=== PATIENT | female | born 1960 | race Caucasian/White ===

== ENCOUNTER → 2019-03-30 12:56 | Outpatient (CLI) | payer OTHER, SELFPAY ==
[2016-03-18 14:30] VITALS: BMI 39.3
[2019-03-28 14:33] VITALS: BMI 43.5
--- NOTE | 2019-03-30 12:58 | ECHOCS_ITS ---
Reason For Study: CHEST PAIN Procedure This was a 2D Doppler, Color Flow transthoracic echocardiogram. Contrast injection was performed. Exam performed in department. Left Ventricle Moderately dilated left ventricle. Apical false tendon noted. The estimated ejection fraction is 35 %. Stage 1 diastolic dysfunction. There are regional wall motion abnormalities as specified. Right Ventricle Normal size and thickness. Normal systolic function. Atria The left atrium is mildly enlarged. Normal right atrium. Normal atrial septum. Mitral Valve The mitral valve is structurally normal. No prolapse or stenosis seen. Tricuspid Valve Normal tricuspid valve. Unable to estimate RV systolic pressure due to insufficient tricuspid regurgitant envelope. Aortic Valve Normal aortic valve. Trisinus/trileaflet aortic valve. Pulmonic Valve Normal pulmonic valve. Great Vessels Normal aortic root. Normal arch. Normal inferior vena cava. Inferior vena cava collapse with sniff. Pericardium/Pleural No pericardial effusion. Medication 22 gauge I.V. with prn adaptor inserted into right arm. Diluted definity 3.5ml given slow IV push to enhance endocardial definition. MMode/2D Measurements & Calculations LVIDd: 5.1 cm IVSd: 0.94 cm Ao root diam: 2.9 cm LVIDs: 3.5 cm LVPWd: 1.1 cm RVDd: 2.9 cm FS: 31.5 % LAV(MOD-bp): 72.3 ml LA A4 area: 21.0 cm2 LA dimension(2D): 4.2 cm LAV(MOD-bp) Indexed: 35.6 ml/m2 LAV(MOD-sp2): 67.5 ml LAV(MOD-sp4): 72.4 ml RA A4 area: 11.3 cm2 Time Measurements MV dec time: 0.22 sec Doppler Measurements & Calculations MV E max shaan: 97.5 cm/sec Lat Peak E' Shaan: 4.0 cm/sec Med Peak E' Shaan: 4.8 cm/sec MV A max shaan: 129.3 cm/sec E/E' lat: 24.4 E/E' med: 20.1 MV E/A: 0.75 Ao V2 max: 165.9 cm/sec LV V1 max: 93.7 cm/sec PA V2 max: 91.0 cm/sec Ao max P.0 mmHg LV V1 max P.5 mmHg Ao V2 mean: 122.5 cm/sec LV V1 mean P.8 mmHg Ao mean P.5 mmHg LV V1 mean: 64.6 cm/sec Ao V2 VTI: 37.7 cm LV V1 VTI: 19.7 cm Interpretation Summary Moderately dilated left ventricle. The estimated ejection fraction is 35 %. Stage 1 diastolic dysfunction. There are regional wall motion abnormalities as specified. The left atrium is mildly enlarged. Apical false tendon noted. Unable to estimate RV systolic pressure due to insufficient tricuspid regurgitant envelope. Compared to echo report dated 10/22/2016, LV function has remained the same as have regional wall motion normalities. The study was technically difficult. Contrast injection was performed. Ordering Physician: Star Song Referring Physician: Star Song Performed By: Ayehsa Chowdhury RDCS, RVT
[2019-03-30 15:56] LABS: AST(SGOT) 17 U/L (15-37); Alanine Aminotransfer ALT/SGPT 27 U/L (13-56); Albumin, Serum 3.6 g/dL (3.2-5.0); Alkaline Phosphatase 92 U/L (45-117); Bilirubin, Direct 0.12 mg/dL (0.00-0.30); Cholesterol 167 mg/dL (200); Globulin 3.6 g/dL (2.2-4.2); High Density Lipoprotein 67 mg/dL; Protein, Total 7.2 g/dL (6.4-8.2); Triglycerides 96 mg/dL; Very Low Density Lipoprotein 19 mg/dL (5-40)
== END ==
PROVIDERS: Family Provider Nurse Practitioner; PCP Nurse Practitioner; Referring Provider Internal Medicine Cardiovascular Disease; Visit Provider Internal Medicine Cardiovascular Disease
DX: R07.9 Chest pain, unspecified (principal); E78.00 Pure hypercholesterolemia, unspecified; I25.10 Atherosclerotic heart disease of native coronary artery without angina pectoris; I25.2 Old myocardial infarction; Z95.810 Presence of automatic (implantable) cardiac defibrillator; Z95.5 Presence of coronary angioplasty implant and graft
CPT/HCPCS: 36415; 80061; 80076; 93306; Q9957; A4216; C8929

== ENCOUNTER → 2019-04-01 11:53 | Outpatient (CLI) | payer OTHER, SELFPAY ==
[2016-03-18 14:30] VITALS: BMI 39.3
[2019-03-28 14:33] VITALS: BMI 43.5
--- NOTE | 2019-04-01 11:54 | STEWCON_ITS ---
Reason For Study: Chest Pain Stress Results Protocol: Abram Protocol WITH DEFINITY Maximum Predicted HR: 163 bpm Target HR: 139 bpm % Maximum Predicted HR: 85 % DurationHeart Rate Stage (mm:ss) (bpm) BP Comment Baseline 66 100/62No Chest Pain; 8 ML Diluted Definity Given Abram Protocol Stage I 3:00 104 110/60No Chest Pain; Mild Dyspnea Abram Protocol Stage II 2:37 139 124/72No Chest Pain; Moderate Dyspnea Recovery 94 130/60No Chest Pain; No Dyspnea Stress Duration: 5:37 mm:ss Maximum Stress HR: 139 bpm METS: 7 Baseline Echocardiogram Findings The estimated ejection fraction is 25 %. Stress Echo Wall motion Data Resting WM Intermediate WM Stress WM Resting Wall Motion Wall Motion Stress Mid-Anterior : Akinetic. No regional wall motion Mid-Lateral : Akinetic. abnormalities noted. Anterior [place] : Dyskinetic. Inferior [place] : Hypokinetic. EKG Data The baseline ECG displays normal sinus rhythm. The patient exercised according to the regular Abram protocol for a total duration of 5:37. The maximum heart rate attained was 139 beats per minute. This was 85% of maximum predicted heart rate. The patient exercised into stage 2 of the Abram protocol. During stress, there were no ST or T wave changes noted to suggest ischemia. No clinical angina was noted. Interpretation Summary The estimated ejection fraction is 25 %. Normal, adequate, treadmill echocardiogram. Negative for ischemia by EKG and echocardiographic criteria. Patient at baseline severe anterior apical akinesis, with overall EF around 25%. All castañeda appear to contract normally at peak exercise. Below average exercise capacity for age. Decreased sensitivity due to poor baseline LV function and need for Definity agent. Final LVEF about 30%. Test terminated due to dyspnea. Patient tolerated procedure well. No complications. Recommend clinical correlation or alternative mode testing of coronary occlusive disease is strongly suspected. The study was technically difficult. Contrast injection was performed. Ordering Physician: Song, Star Referring Physician: Tejal Maciel N.P. Performed By: Emerson Sanchez RCS
== END ==
PROVIDERS: Family Provider Nurse Practitioner; PCP Nurse Practitioner; Referring Provider Internal Medicine Cardiovascular Disease; Visit Provider Internal Medicine Cardiovascular Disease
DX: I25.10 Atherosclerotic heart disease of native coronary artery without angina pectoris (principal); I25.5 Ischemic cardiomyopathy; R07.9 Chest pain, unspecified; Z95.5 Presence of coronary angioplasty implant and graft
CPT/HCPCS: 93017; 93350; Q9957; A4216; C8928

== ENCOUNTER → 2019-04-05 09:53 | Outpatient (CLI) | payer OTHER, SELFPAY ==
[2019-04-05 09:48] VITALS: BMI 39.3
[2019-04-05 09:51] VITALS: BMI 43.5
--- NOTE | 2019-04-05 10:11 | RAD_ITS ---
STUDY: X-RAY CHEST REASON FOR EXAM: Female, 58 years old. Hypertension. GETTING HEART CATH ON THURSDAY. TECHNIQUE: Frontal and lateral views of the chest. COMPARISON: 03/17/2016. FINDINGS: The lungs are clear and expanded. There is no demonstrated pleural abnormality. Normal size heart. Defibrillator lead is seen in the chest wall over the left heart. Normal mediastinum and jessica. Normal visualized pulmonary arteries. Normal visualized aortic arch and descending thoracic aorta. Normal visualized thoracic spine. Normal visualized ribs, clavicles, and shoulders. There is no demonstrated abnormality of the visualized soft tissue structures of the upper abdomen. RAD/Chest PA and Lateral IMPRESSION: No acute chest disease. Electronically Signed: Florentino Malagon MD at 22:00 EST , Service support ,
[2019-04-05 10:51] LABS: Hematocrit 39.5 % (37-47); Hemoglobin 12.7 g/dL (12.0-15.0); Mean Corp Hgb Conc 32.2 g/dL (32-36); Mean Corpuscular Hgb 28.8 pg (27.0-32.0); Mean Corpuscular Volume 89.6 fL (81-99); Mean Platelet Vol. 10.4 fl (6.2-12.0); Platelet Count 245 K/mm3 (150-450); RBC Distribution Width CV 14.3 % (11.6-14.6); RBC Distribution Width SD 46.9 fl (35.1-43.9); Red Blood Count 4.41 M/mm3 (4.2-5.4); White Blood Count 9.6 K/mm3 (4.4-11.0)
[2019-04-05 10:52] LABS: International Normalized Ratio 1.2; Partial Thromboplast Time 25.5 Seconds (24.1-36.2); Prothrombin Time (Protime)PT. 14.5 SECONDS (11.7-14.9)
[2019-04-05 11:05] LABS: Anion Gap 4 (5-15); BUN 12 mg/dL (7-18); BUN/Creat Ratio 14.7 RATIO (10-20); Chloride 109 mmol/L (98-107); Creatinine, Serum 0.82 mg/dL (0.55-1.02); EST Glomerular Filtration Rate 76 mL/min (>60); Est Glom Filt Rate - Afr Amer 92 mL/min (>60); Glucose 101 mg/dL (74-106); Potassium 4.6 mmol/L (3.5-5.1); Sodium Level 139 mmol/L (136-145)
== END ==
PROVIDERS: Family Provider Nurse Practitioner; PCP Nurse Practitioner; Referring Provider Internal Medicine Cardiovascular Disease; Visit Provider Internal Medicine Cardiovascular Disease
DX: R07.9 Chest pain, unspecified (principal); I25.10 Atherosclerotic heart disease of native coronary artery without angina pectoris; Z95.810 Presence of automatic (implantable) cardiac defibrillator
CPT/HCPCS: 36415; 71046; 80048; 85027; 85610; 85730

== ENCOUNTER 2019-04-08 07:04 | Day surgery (SDC) | payer OTHER, SELFPAY ==
[2016-03-18 14:30] VITALS: BMI 39.3
[2019-03-28 14:33] VITALS: BMI 43.5
[2019-04-05 09:51] VITALS: BMI 43.5
[2019-04-07 07:40] VITALS: BMI 43.5
[2019-04-08 06:56] VITALS: BMI 43.5
--- NOTE | 2019-04-08 08:49 | PCM.HP.BLA ---
Problem List (1) Chest pain Status: Acute (2) Old myocardial infarction Status: Acute (3) Atherosclerotic heart disease of [place] coronary artery without angina pectoris Status: Chronic Qualifiers: Comment: PCI-DAYTON-LAD 2.5 mm x 38 mm 03/18/16 (4) HTN (hypertension), benign Status: Chronic (5) Hyperlipidemia Status: Chronic Qualifiers: (6) Implantable cardioverter-defibrillator (ICD) in situ Status: Chronic (7) Ischemic cardiomyopathy Status: Chronic History and Physical Date of Admission: 04/08/19 [facility] [address] [place] [address] OFFICE VISIT Date of Service: 03/28/19 MR#: [id number] Acct: [id number] Name: GONZÁLEZ RAGSDALE Rep #: [id number] : 1960 Provider: Star Song MD Age/Sex: 58/F Location: [facility] Status: Signed HPI HPI History of Present Illness Details: Details: Ms. Ragsdale is a very pleasant 58-year-old female, morbidly obese, nondiabetic, who presented to [facility] on 03/18[facility]16 with more than 48 hour history of substernal chest pain and left arm pain. An EKG at that time demonstrated normal sinus rhythm with extensive Q waves with intraventricular conduction delay across the anterior wall concomitant with ST elevation indicating a delayed presentation of anterior wall myocardial infarction. [facility] was [facility] to [facility] by Dr. Veliz on 03/18/16 which demonstrated an occluded LAD. Patient underwent emergent angioplasty and stenting receiving a 2.5X 38 Promus Synergy stent, postdilated in the middle part with a 2.75 mm balloon, and in the proximal part with a 3.0 noncompliant balloon. She was also found to have nonobstructive disease of her RCA in the range of 30-40% proximally and 40-50% in the midportion. Her EF at that time was 35%. Patient was medically managed and placed on a LifeVest which had no discharges. A nuclear stress test dated 05/02/2016 showed extensive anterior wall infarction with an overall EF around 50%. Her repeat echocardiogram dated 10/22/16 showed an EF of 35% with no improvement since February 2016. The patient was referred to [facility] with Dr. Sanchez where she underwent a subcutaneous AICD for primary prophylaxis of sudden cardiac . Patient now returns for routine follow-up. She states that she has had occasional sharp atypical midsternal chest pain, over the last 2 weeks or so dissimilar from her previous angina which was in her left shoulder. Of more importance, the patient complains of progressively worsening fatigue, shortness of breath and is unable to go as far she did 6 months ago. She is compliant with her medications. She has had no AICD discharges. In our office today her blood pressure is 109/72, pulse is 70 and regular. Her physical exam shows well-healed scars over her left chest area over the subcutaneous device, no infection, tenderness, redness or hematoma. Her lipids as of 05/02/16 show an HDL of 60 and an LDL of 63. Her lipids had been managed by Yasmin Cordoba. EKG dated 03/28/2019 shows normal sinus rhythm/sinus bradycardia, first-degree AV block, old patricio-lateral wall myocardial infarction, no acute changes. 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 [Ecotrin] 81 mg PO DAILY@0800 #30 tab 03/20/16 [Rx Confirmed 03/21/19] atorvastatin 40 mg tablet 40 mg PO QHS #90 tab 02/09/18 [Rx Confirmed 03/21/19] carvedilol 3.125 mg tablet 3.125 mg PO BID #180 tab 02/09/18 [Rx Confirmed 03/21/19] furosemide 20 mg tablet 20 mg PO QDAY PRN tab 02/09/18 [History Confirmed 03/21/19] potassium chloride 10 mEq tablet,extended release 10 meq PO QDAY PRN tab 02/09/18 [History Confirmed 03/21/19] lisinopril 5 mg tablet 5 mg PO QDAY #90 tab 05/06/18 [Rx Confirmed 03/21/19] clopidogrel 75 mg tablet 75 mg PO .COMPLEX #90 tab 09/27/18 [Rx Confirmed 03/21/19] PFSH Medical History Hyperlipidemia (Chronic) Old myocardial infarction (Acute) Atherosclerotic heart disease of [place] coronary artery without angina pectoris (Chronic) Ischemic cardiomyopathy (Chronic) HTN (hypertension), benign (Chronic) NSTEMI (non-ST elevated myocardial infarction) (Chronic) Depression (Chronic) Nicotine dependence (Resolved) Surgical History Stented coronary artery (Chronic) Implantable cardioverter-defibrillator (ICD) in situ (Chronic 04/30/17) S/P coronary artery stent placement (Chronic ~03/18/16) History of section (Resolved) Hx of appendectomy (Resolved) Family History Mother CAD (coronary artery disease) Hx of CABG, Onset Age: 50 Diabetes Father Cancer lung Social History (Updated 03/28/19 @ 14:53 by Star Song MD) Smoking Status: Former smoker quit date: 02/21/16 alcohol intake: current details: occasional glass of wine substance use type: does not use caffeine: Yes Type: coffee Number of servings: 2 ROS Const Const: Negative for fatigue, weakness, headache(s), frequent falls, night sweats, daytime sleepiness or excessive sweating Eyes Eyes: Negative for blind spots, loss of peripheral vision, transient loss of vision, blurry vision or double vision ENT ENT: Negative for headache(s), dizziness, Nosebleed/epistaxis, balance problems, lip swelling or tongue swelling Cardio Chest Pain: No Palpitations: No Edema: None Muscle aches with walking: None Resp Respiratory: Negative for SOB with activity, SOB at rest, SOB orthopnea\SOB lying down, Cough or paroxysmal nocturnal dyspnea GI GI: Negative nausea, vomiting, heartburn, bright, red blood in stools or black,tarry stools : Negative for hematuria Musc Musc: Negative for muscle aches/ myalgia, muscle weakness, joint pain or balance problems Skin Skin: Negative non-healing lesions, rash or unusual bruising Neuro Neuro: Negative for dizziness, lightheadedness, orthostatic symptoms, frequent falls, headache(s), weakness, blurry vision, double vision or lack of coordination Alhaji Hematologic/Lymphatic: Negative for easy bleeding or easy bruising Endo Endo: Negative for fatigue, cold intolerance, heat intolerance, excessive sweating, increased thirst/drinking or hair loss Psych Psych: Negative for anxiety or depression Allergy Allergy/Immunology: Negative for throat swelling, Negative for tongue swelling, Negative for hives, Negative for rash, Negative for lip swelling Cardiology Exam Const Appearance: cooperative, healthy appearing and no acute distress Nutritional Appearance: well nourished Orientation: alert, oriented x3 and oriented to person Head Head: normal to inspection, normocephalic and atraumatic Nose: external nose normal Face and Sinus: face symmetric Mouth: oral mucosae normal Eyes General: appearance normal, both eyes and all related structures Eyelids: eyelids normal Conjunctivae: conjunctivae normal Pupils: PERRL and normal by confrontation EOM: EOM intact bilaterally Neck Neck: normal visual inspection and full ROM Carotids: normal carotid upstroke Chest Chest inspection: normal inspection of the chest Auscultation: Bilateral: Clear to Auscultation Cardio Palpation: normal PMI Rate: regular rate Rhythm: regular rhythm Heart sounds: S1 normal and S2 normal GI GI: normal to inspection, no hepatosplenomegaly and bowel sounds present Neuro General: alert, awake, oriented x3, CN's II-XI intact bilaterally and moves all extremities Skin Skin: no rashes or lesions noted Extremities Pulses: Normal: Right Femoral Pulse, Left Femoral Pulse, Right Dorsalis Pedis Pulse, Left Dorsalis Pedis Pulse, Right Posterior Tibial Pulse, Left Posterior Tibial Pulse, Right Radial Pulse, Left Radial Pulse Lower Extremity Edema: None: Bilateral Psych Psychological: normal affect Assessment & Plan 1. Atherosclerosis of [place] coronary artery of [place] heart without angina pectoris I25.10 PCI-DAYTON-LAD 2.5 mm x 38 mm 03/18/16 Plan 1. Coronary artery disease: The patient now complains of nonexertional midsternal chest pain which is described as sharp, but more importantly complains of dyspnea on exertion, decreased exercise capacity, increasing fatigue with less and less exertion. This may be an anginal equivalent given the patient's history of other nonobstructive coronary disease in her RCA. I recommended the patient undergo a repeat 2D echo with Doppler to document whether her LV function has in any way improved and more importantly a treadmill echocardiogram to determine if she has any evidence of inferior lateral ischemia. If this is grossly abnormal, I would recommend a repeat catheterization to assess progression of disease in her right coronary artery as well as the patency of her LAD stents. In the meantime she will continue baby aspirin, Plavix, Coreg, Lasix and lisinopril and potassium supplementation. Orders Orders: Echo Complete Today Stress Test Echo w/o Contrast Today 2. Pure hypercholesterolemia E78.00 Plan 2. Hyperlipidemia: The patient is agreed to transfer her lipid care to our office, and recommend repeating lipid profile. Continue Lipitor. 3. Return office in 6 months. This note was generated using a voice recognition system and there may be incorrect words, spelling or punctuation that were not noted when reviewing the office note prior to saving. Orders Orders: Lipid Profile 1 Week Liver Profile 1 Week Plan Detail Other Orders Orders: 12 Lead EKG performed by [facility] Today R07.9 Echo Complete Today I25.2, R07.9, Z95.5, Z95.810 Stress Test Echo w/o Contrast Today I25.5, R07.9, Z95.5 Follow Up +6M (Song) Coding Level of Care Code Off vis,est,level 3 Diagnoses Atherosclerosis of [place] coronary artery of [place] heart without angina pectoris I25.10 ??[place] vs. transplanted heart: [place] heart Pure hypercholesterolemia E78.00 ??Hyperlipidemia type: pure hypercholesterolemia Coding Level of Care Code Off vis,est,level 3 Diagnoses Atherosclerosis of [place] coronary artery of [place] heart without angina pectoris I25.10 ??[place] vs. transplanted heart: [place] heart Pure hypercholesterolemia E78.00 ??Hyperlipidemia type: pure hypercholesterolemia Supplemental Info Supplemental Information Labs LDL Cholesterol 63 mg/dL (0-130) 05/02/16 HDL Cholesterol 60 mg/dL (40-) 05/02/16 Triglycerides 137 mg/dL (-199) 05/02/16 VLDL Cholesterol 27 mg/dL (5-40) 05/02/16 Diagnostics Electrocardiogram 03/20/16 Stress Test Nuclear Medicine 05/02/16 Pacemaker Check 12/23/18 Chest X-Ray 03/17/16 03/28/19 1453 <Electronically signed by Star Song MD> Date Star Song MD Cosigner Signature: Date (if applicable) CC: ROBERT Maciel ~ Interventional cardiology addendum: The patient seen and examined on the day of her procedure, and the risk/benefits of the procedure were thoroughly explained the patient including specific attention to lack of onsite surgical backup, and the patient is agreed to proceed. Left heart catheterization results to follow.
--- NOTE | 2019-04-08 09:14 | CL.D_ITS ---
Patient Name: GONZÁLEZ RAGSDALE Study Date: 04/08/2019 Performing: Star Song MD Ht: 61.81 inches 157 cm : 1960 Wt: 238.1 lbs 108 kg Age: 58 Gender: female BSA: 2.05 PROCEDURE(S) PERFORMED [id number]-BZC/COR/LV CLINICAL PROFILE AND INDICATIONS Indications: New Onset Angina <= 2 months, Stable Known CAD, LV Dysfunction Heart Failure: NYHA Class: 1, Newly Diagnosed: No, Heart Failure Type: Systolic Stress/Imaging Date: 04/01/2019 Angina Classification Anginal Classification w/in 2 Weeks: CCS IV Comorbidities/Risk Factors: Hypertension Dyslipidemia Prior LA Prior PCI CONCLUSIONS Segmented LV systolic dysfunction- Severe LVEF: by LV gram 35-40 % Non obstructive coronary arteries RECOMMENDATIONS Management as per referring Reed Cleaner Increase lisinopril to 10mg po bid. Reduce plavix to QOD. Manual sheath removal. DESCRIPTION OF PROCEDURE The patient arrived to the procedure lab. The risks and benefits of the procedure as well as a full d escription of our services here and current unavailability of surgical backup were fully explained to the patient and/or their significant other prior to the catheterization. The Timeout was completed, verifying the correct patient and procedure. The patient's procedural site was prepped and draped in the usual fashion. Local anesthetic was given subcutaneously to right groin region with Lidocaine 2%. Using a modified Seldinger technique, arterial access was obtained via the right femoral artery, a 4 Fr sheath was inserted Left Coronary Artery selective angiography was performed in multiple views us ing a 4 Fr. JL5 catheter. Right Coronary Artery selective angiography was then performed in multiple views using a 4 Fr. 3DRC catheter. Left Ventriculography was performed in SERVIN projection using a 4 Fr . Pigtail catheter. LV to AO pullback pressures were then recorded.The arterial sheath was pulled and manual compression applied until hemostasis is achieved. CORONARY ANGIOGRAPHY DOMINANCE: Right Dominant LEFT HEART ASSESSMENT Left Ventricular Ejection Fraction: by LV Gram 35-40 % Anterior Akinesis. Apical Akinesis. Inferior Apical Akinesis LVEDP: 20 mmHg Elevated Left Ventricular End Diastolic Pressure Depressed Left Ventricular systolic function LEFT MAIN: Angiographically normal LEFT ANTERIOR DESCENDING ARTERY: PROX LAD: Previously placed stent has an instent 10 % restenosis CIRCUMFLEX ARTERY: Angiographically normal RIGHT CORONARY ARTERY: MID RCA: Mild luminal irregularities less than 30% RT PDA: Proximal - Angiographically normal COMPLICATIONS No Complications PROCEDURE MEDICATIONS Oxygen: 2 L/min via nasal cannula SUMMARY OF HEMODYNAMIC DATA Time AIR REST ECG 07:49:21 AO 127/68 (93) SA 08:56:11 LV 129/-2, 26 09:01:32 LV 138/-5, 24 09:01:38 LVp 133/-11, 20 09:01:42 AOp 124/57 (85) 09:01:47 Signed By Star Song MD On 04/08/2019 9:13:47 AM Star Song MD
== END 2019-04-08 13:45 | disposition home or self-care (01) ==
PROVIDERS: PCP Nurse Practitioner; Referring Provider Internal Medicine Cardiovascular Disease; Visit Provider Internal Medicine Cardiovascular Disease
DX: I25.10 Atherosclerotic heart disease of native coronary artery without angina pectoris (principal); E78.00 Pure hypercholesterolemia, unspecified; E78.5 Hyperlipidemia, unspecified; Z87.891 Personal history of nicotine dependence; Z95.5 Presence of coronary angioplasty implant and graft; I25.2 Old myocardial infarction; F32.9 Major depressive disorder, single episode, unspecified; I25.5 Ischemic cardiomyopathy; Z95.810 Presence of automatic (implantable) cardiac defibrillator; E66.01 Morbid (severe) obesity due to excess calories; Z68.41 Body mass index [BMI] 40.0-44.9, adult; Z79.02 Long term (current) use of antithrombotics/antiplatelets; Z79.82 Long term (current) use of aspirin; I10 Essential (primary) hypertension
CPT/HCPCS: 93458; J7040; Q9967; C1769; C1894

== ENCOUNTER 2020-05-25 18:47 | Emergency (ER) | payer OTHER, SELFPAY ==
[2019-04-05 09:48] VITALS: BMI 39.3
[2020-05-25 18:47] VITALS: BP 153/81; PULSE 98; RESP 17; TEMP 36.3; O2SAT 97; BMI 45.8
--- NOTE | 2020-05-25 19:07 | ED.DCSUM_ITS ---
- ER Visit Summary Date of Service: 05/25/20 Chief Complaint: Left shoulder pain History of Present Illness: The patient is a 60 F presenting after fall. Patient states she was carrying a basket of clothes in her basement and slipped and fell. She landed on her left shoulder. She did not hit her head or lose consciousness. She complains of left shoulder pain. Denies other injuries. She was able to ambulate after the fall. Physical Examination: Vitals are stable. Patient is afebrile. Alert no acute distress. HEENT exam is unremarkable. Neck is nontender Lungs are clear and equal bilaterally. Heart is regular rate and rhythm. Abdomen is soft nontender nondistended. Extremities diffuse left shoulder tenderness with painful range of motion, mild left elbow tenderness. Left wrist is nontender. Normal pulses. Skin is warm and dry. No focal neurologic deficit. Remainder of exam is unremarkable. Emergency Department Course and Treatment: Patient was given OxyIR. Left shoulder x-ray read by myself and radiology shows comminuted nondisplaced proximal humeral fractures. Left elbow xray is extremely limited by positioning. On reexamination, she is able to range her left elbow without difficulty. She will follow-up with orthopedics. She is given prescription for Percocet. She was given a sling. Advised to return to the ED for worsening complaints. Disposition: Discharge home Impression: Left proximal humerus fracture This note was generated with Omegawave dictation software. It may contain incorrect words, spelling, and punctuation that were not noted in review of the chart prior to signing ED Disposition - Plan for ED Patient: Instructions: ED Fracture, Shoulder Prescriptions: Oxycodone HCl/Acetaminophen [Percocet 5/325] 1 tab PO Q6H PRN PRN 3 Days #12 tab PRN Reason: Pain Prescription Printed Referrals: Amilcar Munoz MD [STAFF PHYSICIAN] - Tejal Maciel NP, AIR POLLUTION ANALYST-C [Primary Care Provider] -
[2020-05-25] MEDS: oxyCODONE 5 MG Tablet PO (19:09)
--- NOTE | 2020-05-25 19:20 | RAD_ITS ---
STUDY: X-RAY - LEFT SHOULDER REASON FOR EXAM: Female, 60 years old. injury TECHNIQUE: 3 view(s) of the shoulder. COMPARISON: None. FINDINGS: Comminuted fractures are seen of the humeral head and through the anatomic neck of the humerus. No gross displacement of fragments. No dislocation. Normal glenohumeral articulation. There is degenerative arthrosis of the acromioclavicular joint without inferior osseous spur formation. Normal acromion. The soft tissue structures are unremarkable. Normal visualized pulmonary apex. RAD/Shoulder min 2 Views IMPRESSION: Comminuted nondisplaced proximal humeral fractures. Electronically Signed: Florentino Malagon MD at 19:30 EST , Service support ,
--- NOTE | 2020-05-25 19:39 | RAD_ITS ---
STUDY: X-RAY - LEFT ELBOW REASON FOR EXAM: Female, 60 years old. injury TECHNIQUE: 4 view(s) of the elbow. COMPARISON: None. FINDINGS: Extremely limited exam because of positioning and exposure. Fracture cannot be excluded. Dislocations cannot be excluded. RAD/Elbow min 3 Views IMPRESSION: Extremely limited by positioning. Cannot exclude fractures or dislocation. Electronically Signed: Florentino Malagon MD at 20:16 EST , Service support ,
--- NOTE | 2020-05-25 19:43 | DCINST.ED_ITS ---
ED Disposition - Plan for ED Patient: Instructions: ED Fracture, Shoulder Prescriptions: Oxycodone HCl/Acetaminophen [Percocet 5/325] 1 tab PO Q6H PRN PRN 3 Days #12 tab PRN Reason: Pain Prescription Printed Referrals: Tejal Maciel ENVIRONMENTAL EDUCATOR, ENVIRONMENTAL EDUCATOR-C [Primary Care Provider] - Amilcar Munoz MD [STAFF PHYSICIAN] -
[2020-05-25 20:54] VITALS: BP 114/77; PULSE 94; RESP 15; O2SAT 95
== END 2020-05-25 21:14 | disposition home or self-care (01) ==
LOC: ED 19:46
PROVIDERS: Emergency Provider Emergency Medicine; PCP Nurse Practitioner
DX: S42.202A Unspecified fracture of upper end of left humerus, initial encounter for closed fracture (principal); W01.0XXA Fall on same level from slipping, tripping and stumbling without subsequent striking against object, initial encounter
CPT/HCPCS: 73030; 73080; 99283

== ENCOUNTER → 2024-09-01 | Outpatient (CLI) | payer OTHER, SELFPAY ==
[2019-04-05 09:48] VITALS: BMI 39.3
--- OUTSIDE RECORDS SUMMARY | 2024-09-01 06:48 | XMS RPT_ITS | CCD ---
Author Organization [facility] Care Team Providers Care Pipe Turner Name Role Phone Adam Barreto Unavailable Unavailable SHELDON Velasco, Rachel Whaley Unavailable Unavailable SCHWEIKERT, JOSEPH A Unavailable Unavailable STAR NG Unavailable Unavailable SCHWEIKERT, JOSEPH A Unavailable Unavailable SCHWEIKERT, JOSEPH A Unavailable Unavailable IMCA Unavailable Unavailable SCHWEIKERT, JOSEPH A Unavailable Unavailable IMCA Unavailable Unavailable IMCA Unavailable Unavailable IMCA Unavailable Unavailable SCHWEIKERT, JOSEPH A Unavailable Unavailable SCHWEIKERT, JOSEPH A Unavailable Unavailable SCHWEIKERT, JOSEPH A Unavailable Unavailable STAR NG Unavailable Unavailable Tejal Maciel Unavailable Linus Hummel Unavailable Giuseppe Martinez Unavailable Swapna Don Unavailable Lacey Covarrubias Unavailable Unavailable Iris Garcia Unavailable Unavailable Slarb, Shweta Unavailable Unavailable Unavailable Unavailable Tejal Maciel Unavailable Linus Hummel Unavailable Giuseppe Martinez Unavailable Swapna Don Unavailable Lacey Covarrubias Unavailable Unavailable Slarb, Shweta Unavailable Unavailable Unavailable Unavailable Giuseppe Mendosa Unavailable Marielel Shook Unavailable Unavailable Tony Aguilar Unavailable Unavailable Tony Ron Unavailable Unavailable CiesTejal sunshine CNP Unavailable Dr. Giuseppe Mendosa MD Unavailable Linus Hummel Unavailable Dr. Giuseppe Martinez Unavailable Swapna Don Unavailable Asaf AUTO BODY REPAIRER FIBERGLASS, Tony Unavailable Unavailable Caren AUTO BODY REPAIRER FIBERGLASS, Shweta Unavailable Unavailable Boone AUTO BODY REPAIRER FIBERGLASS, Marielle Unavailable Unavailable Lacey Covarrubias Unavailable Unavailable Unavailable Unavailable Tejal Maciel Unavailable Tejal Maciel Unavailable Osmany VP MARKETING, Nedra Unavailable Osmany VP MARKETING, Nedra Unavailable Tejal Maciel Unavailable Osmany VP MARKETING, Nedra Attending Unavailable Osmany VP MARKETING, Nedra Consulting Unavailable Nedra Ceron CNP Referring Unavailable Jose Alfredo ARREDONDO, Dr. Parra Attending Provider Care Physician, No Primary Primary Care Provider Unavailable Care Physician, No Primary Referring Provider Un available Care Physician, No Primary Primary Care Unava ilable Care Physician, No Primary Referring Unava ilable Fidel Veliz Attending Unavailable Fidel Veliz Referring Unavailable Nedra Ceron Primary Care Unavailable Fidel Veliz Attending Unavailable Allergies Allergy Classification Reported Allergen(s) Allergy Type Date of Onset Reaction(s) Facility diphtheria toxoid vaccine, inactivated / tetanus toxoid vaccine, inactivated (1 source) diphtheria toxoid vaccine, inactivated / tetanus toxoid vaccine, inactivated; Translations: [Tetanus-Diphth eria Toxoids Td *TOXOIDS*] Drug Allergy [facility]; [facility] Work Phone: Comment on above: TDAP (2 sources) tetanus toxoid vaccine, inactivated Drug Allergy 7 nausea/ [facility] Work Phone: (2 sources) Tetanus vaccine; Translations: [TETANUS TOXOID] Propensity to adverse reactions (disorder) 7 [facility] Repository (20 sources) diphtheria toxoid vaccine, inactivated / tetanus toxoid vaccine, inactivated; Translations: [Tetanus-Diphth eria Toxoids Td *TOXOIDS*] Drug Allergy [facility] Work Phone: Comment on above: TDAP (1 source) allergy to substance [facility] Work Phone: (1 source) allergy to substance [facility] Work Phone: (20 sources) ?tetanus allergy to substance [facility] Work Phone: (1 source) tetanus and diphtheria toxoids Drug allergy (disorder) 5 [facility] Repository NEGATED: Highlighted row has been ruled out! (1 source) drug allergy 8 [facility] Work Phone: Medications Current Medications Medication Drug Class(es) Dates Sig (Normalized) Sig (Original) carvedilol 3.125 mg oral tablet (20 sources) alpha-Adrenergic Roel, beta-Adrenergic Roel Start: 05-08-2017 End: 01-11-2024 take 1 tablet by mouth twice daily Carvedilol 3.125 mg tablet Active 3.125 mg PO TWICE A DAY 180 January 11, 2024 10:14am Start: 04-15-2016 take 1 tablet by dread th twice daily CARVEDILOL 3.125 MG TABS One tablet by mouth twice daily CARVEDILOL [id number] Lilli Funez PA-C Start: 04-15-2016 take 1 tablet by dread th twice daily CARVEDILOL 6.25 MG TABS One tablet by mouth twice daily CARVEDILOL [id number] Mackenzie Nicholas RN Start: 03-20-2016 End: 05-08-2017 Carvedilol 3.125 MG tablet Discontinued 3.125 mg PO TWICE A DAY 60 March 20, 2016 1:00am May 08, 2017 5:43pm Hold if systolic blood pressure is less than 90 or heart rate less than 60 clopidogrel 75 mg oral tablet (20 sources) [id number] Platelet Inhibitor Start: 04-08-2019 End: 07-18-2024 take 1 tablet by mouth every other day Clopidogrel 75 mg tablet Active 75 mg PO .COMPLEX July 18, 2024 8:20am 75 mg orally every other day due to bruising; Start: 04-04-2019 End: 04-08-2019 take 1 tablet by mouth once daily Clopidogrel 75 mg tablet Discontinued 75 mg PO DAILY April 05, 2019 10:44am April 08, 2019 10:24am Start: 07-23-2017 End: 04-04-2019 take 1 tablet by mouth every other day Clopidogrel 75 mg tablet Discontinued 75 mg PO .COMPLEX 90 September 27, 2018 4:35pm April 04, 2019 4:06pm 75 mg PO every other day; Start: 03-20-2016 End: 07-23-2017 take 1 tablet by mouth once daily Clopidogrel 75 MG tablet Discontinued 75 mg PO DAILY May 08, 2017 5:42pm July 23, 2017 4:41pm Comment on above: Duncan furosemide 20 mg oral tablet (20 sources) Loop Diuretic Start: 8 End: 8 Furosemide 20 mg tablet Active 20 mg PO NEEDED as needed for Swelling February 09, 2018 4:33pm lisinopril 5 mg oral tablet (20 sources) Angiotensin Converting Enzyme Inhibitor Start: 0 End: 0 take 2 tablets by mouth twice daily Lisinopril 5 MG tablet Discontinued 10 mg PO TWICE A DAY April 08, 2019 2:30pm April 08, 2019 2:39pm Start: 05-06-2018 End: 12-30-2022 take 1 tablet by mouth once daily Lisinopril 5 mg tablet Active 5 mg PO DAILY December 30, 2022 10:23am Start: 02-09-2018 End: 02-09-2018 take 2.5 mg by mouth once daily Lisinopril 5 mg tablet Discontinued 2.5 mg PO daily February 09, 2018 4:34pm February 09, 2018 4:53pm Start: 01-27-2018 End: 05-06-2018 take 1 tablet by mouth once daily Lisinopril 2.5 mg tablet Discontinued 2.5 mg PO daily February 09, 2018 4:52pm May 06, 2018 4:04pm Start: 07-21-2017 End: 02-09-2018 take 1 tablet by mouth once daily Lisinopril 5 mg tablet Discontinued 5 mg PO daily September 17, 2017 1:14pm February 09, 2018 4:35pm Start: 04-15-2016 take 1 tablet by dread th once daily LISINOPRIL 5 MG TABS One tablet by mouth daily LISINOPRIL [id number] Star Ng MD Start: 03-20-2016 End: 07-21-2017 take 1 tablet by mouth once daily LISINOPRIL 2.5 MG TABS One tablet by mouth daily LISINOPRIL [id number] Star Ng MD potassium chloride 10 meq extended release oral tablet (3 sources) Start: 07-23-2017 End: 02-09-2018 Potassium Chloride 10 mEq tablet extended release Active 10 meq PO NEEDED as needed for Swelling February 09, 2018 4:34pm sertraline 100 mg oral tablet (20 sources) Serotonin Reuptake Inhibitor Start: 09-26-2022 take 2 tablets by mouth once daily Zoloft 100 mg oral tablet 2 Tablet qd for 0 days Quantity: 180 {Tablet} Refills: 3 Ordered: 26-Sep-2022 Nedra Ceron CNP Start : 26-Sep-2022 Active Start: 09-24-2022 take 2 tablets by mo uth once daily Zoloft 100 mg oral tablet 2 Tablet qd for 0 days Quantity: 30 {Tablet} Refills: 3 Ordered: 24-Sep-2022 Nedra Ceron CNP Start : 24-Sep-2022 Active Start: 09-08-2022 take 2 tablets by mo uth once daily Zoloft 100 mg oral tablet 2 Tablet qd for 0 days Quantity: 30 {Tablet} Refills: 3 Ordered: 08-Sep-2022 Nedra Ceron CNP Start : 08-Sep-2022 Active Start: 07-14-2022 take 2 tablets by mo uth once daily Zoloft 100 mg oral tablet 2 Tablet qd for 0 days Quantity: 30 {Tablet} Refills: 3 Ordered: 14-Jul-2022 Nedra Ceron CNP Start : 14-Jul-2022 Active Start: 05-22-2022 take 2 tablets by mo uth once daily Zoloft 100 mg oral tablet 2 Tablet qd for 0 days Quantity: 30 {Tablet} Refills: 3 Ordered: 22-May-2022 Nedra Ceron CNP Start : 22-May-2022 Active Start: 05-07-2022 take 2 tablets by mo uth once daily Zoloft 100 mg oral tablet 2 Tablet qd for 0 days Quantity: 30 {Tablet} Refills: 3 Ordered: 07-May-2022 Nedra Ceron CNP Start : 07-May-2022 Active Start: 04-21-2022 take 2 tablets by mo uth once daily Zoloft 100 mg oral tablet 2 Tablet qd for 0 days Quantity: 30 {Tablet} Refills: 3 Ordered: 21-Apr-2022 Nedra Ceron CNP Start : 21-Apr-2022 Active Start: 04-07-2022 take 2 tablets by mo uth once daily Zoloft 100 mg oral tablet 2 Tablet qd for 0 days Quantity: 30 {Tablet} Refills: 3 Ordered: 07-Apr-2022 Nedra Ceron CNP Start : 07-Apr-2022 Active Start: 03-10-2022 take 2 tablets by mo uth once daily Zoloft 100 mg oral tablet 2 Tablet qd for 0 days Quantity: 30 {Tablet} Refills: 3 Ordered: 10-Mar-2022 Nedra Ceron CNP Start : 10-Mar-2022 Active Start: 02-26-2022 take 2 tablets by mo uth once daily Zoloft 100 mg oral tablet 2 Tablet qd for 0 days Quantity: 30 {Tablet} Refills: 3 Ordered: 26-Feb-2022 eNdra Ceron CNP Start : 26-Feb-2022 Active Start: 02-10-2022 take 2 tablets by mo uth once daily Zoloft 100 MG Oral Tablet 2 Tablet qd for 0 days Quantity: 30 {Tablet} Refills: 3 Ordered: 10-Feb-2022 Nedra Ceron CNP Start : 10-Feb-2022 Active Start: 01-23-2022 take 2 tablets by mo uth once daily Zoloft 100 MG Oral Tablet 2 Tablet qd for 0 days Quantity: 30 {Tablet} Refills: 3 Ordered: 23-Jan-2022 Nedra Ceron CNP Start : 23-Jan-2022 Active Start: 12-18-2021 take 2 tablets by mo uth once daily Zoloft 100 MG Oral Tablet 2 Tablet qd for 0 days Quantity: 30 {Tablet} Refills: 3 Ordered: 01-Jan-2022 Shweta Fabian LPN Start : 01-Jan-2022 Active Start: 07-18-2021 take 2 tablets by mo uth once daily Zoloft 100 MG Oral Tablet 2 Tablet qd for 0 days Quantity: 90 {Tablet} Refills: 0 Ordered: 18-Jul-2021 Noemi Diaz DO Start : 18-Jul-2021 Active Comments: pt needs appointment before more refills Start: 01-15-2021 take 2 tablets by mo uth once daily Zoloft 100 MG Oral Tablet 2 Tablet qd for 0 days Quantity: 90 {Tablet} Refills: 3 Ordered: 15-Jan-2021 Tejal Maciel CNP E Raheem ULRICH, Tejal Jack Start : 15-Jan-2021 Active Start: 09-22-2020 take 2 tablets by mo uth once daily Zoloft 100 MG Oral Tablet 2 Tablet qd for 0 days Quantity: 90 {Tablet} Refills: 3 Ordered: 22-Sep-2020 Raheem ULRICH, Ning Raheem ULRICH, Tejal Jack Start : 22-Sep-2020 Active Start: 04-01-2020 take 2 tablets by mo uth once daily Zoloft 100 MG Oral Tablet 2 Tablet qd for 0 days Quantity: 90 {Tablet} Refills: 3 Ordered: 01-Apr-2020 Raheem ULRICH, Ning Raheem ULRICH, Tejal Jack Start : 01-Apr-2020 Active Start: 03-09-2019 take 2 tablets by mo uth once daily Zoloft 100 MG Oral Tablet 2 Tablet qd for 0 days Quantity: 90 {Tablet} Refills: 3 Ordered: 09-Mar-2019 Raheem ULRICH, Ning Raheem ULRICH, Tejal Jack Start : 09-Mar-2019 Active Start: 09-19-2018 take 2 tablets by mo uth once daily Zoloft 100 MG Oral Tablet 2 Tablet qd for 0 days Quantity: 90 {Tablet} Refills: 3 Ordered: 19-Sep-2018 Tejal Maciel CNP E Raheem ULRICH, Tejal Jack Start : 19-Sep-2018 Active Comments: Needs to make apt with primary care for additional renewals Start: 03-21-2018 take 2 tablets by mo uth once daily Zoloft 100 MG Oral Tablet 2 Tablet qd for 0 days Quantity: 90 {Tablet} Refills: 3 Ordered: 21-Mar-2018 Raheem ULRICH, Ning Tejal Maciel CNP Start : 21-Mar-2018 Active Comments: Needs to make apt with primary care for additional renewals Start: 09-09-2017 take 2 tablets by mo uth once daily Zoloft 100 MG Oral Tablet 2 Tablet qd for 0 days Quantity: 90 {Tablet} Refills: 3 Ordered: 09-Sep-2017 Raheem ULRICH, Ning Raheem ULRICH, Tejal Jack Start : 09-Sep-2017 Active Comments: Needs to make apt with primary care for additional renewals Start: 03-17-2016 take 2 tablets by mo uth once daily SERTRALINE HCL 100 MG TABS Two tablet by mouth daily SERTRALINE HCL [id number] Lilli Ramirez RN Comment on above: Needs to make apt [facility] primary care for additional renewals pt needs appointment before more refills Completed/Discontinued Medications Medication Drug Class(es) Dates Sig (Normalized) Sig (Original) acetaminophen 325 mg / oxyCODONE hydrochloride 5 mg oral tablet (1 source) Opioid Agonist Start: 05-25-2020 End: 05-28-2020 Oxycodone-Acetamin ophen 1 TABLET tablet Discontinued 1 {tbl} PO EVERY 6 HOURS NEEDED as needed for Pain 02 22May 25, 2020 May 27, 2020 1:00am May 28, 2020 1:03am amoxicillin 500 mg oral tablet (3 sources) Penicillin-class Antibacterial Start: 10-30-2016 End: 01-30-2017 take 1 tablet by mouth twice daily AMOXICILLIN 500 MG TABS One tablet by mouth twice daily AMOXICILLIN [id number] Star Ng MD amoxicillin 500 mg / clavulanate 125 mg oral tablet (20 sources) Penicillin-class Antibacterial Start: 03-06-2020 End: 03-20-2020 take 1 tablet by mouth twice daily Augmentin 500-125 MG Oral Tablet 1 (one) Tablet bid for 14 days Quantity: 28 {Tablet} Refills: 0 Ordered: 06-Mar-2020 Tejal Maciel Start : 06-Mar-2020 End : 20-Mar-2020 Inactive Start: 07-04-2019 End: 07-18-2019 take 1 tablet by mouth twice daily Augmentin 500-125 MG Oral Tablet 1 (one) Tablet bid for 14 days Quantity: 28 {Tablet} Refills: 0 Ordered: 04-Jul-2019 Tejal Maciel CNP, CNP, Mary E Start : 04-Jul-2019 End : 18-Jul-2019 Inactive aspirin 81 mg chewable tablet (20 sources) Nonsteroidal Anti-inflammatory Drug Start: 01-27-2018 End: 02-26-2018 take 1 tablet by mouth once daily Aspirin 81 81 MG Oral Tablet Chewable 1 (one) Tablet daily for 30 days Quantity: 30 {Tablet} Refills: 0 Ordered: 21-Mar-2018 Tejal Maciel Start : 27-Jan-2018 End : 26-Feb-2018 Inactive Start: 03-20-2016 take 1 tablet by dread once daily ASPIRIN EC 81 MG TBEC One tablet by mouth daily ASPIRIN [id number] Lilli Ramirez RN End: 05-05-2016 take 1 mg by mouth once daily Aspirin 325 MG Oral Tabl et qd (325 MG) End : 05-May-2016 Inactive take 1 mg by mouth once daily As pirin 81 MG Oral Capsule daily (81 MG) Active atorvastatin 40 mg oral tablet (20 sources) HMG-CoA Reductase Inhibitor Start: 03-20-2016 End: 08-17-2024 take 1 tablet by mouth at bedtime Atorvastatin 40 mg tablet Discontinued 40 mg PO AT BEDTIME 90 April 28, 2019 9:13am August 17, 2024 11:54am azithromycin 250 mg oral tablet (20 sources) Macrolide Antimicrobial Start: 02-28-2020 End: 12-31-2021 Zithromax Z-Robert 250 MG Oral Tablet 1 (one) Tablet TAD for 0 days Quantity: 1 {Package} Refills: 0 Ordered: 31-Dec-2021 Shweta Fabian LPN Start : 28-Feb-2020 End : 31-Dec-2021 Inactive Comments: or generic Comment on above: or generic cholecalciferol 1.25 mg oral capsule (20 sources) Vitamin D Start: 02-28-2020 End: 01-01-2022 take 1 capsule by mouth once daily Vitamin D3 1.25 MG (66213 UT) Oral Capsule 1 (one) Capsule daily for 0 days Quantity: 30 {Capsule} Refills: 0 Ordered: 01-Jan-2022 Shweta Fabian LPN Start : 28-Feb-2020 End : 01-Jan-2022 Inactive clindamycin 300 mg oral capsule (20 sources) Lincosamide Antibacterial Start: 07-22-2019 End: 07-27-2019 take 1 capsule by mouth four times daily Clindamycin HCl 300 MG Oral Capsule 1 (one) Capsule qid for 10 days Quantity: 40 {Capsule} Refills: 0 Ordered: 27-Jul-2019 Tony Ron LPN Start : 22-Jul-2019 End : 27-Jul-2019 Inactive desoximetasone 2.5 mg/ml topical cream (20 sources) Corticosteroid Start: 01-11-2015 End: 05-05-2016 Topicort 0.25 % External Cream apply sparingly Cream bid to affected area(s) prn for 0 days Quantity: 1 {Tube} Refills: 1 Ordered: 05-May-2016 Christianne Feldman CMA Start : 11-Jan-2015 End : 05-May-2016 Inactive Comments: dispense large tube if possible Comment on above: dispense large tube if possible docosahexaenoic acid 120 mg / eicosapentaenoic acid 180 mg oral capsule (20 sources) Start: 06-08-2009 End: 01-11-2015 take 1 capsule by mouth once daily FISH OIL, 1000MG (Oral Capsule) 1 (one) Capsule daily for 0 days Quantity: 30 {Capsule} Refills: 0 Ordered: 11-Jan-2015 OBDULIA Norton LPN Start : 08-Jun-2009 End : 11-Jan-2015 Inactive doxycycline hyclate 100 mg oral capsule (20 sources) Tetracycline-class Drug Start: 03-18-2011 End: 03-28-2011 take 1 capsule by mouth twice daily DOXYCYCLINE HYCLATE, 100MG (Oral Capsule) 1 Capsule bid for 10 days Quantity: 20 {Capsule} Refills: 0 Ordered: 18-Mar-2011 Benita Galaviz MD Start : 18-Mar-2011 End : 28-Mar-2011 Inactive ergocalciferol 1.25 mg oral capsule (20 sources) Provitamin D2 Compound Start: 01-18-2015 End: 01-01-2022 take 1 capsule by mouth two times weekly Ergocalciferol 1.25 MG (26714 UT) Oral Capsule 1 (one) Capsule Capsule twice weekly for 0 days Quantity: 8 {Capsule} Refills: 1 Ordered: 01-Jan-2022 Shweta Fabian LPN Start : 18-Jan-2015 End : 01-Jan-2022 Inactive FISH OIL, 1000MG (Oral Capsule) (10 sources) Start: 06-08-2009 End: 01-11-2015 take 1 capsule by mouth once daily FISH OIL, 1000MG (Oral Capsule) 1 (one) Capsule daily for 0 days Quantity: 30 {Capsule} Refills: 0 Ordered: 11-Jan-2015 OBDULIA Norton LPN Start : 08-Jun-2009 End : 11-Jan-2015 Inactive fluticasone propionate 0.05 mg/actuat metered dose nasal spray (20 sources) Corticosteroid Start: 03-19-2012 End: 08-03-2012 FLONASE, 50MCG/ACT (Nasal Suspension) 2 (two) Puff(s) daily for 0 days Quantity: 1 {Suspension} Refills: 0 Ordered: 03-Aug-2012 OBDULIA Norton LPN Start : 19-Mar-2012 End : 03-Aug-2012 Inactive hydrocortisone 10 mg/ml / neomycin 3.5 mg/ml / polymyxin b 51917 unt/ml otic solution (20 sources) Aminoglycoside Antibacterial, Polymyxin-class Antibacterial, Corticosteroid Start: 03-19-2012 End: 08-03-2012 CORTISPORIN, 3.5-32306-2 (Otic Solution) 2 (two) Drop(s) tid for 0 days Quantity: 1 {Solution} Refills: 0 Ordered: 03-Aug-2012 OBDULIA Norton LPN Start : 19-Mar-2012 End : 03-Aug-2012 Inactive ketorolac tromethamine 10 mg oral tablet (20 sources) Nonsteroidal Anti-inflammatory Drug, Cyclooxygenase Inhibitor Start: 07-22-2019 End: 07-29-2019 take 1 tablet by mouth every six hours as needed for pain Ketorolac Tromethamine 10 MG Oral Tablet 1 (one) Tablet q6hrs prn pain for 7 days Quantity: 30 {Tablet} Refills: 0 Ordered: 22-Jul-2019 Tony Ron LPN Start : 22-Jul-2019 End : 29-Jul-2019 Inactive Comments: dental pain dental abcess Comment on above: dental pain dental a bcess levoFLOXacin 500 mg oral tablet (20 sources) Quinolone Antimicrobial Start: 07-20-2019 End: 07-27-2019 take 1 tablet by mouth once daily Levaquin 500 MG Oral Tablet 1 (one) Tablet daily for 7 days Quantity: 7 {Tablet} Refills: 0 Ordered: 20-Jul-2019 Shweta Fabian LPN Start : 20-Jul-2019 End : 27-Jul-2019 Inactive meloxicam 15 mg oral tablet (20 sources) Nonsteroidal Anti-inflammatory Drug Start: 11-14-2011 End: 08-03-2012 take 1 tablet by mouth once daily at mealtime MELOXICAM, 15MG (Oral Tablet) 1 Tablet daily for 0 days Quantity: 30 {Tablet} Refills: 0 Ordered: 03-Aug-2012 OBDULIA Norton LPN Start : 14-Nov-2011 End : 03-Aug-2012 Inactive Comments: with food Comment on above: with food naproxen 500 mg oral tablet (20 sources) Nonsteroidal Anti-inflammatory Drug Start: 12-13-2012 End: 06-13-2013 take 1 tablet by mouth twice daily at mealtime NAPROSYN, 500MG (Oral Tablet) 1 Tablet bid for 0 days Quantity: 30 {Tablet} Refills: 1 Ordered: 13-Jun-2013 OBDULIA Norton LPN Start : 13-Dec-2012 End : 13-Jun-2013 Inactive Comments: with food Start: 06-08-2009 End: 07-08-2009 take 1 tablet by mouth once daily ALEVE, 220MG (Oral Tablet) 1 (one) Tablet daily for 30 days Refills: 0 Ordered: 21-Aug-2009 QingTejal stokes Start : 08-Jun-2009 End : 08-Jul-2009 Inactive Comment on above: with food nitroglycerin 0.4 mg sublingual tablet (3 sources) Nitrate Vasodilator Start: 04-15-2016 NITROGLYCERIN 0.4 MG SUBL 1 tablet under the tongue every 5 minutes times 3 as needed for chest pain. NITROGLYCERIN [id number] Lilli Ramirez RN Start: 03-20-2016 End: 02-09-2018 Nitroglycerin 0.4 MG tablet Discontinued 0.4 mg SL Q5M as needed for Cardiac/Chest Pain March 20, 2016 1:00am February 09, 2018 4:34pm omega-3 acid ethyl esters (nursing home) 1000 mg oral capsule (5 sources) Start: 06-08-2009 End: 01-11-2015 take 1 capsule by mouth once daily FISH OIL, 1000MG (Oral Capsule) 1 (one) Capsule daily for 0 days Quantity: 30 {Capsule} Refills: 0 Ordered: 11-Jan-2015 OBDULIA Norton LPN Start : 08-Jun-2009 End : 11-Jan-2015 Inactive simvastatin 80 mg oral tablet (20 sources) HMG-CoA Reductase Inhibitor Start: 06-12-2009 End: 09-12-2010 take 1 tablet by mouth once daily SIMVASTATIN, 80MG (Oral Tablet) 1 (one) Tablet QD for 0 days Quantity: 30 {Tablet} Refills: 6 Ordered: 12-Sep-2010 OBDULIA Norton LPN Start : 12-Jun-2009 End : 12-Sep-2010 Inactive Zinc (20 sources) Start: 02-28-2020 End: 01-01-2022 take 1 tablet by mouth twice daily Zinc 25 MG Oral Tablet 1 (one) Tablet bid for 0 days Quantity: 60 {Tablet} Refills: 0 Ordered: 01-Jan-2022 Shweta Fabian LPN Start : 28-Feb-2020 End : 01-Jan-2022 Discontinued Comments: This order discontinued per -[facility]. Start: 02-28-2020 take 1 tablet by dread th twice daily Zinc 25 MG Oral Tablet 1 (one) Tablet bid for 0 days Quantity: 60 {Tablet} Refills: 0 Ordered: 06-Mar-2020 Asaf GOSSTony Start : 28-Feb-2020 Active Start: 02-28-2020 take 1 tablet by dread th twice daily Zinc 25 MG Oral Tablet 1 (one) Tablet bid for 0 days Quantity: 60 {Tablet} Refills: 0 Ordered: 28-Feb-2020 Qingkike ULRICH, Tejal Jack Cikike ULRICH, Tejal Jack Start : 28-Feb-2020 Active Comment on above: This order discontin ued per -. Problems Active Problems Problem Classification Problem Date Documented Date Episodic/Chronic Acute myocardial infarction (20 sources) Non-ST elevation (NSTEMI) myocardial infarction; Translations: [Acute non-ST segment elevation myocardial infarction] Onset: 7 04-24-2016 Chronic Comment on above: Mar 17 2016 Mar 17 2016, elliot Ng Administrative/social admission (20 sources) Medical examinations/reports status; Translations: [Patient encounter status] Resolved: 5 01-11-2015 Episodic Comment on above: did physical today. pt mother osteoporosis and she with early menapause in late s will check BD. needs colonscopy Allergic reactions (20 sources) Eczema; Translations: [Eczema] 01-27-2018 Episodic Anxiety disorders (20 sources) Panic disorder without agoraphobia; Translations: [Mixed anxiety and depressive disorder] Onset: 8 01-27-2018 Chronic Comment on above: good tried off canno nt Conduction disorders (20 sources) Presence of automatic (implantable) cardiac defibrillator; Translations: [Automatic implantable cardiac defibrillator in situ] Onset: 8 01-27-2018 Chronic Comment on above: put in Apr 2017 by Micaela Parekh put in Apr 2017 by Micaela Parekh, last checked that I can see 07/13/2019 Congestive heart failure; nonhypertensive (20 sources) Chronic systolic (congestive) heart failure; Translations: [Chronic systolic heart failure] Onset: 8 01-27-2018 Chronic Comment on above: advised patient to r lisa with [facility]. She is not having any concerning symptoms so not urgent, can wait until after of year since she does not have any insurance until then.last stress test/echo and heart cath March 2019, has not seen cardiology since. Says when Dr. [facility] left [facility], they did not call her so she just let it go. Coronary atherosclerosis and other heart disease (20 sources) Generalized ischemic myocardial dysfunction; Translations: [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] Onset: 7 04-24-2016 Chronic Comment on above: PCI-DAYTON-LAD 2.5 mm x 38 mm 03/18/16 Diabetes mellitus without complication (1 source) Hyperglycemia; Translations: [Hyperglycemia, unspecified] 08-08-2024 Episodic Diabetes mellitus without complication (20 sources) Diabetes mellitus without complication Disorders of lipid metabolism (20 sources) Hyperlipidemia; Translations: [Hyperlipidemia] Onset: 7 04-24-2016 Chronic Comment on above: eat fatty foods. nto eat well. eat peanut butter. Disorders of teeth and jaw (20 sources) Dental abscess; Translations: [Dental abscess] 02-28-2020 Episodic Comment on above: improved on clindamy afshan, got rocephin Im and torodol. Will see Dr Alexis in 6 days, will hold plavix 5 days before to assure no bleed if need tooth pulled E Codes: Fall (20 sources) Fall in home; Translations: [Fall at home] Resolved: 4 06-13-2013 Episodic Comment on above: fell off porch, thou ght on last step hit under left breast Essential hypertension (3 sources) Hypertensive disorder; Translations: [Benign hypertension] Onset: 7 04-24-2016 Chronic Hemorrhoids (20 sources) Hemorrhoids; Translations: [Hemorrhoids] Resolved: 9 01-02-2015 Episodic Immunizations and screening for infectious disease (20 sources) Patient encounter status; Translations: [Screening for HPV (human papillomavirus)] Resolved: 5 02-06-2015 Episodic Influenza (11 sources) Influenza Mood disorders (20 sources) Mood disorders Nonmalignant breast conditions (20 sources) Galactorrhea not associated with childbirth; Translations: [Galactorrhea not associated with childbirth] Resolved: 9 08-03-2012 Episodic Comment on above: 1 year , recent mamm o negativereveiwed with patient recent tests negative recheck in 6 months PTHlooked up meds--and none cause Nonspecific chest pain (1 source) Chest pain; Translations: [Chest pain, unspecified] 04-08-2019 Episodic Nutritional deficiencies (20 sources) Vitamin D deficiency; Translations: [Vitamin D deficiency] 01-27-2018 Chronic Other connective tissue disease (20 sources) Enthesopathy of hip region; Translations: [Bursitis of hip, unspecified laterality] Resolved: 4 02-09-2015 Episodic Comment on above: bad now. follow up f or injection. insurance not cover pt Other ear and sense organ disorders (20 sources) Infective otitis externa; Translations: [Infective otitis externa, unspecified laterality] Resolved: 3 02-14-2015 Chronic Other lower respiratory disease (20 sources) Rib pain; Translations: [Rib pain on left side] Resolved: 4 06-13-2013 Episodic Other non-traumatic joint disorders (2 sources) Arthritis of acromioclavicular joint; Translations: [Unspecified osteoarthritis, unspecified site] Onset: 7 05-09-2016 Chronic Other non-traumatic joint disorders (20 sources) Pain in left shoulder; Translations: [Shoulder pain] Onset: 7 Resolved: 2 05-09-2016 Episodic Other non-traumatic joint disorders (20 sources) Knee pain; Translations: [Pain in unspecified knee] Resolved: 4 06-13-2013 Episodic Comment on above: left knee has arthro sis, has metal object in kneegoing down steps gave out Other non-traumatic joint disorders (20 sources) Arthralgia of the ankle and/or foot; Translations: [Pain in joint involving ankle and foot, unspecified laterality] Resolved: 3 02-06-2015 Episodic Other non-traumatic joint disorders (20 sources) Joint pain; Translations: [Pain in unspecified joint] Resolved: 5 02-05-2015 Episodic Comment on above: sister with rheumati od. gonzalez Other nutritional; endocrine; and metabolic disorders (20 sources) Body mass index 40+ - severely obese; Translations: [BMI 40.0-44.9, adult] Onset: 8 Resolved: 2 01-27-2018 Chronic Comment on above: Based on weight at l ast OV Other nutritional; endocrine; and metabolic disorders (20 sources) Obesity; Translations: [Obesity] 01-27-2018 Chronic Comment on above: 21 day purifcation. talk about weight watcher. can do onlie.talkabout motivation. talk about med Other nutritional; endocrine; and metabolic disorders (15 sources) Morbid obesity; Translations: [Obesity, Class III, BMI >= 40 (morbid obesity) E66.01] Onset: 8 01-27-2018 Chronic Other skin disorders (20 sources) Folliculitis; Translations: [Folliculitis] Resolved: 3 02-09-2015 Episodic Comment on above: resolved. had tooth removed and not have trouble since Other skin disorders (20 sources) Subcutaneous nodule; Translations: [Subcutaneous nodule of chest wall] Resolved: 4 06-13-2013 Episodic Comment on above: thin raffi. cyst not f eel concern not fele lke inbreast will cut down on caffiene. nsaid recheck if stiol tender aor grow will take out Other upper respiratory infections (20 sources) Sinusitis; Translations: [Sinusitis] Resolved: 2 03-06-2020 Chronic Other upper respiratory infections (20 sources) Sinusitis; Translations: [Acute sinusitis, unspecified] 02-28-2020 Episodic Otitis media and related conditions (20 sources) Dysfunction of eustachian tube; Translations: [Eustachian tube dysfunction] Resolved: 3 12-26-2014 Episodic Residual codes; unclassified (12 sources) Tobacco user; Translations: [Tobacco use disorder] 01-22-2016 Chronic Comment on above: know need to quit. k nows chantix. cut back still smoking Residual codes; unclassified (20 sources) Postmenopausal state; Translations: [Postmenopausal (Renamed from Post-menopausal)] 01-27-2018 Episodic Residual codes; unclassified (20 sources) Influenza vaccination declined; Translations: [Influenza vaccination declined (Renamed from Refused influenza vaccine)] Resolved: 2 03-06-2020 Episodic Residual codes; unclassified (20 sources) Non-smoker; Translations: [Nonsmoker] Resolved: 2 03-06-2020 Episodic Retinal detachments; defects; vascular occlusion; and retinopathy (20 sources) Degenerative disorder of macula ; Translations: [Age related macular degeneration] 01-27-2018 Chronic Screening and history of mental health and substance abuse codes (20 sources) Ex-smoker; Translations: [Former smoker] 01-01-2022 Episodic Comment on above: 13-pk-yr history, qu it when had IA Skin and subcutaneous tissue infections (20 sources) Cellulitis of face; Translations: [Cellulitis of face] Resolved: 2 02-28-2020 Episodic Comment on above: improved on clindamy afshan Spondylosis; intervertebral disc disorders; other back problems (20 sources) Degeneration of lumbosacral intervertebral disc; Translations: [Other intervertebral disc degeneration of lumbosacral region] 01-27-2018 Chronic Spondylosis; intervertebral disc disorders; other back problems (20 sources) Sciatica; Translations: [Low back pain] Resolved: 9 08-03-2012 Episodic Comment on above: left urine dip neg Substance-related disorders (20 sources) Nicotine dependence; Translations: [Tobacco use disorder] Onset: 7 Resolved: 2 04-24-2016 Chronic Comment on above: know need to quit. k nows chantix. cut back still smoking Unclassified (5 sources) Body mass index (BMI) 40.0-44.9, adult; Translations: [Body mass index (BMI) 39.0-39.9, adult] Onset: 7 04-28-2016 Chronic Comment on above: know need to quit. k nows chantix. 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] Onset: 7 04-24-2016 Unclassified (1 source) Unknown / UNK(Unknown) Onset: 8 Unclassified (20 sources) Degenerative Disc Disease - Lumbar (722.52) Unclassified (20 sources) Unclassified (20 sources) Well Woman Exam (V72.31) (Pap,Mammo,Routine Female) (Renamed from Well Woman V72.31 (p,m)) Unclassified (20 sources) Encounter for screening mammogram for breast cancer (Renamed from Encounter for screening mammogram for malignant neoplasm of breast) Unclassified (17 sources) SCREENING FOR HUMAN PAPILLOMAVIRUS (HPV) (V73.81) Unclassified (6 sources) Other intervertebral disc degeneration of lumbosacral region Unclassified (20 sources) Hip bursitis 726.5 Unclassified (20 sources) Encounter for screening for lipid disorder; Translations: [Patient encounter status] 01-27-2018 Unclassified (20 sources) Foliculitis (704.8) Unclassified (20 sources) Postmenopausal (Renamed from Post-menopausal) Unclassified (20 sources) Nonsmoker; Translations: [Non-smoker] 01-27-2018 Unclassified (17 sources) Cardiac defibrillator in place Unclassified (18 sources) Influenza vaccination declined (Renamed from Refused influenza vaccine); Translations: [Influenza vaccination declined] 01-27-2018 Unclassified (18 sources) Encounter for well adult exam with abnormal findings (Renamed from Encounter for general adult medical examination with abnormal findings); Translations: [Patient encounter status] 01-27-2018 Unclassified (20 sources) BMI 45.0-49.9, adult Unclassified (20 sources) COVID-19 Unclassified (20 sources) Depression/Anxiety (300.4) Viral infection (20 sources) Other specified viral infection; Translations: [Disease caused by 2019-nCoV] Resolved: 2 02-28-2020 Episodic Comment on above: tested positive Nov 30 at work Today is day #9 tested positive Nov 30 at work Today is day #16 Past or Other Problems Problem Classification Problem Date Documented Date Episodic/Chronic Congestive heart failure; nonhypertensive (13 sources) Congestive heart failure; nonhypertensive Resolved: 09-07-2008 08-03-2012 Comment on above: tell use vit b12 fol ate and tell risk watch for Coronary atherosclerosis and other heart disease (1 source) Stented coronary artery; Translations: [Presence of coronary angioplasty implant and graft] Onset: 02-21-2016 07-26-2019 Episodic Comment on above: PCI-[place]-LAD 2.5 mm x 38 mm 03/18/[address] Veliz @ [facility] External Injury - Fall (13 sources) Fall in home; Translations: [Fall at home] Resolved: 06-13-2013 06-13-2013 Comment on above: fell off porch, thou ght on last step hit under left breast Headache; including migraine (20 sources) Headache; including migraine Other connective tissue disease (8 sources) Bicipital tendinitis, left shoulder; Translations: [Disorder of rotator cuff] Onset: 05-09-2016 05-27-2016 Episodic Other ear and sense organ disorders (13 sources) Infective otitis externa; Translations: [Infective otitis externa, unspecified laterality] Resolved: 08-03-2012 02-14-2015 Episodic Other non-traumatic joint disorders (20 sources) Pain in unspecified knee; Translations: [Knee pain] Resolved: 06-13-2013 06-13-2013 Episodic Comment on above: left knee has arthro sis, has metal object in kneegoing down steps gave out Residual codes; unclassified (1 source) History of cardiac catheterization; Translations: [Other specified postprocedural states] Onset: 04-08-2019 04-08-2019 Episodic Comment on above: Segmented LV systoli c dysfunction- Severe; LVEF: by LV gram 35-40 %;Non obstructive coronary arteries per EMILY @ [facility] 04/08/2019 Unclassified (17 sources) Fall at home (E888.9) Unclassified (17 sources) Rib pain on left side (786.50) Unclassified (17 sources) SCREENING FOR BREAST CANCER (V76.10) Unclassified (17 sources) Subcutaneous nodule of chest wall (782.2) Unclassified (20 sources) Unspecified Diagnosis Resolved: 08-03-2012 08-03-2012 Unclassified (17 sources) OTITIS EXTERNA, INFECTIVE NOS (380.10) Unclassified (17 sources) Eustachian Tube Dysfunction (381.81) Unclassified (18 sources) Encounter for general adult medical examination w/o abnormal findings (Renamed from Encounter for general adult medical examination without abnormal findings); Translations: [Patient encounter status] 01-27-2018 Unclassified (17 sources) ARTHRALGIAS 719.40 Unclassified (20 sources) Encounter for screening for malignant neoplasm of colon (Renamed from Special screening for malignant neoplasms, colon); Translations: [Screening status] 01-27-2018 Unclassified (17 sources) Shoulder pain, left Unclassified (17 sources) BMI 40.0-44.9, adult Unclassified (17 sources) Ankle/Foot Pain (719.47) Unclassified (20 sources) WWV Resolved: 09-07-2008 08-03-2012 Unclassified (20 sources) Patient encounter status; Translations: [Screening for HPV (human papillomavirus)] Resolved: 01-11-2015 02-06-2015 Unclassified (20 sources) Screening status; Translations: [Screening for diabetes mellitus] 01-27-2018 Unclassified (20 sources) family MTHFR Resolved: 09-07-2008 08-03-2012 Comment on above: tell use vit b12 fol ate and tell risk watch for Unclassified (13 sources) Pregnancies (); Translations: [Pregnancies ()] 01-27-2018 Comment on above: 3 Unclassified (13 sources) Deliveries (Parity); Translations: [Deliveries (Parity)] 01-27-2018 Comment on above: 1 Unclassified (13 sources) Abortions/Miscarriage s; Translations: [Abortions/Miscarriag es] 01-27-2018 Comment on above: 2 abortions Unclassified (12 sources) Influenza vaccination declined; Translations: [Influenza vaccination declined (Renamed from Refused influenza vaccine)] 01-27-2018 Unclassified (12 sources) Non-smoker; Translations: [Nonsmoker] 01-27-2018 Unclassified (14 sources) Physical exam for work or camp (Renamed from Encounter for school health examination) Unclassified (20 sources) Abortions/Miscarriage s; Translations: [Abortions/Miscarriag es] 03-06-2020 Comment on above: 2 abortions Unclassified (20 sources) Deliveries (Parity); Translations: [Deliveries (Parity)] 03-06-2020 Comment on above: 1 Unclassified (20 sources) Pregnancies (); Translations: [Pregnancies ()] 03-06-2020 Comment on above: 3 Results Test Name Value Interpretation Reference Range Facility Cardiology Visit Reporton Cardiology Visit Report [facility] [address] [place] [address] OFFICE VISIT Date of Service: 08/17/24 MR#: [id number] Acct: [id number] Name: GONZÁLEZ RAGSDALE Rep #: [id number] : 1960 Provider: Dr. Fidel Veliz MD Age/Sex: 64/F Location: [facility] Status: Signed HPI HPI History of Present Illness Details: This lady has a history of anterior wall IA in 2016 with delayed presentation, status post percutaneous intervention to totally occluded proximal LAD and PTCA to a totally occluded first septal stem crusher. Repeat coronary angiography in 2019 showed patent stent to the proximal LAD. She has history of LV systolic dysfunction secondary to her anterior IA. Status post ICD placement. Patient was last seen in the office in 2019. She is presenting today to reestablish care. Denies any chest pains or shortness of breath either at rest or with exertion. Denies orthopnea. Denies PND. No ankle edema. No lightheadedness or dizziness. No palpitations. Denies any shocks from her ICD. 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 by: Self Is patient in pain?: No Allergies tetanus and diphtheria toxoids Adverse Reaction (Verified 08/17/24 11:52) Nausea/Vom/Diarrhea Medications ???Medication ???Instructions ???Recorded ???Confirmed ???Type sertraline 100 mg tablet 200 mg PO DAILY 03/17/16 08/17/24 History aspirin 81 mg tablet,delayed 81 mg PO DAILY@0800 #30 tabs 03/2008/17/24 Rx release furosemide 20 mg tablet 20 mg PO PRN PRN Swelling 02/09/18 08/17/24 History potassium chloride 10 mEq 10 meq PO PRN PRN Swelling 8 08/17/24 History tablet,extended release lisinopril 5 mg tablet 5 mg PO DAILY #90 tabs 12/30/22 Rx carvedilol 3.125 mg tablet 3.125 mg PO BID #180 tabs 01/11/24 08/17/24 Rx clopidogrel 75 mg tablet 75 mg PO .COMPLEX every other day 07/18/24 08/17/24 Rx due to bruising #45 TABLETS Ejection fraction %: 35 Have you fallen in the past year?: Yes (fractured shoulder) [facility] Medical History Adhesive capsulitis of left shoulder At risk for sudden cardiac 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 Chest pain CHF (congestive heart failure) Chronic ischemic heart disease Depression HTN (hypertension), benign Hyperglycemia Hyperlipidemia Ischemic cardiomyopathy Nicotine abuse Nicotine dependence NSTEMI (non-ST elevated myocardial infarction) Obesity Old myocardial infarction Surgical History History of section History of left heart catheterization (04/08/19) History of nasal septoplasty Hx of appendectomy Implantable cardioverter-defibrillator (ICD) in situ (04/30/17) S/P coronary artery stent placement ( 03/18/16) Stented coronary artery ( 03/18/16) Family History Mother CAD (coronary artery disease) Hx of CABG, Onset Age: 50 Diabetes Father Cancer lung Social History Smoking Status: Former smoker quit date: 02/21/16 alcohol intake: current details: occasional glass of wine substance use type: does not use caffeine: Yes Type: coffee Number of servings: 2 ROS Const Const: Negative for fatigue, weakness, headache(s) or weight gain Eyes Eyes: Positive for other (macular degeneration) ENT ENT: Negative for headache(s), dizziness, Nosebleed/epistaxis or balance problems Cardio Chest Pain: No Palpitations: No Edema: Bilateral (ankles) Muscle aches with walking: None Resp Respiratory: Negative for SOB with activity, SOB at rest or SOB orthopnea SOB lying down GI GI: Negative nausea, vomiting or heartburn Musc Musc: Negative for muscle aches/ myalgia, muscle weakness, joint pain or balance problems Neuro Neuro: Negative for dizziness, lightheadedness, near syncope, syncope, headache(s) or weakness Endo Endo: Negative for fatigue Cardiology Exam Const Appearance: comfortable and no acute distress Nutritional Appearance: obese Neck Neck: no JVD Carotids: Negative bruit Chest Auscultation: Bilateral: Clear to Auscultation Cardio Rate: regular rate Rhythm: regular rhythm Heart sounds: S1 normal and S2 normal 2/6 systolic murmur at base. GI GI: obese Neuro General: patient alert, patient awake and patient oriented x3 Extremities Lower Extremity Edema: None: Bilateral Supplemental Info Supp (more content not included)... [facility] Letter Text Ppg Card iolanika [address] [facility] [address]Gwhm: [phone] MxkzreJoseph Jay MDSwain Community Hospitalmarcie [address] [address] [id number] 1960ear ,Our office has tried to contact you but have been unsuccessful. Pleasecontact our office regarding a device check.Please notify us of any change of your phone number or address.Sincerely,Joseph Jay M.D.(Signed electronically to expedite mailing) [facility] Braydon 09-04-2017 MOJGANN Telephone (AGCARDPOB) CAMRON RAGSDALE ([id number]) 1960 FDate Time Provider Department09/04/17 JOSEPH JAY AGCARDPOParvin During your visit today, we recorded the following information about you:Lady Gennaro 09/04/2017 3:37 PM [facility] has attempted to reach patient twice to schedule device check.They have been unsuccesful in their attempts. I have sent out a reminder letterfor patient to schedule.Lady GennaroAllergies As of Date: 09/04/2017 Noted Allergy ReactionTETANUS TOXOID 03/06/2017 16 - UnknownDate Reviewed: 04/30/2017Reviewed by: Ирина (Rn) SHELDON Blandon - Fully AssessedReason for Visit: Future Appointment [[id number]]Prescriptions as of 09/04/2017 Sig: ACETAMINOPHEN 500 MG TABLET Take 500 mg by mouth every 6 * ATORVASTATIN 40 MG TABLET Take 40 mg by mouth once reynaldo* CARVEDILOL 3.125 MG TABLET Take 6.25 mg by mouth twice d* CLOPIDOGREL 75 MG TABLET Take 75 mg by mouth once reynaldo* LISINOPRIL 5 MG TABLET Take 5 mg by mouth once daily* SERTRALINE 100 MG TABLET Take 200 mg by mouth once rhys* ASPIRIN 81 MG TABLET,DELAYED * Take 81 mg by mouth once reynaldo* NITROGLYCERIN 0.4 MG SUBLINGU* Dissolve 0.4 mg under the ton*Problem List As Of Date 09/04/2017 Noted Resolved NSTEMI (non-ST elevated myocardial infarction) * Ischemic cardiomyopathy [I25.5] Chronic ischemic heart disease [I25.9] More... Atherosclerotic heart disease of nulato coronar* Old myocardial infarction [I25.2] Chronic systolic heart failure (HCC) [I50.22] More... At risk for sudden cardiac [Z91.89] Atherosclerosis of nulato coronary artery of na*INVALID FOR* More... Obesity, Class III, BMI >= 40 (morbid obesity) *INVALID FOR* Presence of implantable cardioverter-defibrilla*IN VALID FOR* More... Status:Closed by LADY BRYAN on 09/04/17 [facility] CNOVon 08-26-2017 CNOV Office Visit (AGCARDPOB) CAMRON RAGSDALE ([id number]) 1960 FDate Time Provider Department08/26/17 10:00 AM NURSE CARD AMOS AKABEBA POB AGCARDPOB During your visit today, we recorded the following information about you: Temperature 98.2 degreesSara SHELDON Sanchez 08/26/2017 11:08 AM SignedPt called in to report tiara 3 weeks ago she noted her ICD began popping outwhen she moved. She denies activity that initiated onset of symptoms. Deniesmuscle strain or injury to the area. Denies redness or warmth. Reports she sawher general cardio MD who recommended call to [facility].Patient's subcutaneous ICD site well healed. No redness, edema or drainagenoted at the site. No signs of infection noted. Patient feels that ICD ismoving and causes pain at the end of the day. I discussed this with Jimbo. She will continue to monitor and limit activities/movements thatwill press on the device as body continues to heal. Patient will call officewith continued or worsened pain.Jamilah Garcia, MSN, CARDIAC CATH LAB MANAGER.VP MARKETING 09/01/2017 9:22 AM SignedAssessment noted, agree with the plan.Jenna Chou, MSN, CARDIAC CATH LAB MANAGER.CNPReferring Provider: SELF [[id number]]Allergies As of Date: 08/26/2017 Noted Allergy ReactionTETANUS TOXOID 03/06/2017 16 - UnknownDate Reviewed: 04/30/2017Reviewed by: Ирина YoussefRn) SHELDON Blandon - Fully AssessedReason for Visit: Wound Check [133]Primary Visit Diagnosis:Cardiac defibrillator in situ [Z95.810]Prescriptions as of 08/26/2017 Sig: ACETAMINOPHEN 500 MG TABLET Take 500 mg by mouth every 6 * ATORVASTATIN 40 MG TABLET Take 40 mg by mouth once reynaldo* CARVEDILOL 3.125 MG TABLET Take 6.25 mg by mouth twice d* CLOPIDOGREL 75 MG TABLET Take 75 mg by mouth once reynaldo* LISINOPRIL 5 MG TABLET Take 5 mg by mouth once daily* SERTRALINE 100 MG TABLET Take 200 mg by mouth once rhys* ASPIRIN 81 MG TABLET,DELAYED * Take 81 mg by mouth once reynaldo* NITROGLYCERIN 0.4 MG SUBLINGU* Dissolve 0.4 mg under the ton*Problem List As Of Date 08/26/2017 Noted Resolved NSTEMI (non-ST elevated myocardial infarction) * Ischemic cardiomyopathy [I25.5] Chronic ischemic heart disease [I25.9] More... Atherosclerotic heart disease of nulato coronar* Old myocardial infarction [I25.2] Chronic systolic heart failure (HCC) [I50.22] More... At risk for sudden cardiac [Z91.89] Atherosclerosis of nulato coronary artery of na*INVALID FOR* More... Obesity, Class III, BMI >= 40 (morbid obesity) *INVALID FOR* Presence of implantable cardioverter-defibrilla*IN VALID FOR* More...Visit Notes:>> Arie Sanchez ThuAug 26, 2017 10:37 AM Status: SignedPt called in to report tiara 3 weeks ago she noted her ICD began poppingout when she moved. She denies activity that initiated onset of symptoms.Denies muscle strain or injury to the area. Denies redness or warmth.Reports she saw her general cardio MD who recommended call to [facility].Patient's subcutaneous ICD site well healed. No redness, edema ordrainage noted at the site. No signs of infection noted. Patient feelsthat ICD is moving and causes pain at the end of the day. I discussedthis with Dr Jay. She will continue to monitor and limitactivities/movements that will press on the device as body continues toheal. Patient will call office with continued or worsened pain.Arie Sanchez RN>> Sterling Dominguez Sep 01, 2017 9:22 AM Status: SignedAssessment noted, agree with the plan.Jenna Chou, MSN, CARDIAC CATH LAB MANAGER.CNPFollow-up and Disposition History RecordedEncounter Number: [id number] Status:Closed by COLTON CHOU, VP MARKETINGJENNA on 09/01/17 [facility] CNPN Telephone (AGCARDPOB) CAMRON RAGSDALE ([id number]) 1960 FDate Time Provider Department05/13/17 STERLING CHOU ([facility]) AGCARDPOB During your visit today, we recorded the following information about you:Arie Sanchez RN 05/13/2017 3:36 PM SignedPatient called in asking for a return to work letter. She would like to goback on May 18. Letter needs faxed to Bryan Crouch at [phone]: Magen Varghese.Jamilah Garcia, COLTON, [facility] 05/13/2017 3:56 PM SignedI composed the letter and gave it to Kimberly to fax.Jenna Chou, [place], [facility] CENTERArie Sanchez RN 05/13/2017 4:09 PM SignedPatient notified thanks.Ovsaldo Garcia 05/15/2017 1:53 PM SignedFaxed letter to Isra Varghese 05/15/[phone] ea [id number]/15/2017 13:52:51Allergies As of Date: 05/13/2017 Noted Allergy ReactionTETANUS TOXOID 03/06/2017 16 - UnknownDate Reviewed: 04/30/2017Reviewed by: Ирина YoussefRn) SHELDON Blandon - Fully AssessedReason for Visit: Return To Work Letter [[id number]]Prescriptions as of 05/13/2017 Sig: ACETAMINOPHEN 500 MG TABLET Take 500 mg by mouth every 6 * ATORVASTATIN 40 MG TABLET Take 40 mg by mouth once reynaldo* CARVEDILOL 3.125 MG TABLET Take 6.25 mg by mouth twice d* CLOPIDOGREL 75 MG TABLET Take 75 mg by mouth once reynaldo* LISINOPRIL 5 MG TABLET Take 5 mg by mouth once daily* SERTRALINE 100 MG TABLET Take 200 mg by mouth once rhys* ASPIRIN 81 MG TABLET,DELAYED * Take 81 mg by mouth once reynaldo* NITROGLYCERIN 0.4 MG SUBLINGU* Dissolve 0.4 mg under the ton*Problem List As Of Date 05/13/2017 Noted Resolved NSTEMI (non-ST elevated myocardial infarction) * Ischemic cardiomyopathy [I25.5] Chronic ischemic heart disease [I25.9] More... Atherosclerotic heart disease of nulato coronar* Old myocardial infarction [I25.2] Chronic systolic heart failure (HCC) [I50.22] More... At risk for sudden cardiac [Z91.89] Atherosclerosis of nul[place] coronary artery of na*INVALID FOR* More... Obesity, Class III, BMI >= 40 (morbid obesity) *INVALID FOR* Presence of implantable cardioverter-defibrilla*IN VALID FOR* More...Letter TextRE: González RagsdaleMRN: [id number] OF SERVICE: 05/13/2017Page: 2 Jenna Chou [id number] [place] [address] [phone] 2017To Bryan Crouch: Attention Magen Ragsdale was hospitalized from April 30, 2017 to May 01, 2017.She may return to work on May 18, 2017 without restrictions. If you needadditional information please call the office.Sincerely,Jenna Chou, MSN, VP MARKETING CABLE INSTALLATION TECHNICIAN to Dr. Hernandez called in asking for a return to work letter. She would like to goback on May 18. Letter needs faxed to Bryan Crouch at [phone]: Magen Sanchez RNEncounter Number: [id number] Status:Closed by ARIE SANCHEZ RN on 05/13/17 Normal [facility] Basic Panelon 05-01-2017 Creatinine 0.93 mg/dL Normal 0.51-0.95 [facility] Comment on above: Performed By: #### P 8 ####[address] [address] Anion gap 9 mmol/L Normal 8-16 [facility] Comment on above: Performed By: #### P 8 ####[address] [address] CO2 26 mmol/L Normal 21-32 [facility] Comment on above: Performed By: #### P 8 ####[facility] [place], [place] [address] Glucose mass conc 99 mg/dL Normal 70-99 [facility] Comment on above: Performed By: #### P 8 ####[facility] [place], [place] [address] Urea nitrogen 12 mg/dL Normal 7-18 [facility] Comment on above: Performed By: #### P 8 ####[facility] [place], [place] [address] Calcium 7.7 mg/dL Low 8.5-10.1 [facility] Comment on above: Performed By: #### P 8 ####[facility] [place] [address] Chloride 108 mmol/L High 98-107 [facility] Comment on above: Performed By: #### P 8 ####[place] [address] Potassium molar conc 4.2 mmol/L Normal 3.5-5.1 [facility] Comment on above: Performed By: #### P 8 ####[place] [address] Sodium 139 mmol/L Normal 136-145 [facility] Comment on above: Performed By: #### P 8 ####[address] [address] CNDSon 05-01-2017 CNDS HNO ID: [id number] thor: Sterling ([facility]) CroomService: ElectrophysiologyAuthor Type: Nurse PractitionerType: Discharge SummariesFiled: 05/01/2017 10:43 AMNote Text:DISCHARGE SUMMARYPATIENT NAME: González RagsdaleMRN: [id number] Information Admission Information ADMIT DATE: 04/30/2017DISCHARGE DATE: 10:30 JC DOCTORS AND MEDICAL TEAM:[facility] Doctor: Joseph Paige Care Provider: Laura Juarez Medical Team Members: Treatment Team:Attending Provider: Joseph Rivas CONDITION AT DISCHARGE: StableREASON I WAS IN THE HOSPITAL: ischemic cardiomyopathySUMMARY OF WHAT HAPPENED WHILE I WAS IN THE HOSPITAL: I underwent asubcutaneous defibrillator implantation. I was instructed to keep the sitedry until 05/08/17. I will have a wound check in Dr. Ng's office nextweek. 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 *OPERATIONS PERFORMED WHILE IN THE HOSPITAL: as aboveIMPORTANT TEST/PROCEDURES:No procedures performedTEST RESULTS NOT AVAILABLE AT THIS TIME:No pending results Discharge Disposition Discharge Disposition: Home With Self CareActivity When You Leave the Hospital No baths or showers for one week May shower on 05/08/17 No driving for: one week May drive on 05/08/17 No lifting restrictions No strenuous activity, exercise, or sports for 5-7 days, casual walkingis fineDiet Instructions Resume your pre-hospital dietFor Pain When You Leave the Hospital Apply a covered cold pack to the area every two hours for two days Use acetaminophen (Tylenol) as recommended on the bottleWound/Surgical Site Care Any bruising and bumps should disappear within 3-4 days Avoid lotions or powders Check your wound every day If the bruising expands or the bump enlarges please call your doctor Some bruising, soreness or a small bump under the skin at the inserparkview whitley hospitalite is normalCall Your Doctor If There is an unusual odor from the wound area There is severe pain at the operative site You have lightheadedness, fainting, or confusion You have persistent or heavy bleeding You have redness, swelling, pus or drainage from the wound You have swollen glands or cold and clammy skin Your temperature is greater than 101FFollow Up Appointments Follow-Up Appointment The office will call to schedule wound check in one weekWhen: In: Comment - three monthsPatient/Parents to call for appointment?: Dao [phone] [id number] Requested ReferralFOLLOW-UP APPOINTMENTS ALREADY SCHEDULED WITH A [facility] PROVIDER:Future AppointmentsDate Time Provider Department Center06/10/2017 8:00 AM DEVICE [facility] 1 ALBINO TORRESRROD MEDICATION: Current Discharge Medication ListCONTINUE these medications which have NOT CHANGEDacetaminophen (TYLENOL) 500 mgTake 500 mg by mouth every 6 hours as needed for Pain (2 tablets).atorvastatin (LIPITOR) 40 mgTake 40 mg by mouth once daily.carvedilol (COREG) 6.25 mgTake 6.25 mg by mouth twice daily with meals.clopidogrel (PLAVIX) 75 mgTake 75 mg by mouth once daily.lisinopril (ZESTRIL, PRINIVIL) 5 mgTake 5 mg by mouth once daily.sertraline (ZOLOFT) 200 mgTake 200 mg by mouth once daily.aspirin, enteric coated (ASPIRIN, ENTERIC COATED) 81 mgTake 81 mg by mouth once daily.nitroglycerin sublingual (NITROQUICK) 0.4 mgDissolve 0.4 mg under the tongue every 5 minutes as needed for Chest Pain.Subjective: González Ragsdale is laying in bed c/o left sided tenderness. Shedenies SOB,dizziness, palpitations, syncope, ICD shocks. The HF meds wereheld this AM due to hypotension. She is not symptomatic and will resume HFmeds tomorrow.Discharge Physical Exam:VITAL SIGNS: BP 98/55 Pulse 86 Temp 36.9 ?C (98.4 ?F) Resp 18 Ht160 cm (5' 3) Wt 104.6 kg (230 lb 9.6 oz) SpO2 93% BMI 40.85 kg/v4JOTYVRK: Alert, no distress, cooperativeNECK: No jugulovenous distentionLUNGS: Lungs clear to auscultation, Good diaphragmatic excursionCARDIAC: Normal S1 and S2; no rubs, murmurs, or gallopsABDOMEN: Abdomen soft, non-tender, BS normal, No masses or organomegalyEXTREMITIES: Extremities normal, no deformities, edema, clubbing or skindiscoloration. Good capillary refill., No ulcersWOUND: Clean, dry and intact, MS superior and inferior and left sidewounds have well approximated edges, no erythema or hematoma. DSD wasremovedTelemetry SR 84 bpm.TIME OF CARE: Discharge Management: I personally spent less than 30minutes involved in the discharge management of this patient.SIGNATURE: Jenna Chou, MSN, VP MARKETING PAGER/CONTACT #: [phone]: May 01, 2017TIME: 10:38 AM Normal [facility] Hemogramon 05-01-2017 Erythrocyte distribution width Auto Ratio (RBC) 13.8 % Normal 11.7-14.4 [facility] Comment on above: Performed By: #### C BC1 ####[place] [address] Erythrocytes (RBC) 3.39 mil/cmm Low 3.93-5.22 [facility] Comment on above: Performed By: #### C BC1 ####[place] [address] Hematocrit (HCT) 32.4 % Low 34.1-44.9 [facility] Comment on above: Performed By: #### C BC1 ####[place] [address] Hemoglobin mass conc (Bld) 10.3 g/dL Low 11.2-15.7 [facility] Comment on above: Performed By: #### C BC1 ####[place] [address] MCH 30.4 pg Normal 25.6-32.2 [facility] Comment on above: Performed By: #### C BC1 ####[place] [address] MCHC mass conc (RBC) 31.8 % Normal 31.6-34.8 [facility] Comment on above: Performed By: #### C BC1 ####[place] [address] MCV 95.6 fL High 79.4-94.8 [facility] Comment on above: Performed By: #### C BC1 ####[place] [address] Platelet mean volume (PMV) 10.0 fL Normal 9.4-12.3 [facility] Comment on above: Performed By: #### C BC1 ####[facility] [place], [place] [address] Platelets 199 thou/cmm Normal 182-369 [facility] Comment on above: Performed By: #### C BC1 ####[facility] [place], [place] [address] RDW SD 48.3 fl High 36.4-46.3 [facility] Comment on above: Performed By: #### C BC1 ####[facility] [place], [place] [address] WBC (Leukocytes) 9.48 thou/cmm Normal 3.98-10.04 [facility] Comment on above: Performed By: #### C BC1 ####[address] [address] MDRD GFRon 05-01-2017 eGFR (non-black) mL/min/{1.73_m2} Normal >60mL/m in/1 .73m2 [facility] Comment on above: Result Comment: If t he patient is , multiply the result by 1.210. Performed By: #### G FR ####[address] [address] NURSING PROGon 05-01-2017 NURSING PROG HNO ID: [id number] thor: Teena (Rn) GEOVANNY Ringervice: NursingAuthor Type: Registered NurseType: Nursing Progress NoteFiled: 05/01/2017 10:22 AMNote Text: Nursing Progress NotePatient Name: González RagsdaleMRN: [id number] Location: /*_ AM assessment complete. Pt is AANDOX4 with an apical of 78, regular. Pt NSRon tele. LS clear to auscultation in all lobes with no cough noted on RA.Abdomen is soft and non-distended with BS active X4, LBM 2/8 per ptreport. Pt SONI with hand grasps equal bilaterally, no edema noted. Pulsespresent in all extremities. Pt denies numbness/tingling. Pt reports 7/10sore incisional chest pain, ice pack applied. All 3 chest incision sitesDRSG are C/D/I, with no SANDSx of bleeding or infection. PIV in the L ACpatent with no SANDSx of infection noted. Pt BP 98/55 with HR 80, reportedfindings to Sterling Chou CABLE INSTALLATION TECHNICIAN, she stated to hold pt's coreg and lisinoprilthis morning and the patient can probable take them tonight at home. Ptis sitting on the edge of bed with call light and belongings within reach.Will continue to monitor. Pacer educator at side.This note was completed by: Teena Ring RN [facility] PT EDon 05-01-2017 PT ED HNO ID: [id number] thor: Orlando Calderon (Pharmacist)Service: PharmacyAuthor Type: PharmacistType: Patient EducationFiled: 05/01/2017 11:31 AMNote Text:DISCHARGE MEDICATION REVIEW AND COUNSELING BY PHARMACYPatient Name: González Ragsdale Account #: Data UnavailableMRN: [id number] Admission Date: 04/30/2017Date of Contact: May 01, 2017 Time of Contact: 11:30 AMLEARNERSPersons Present: PatientPrimary Learner: PatientMedication list was reviewed by a Pharmacist for drug interactions or drugrelated problems:YesThe patient was counseled on the medication(s) listed below and was giventhe opportunity to ask questions regarding indication, dosage, sideeffects and drug interactionsREADINESS TO LEARNCOGNITIVE ABILITY:Alert and orientedMOTIVATION TO LEARN:InterestedFAMILY SUPPORT:Unable to assess - Family not presentINSTRUCTION PROVIDED TO:PatientPATIENT LEARNS BEST BY:Multiple MethodsFACTORS AFFECTING LEARNING:NonePHYSICAL LIMITATIONS AFFECTING LEARNING:NoneLEARNING RESPONSEPATIENT / FAMILY RESPONSE:Verbalizes understanding of: Accurate knowledgeof prescribed medication prior to discharge.The correct action to take if medication dose is missed.The side effects associated with the medication that warrant a call to thephysician.ORLANDO CALDERON, PHARMACISTFebruary 2017 11:30 AMMedication ListCONTINUE taking these medications aspirin, enteric coated 81 mg EC tabletCommonly known as: ASPIRIN, ENTERIC COATED atorvastatin 40 mg tabletCommonly known as: LIPITOR carvedilol 3.125 mg tabletCommonly known as: COREG clopidogrel 75 mg tabletCommonly known as: PLAVIX lisinopril 5 mg tabletCommonly known as: ZESTRIL, PRINIVIL NITROSTAT 0.4 mg SL tabletGeneric drug: nitroglycerin sublingual sertraline 100 mg tabletCommonly known as: ZOLOFT TYLENOL EXTRA STRENGTH 500 mg tabletGeneric drug: acetaminophen Normal [facility] ANES Wallace 04-30-2017 ANES POST HNO ID: [id number] thor: Humberto Calhounervice: AnesthesiologyAuthor Type: PhysicianType: Anesthesia PostOpFiled: 04/30/2017 2:51 PMNote Text:POST ANESTHESIA EVALUATION NOTESERVICE DATE: 04/30/2017SERVICE TIME: 2:50 PMDOB: 1960Vitals: 04/30/1812Temp: (!) 35.8 ?C (96.4 ?F) 36.7 ?C (98.1 ?F) 04/30/1812BP: 107/50 106/69 103/56 87/53 04/30/1812Pulse: 74 82 88 77 04/30/1812Resp: 16 16 22 16 04/30/1812SpO2: 98% 95% 97% 93%Validated Vital Signs: YesPOST ANES STATUS: No apparent anesthetic complications. The patient isappropriately hydrated with stable respiratory and cardiovascular status.Patient has safe and adequate airway control. The patient has appropriatepain relief and no significant post operative nausea or vomiting. Thepatient has achieved baseline mental status.Further assessment by Anesthesia Service: NoneOther Remarks:SIGNATURE: Humberto Ponce MD PATIENT NAME: González RagsdaleDATE: April 30, 2017 : 2:50 PM PAGER/CONTACT #: Toby [facility] DOMINGO PREOPon 04-30-2017 ANES PREOP HNO ID: [id number] thor: Humberto Calhounervice: AnesthesiologyAuthor Type: PhysicianType: Anesthesia PreOpFiled: 04/30/2017 9:20 AMNote Text: ANESTHESIOLOGY DAY OF SURGERY NOTESERVICE DATE: 04/30/2017SERVICE TIME: 8:27 AMDOB: 2Procedure(s) (LRB):INSERTION OR REPLACE PERM SUBQ IMPLANTABLE DEFIB SYSTEM W/SUBQ ELECTRODE,INCLUDING EVAL AND PROGRAMMING OR REPROGRAMMING, WHEN PERFORMED (Left)Surgeon(s):Joseph Miguelimaandrew body mass index is 40.85 kg/(m2) as calculated from thefollowing: Height as of this encounter: 160 cm (5' 3). Weight as of this encounter: 104.6 kg (230 lb 9.6 oz).Most recent hematocrit and potassium results:Hematocrit 38.1 04/30/2017ANES DOS/PREOP NOTE:Vitals: 816BP: 107/50Pulse: 74Resp: 16Temp: (!) 35.8 ?C (96.4 ?F)TempSrc: Temporal ArterySpO2: 98%Weight: 104.6 kg (230 lb 9.6 oz)Height: 160 cm (5' 3)ACTIVE PROBLEM LISTNstemi (Non-St Elevated Myocardial Infarction) (Hcc)Ischemic CardiomyopathyChronic Ischemic Heart DiseaseAtherosclerotic Heart Disease of [place] Coronary Artery Without AnginaPectorisOld Myocardial InfarctionChronic Systolic Heart Failure (Hcc)At Risk for Sudden Cardiac DeathAtherosclerosis of [place] Coronary Artery of [place] Heart Without AnginaPectorisPAST MEDICAL HISTORYDiagnosis Date- Adhesive capsulitis of left shoulder- Arthritis acromioclavicular- At risk for sudden cardiac - Atherosclerotic heart disease of [place] coronary artery without anginapectoris- Biceps tendinitis, left- CHF (congestive heart failure) (HCC)- Chronic ischemic heart disease LVEF 35% on guideline directed medical therapy- Chronic systolic heart failure (HCC) NYHA FC II heart failure symptoms on GDMT- Depression- Hyperglycemia- Hyperlipidemia- Hypertension- Ischemic cardiomyopathy- Nicotine abuse- NSTEMI (non-ST elevated myocardial infarction) (HCC)- Obesity- Old myocardial infarction 02/2016 delayed presentation IA- Rotator cuff tear, left- Shoulder impingement syndrome, left- Shoulder pain, leftPAST SURGICAL HISTORYProcedure Laterality Date- APPENDECTOMY 1973- SECTION HX 1985- ECHOCARDIOGRAM 01/28/2017 moderate LV systolic dysfxn; LVEF 35-40% with regional wall motionabnormalities; no significant change from previous echocardiogram- ECHOCARDIOGRAM 03/18/2016 LVEF 35%- ECHOCARDIOGRAM 10/22/2016 LVEF 35%- INSERT INTRACORONARY STENT 03/18/2016 PCI/stent (Mobule) drug-eluting stent to LAD- LEFT HEART CATH 03/18/2016 left heart cath w/[id number]- LEXISCAN STRESS TEST 05/02/2016 no ischemia; +scar- SEPTOPLASTY 1988FAMILY HISTORYProblem Relation Age of Onset- Heart disease Mother had heart disease in early 60s; had CABG- Coronary Artery Disease Mother- Diabetes Mother diet controlled- COPD Mother- tobacco use [OTHER] Mother- Cancer Father lung cancer- tobacco use [OTHER] Father- Rheumatologic disease Sister- Arthritis Sister- sjogren's [OTHER] Sister- lupus [OTHER] Sister- Thyroid SisterSocial History:Social HistorySubstance Use Topics- Smoking status: Former Smoker Packs/day: 0.50 Years: 32.00 Start date: 1983 Quit date: 02/21/2016- Smokeless tobacco: Never Used- Alcohol use Yes Comment: occasional glass of wineNo current facility-administered medications on file prior to encounter.Current Outpatient Prescriptions on File Prior to Encounter:atorvastatin (LIPITOR) 40 mg tablet 40 mg once daily.carvedilol (COREG) 3.125 mg tablet 6.25 mg twice daily with meals.clopidogrel (PLAVIX) 75 mg tablet 75 mg once daily.lisinopril (ZESTRIL, PRINIVIL) 5 mg tablet 5 mg once daily.sertraline (ZOLOFT) 100 mg tablet 100 mg. Two tablets by mouth dailyaspirin, enteric coated (ASPIRIN, ENTERIC COATED) 81 mg EC tablet Take 81mg by mouth once daily.nitroglycerin sublingual (NITROSTAT) 0.4 mg SL tablet Dissolve 0.4 mgunder the tongue every 5 minutes as needed.Current Facility-Administered Medications:0.9% NaCl 2-10 mL 2-10 mL INTRAVENOUS q 12 H Joseph Realcarringtonvancomycin 1.5 g in D5W 250 mL (VANCOCIN) 0.015 g/kg/dose (Order-Specific)INTRAVENOU S Pre-Op Once Joseph Bradshawjanettbacitracin 50,000 Units in sodium chloride 0.9 % 250 mL 50,000 UnitsIRRIGATION ONCE Joseph Sunshine FarhantAllergies:ALLERG IESAllergen Reactions- Tetanus Toxoid UnknownDOS EXAM: Adequate NPO status: YesAnesthetic risks, benefits, alternatives, personnel and consent discussed:YesPatient agrees to proceed: YesPrevious Anesthesia: No history of adverse event.Airway Assessment: MP 2; Neck ROM: Full ROM without neurologic symptoms;Airway Evaluation: No significant abnormalitiesSymptoms of Sleep Apnea: Hypertension, BMI > 35 and Age over 50 (56 yearold)Dentition: Dentures: upperAdditional Physical Exam:Lungs: Patient health status unchanged since recent history and physical.See history and physical for exam findings.Cardiac: Patient health status unchanged since recent history andphysical. See history and physical for exam findings.Additional Pertinent Findings: N/ABlood Products: Not anticipated for this procedure.Anesthetic Plan: GA with routine monitoringPain Management Plan: Parenteral or OralASA Class: 4Other Medical Problems: NoneChronic Beta Roel medication administered within 24 hours: Roni have interviewed and examined the patient. I have reviewed the medicalrecord and/or the pre-anesthesia evaluation, pertinent labs, and testresults.Significant changes in the patient's condition since the History andPhysical, not otherwise documented in primary service progress notes: NoThis contains updated information obtained within 48 hours ofSurgery/Procedure.SIGNAT URE: Humberto Ponce MD PATIENT NAME: González RagsdaleDATE: April 30, 2017 : 8:27 AM CSN: [id number] [facility] BRIEF OP NOTon 04-30-2017 BRIEF OP NOT HNO ID: [id number] thor: Joseph RealtService: ElectrophysiologyAuthor Type: PhysicianType: Brief Op NoteFiled: 04/30/2017 1:52 PMNote Text:BRIEF OPERATIVE / PROCEDURE NOTELOG ID: [id number]/Procedure Date: 04/30/2017Surgeon(s)/Procedu ralist(s) and Chief Investigator(s):Surgeon(s) and Role: * Joseph Bell Additional StaffProcedure(s): subcutaneous ICD (S-ICD) system implantAnesthesia: GeneralFindings: successful implant of subcutaneous ICD via the left axillaryregionEstimated Blood Loss: 100 mlsSpecimens: NoneComplications: NonePre-Op/Pre-Procedure Diagnosis: 1) chronic ischemic heart disease; 2)chronic systolic heart failure; 3) CADPost-Op/Post-Procedure Diagnosis: 1) chronic ischemic heart disease; 2)chronic systolic heart failure; 3) CAD; 4) presence of ICDSIGNATURE: Joseph Jay MD PATIENT NAME: González RagsdaleDATE: April 30, 2017 : 1:48 PM PAGER/CONTACT #: [phone] Normal [facility] Basic Panelon 04-30-2017 Creatinine 0.81 mg/dL Normal 0.51-0.95 [facility] Comment on above: Performed By: #### P 8 ####[place] [address] Anion gap 9 mmol/L Normal 8-16 [facility] Comment on above: Performed By: #### P 8 ####[place] [address] CO2 27 mmol/L Normal 21-32 [facility] Comment on above: Performed By: #### P 8 ####[facility] [place], [place] [address] Glucose mass conc 97 mg/dL Normal 70-99 [facility] Comment on above: Performed By: #### P 8 ####[facility] [place] [address] Urea nitrogen 17 mg/dL Normal 7-18 [facility] Comment on above: Performed By: #### P 8 ####[place] [address] Calcium 8.7 mg/dL Normal 8.5-10.1 [facility] Comment on above: Performed By: #### P 8 ####[facility] [place], [place] [address] Chloride 106 mmol/L Normal 98-107 [facility] Comment on above: Performed By: #### P 8 ####[facility] [place], [place] [address] Potassium molar conc 4.1 mmol/L Normal 3.5-5.1 [facility] Comment on above: Performed By: #### P 8 ####[facility] [place], [place] [address] Sodium 138 mmol/L Normal 136-145 [facility] Comment on above: Performed By: #### P 8 ####[facility] [place], [place] [address] CNPNon 04-30-2017 CNPN Telephone (AKPRAD) GONZÁLEZ RAGSDALE ([id number]) 1960 [facility] Department04/30/17 JOSEPH JAY During your visit today, we recorded the following information about you:Joseph Jay MD 04/30/2017 1:47 PM SignedMs. Ragsdale needs an appointment with a nurse in 7 - 10 days for wound checkafter device surgical procedure today.Joseph Jay MDDignity Health St. Joseph'S Hospital And Medical Centeruary 2017 1:47 PMAvinita Bullard 05/01/2017 1:02 PM SignedLeft voicemail for patient to call back and schedule wound check appointmentAmy Santo As of Date: 04/30/2017 Noted Allergy ReactionTETANUS TOXOID 03/06/2017 16 - UnknownDate Reviewed: 04/30/2017Reviewed by: Ирина Hall) SHELDON Blandon - Fully AssessedReason for Visit: Wound Check [133]Prescriptions as of 04/30/2017 Sig: ACETAMINOPHEN 500 MG TABLET Take 500 mg by mouth every 6 * ATORVASTATIN 40 MG TABLET Take 40 mg by mouth once reynaldo* CARVEDILOL 3.125 MG TABLET Take 6.25 mg by mouth twice d* CLOPIDOGREL 75 MG TABLET Take 75 mg by mouth once reynaldo* LISINOPRIL 5 MG TABLET Take 5 mg by mouth once daily* SERTRALINE 100 MG TABLET Take 200 mg by mouth once rhys* ASPIRIN 81 MG TABLET,DELAYED * Take 81 mg by mouth once reynaldo* NITROGLYCERIN 0.4 MG SUBLINGU* Dissolve 0.4 mg under the ton*Problem List As Of Date 04/30/2017 Noted Resolved NSTEMI (non-ST elevated myocardial infarction) * Ischemic cardiomyopathy [I25.5] Chronic ischemic heart disease [I25.9] More... Atherosclerotic heart disease of nulato coronar* Old myocardial infarction [I25.2] Chronic systolic heart failure (HCC) [I50.22] More... At risk for sudden cardiac [Z91.89] Atherosclerosis of nulato coronary artery of na*INVALID FOR* More... Obesity, Class III, BMI >= 40 (morbid obesity) *INVALID FOR* Presence of implantable cardioverter-defibrilla*IN VALID FOR* More... Status:Closed by JOSEPH JAY MD on 04/30/17 Normal [facility] HCG,Totalon 04-30-2017 HCG Qn 3.0 m[IU]/mL Normal [facility] Comment on above: Result Comment: Male < or = 1Non- female 1- 3Gestational Age:0.2-1 Week 5 - 501-2 Weeks 50 - 5002-3 Weeks 100 - 65945-8 Weeks 500 - 580670-2 weeks 1000 - 627634-9 weeks 23912 - 100,0006-8 weeks 03288 - 200,0002-3 months 08548 - 100,000 Performed By: #### H CG ####[facility] [place] [address] HISTORY PHYSICALon 8 HISTORY PHYSICAL HNO ID: [id number] thor: Joseph Garcíaervice: ElectrophysiologyAuthor Type: PhysicianType: HANDPFiled: 04/30/2017 9:03 AMNote Text:HRA: ELECTROPHYSIOLOGY CARDIOLOGY SERVICESERVICE DATE: 04/30/2017SERVICE TIME: 8:31 [facility] CARE PHYSICIAN:Tejal Maciel, [id number] [address] [address]Kxbcp: [phone]: [phone]?REFERRING PHYSICIAN:Star Ng MD ([facility])[address] [facility] [address]?Patient Care Team:Tejal Maciel as PCP - General (Internal Medicine)Star Ng as Specialty Duty Officer (Cardiology)Joseph Jay as Specialty Duty Officer (Cardiology)?CHIEF COMPLAINT:Evaluation for risk of sudden cardiac and ICD candidacy?HISTORY OF PRESENT ILLNESS:Ms. Ragsdale is a 56 year old female who presents today for evaluation.She has a history of coronary artery disease with myocardial infarction inDecember 2015. This was delayed presentation and although she underwentpercutaneous coronary intervention to the LAD with a stent, she alreadyhad moderate left ventricular systolic dysfunction. The current myopathyhas not improved substantially with optimal and guideline directed medicaltherapy. She states compliance with prescribed medication regimen. Shedenies chest pain, shortness of breath, orthopnea, cough, edema,palpitations, PND, lightheadedness or syncope. She presents now to beevaluated for possible candidacy for ICD implantation for primaryprevention purposes.González Ragsdale was last seen by Dr. Jay on March 09, 2017 todiscuss ICD implantation. She presents today for the procedure. She deniesrecent fever, chills, infections. She has upper dentures. She deniesdifficulty with anesthesia. She hasn't experienced CP, palpitations,dizziness, syncope, SOB, edema, orthopnea or PND.PAST MEDICAL HISTORYDiagnosis Date- Adhesive capsulitis of left shoulder- Arthritis acromioclavicular- At risk for sudden cardiac - Atherosclerotic heart disease of nulato coronary artery without anginapectoris- Biceps tendinitis, left- CHF (congestive heart failure) (HCC)- Chronic ischemic heart disease LVEF 35% on guideline directed medical therapy- Chronic systolic heart failure (HCC) NYHA FC II heart failure symptoms on GDMT- Depression- Hyperglycemia- Hyperlipidemia- Hypertension- Ischemic cardiomyopathy- Nicotine abuse- NSTEMI (non-ST elevated myocardial infarction) ([facility])- Obesity- Old myocardial infarction 02/2016 delayed presentation IA- Rotator cuff tear, left- Shoulder impingement syndrome, left- Shoulder pain, leftPAST SURGICAL HISTORYProcedure Laterality Date- APPENDECTOMY 1973- SECTION HX 1985- ECHOCARDIOGRAM 01/28/2017 moderate LV systolic dysfxn; LVEF 35-40% with regional wall motionabnormalities; no significant change from previous echocardiogram- ECHOCARDIOGRAM 03/18/2016 LVEF 35%- ECHOCARDIOGRAM 10/22/2016 LVEF 35%- INSERT INTRACORONARY STENT 03/18/2016 PCI/stent (Mobule) drug-eluting stent to LAD- LEFT HEART CATH 03/18/2016 left heart cath w/[id number]- LEXISCAN STRESS TEST 05/02/2016 no ischemia; +scar- SEPTOPLASTY 1988FAMILY HISTORYProblem Relation Age of Onset- Heart disease Mother had heart disease in early 60s; had CABG- Coronary Artery Disease Mother- Diabetes Mother diet controlled- COPD Mother- tobacco use [OTHER] Mother- Cancer Father lung cancer- tobacco use [OTHER] Father- Rheumatologic disease Sister- Arthritis Sister- sjogren's [OTHER] Sister- lupus [OTHER] Sister- Thyroid SisterSocial HistorySubstance Use Topics- Smoking status: Former Smoker Packs/day: 0.50 Years: 32.00 Start date: 1983 Quit date: 02/21/2016- Smokeless tobacco: Never Used- Alcohol use Yes Comment: occasional glass of winePrior to Admission MedicationsPrescriptions Last Dose Informant Patient Reported? Taking?acetaminophen (TYLENOL EXTRA STRENGTH) 500 mg tablet Unknown at Unknowntime Yes YesSig: Take 500 mg by mouth every 6 hours as needed (2 tablets).aspirin, enteric coated (ASPIRIN, ENTERIC COATED) 81 mg EC tablet 04/29/2017at 0730 Yes YesSig: Take 81 mg by mouth once daily.atorvastatin (LIPITOR) 40 mg tablet 04/29/2017 at 2200 Yes YesSi mg once daily.carvedilol (COREG) 3.125 mg tablet 04/29/2017 at 2200 Yes YesSi.25 mg twice daily with meals.clopidogrel (PLAVIX) 75 mg tablet 04/29/2017 at 0730 Yes YesSi mg once daily.lisinopril (ZESTRIL, PRINIVIL) 5 mg tablet 04/29/2017 at 0730 Yes YesSi mg once daily.nitroglycerin sublingual (NITROSTAT) 0.4 mg SL tablet Unknown at Unknowntime Yes NoSig: Dissolve 0.4 mg under the tongue every 5 minutes as needed.sertraline (ZOLOFT) 100 mg tablet 04/29/2017 at 0730 Yes YesSi mg. Two tablets by mouth dailyFacility-Administered Medications: NoneCurrent hospital medications:0.9% NaCl 2-10 mL 2-10 mL INTRAVENOUS q 12 Hvancomycin 1.5 g in D5W 250 mL (VANCOCIN) 0.015 g/kg/dose (Order-Specific)INTRAVENOU S Pre-Op Oncebacitracin 50,000 Units in sodium chloride 0.9 % 250 mL 50,000 UnitsIRRIGATION ONCEALLERGIESAllergen Reactions- Tetanus Toxoid UnknownREVIEW OF SYSTEMS:The following systems were reviewed with the patient, and are unremarkableother than as described below.SYSTEMIC: No fever, chills, or change in weight or appetiteHEENT: No recent change in vision or hearing.CARDIOVASCULAR: No murmur, gallop. Denies chest pain or palpitations.GI: No recent nausea, vomiting or diarrhea.: No recent hematuria or dysuria.SKIN: No recent itching or eruption.PSYCH: No recent active anxiety or depression.HEMATOLOGY/ONCO LOGY: No recent diagnosis of bleeding or cancer.ENDOCRINE: No recent polyuria or heat intolerance.NEURO: No recent TIA, stroke or seizures.RHEUMATOLOGY: No recent active connective tissue disease.ObjectivePHYSICAL EXAM:Pleasant, comfortable, not in acute distress.Awake, alert, oriented times 3.Moves all extremities.SKIN: No rash or lumps.HEENT: Normocephalic, face symmetrical. Upper denturesNECK: Supple, no JVD, no carotid bruit, no thyromegaly.LUNGS: Clear to auscultation bilaterally.CARDIAC: PMI present, RRR, S1 and S2, no S3 or S4, no additional heartsounds or murmurs.ABDOMEN: Soft, nontender, bowel sounds present.EXTREMITIES: No edema.PULSES: Peripheral pulses present.Body mass index is 40.85 kg/(m2).O2 Therapy: Room AirNo Data RecordedPatient Vitals for the past 48 hrs: BP Temp Temp src Pulse Resp SpO2 Height Jacjxl83/08/18 0816 107/50 (!) 35.8 ?C (96.4 ?F) Temporal Art 74 16 98 % 160 cm(5' 3) 104.6 kg (230 lb 9.6 oz)DATA:Diagnostic tests reviewed for today's visit:Most recent labsPast 72 Hour Labs:Recent Labs [id number] 9.40RBC 4.13HB 12.7HCT 38.1MCV 92.3MCH 30.8MCHC 33.3PLT 266MPV 9.6Last Lab Drawn:No results found for this basename: TSH,PROBNP,TG,HDL,LDL,CHOL Prior Cardiac Workup Echocardiogram EF 35%Impression/Recommendati onsActive Problems: Atherosclerosis of nulato coronary artery of nulato heart without anginapectoris Assessment AND Plan: h/o CAD, NSTEMI s/p PCI and stent to LAD. Stable.She is on appropriate medicationsICM with moderate LV systolic dysfunction, EF 35%. She is euvolemic, NYHAclass II HF. She is on appropriate HF medications. She is having asubcutaneous defibrillator implantation.SIGNATURE: Jenna Chou, MSN, [employer] MARKETING PATIENT NAME: González RagsdaleDATE: April 30, 2017 : 8:30 AM PAGER/CONTACT #: [phone] Attending:Ms. Ragsdale is here for ICD implantation. See update note.Joseph Jay MD/10/20179:03 AM Normal [facility] Hemogramon 04-30-2017 Erythrocyte distribution width Auto Ratio (RBC) 13.4 % Normal 11.7-14.4 [facility] Comment on above: Performed By: #### C BC1 ####[facility] [place], [place] [address] Erythrocytes (RBC) 4.13 mil/cmm Normal 3.93-5.22 [facility] Comment on above: Performed By: #### C BC1 ####[facility] [place], [place] [address] Hematocrit (HCT) 38.1 % Normal 34.1-44.9 [facility] Comment on above: Performed By: #### C BC1 ####[facility] [place], [place] [address] Hemoglobin mass conc (Bld) 12.7 g/dL Normal 11.2-15.7 [facility] Comment on above: Performed By: #### C BC1 ####[facility] [place], [place] [address] MCH 30.8 pg Normal 25.6-32.2 [facility] Comment on above: Performed By: #### C BC1 ####[address] [address] MCHC mass conc (RBC) 33.3 % Normal 31.6-34.8 [facility] Comment on above: Performed By: #### C BC1 ####[address] [address] MCV 92.3 fL Normal 79.4-94.8 [facility] Comment on above: Performed By: #### C BC1 ####[place] [address] Platelet mean volume (PMV) 9.6 fL Normal 9.4-12.3 [facility] Comment on above: Performed By: #### C BC1 ####[address] [address] Platelets 266 thou/cmm Normal 182-369 [facility] Comment on above: Performed By: #### C BC1 ####[address] [address] RDW SD 45.5 fl Normal 36.4-46.3 [facility] Comment on above: Performed By: #### C BC1 ####[address] [address] WBC (Leukocytes) 9.40 thou/cmm Normal 3.98-10.04 [facility] Comment on above: Performed By: #### C BC1 ####[address] [address] MDRD GFRon 04-30-2017 eGFR (non-black) mL/min/{1.73_m2} Normal >60mL/m in/1 .73m2 [facility] Comment on above: Result Comment: If t he patient is , multiply the result by 1.210. Performed By: #### G FR ####[place] [id number] NURSING PROGon 04-30-2017 NURSING PROG HNO ID: [id number] Author: Ирина (Rn) Barber, RN Service: (none) Author Type: Registered Nurse Type: Nursing Progress Note Filed: 04/30/2017 3:25 PM Note Text: Dr. Jay texted Jenna CHUNG and told her he is comfortable with pts bp. Last bp 102/57 [facility] NURSING PROG HNO ID: [id number] Author: Ирина (Rn) Barber, SHELDON Service: (none) Author Type: Registered Nurse Type: Nursing Progress Note Filed: 04/30/2017 3:17 PM Note Text: Arti RN and Claribel RN from EP lab at pt bedside. Pt denies dizziness, sob or cp [facility] NURSING PROG HNO ID: [id number] Author: Ирина (Rn) Barber, SHELDON Service: (none) Author Type: Registered Nurse Type: Nursing Progress Note Filed: 04/30/2017 3:10 PM Note Text: Dr. Elias aware of pts bp. Pt unknown and will call Dr. Jay [facility] OPERATIVE NOon 04-30-2017 OPERATIVE NO HNO ID: [id number] Author: Joseph Jay Service: Electrophysiology Author Type: Physician Type: Operative Report Filed: 04/30/2017 1:56 PM Note Text: See paper report, filled in paper chart today. Joseph Jay MD April 30, 2017 1:56 PM [facility] CNPNon 04-06-2017 CNPN Telephone (AGCARDPOB) CAMRON RAGSDALE ([id number]) 1960 FDate Time Provider Department04/06/17 JOSEPH JAY AGCARDPOB During your visit today, we recorded the following information about you:Eileen Heredia 04/06/2017 11:33 AM SignedProcedure: INSERTION OR REPLACE PERM SUBQ IMPLANTABLE DEFIB SYSTEM W/SUBQELECTRODE, INCLUDING EVAL AND PROGRAMMING OR REPROGRAMMING, WHEN PERFORMEDPROCEDURE SCHEDULED WITH DR. JAY ON 04/30/17mayo Sanchez RN 04/06/2017 11:49 AM SignedAdded to procedure board.Concepción Garcia As of Date: 04/06/2017 Noted Allergy ReactionTETANUS TOXOID 03/06/2017 16 - UnknownDate Reviewed: 03/09/2017Reviewed by: Joseph Jay - Fully AssessedReason for Visit: Procedure [88]Prescriptions as of 04/06/2017 Sig: ATORVASTATIN 40 MG TABLET 40 mg once daily. CARVEDILOL 3.125 MG TABLET 6.25 mg twice daily with meal* CLOPIDOGREL 75 MG TABLET 75 mg once daily. LISINOPRIL 5 MG TABLET 5 mg once daily. SERTRALINE 100 MG TABLET 100 mg. Two tablets by mouth * ASPIRIN 81 MG TABLET,DELAYED * Take 81 mg by mouth once reynaldo* NITROGLYCERIN 0.4 MG SUBLINGU* Dissolve 0.4 mg under the ton*Problem List As Of Date 04/06/2017 Noted Resolved NSTEMI (non-ST elevated myocardial infarction) * Ischemic cardiomyopathy [I25.5] Chronic ischemic heart disease [I25.9] More... Atherosclerotic heart disease of nulato coronar* Old myocardial infarction [I25.2] Chronic systolic heart failure (HCC) [I50.22] More... At risk for sudden cardiac [Z91.89] Atherosclerosis of nulato coronary artery of na*INVALID FOR* More... Status:Closed by ARIE SANCHEZ RN on 04/06/17 [facility] HOSPon 03-21-2017 HOSP Patient:Casa RagsdaleN: Height:5' 3(1.6 m)Weight:No patient weight recorded within the last 30 days.Outpatient Medications as of 04/30/17:acetaminophen (TYLENOL EXTRA STRENGTH) 500 mg tabletatorvastatin (LIPITOR) 40 mg tabletcarvedilol (COREG) 3.125 mg tabletclopidogrel (PLAVIX) 75 mg tabletlisinopril (ZESTRIL, PRINIVIL) 5 mg tabletsertraline (ZOLOFT) 100 mg tabletaspirin, enteric coated (ASPIRIN, ENTERIC COATED) 81 mg EC tabletnitroglycerin sublingual (NITROSTAT) 0.4 mg SL tabletAdmission/Clinic Administered Medications as of 04/30/17:0.9% NaCl 2-10 mLvancomycin 1.5 g in D5W 250 mL (VANCOCIN)bacitracin 50,000 Units in sodium chloride 0.9 % 250 mLProblem List:NSTEMI (non-ST elevated myocardial infarction) ([facility]) [I21.4]Ischemic cardiomyopathy [I25.5]Chronic ischemic heart disease [I25.9]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[I25.10]Old myocardial infarction [I25.2]Chronic systolic heart failure ([facility]) [I50.22]At risk for sudden cardiac [Z91.89]Atherosclerosis of nulato coronary artery of nulato heart without anginapectoris [I25.10]Allergies:Tetanus ToxoidDate Verified: 04/30/17Lab ValuesLab Value Units Date High LowPOTA* 4.1 mEq/L 04/30/2017 5.1 3.5HEMA* 38.1 % 04/30/2017 44.9 34.1Progress Notes ([facility]):Eileen Heredia 04/06/2017 11:33 AM SignedProcedure: INSERTION OR REPLACE PERM SUBQ IMPLANTABLE DEFIB SYSTEM W/SUBQELECTRODE, INCLUDING EVAL AND PROGRAMMING OR REPROGRAMMING, WHEN PERFORMEDPROCEDURE SCHEDULED WITH DR. JAY ON 04/30/17mayo Sanchez RN 04/06/2017 11:49 AM SignedAdded to procedure board.Arie Sanchez RN [facility] 03-09-2017 [facility] Office Visit (AGCARDPHRA) CASA RAGSDALE ([id number]) 1960 FDate Time Provider Ghuskelhhp28/18/17 2:00 PM JOSEPH JAY During your visit today, we recorded the following information about you: Pulse Respiration Blood pressure Weight 85/minute 16/minute 128/80 102.1 kg Height 1.6 Ebony Carvajal CMA 03/09/2017 2:13 PM SignedPatient denies any cardiac complaints today.Cindy Camejo MD 03/09/2017 4:58 PM SignedHeart FailureWhat is heart failure?Heart failure (HF) means the heart is not pumping blood as well as it should.It may pump at a different speed, pump blood with less force, or pump lessblood with each heartbeat. When less blood is flowing out of the heart to thebody, muscles and other tissues may not get enough oxygen. The kidneys may notwork as well to remove excess fluid in the form of urine. As a result, bloodbacks up into the blood vessels. The extra fluid seeps into the lungs or otherparts of the body. Fluid in the lungs makes it hard to breathe. Fluid seepinginto other parts of the body causes swelling. When there is too much fluid inthe body, it puts more strain on the heart.Heart failure is one of the most common causes of heart-related illness anddeath in the .What is the cause?A number of things can cause heart failure, such as:-Narrowing or blockage in the arteries that bring blood to the heart muscle-Infection of the heart-Heart attack-High blood pressure-Heart valve problems-Genetic problems with the heart qldwem-Jhgsmshcyi-Bznhlssw -Lung diseaseProblems that may worsen or trigger heart failure, especially if your heartmuscle is weak, include:-Severe anemia (a low level of red blood cells)-An overactive or underactive thyroid oizzd-Gibbqcznv-M heartbeat that is too fast or too slow-Too much salt or fluid in the diet-Working your body too hard with exercise or daily activities-Emotional stressWhat are the symptoms?The symptoms of heart failure may include:-Shortness of breath or trouble breathing, at first just during exercise, thenwith any activity, and finally even when you are resting-Waking up at night with trouble breathing or being unable to lie flat in bedbecause of shortness of omlqjz-Lufutgjm-Fjhlekd ankles, feet, and legs-Weight gain caused by extra fluid in the body-Feeling tired most of the time and not able to do your usual activities-Lack of appetite and feeling sick to your stomach-Feeling like your heart is racing or fluttering-Lightheadedness or faintingHow is it diagnosed?Your healthcare provider will ask about your symptoms and examine you. Testsmay include:-Chest X-ray-An ECG (also called an EKG), which measures and records your heartbeat-Blood or urine tests-Echocardiogram, which uses sound waves (ultrasound) to see how well your heartmuscle is pumpingHow is it treated?Heart failure can be treated and managed. The goals of treatment are:-Help your heart so it doesn?t have to work as hard-Help your heart pump blood better-Get rid of extra water in your bodyYour healthcare provider may prescribe medicine to relax the blood vessels andlower blood pressure. Then the heart doesn?t have to work as hard. You may needto take 2 or more medicines to treat your heart failure. It may take severalweeks or months to find the best treatment for you.In some cases, heart failure can get better and even be cured. For example, ifit is caused by an infection, it may be cured with treatment of the infection.Heart failure due to coronary artery disease is generally not cured and mostoften gets worse over time. However, carefully following your treatment plancan:-Slow down the worsening of heart failure and help you live longer-Help prevent trips to the hospital-Help you feel better and do moreHow can I take care of myself?If you have heart failure, there are things you can do to take care of yourselfnow and prevent problems in the future.Follow your treatment plan and know how to take your medicines.-Work as a partner with your provider. This means having regular providervisits and following your treatment plan.-Follow the directions that come with your medicine, including informationabout food or alcohol. Make sure you know how and when to take your medicine.Do not take more or less than you are supposed to take.-Many medicines have side effects. A side effect is a symptom or problem thatis caused by the medicine. Ask your healthcare provider or pharmacist what sideeffects your medicine may cause and what you should do if you have sideeffects. Ask if you should avoid some nonprescription medicines.Don?t smoke, eat a healthy diet, and watch your weight and blood pressure.-Quit smoking if you are a smoker.-Lose weight if you are overweight and eat a healthy diet.?Follow a low-salt (low-sodium) diet if it is recommended by your provider. Toomuch salt makes your body keep too much water and makes your heart have to workharder.?Follow your healthcare provider's advice about how much liquid you shoulddrink.?Ask your provider if you should avoid drinking alcohol. Alcohol can weakenyour heart or may worsen heart failure. Also, some of your medicines may notwork well if you drink alcohol.-Weigh yourself every morning after you use the bathroom but before you eat ordrink anything. Weighing yourself every day helps you know if extra fluid isbuilding up in your body. A buildup of fluid is a sign that your heart failuremay be getting worse. Weight gain can let you know about fluid buildup beforeyou start having swelling.Keep track of your weight in a diary or on the calendar. Ask your healthcareprovider when you should report weight gain. Letting your provider know aboutweight gain when it first happens can save you a trip to the emergency room ora stay in the hospital.-Also check your pulse and blood pressure every day. Learn how to take your ownblood pressure or have a family member learn how to take it.Be as physically active as you can.-How active you can be depends on how bad the heart failure is. A program ofgentle exercise helps most people. Your provider can tell you what level ofexercise is right for you. Exercise helps your heart and body get stronger. Italso improves your blood flow and energy level. Don?t exercise outdoors if itis very hot, cold, humid, or smoggy. Balance exercise with rest. Make sure thatyour activities don?t make you too tired or short of breath. Take rest breaksduring the day.-Avoid getting very hot or cold because it may make your heart work harder.Try to lessen the stress in your life.-Anxiety and anger can cause a fast heart rate and high blood pressure. If youneed help with this, ask your healthcare provider.Protect yourself against infections.-Get a flu shot every year. When you have heart failure, you should not get thenasal spray vaccine (FluMist).-Get the pneumococcal shot.Ask your healthcare provider:-How and when you will hear your test results-How long it will take to recover-What activities you should avoid and when you can return to your normalactivities-How to take care of yourself at home-What symptoms or problems you should watch for and what to do if you have themMake sure you know when you should come back for a checkup.How can I help prevent heart failure?You can prevent this disease with a heart-healthy lifestyle:-Eat a healthy diet and keep a healthy weight.-Stay fit with the right kind of exercise for you.-Decrease stress.-Don?t smoke.-Limit your use of alcohol.Talk to your healthcare provider about your personal and family medical historyand your lifestyle habits. This will help you know what you can do to loweryour risk for heart failure.Developed by [employer].Published by [employer].Copyright ?2014 [employer] and/or one of its subsidiaries. All rightsreserved.Joseph Jay MD 03/09/2017 6:15 PM SignedPRIMARY CARE PHYSICIAN:Tejal Maciel, [id number] [address]Prhpl: [phone]: [phone] PHYSICIAN:Star Ng MD ([facility])[address] [place] [phone] Care Team:Tejal Maciel as PCP - General (Internal Medicine)Star Ng as Specialty Duty Officer (Cardiology)Joseph Jay as Specialty Duty Officer (Cardiology)CHIEF COMPLAINT:Evaluation for risk of sudden cardiac and ICD candidacyHISTORY OF PRESENT ILLNESS:Ms. Ragsdale is a 56 year old female who presents today for evaluation. Shehas a history of coronary artery disease with myocardial infarction in February2016. This was delayed presentation and although she underwent percutaneouscoronary intervention to the LAD with a stent, she already had moderate leftventricular systolic dysfunction. The current myopathy has not improvedsubstantially with optimal and guideline directed medical therapy. She statescompliance with prescribed medication regimen. She denies chest pain,shortness of breath, orthopnea, cough, edema, palpitations, PND,lightheadedness or syncope. She presents now to be evaluated for possiblecandidacy for ICD implantation for primary prevention purposes.PAST MEDICAL HISTORYDiagnosis Date- Adhesive capsulitis of left shoulder- Arthritis acromioclavicular- At risk for sudden cardiac - Atherosclerotic heart disease of nulato coronary artery without anginapectoris- Biceps tendinitis, left- CHF (congestive heart failure) ([facility])- Chronic ischemic heart disease LVEF 35% on guideline directed medical therapy- Chronic systolic heart failure ([facility]) NYHA FC II heart failure symptoms on GDMT- Depression- Hyperglycemia- Hyperlipidemia- Hypertension- Ischemic cardiomyopathy- Nicotine abuse- NSTEMI (non-ST elevated myocardial infarction) ([facility])- Obesity- Old myocardial infarction 02/2016 delayed presentation IA- Rotator cuff tear, left- Shoulder impingement syndrome, left- Shoulder pain, leftPAST SURGICAL HISTORYProcedure Laterality Date- APPENDECTOMY 1973- SECTION HX 1985- ECHOCARDIOGRAM 01/28/2017 moderate LV systolic dysfxn; LVEF 35-40% with regional wall motionabnormalities; no significant change from previous echocardiogram- ECHOCARDIOGRAM 03/18/2016 LVEF 35%- ECHOCARDIOGRAM 10/22/2016 LVEF 35%- INSERT INTRACORONARY STENT 03/18/2016 PCI/stent ([facility]) drug-eluting stent to LAD- LEFT HEART CATH 03/18/2016 left heart cath w/[id number]- LEXISCAN STRESS TEST 05/02/2016 no ischemia; +scar- SEPTOPLASTY 1988SOCIAL HISTORYSocial HistorySubstance Use Topics- Smoking status: Former Smoker Packs/day: 0.50 Years: 32.00 Start date: 1983 Quit date: 02/21/2016- Smokeless tobacco: Never Used- Alcohol use Yes Comment: occasional glass of wineFAMILY HISTORYProblem Relation Age of Onset- Heart disease Mother had heart disease in early 60s; had CABG- Coronary Artery Disease Mother- Diabetes Mother diet controlled- COPD Mother- tobacco use [OTHER] Mother- Cancer Father lung cancer- tobacco use [OTHER] Father- Rheumatologic disease Sister- Arthritis Sister- sjogren's [OTHER] Sister- lupus [OTHER] Sister- Thyroid SisterALLERGIES:ALLERGIESA llergen Reactions- Tetanus Toxoid UnknownMEDICATIONS:atorvas tatin (LIPITOR) 40 mg tablet 40 mg once daily.carvedilol (COREG) 3.125 mg tablet 6.25 mg twice daily with meals.clopidogrel (PLAVIX) 75 mg tablet 75 mg once daily.lisinopril (ZESTRIL, PRINIVIL) 5 mg tablet 5 mg once daily.sertraline (ZOLOFT) 100 mg tablet 100 mg. Two tablets by mouth dailyaspirin, enteric coated (ASPIRIN, ENTERIC COATED) 81 mg EC tablet Take 81 mg bymouth once daily.nitroglycerin sublingual (NITROSTAT) 0.4 mg SL tablet Dissolve 0.4 mg under thetongue every 5 minutes as needed.REVIEW OF SYSTEMS:PAIN ASSESSMENT: Negative for pain, history of chronic pain, or currenttreatment for a chronic pain condition.GENERAL: Negative for: Weight loss or gain, Fever or Chills, Weakness and Sleepdifficulties.HEENT: Positive for:Impaired Vision, Glasses and contact lenses , dentures(upper); Negative for:Headache, Hearing Impairment, Ringing in Ears, Nosebleedsand Bleeding GumsNECK: Negative for: Swelling, Pain, StiffnessRESPIRATORY: Negative for: Cough, Blood in Sputum, Shortness of breath,Wheezing, ApneaGASTROINTESTINAL: Negative for: Trouble swallowing, Heartburn, Change in bowelhabits, Blood in stool, Dark black stoolsMUSCULOSKELETAL: Negative for: Muscle or joint pain, stiffness, Joint swellingNEUROLOGIC/PSYCHIA TRIC: Negative for: Weakness, Paralysis, Numbness, Tingling,Tremor, Nervousness or anxiety, Depressed mood, Memory lossSKIN: Negative for: Rash, ItchingHEMATOLOGICAL/LYMPH ATIC: Negative for: Easy bruising, Easy bleedingENDOCRINE: Negative for: Heat or Cold Intolerance, Excessive Sweating,Frequent Urination, Frequent ThirstPHYSICAL EXAMINATION:BP 128/80 Pulse 85 Resp 16 Ht 5' 3ANDquot; (1.60m) Wt 225 lb (102.1kg) SpO2 98% BMI 39.87 kg/(m2).General: Well appearing, in no acute distress, speaking in complete sentences.Skin: No clubbing, no cyanosis.Eyes: Extra ocular movements intact, Non-icteric scleraeOropharynx: Teeth in good repair.Neck: no jugular venous distention,, no carotid bruits, , carotids have anormal upstrokeLungs: Clear to auscultation bilaterally, no wheezing or rhonchi.Heart: Regular rhythm, PMI not displaced, S1, S2 normal, no S3, no S4, noheaves, no rub and no murmur.Abdomen: Soft, nontender, bowel sounds normal, no palpable organomegaly, nobruits.Extremities: No peripheral edema . Grade 2/4 distal pulses bilaterally.Neuro: Oriented to person, place and time, alert, cooperative, gait coordinated.CARDIOVASCULAR MEDICINE TESTING:Electrocardiogram: Sinus rhythm 83 bpm; low voltage QRS complexes; incompleteright bundle branch block (QRS duration 92 ms); anterolateral infarct pattern(not new); corrected QT interval appropriateI have personally reviewed the Electrocardiogram.ASSESSME NT/PLAN:1. Chronic ischemic heart disease - ICD9: 414.9, ICD10: I25.9 (primarydiagnosis)2. Atherosclerosis of [place] coronary artery of [place] heart without anginapectoris - ICD9: 414.01, ICD10: I25.103. Old myocardial infarction - ICD9: 412, ICD10: I25.24. Chronic systolic heart failure (HCC) - ICD9: 428.22, ICD10: I50.225. At risk for sudden cardiac - ICD9: V49.89, ICD10: Z91.89IMPRESSION:Ms. Ragsdale has chronic ischemic heart disease with LVEF of 35% that has notimproved since the time of myocardial infarction in February 2016 despiteoptimal and guidelines directed medical therapy. She is at risk for suddencardiac , and an ICD is indicated for primary prevention purposes. I hada detailed discussion with Ms. Ragsdale in this regard. She does not requirecardiac pacing for bradycardia support or for cardiac resynchronizationtherapy, and she has not known to have ventricular tachycardia to indicate apressing need for antitachycardia pacing. Therefore, a single-chamber ICDsystem would be appropriate. Given her relatively young age, a considerationshould be given to the potential adverse long-term effects of a transvenous ICDsystem. With that in mind, it is not unreasonable to consider a subcutaneousICD system instead of a transvenous one. I told her that I somewhat favored asubcutaneous ICD system in her particular circumstances, although a transvenousICD system would be also acceptable. I discussed my evaluation andrecommendations with Ms. Ragsdale in detail. I discussed the risks benefitsand alternatives of ICD implantation including the transvenous and subcutaneoustypes. After our discussion, Ms. Ragsdale expressed her understanding and Ianswered all of her questions to her apparent satisfaction. She would like togive the options further consideration. I provided her with educationalliterature. She was appreciative and stated she would contact me with a finaldecision in the near future.PLAN AND RECOMMENDATIONS:See outline of recommendations above.Return if symptoms worsen or fail to improve, for patient will call if shewishes to proceed with ICD implantation.Joseph Jay MD03/09/2017Joseph Jay MD 03/09/2017 6:15 PM SignedPRIMARY CARE PHYSICIAN:Tejal Maciel, [id number] [address] [address]Mtutc: [phone]: [phone] PHYSICIAN:Star Ng MD ([facility])[address] [place] [id number] Care Team:Tejal Maciel as PCP - General (Internal Medicine)Star Ng as Specialty Duty Officer (Cardiology)Joseph Jay as Specialty Duty Officer (Cardiology)CHIEF COMPLAINT:Evaluation for risk of sudden cardiac and ICD candidacyHISTORY OF PRESENT ILLNESS:Ms. Ragsdale is a 56 year old female who presents today for evaluation. Shehas a history of coronary artery disease with myocardial infarction in February2016. This was delayed presentation and although she underwent percutaneouscoronary intervention to the LAD with a stent, she already had moderate leftventricular systolic dysfunction. The current myopathy has not improvedsubstantially with optimal and guideline directed medical therapy. She statescompliance with prescribed medication regimen. She denies chest pain,shortness of breath, orthopnea, cough, edema, palpitations, PND,lightheadedness or syncope. She presents now to be evaluated for possiblecandidacy for ICD implantation for primary prevention purposes.PAST MEDICAL HISTORYDiagnosis Date- Adhesive capsulitis of left shoulder- Arthritis acromioclavicular- At risk for sudden cardiac - Atherosclerotic heart disease of [place] coronary artery without anginapectoris- Biceps tendinitis, left- CHF (congestive heart failure) ([facility])- Chronic ischemic heart disease LVEF 35% on guideline directed medical therapy- Chronic systolic heart failure ([facility]) NYHA FC II heart failure symptoms on GDMT- Depression- Hyperglycemia- Hyperlipidemia- Hypertension- Ischemic cardiomyopathy- Nicotine abuse- NSTEMI (non-ST elevated myocardial infarction) ([facility])- Obesity- Old myocardial infarction 02/2016 delayed presentation IA- Rotator cuff tear, left- Shoulder impingement syndrome, left- Shoulder pain, leftPAST SURGICAL HISTORYProcedure Laterality Date- APPENDECTOMY 1973- SECTION HX 1985- ECHOCARDIOGRAM 01/28/2017 moderate LV systolic dysfxn; LVEF 35-40% with regional wall motionabnormalities; no significant change from previous echocardiogram- ECHOCARDIOGRAM 03/18/2016 LVEF 35%- ECHOCARDIOGRAM 10/22/2016 LVEF 35%- INSERT INTRACORONARY STENT 03/18/2016 PCI/stent ([employer]) drug-eluting stent to LAD- LEFT HEART CATH 03/18/2016 left heart cath w/[id number]- LEXISCAN STRESS TEST 05/02/2016 no ischemia; +scar- SEPTOPLASTY 1988SOCIAL HISTORYSocial HistorySubstance Use Topics- Smoking status: Former Smoker Packs/day: 0.50 Years: 32.00 Start date: 1983 Quit date: 02/21/2016- Smokeless tobacco: Never Used- Alcohol use Yes Comment: occasional glass of wineFAMILY HISTORYProblem Relation Age of Onset- Heart disease Mother had heart disease in early 60s; had CABG- Coronary Artery Disease Mother- Diabetes Mother diet controlled- COPD Mother- tobacco use [OTHER] Mother- Cancer Father lung cancer- tobacco use [OTHER] Father- Rheumatologic disease Sister- Arthritis Sister- sjogren's [OTHER] Sister- lupus [OTHER] Sister- Thyroid SisterALLERGIES:ALLERGIESA llergen Reactions- Tetanus Toxoid UnknownMEDICATIONS:atorvas tatin (LIPITOR) 40 mg tablet 40 mg once daily.carvedilol (COREG) 3.125 mg tablet 6.25 mg twice daily with meals.clopidogrel (PLAVIX) 75 mg tablet 75 mg once daily.lisinopril (ZESTRIL, PRINIVIL) 5 mg tablet 5 mg once daily.sertraline (ZOLOFT) 100 mg tablet 100 mg. Two tablets by mouth dailyaspirin, enteric coated (ASPIRIN, ENTERIC COATED) 81 mg EC tablet Take 81 mg bymouth once daily.nitroglycerin sublingual (NITROSTAT) 0.4 mg SL tablet Dissolve 0.4 mg under thetongue every 5 minutes as needed.REVIEW OF SYSTEMS:PAIN ASSESSMENT: Negative for pain, history of chronic pain, or currenttreatment for a chronic pain condition.GENERAL: Negative for: Weight loss or gain, Fever or Chills, Weakness and Sleepdifficulties.HEENT: Positive for:Impaired Vision, Glasses and contact lenses , dentures(upper); Negative for:Headache, Hearing Impairment, Ringing in Ears, Nosebleedsand Bleeding GumsNECK: Negative for: Swelling, Pain, StiffnessRESPIRATORY: Negative for: Cough, Blood in Sputum, Shortness of breath,Wheezing, ApneaGASTROINTESTINAL: Negative for: Trouble swallowing, Heartburn, Change in bowelhabits, Blood in stool, Dark black stoolsMUSCULOSKELETAL: Negative for: Muscle or joint pain, stiffness, Joint swellingNEUROLOGIC/PSYCHIA TRIC: Negative for: Weakness, Paralysis, Numbness, Tingling,Tremor, Nervousness or anxiety, Depressed mood, Memory lossSKIN: Negative for: Rash, ItchingHEMATOLOGICAL/LYMPH ATIC: Negative for: Easy bruising, Easy bleedingENDOCRINE: Negative for: Heat or Cold Intolerance, Excessive Sweating,Frequent Urination, Frequent ThirstPHYSICAL EXAMINATION:BP 128/80 Pulse 85 Resp 16 Ht 5' 3ANDquot; (1.60m) Wt 225 lb (102.1kg) SpO2 98% BMI 39.87 kg/(m2).General: Well appearing, in no acute distress, speaking in complete sentences.Skin: No clubbing, no cyanosis.Eyes: Extra ocular movements intact, Non-icteric scleraeOropharynx: Teeth in good repair.Neck: no jugular venous distention,, no carotid bruits, , carotids have anormal upstrokeLungs: Clear to auscultation bilaterally, no wheezing or rhonchi.Heart: Regular rhythm, PMI not displaced, S1, S2 normal, no S3, no S4, noheaves, no rub and no murmur.Abdomen: Soft, nontender, bowel sounds normal, no palpable organomegaly, nobruits.Extremities: No peripheral edema . Grade 2/4 distal pulses bilaterally.Neuro: Oriented to person, place and time, alert, cooperative, gait coordinated.CARDIOVASCULAR MEDICINE TESTING:Electrocardiogram: Sinus rhythm 83 bpm; low voltage QRS complexes; incompleteright bundle branch block (QRS duration 92 ms); anterolateral infarct pattern(not new); corrected QT interval appropriateI have personally reviewed the Electrocardiogram.ASSESSME NT/PLAN:1. Chronic ischemic heart disease - ICD9: 414.9, ICD10: I25.9 (primarydiagnosis)2. Atherosclerosis of [place] coronary artery of [place] heart without anginapectoris - ICD9: 414.01, ICD10: I25.103. Old myocardial infarction - ICD9: 412, ICD10: I25.24. Chronic systolic heart failure (HCC) - ICD9: 428.22, ICD10: I50.225. At risk for sudden cardiac - ICD9: V49.89, ICD10: Z91.89IMPRESSION:Ms. Ragsdale has chronic ischemic heart disease with LVEF of 35% that has notimproved since the time of myocardial infarction in February 2016 despiteoptimal and guidelines directed medical therapy. She is at risk for suddencardiac , and an ICD is indicated for primary prevention purposes. I hada detailed discussion with Ms. Ragsdale in this regard. She does not requirecardiac pacing for bradycardia support or for cardiac resynchronizationtherapy, and she has not known to have ventricular tachycardia to indicate apressing need for antitachycardia pacing. Therefore, a single-chamber ICDsystem would be appropriate. Given her relatively young age, a considerationshould be given to the potential adverse long-term effects of a transvenous ICDsystem. With that in mind, it is not unreasonable to consider a subcutaneousICD system instead of a transvenous one. I told her that I somewhat favored asubcutaneous ICD system in her particular circumstances, although a transvenousICD system would be also acceptable. I discussed my evaluation andrecommendations with Ms. Ragsdale in detail. I discussed the risks benefitsand alternatives of ICD implantation including the transvenous and subcutaneoustypes. After our discussion, Ms. Ragsdale expressed her understanding and Ianswered all of her questions to her apparent satisfaction. She would like togive the options further consideration. I provided her with educationalliterature. She was appreciative and stated she would contact me with a finaldecision in the near future.PLAN AND RECOMMENDATIONS:See outline of recommendations above.Return if symptoms worsen or fail to improve, for patient will call if shewishes to proceed with ICD implantation.Joseph Jay MD03/09/2017Referring Provider: STAR NG [[id number]]Allergies As of Date: 03/09/2017 Noted Allergy ReactionTETANUS TOXOID 03/06/2017 16 - UnknownDate Reviewed: 03/09/2017Reviewed by: Joseph Jay - Fully AssessedReason for Visit: New Patient [172] Cmt: Referred by Dr. Star Ng for cardiomyopathyPrimary Visit Diagnosis:Chronic ischemic heart disease [I25.9] Other Visit Diagnoses:Atherosclerosis of [place] coronary artery of [place] heart without angina pectoris [I25.10] Old myocardial infarction [I25.2] Chronic systolic heart failure (HCC) [I50.22] At risk for sudden cardiac [Z91.89]Order(s):EKG WITH INTERPRETATION [20349OSV] Order #: [id number]: 1Prescriptions as of 03/09/2017 Sig: ATORVASTATIN 40 MG TABLET 40 mg once daily. CARVEDILOL 3.125 MG TABLET 6.25 mg twice daily with meal* CLOPIDOGREL 75 MG TABLET 75 mg once daily. LISINOPRIL 5 MG TABLET 5 mg once daily. SERTRALINE 100 MG TABLET 100 mg. Two tablets by mouth * ASPIRIN 81 MG TABLET,DELAYED * Take 81 mg by mouth once reynaldo* NITROGLYCERIN 0.4 MG SUBLINGU* Dissolve 0.4 mg under the ton*Medication notes this encounter AMOXICILLIN 500 MG CAPSULE >> Corina Carvajal CMA 03/09/2017 2:08 PM >> CORINA CARVAJAL CMA Mar 09, 2017 2:08 PM completed IBUPROFEN 600 MG TABLET >> Corina Carvajal CMA 03/09/2017 2:08 PM >> CORINA CARVAJAL CMA Mar 09, 2017 2:08 PM Not takingProblem List As Of Date 03/09/2017 Noted Resolved NSTEMI (non-ST elevated myocardial infarction) * Ischemic cardiomyopathy [I25.5] Chronic ischemic heart disease [I25.9] More... Atherosclerotic heart disease of [place] coronar* Old myocardial infarction [I25.2] Chronic systolic heart failure (HCC) [I50.22] More... At risk for sudden cardiac [Z91.89] Other instructions from your clinician: Heart Failure What is heart failure? Heart failure (HF) means the heart is not pumping blood as well as it should. It may pump at a different speed, pump blood with less force, or pump less blood with each heartbeat. When less blood is flowing out of the heart to the body, muscles and other tissues may not get enough oxygen. The kidneys may not work as well to remove excess fluid in the form of urine. As a result, blood backs up into the blood vessels. The extra fluid seeps into the lungs or other parts of the body. Fluid in the lungs makes it hard to breathe. Fluid seeping into other parts of the body causes swelling. When there is too much fluid in the body, it puts more strain on the heart. Heart failure is one of the most common causes of heart-related illness and in the [place]. What is the cause? A number of things can cause heart failure, such as: -Narrowing or blockage in the arteries that bring blood to the heart muscle -Infection of the heart -Heart attack -High blood pressure -Heart valve problems -Genetic problems with the heart muscle -Alcoholism -Diabetes -Lung disease Problems that may worsen or trigger heart failure, especially if your heart muscle is weak, include: -Severe anemia (a low level of red blood cells) -An overactive or underactive thyroid gland -Infection -A heartbeat that is too fast or too slow -Too much salt or fluid in the diet -Working your body too hard with exercise or daily activities -Emotional stress What are the symptoms? The symptoms of heart failure may include: -Shortness of breath or trouble breathing, at first just during exercise, then with any activity, and finally even when you are resting -Waking up at night with trouble breathing or being unable to lie flat in bed because of shortness of breath -Coughing -Swollen ankles, feet, and legs -Weight gain caused by extra fluid in the body -Feeling tired most of the time and not able to do your usual activities -Lack of appetite and feeling sick to your stomach -Feeling like your heart is racing or fluttering -Lightheadedness or fainting How is it diagnosed? Your healthcare provider will ask about your symptoms and examine you. Tests may include: -Chest X-ray -An ECG (also called an EKG), which measures and records your heartbeat -Blood or urine tests -Echocardiogram, which uses sound waves (ultrasound) to see how well your heart muscle is pumping How is it treated? Heart failure can be treated and managed. The goals of treatment are: -Help your heart so it doesn?t have to work as hard -Help your heart pump blood better -Get rid of extra water in your body Your healthcare provider may prescribe medicine to relax the blood vessels and lower blood pressure. Then the heart doesn?t have to work as hard. You may need to take 2 or more medicines to treat your heart failure. It may take several weeks or months to find the best treatment for you. In some cases, heart failure can get better and even be cured. For example, if it is caused by an infection, it may be cured with treatment of the infection. Heart failure due to coronary artery disease is generally not cured and most often gets worse over time. However, carefully following your treatment plan can: -Slow down the worsening of heart failure and help you live longer -Help prevent trips to the hospital -Help you feel better and do more How can I take care of myself? If you have heart failure, there are things you can do to take care of yourself now and prevent problems in the future. Follow your treatment plan and know how to take your medicines. -Work as a partner with your provider. This means having regular provider visits and following your treatment plan. -Follow the directions that come with your medicine, including information about food or alcohol. Make sure you know how and when to take your medicine. Do not take more or less than you are supposed to take. -Many medicines have side effects. A side effect is a symptom or problem that is caused by the medicine. Ask your healthcare provider or pharmacist what side effects your medicine may cause and what you should do if you have side effects. Ask if you should avoid some nonprescription medicines. Don?t smoke, eat a healthy diet, and watch your weight and blood pressure. -Quit smoking if you are a smoker. -Lose weight if you are overweight and eat a healthy diet. ?Follow a low-salt (low-sodium) diet if it is recommended by your provider. Too much salt makes your body keep too much water and makes your heart have to work harder. ?Follow your healthcare provider's advice about how much liquid you should drink. ?Ask your provider if you should avoid drinking alcohol. Alcohol can weaken your heart or may worsen heart failure. Also, some of your medicines may not work well if you drink alcohol. -Weigh yourself every morning after you use the bathroom but before you eat or drink anything. Weighing yourself every day helps you know if extra fluid is building up in your body. A buildup of fluid is a sign that your heart failure may be getting worse. Weight gain can let you know about fluid buildup before you start having swelling. Keep track of your weight in a diary or on the calendar. Ask your healthcare provider when you should report weight gain. Letting your provider know about weight gain when it first happens can save you a trip to the emergency room or a stay in the hospital. -Also check your pulse and blood pressure every day. Learn how to take your own blood pressure or have a family member learn how to take it. Be as physically active as you can. -How active you can be depends on how bad the heart failure is. A program of gentle exercise helps most people. Your provider can tell you what level of exercise is right for you. Exercise helps your heart and body get stronger. It also improves your blood flow and energy level. Don?t exercise outdoors if it is very hot, cold, humid, or smoggy. Balance exercise with rest. Make sure that your activities don?t make you too tired or short of breath. Take rest breaks during the day. -Avoid getting very hot or cold because it may make your heart work harder. Try to lessen the stress in your life. -Anxiety and anger can cause a fast heart rate and high blood pressure. If you need help with this, ask your healthcare provider. Protect yourself against infections. -Get a flu shot every year. When you have heart failure, you should not get the nasal spray vaccine (FluMist). -Get the pneumococcal shot. Ask your healthcare provider: -How and when you will hear your test results -How long it will take to recover -What activities you should avoid and when you can return to your normal activities -How to take care of yourself at home -What symptoms or problems you should watch for and what to do if you have them Make sure you know when you should come back for a checkup. How can I help prevent heart failure? You can prevent this disease with a heart-healthy lifestyle: -Eat a healthy diet and keep a healthy weight. -Stay fit with the right kind of exercise for you. -Decrease stress. -Don?t smoke. -Limit your use of alcohol. Talk to your healthcare provider about your personal and family medical history and your lifestyle habits. This will help you know what you can do to lower your risk for heart failure. Developed by [employer]. Published by [employer]. Copyright ?2013 [employer] and/or one of its subsidiaries. All rights reserved.Visit Notes:>> Corina Wei Mon Mar 09, 2017 2:07 PM Status: SignedPatient denies any cardiac complaints today.Corina Carvajal, CMAMedications Discontinued During This Encounter amoxicillin (POLYMOX, AMOXIL) 500 mg* 02/25/2017 03/09/2017 Class: Historical Med Sig: Disc: Erroneous entry ibuprofen (MOTRIN) 600 mg tablet 02/17/2017 03/09/2017 Class: Historical Med Sig: Disc: Erroneous entryDisposition: Return if symptoms worsen or fail to improve, for patient will call if she wishes to proceed with ICD implantation.Follow-up and Disposition History RecordedLetter TextEncounter Number: [id number] Status:Closed by JOSEPH JAY MD on 03/09/17 [facility] HISTORY PHYSICALon HISTORY PHYSICAL HNO ID: [id number] thor: Joseph Garcíaervice: (none)Author Type: PhysicianType: HANDPFiled: 03/09/2017 6:15 PMNote Text:PRIMARY CARE PHYSICIAN:Tejal Maciel, [id number] [address]Ypemt: [phone]: [phone] PHYSICIAN:Star Ng MD ([facility])[address] [facility] [id number] Care Team:Tejal Maciel as PCP - General (Internal Medicine)Star Ng as Specialty Duty Officer (Cardiology)Joseph Jay as Specialty Duty Officer (Cardiology)CHIEF COMPLAINT:Evaluation for risk of sudden cardiac and ICD candidacyHISTORY OF PRESENT ILLNESS:Ms. Ragsdale is a 56 year old female who presents today for evaluation.She has a history of coronary artery disease with myocardial infarction in[place] 2015. This was delayed presentation and although she underwentpercutaneous coronary intervention to the LAD with a stent, she alreadyhad moderate left ventricular systolic dysfunction. The current myopathyhas not improved substantially with optimal and guideline directed medicaltherapy. She states compliance with prescribed medication regimen. Shedenies chest pain, shortness of breath, orthopnea, cough, edema,palpitations, PND, lightheadedness or syncope. She presents now to beevaluated for possible candidacy for ICD implantation for primaryprevention purposes.PAST MEDICAL HISTORYDiagnosis Date- Adhesive capsulitis of left shoulder- Arthritis acromioclavicular- At risk for sudden cardiac - Atherosclerotic heart disease of [place] coronary artery without anginapectoris- Biceps tendinitis, left- CHF (congestive heart failure) ([facility])- Chronic ischemic heart disease LVEF 35% on guideline directed medical therapy- Chronic systolic heart failure ([facility]) NYHA FC II heart failure symptoms on GDMT- Depression- Hyperglycemia- Hyperlipidemia- Hypertension- Ischemic cardiomyopathy- Nicotine abuse- NSTEMI (non-ST elevated myocardial infarction) ([facility])- Obesity- Old myocardial infarction 02/2016 delayed presentation IA- Rotator cuff tear, left- Shoulder impingement syndrome, left- Shoulder pain, leftPAST SURGICAL HISTORYProcedure Laterality Date- APPENDECTOMY 1973- SECTION HX 1985- ECHOCARDIOGRAM 01/28/2017 moderate LV systolic dysfxn; LVEF 35-40% with regional wall motionabnormalities; no significant change from previous echocardiogram- ECHOCARDIOGRAM 03/18/2016 LVEF 35%- ECHOCARDIOGRAM 10/22/2016 LVEF 35%- INSERT INTRACORONARY STENT 03/18/2016 PCI/stent ([employer]) drug-eluting stent to LAD- LEFT HEART CATH 03/18/2016 left heart cath w/[id number]- LEXISCAN STRESS TEST 05/02/2016 no ischemia; +scar- SEPTOPLASTY 1988SOCIAL HISTORYSocial HistorySubstance Use Topics- Smoking status: Former Smoker Packs/day: 0.50 Years: 32.00 Start date: 1983 Quit date: 02/21/2016- Smokeless tobacco: Never Used- Alcohol use Yes Comment: occasional glass of wineFAMILY HISTORYProblem Relation Age of Onset- Heart disease Mother had heart disease in early 60s; had CABG- Coronary Artery Disease Mother- Diabetes Mother diet controlled- COPD Mother- tobacco use [OTHER] Mother- Cancer Father lung cancer- tobacco use [OTHER] Father- Rheumatologic disease Sister- Arthritis Sister- sjogren's [OTHER] Sister- lupus [OTHER] Sister- Thyroid SisterALLERGIES:ALLERGIESA llergen Reactions- Tetanus Toxoid UnknownMEDICATIONS:atorvas tatin (LIPITOR) 40 mg tablet 40 mg once daily.carvedilol (COREG) 3.125 mg tablet 6.25 mg twice daily with meals.clopidogrel (PLAVIX) 75 mg tablet 75 mg once daily.lisinopril (ZESTRIL, PRINIVIL) 5 mg tablet 5 mg once daily.sertraline (ZOLOFT) 100 mg tablet 100 mg. Two tablets by mouth dailyaspirin, enteric coated (ASPIRIN, ENTERIC COATED) 81 mg EC tablet Take 81mg by mouth once daily.nitroglycerin sublingual (NITROSTAT) 0.4 mg SL tablet Dissolve 0.4 mgunder the tongue every 5 minutes as needed.REVIEW OF SYSTEMS:PAIN ASSESSMENT: Negative for pain, history of chronic pain, or currenttreatment for a chronic pain condition.GENERAL: Negative for: Weight loss or gain, Fever or Chills, Weakness andSleep difficulties.HEENT: Positive for:Impaired Vision, Glasses and contact lenses ,dentures (upper); Negative for:Headache, Hearing Impairment, Ringing inEars, Nosebleeds and Bleeding GumsNECK: Negative for: Swelling, Pain, StiffnessRESPIRATORY: Negative for: Cough, Blood in Sputum, Shortness of breath,Wheezing, ApneaGASTROINTESTINAL: Negative for: Trouble swallowing, Heartburn, Change inbowel habits, Blood in stool, Dark black stoolsMUSCULOSKELETAL: Negative for: Muscle or joint pain, stiffness, JointswellingNEUROLOGIC/PS YCHIATRIC: Negative for: Weakness, Paralysis, Numbness,Tingling, Tremor, Nervousness or anxiety, Depressed mood, Memory lossSKIN: Negative for: Rash, ItchingHEMATOLOGICAL/LYMPH ATIC: Negative for: Easy bruising, Easy bleedingENDOCRINE: Negative for: Heat or Cold Intolerance, Excessive Sweating,Frequent Urination, Frequent ThirstPHYSICAL EXAMINATION:BP 128/80 Pulse 85 Resp 16 Ht 5' 3 (1.60m) Wt 225 lb (102.1kg) SpO2 98% BMI 39.87 kg/(m2).General: Well appearing, in no acute distress, speaking in completesentences.Skin: No clubbing, no cyanosis.Eyes: Extra ocular movements intact, Non-icteric scleraeOropharynx: Teeth in good repair.Neck: no jugular venous distention,, no carotid bruits, , carotids have anormal upstrokeLungs: Clear to auscultation bilaterally, no wheezing or rhonchi.Heart: Regular rhythm, PMI not displaced, S1, S2 normal, no S3, no S4, noheaves, no rub and no murmur.Abdomen: Soft, nontender, bowel sounds normal, no palpable organomegaly,no bruits.Extremities: No peripheral edema . Grade 2/4 distal pulses bilaterally.Neuro: Oriented to person, place and time, alert, cooperative, gaitcoordinated.CARDIOVASC [facility] TESTING:Electrocardiogram: Sinus rhythm 83 bpm; low voltage QRS complexes;incomplete right bundle branch block (QRS duration 92 ms); anterolateralinfarct pattern (not new); corrected QT interval appropriateI have personally reviewed the Electrocardiogram.ASSESSME NT/PLAN:1. Chronic ischemic heart disease - ICD9: 414.9, ICD10: I25.9 (primarydiagnosis)2. Atherosclerosis of [place] coronary artery of [place] heart withoutangina pectoris - ICD9: 414.01, ICD10: I25.103. Old myocardial infarction - ICD9: 412, ICD10: I25.24. Chronic systolic heart failure (HCC) - ICD9: 428.22, ICD10: I50.225. At risk for sudden cardiac - ICD9: V49.89, ICD10: Z91.89IMPRESSION:Ms. Ragsdale has chronic ischemic heart disease with LVEF of 35% that hasnot improved since the time of myocardial infarction in February 2016despite optimal and guidelines directed medical therapy. She is at riskfor sudden cardiac , and an ICD is indicated for primary preventionpurposes. I had a detailed discussion with Ms. Ragsdale in this regard.She does not require cardiac pacing for bradycardia support or for cardiacresynchronization therapy, and she has not known to have ventriculartachycardia to indicate a pressing need for antitachycardia pacing.Therefore, a single-chamber ICD system would be appropriate. Given herrelatively young age, a consideration should be given to the potentialadverse long-term effects of a transvenous ICD system. With that in mind,it is not unreasonable to consider a subcutaneous ICD system instead of atransvenous one. I told her that I somewhat favored a subcutaneous ICDsystem in her particular circumstances, although a transvenous ICD systemwould be also acceptable. I discussed my evaluation and recommendationswith Ms. Ragsdale in detail. I discussed the risks benefits andalternatives of ICD implantation including the transvenous andsubcutaneous types. After our discussion, Ms. Ragsdale expressed herunderstanding and I answered all of her questions to her apparentsatisfaction. She would like to give the options further consideration.I provided her with educational literature. She was appreciative andstated she would contact me with a final decision in the near future.PLAN AND RECOMMENDATIONS:See outline of recommendations above.Return if symptoms worsen or fail to improve, for patient will call if shewishes to proceed with ICD implantation.Joseph Jay MD03/09/2017 [facility] PROGRESSon 03-09-2017 Protein HNO ID: [id number] thor: Joseph Garcíaervice: (none)Author Type: PhysicianType: Progress NotesFiled: 03/09/2017 6:15 PMNote Text:PRIMARY CARE PHYSICIAN:Tejal Maciel, [id number] [address]Wjnjr: [phone]: [phone] PHYSICIAN:Star Ng MD ([facility])[address] [facility] [id number] Care Team:Tejal Maciel as PCP - General (Internal Medicine)Star Ng as Specialty Duty Officer (Cardiology)Joseph Jay as Specialty Duty Officer (Cardiology)CHIEF COMPLAINT:Evaluation for risk of sudden cardiac and ICD candidacyHISTORY OF PRESENT ILLNESS:Ms. Ragsdale is a 56 year old female who presents today for evaluation.She has a history of coronary artery disease with myocardial infarction in[place] 2015. This was delayed presentation and although she underwentpercutaneous coronary intervention to the LAD with a stent, she alreadyhad moderate left ventricular systolic dysfunction. The current myopathyhas not improved substantially with optimal and guideline directed medicaltherapy. She states compliance with prescribed medication regimen. Shedenies chest pain, shortness of breath, orthopnea, cough, edema,palpitations, PND, lightheadedness or syncope. She presents now to beevaluated for possible candidacy for ICD implantation for primaryprevention purposes.PAST MEDICAL HISTORYDiagnosis Date- Adhesive capsulitis of left shoulder- Arthritis acromioclavicular- At risk for sudden cardiac - Atherosclerotic heart disease of [place] coronary artery without anginapectoris- Biceps tendinitis, left- CHF (congestive heart failure) ([facility])- Chronic ischemic heart disease LVEF 35% on guideline directed medical therapy- Chronic systolic heart failure ([facility]) NYHA FC II heart failure symptoms on GDMT- Depression- Hyperglycemia- Hyperlipidemia- Hypertension- Ischemic cardiomyopathy- Nicotine abuse- NSTEMI (non-ST elevated myocardial infarction) ([facility])- Obesity- Old myocardial infarction 02/2016 delayed presentation IA- Rotator cuff tear, left- Shoulder impingement syndrome, left- Shoulder pain, leftPAST SURGICAL HISTORYProcedure Laterality Date- APPENDECTOMY 1973- SECTION HX 1985- ECHOCARDIOGRAM 01/28/2017 moderate LV systolic dysfxn; LVEF 35-40% with regional wall motionabnormalities; no significant change from previous echocardiogram- ECHOCARDIOGRAM 03/18/2016 LVEF 35%- ECHOCARDIOGRAM 10/22/2016 LVEF 35%- INSERT INTRACORONARY STENT 03/18/2016 PCI/stent ([employer]) drug-eluting stent to LAD- LEFT HEART CATH 03/18/2016 left heart cath w/[id number]- LEXISCAN STRESS TEST 05/02/2016 no ischemia; +scar- SEPTOPLASTY 1988SOCIAL HISTORYSocial HistorySubstance Use Topics- Smoking status: Former Smoker Packs/day: 0.50 Years: 32.00 Start date: 1983 Quit date: 02/21/2016- Smokeless tobacco: Never Used- Alcohol use Yes Comment: occasional glass of wineFAMILY HISTORYProblem Relation Age of Onset- Heart disease Mother had heart disease in early 60s; had CABG- Coronary Artery Disease Mother- Diabetes Mother diet controlled- COPD Mother- tobacco use [OTHER] Mother- Cancer Father lung cancer- tobacco use [OTHER] Father- Rheumatologic disease Sister- Arthritis Sister- sjogren's [OTHER] Sister- lupus [OTHER] Sister- Thyroid SisterALLERGIES:ALLERGIESA llergen Reactions- Tetanus Toxoid UnknownMEDICATIONS:atorvas tatin (LIPITOR) 40 mg tablet 40 mg once daily.carvedilol (COREG) 3.125 mg tablet 6.25 mg twice daily with meals.clopidogrel (PLAVIX) 75 mg tablet 75 mg once daily.lisinopril (ZESTRIL, PRINIVIL) 5 mg tablet 5 mg once daily.sertraline (ZOLOFT) 100 mg tablet 100 mg. Two tablets by mouth dailyaspirin, enteric coated (ASPIRIN, ENTERIC COATED) 81 mg EC tablet Take 81mg by mouth once daily.nitroglycerin sublingual (NITROSTAT) 0.4 mg SL tablet Dissolve 0.4 mgunder the tongue every 5 minutes as needed.REVIEW OF SYSTEMS:PAIN ASSESSMENT: Negative for pain, history of chronic pain, or currenttreatment for a chronic pain condition.GENERAL: Negative for: Weight loss or gain, Fever or Chills, Weakness andSleep difficulties.HEENT: Positive for:Impaired Vision, Glasses and contact lenses ,dentures (upper); Negative for:Headache, Hearing Impairment, Ringing inEars, Nosebleeds and Bleeding GumsNECK: Negative for: Swelling, Pain, StiffnessRESPIRATORY: Negative for: Cough, Blood in Sputum, Shortness of breath,Wheezing, ApneaGASTROINTESTINAL: Negative for: Trouble swallowing, Heartburn, Change inbowel habits, Blood in stool, Dark black stoolsMUSCULOSKELETAL: Negative for: Muscle or joint pain, stiffness, JointswellingNEUROLOGIC/PS YCHIATRIC: Negative for: Weakness, Paralysis, Numbness,Tingling, Tremor, Nervousness or anxiety, Depressed mood, Memory lossSKIN: Negative for: Rash, ItchingHEMATOLOGICAL/LYMPH ATIC: Negative for: Easy bruising, Easy bleedingENDOCRINE: Negative for: Heat or Cold Intolerance, Excessive Sweating,Frequent Urination, Frequent ThirstPHYSICAL EXAMINATION:BP 128/80 Pulse 85 Resp 16 Ht 5' 3 (1.60m) Wt 225 lb (102.1kg) SpO2 98% BMI 39.87 kg/(m2).General: Well appearing, in no acute distress, speaking in completesentences.Skin: No clubbing, no cyanosis.Eyes: Extra ocular movements intact, Non-icteric scleraeOropharynx: Teeth in good repair.Neck: no jugular venous distention,, no carotid bruits, , carotids have anormal upstrokeLungs: Clear to auscultation bilaterally, no wheezing or rhonchi.Heart: Regular rhythm, PMI not displaced, S1, S2 normal, no S3, no S4, noheaves, no rub and no murmur.Abdomen: Soft, nontender, bowel sounds normal, no palpable organomegaly,no bruits.Extremities: No peripheral edema . Grade 2/4 distal pulses bilaterally.Neuro: Oriented to person, place and time, alert, cooperative, gaitcoordinated.[facility] TESTING:Electrocardiogram: Sinus rhythm 83 bpm; low voltage QRS complexes;incomplete right bundle branch block (QRS duration 92 ms); anterolateralinfarct pattern (not new); corrected QT interval appropriateI have personally reviewed the Electrocardiogram.ASSESSME NT/PLAN:1. Chronic ischemic heart disease - ICD9: 414.9, ICD10: I25.9 (primarydiagnosis)2. Atherosclerosis of [place] coronary artery of [place] heart withoutangina pectoris - ICD9: 414.01, ICD10: I25.103. Old myocardial infarction - ICD9: 412, ICD10: I25.24. Chronic systolic heart failure (HCC) - ICD9: 428.22, ICD10: I50.225. At risk for sudden cardiac - ICD9: V49.89, ICD10: Z91.89IMPRESSION:Ms. Ragsdale has chronic ischemic heart disease with LVEF of 35% that hasnot improved since the time of myocardial infarction in February 2016despite optimal and guidelines directed medical therapy. She is at riskfor sudden cardiac , and an ICD is indicated for primary preventionpurposes. I had a detailed discussion with Ms. Ragsdale in this regard.She does not require cardiac pacing for bradycardia support or for cardiacresynchronization therapy, and she has not known to have ventriculartachycardia to indicate a pressing need for antitachycardia pacing.Therefore, a single-chamber ICD system would be appropriate. Given herrelatively young age, a consideration should be given to the potentialadverse long-term effects of a transvenous ICD system. With that in mind,it is not unreasonable to consider a subcutaneous ICD system instead of atransvenous one. I told her that I somewhat favored a subcutaneous ICDsystem in her particular circumstances, although a transvenous ICD systemwould be also acceptable. I discussed my evaluation and recommendationswith Ms. Ragsdale in detail. I discussed the risks benefits andalternatives of ICD implantation including the transvenous andsubcutaneous types. After our discussion, Ms. Ragsdale expressed herunderstanding and I answered all of her questions to her apparentsatisfaction. She would like to give the options further consideration.I provided her with educational literature. She was appreciative andstated she would contact me with a final decision in the near future.PLAN AND RECOMMENDATIONS:See outline of recommendations above.Return if symptoms worsen or fail to improve, for patient will call if shewishes to proceed with ICD implantation.Joseph Jay MD03/09/2017 [facility] Office Visiton 01-30-2017 Dietary management education, guidance, and counseling (procedure) yes Invalid Interpretation Code [employer] [facility] [employer] Work Phone: Documentation of current medications (procedure) Done Invalid Interpretation Code [employer] [facility] [employer] Work Phone: Fall risk assessment No Invalid Interpretation Code [employer] [facility] [employer] Work Phone: Office Visiton 10-30-2016 Dietary management education, guidance, and counseling (procedure) yes Invalid Interpretation Code [employer] [facility] [employer] Work Phone: Documentation of current medications (procedure) Done Invalid Interpretation Code [employer] [facility] [employer] Work Phone: Office Visiton 05-27-2016 Tobacco use [facility] Former smoker Invalid Interpretation Code [employer] Work Phone: Lab Report: Lipid Profileon 05-02-2016 Cholesterol 150 mg/dL Normal [employer] Work Phone: Comment on above: <200 mg/dL Desirable 200-240 mg/dL Borderline >240 mg/dL High Risk HDL Cholesterol 60 mg/dL Normal [facility] Work Phone: Comment on above: The drugs N-Acetylcy steine and Metamizole may falsely deressthis assay. Reference Range HDL <40 mg/dL Low HDL Cholesterol HDL >or= 60 mg/dL High HDL Cholesterol LDL Cholesterol 63 mg/dL Normal 0-130 [facility] Work Phone: Triglyceride 137 mg/dL Normal [facility] Work Phone: Comment on above: The drugs N-Acetylcy steine and Metamizole may falsely deressthis assay.Serum Triglycerides Reference Interval Normal <150 mg/dL Borderline high 150 - 199 mg/dL High 200 - 499 mg/dL Very High > or = 500 mg/dL very low density lipoproteins 27 mg/dL Invalid Interpretation Code 5-40 [facility] Work Phone: Lab Report: Liver Profileon 05-02-2016 Alanine aminotransferase (ALT) 29 U/L Normal 12-78 [facility] Work Phone: Albumin 3.5 g/dL Normal 3.4-5.0 [facility] Work Phone: Alkaline phosphatase (ALP) 105 U/L Normal 45-117 [facility] Work Phone: Aspartate aminotransferase (AST) 22 U/L Normal 15-37 [facility] Work Phone: Bilirubin (direct) 0.09 mg/dL Normal 0.00-0.[address] [facility] Work Phone: Bilirubin (total) 0.40 mg/dL Normal 0.20-1.00 [facility] Work Phone: Globulin 4.6 g/dL Abnormal 2.3-3.5 [facility] Work Phone: Protein 8.1 g/dL Normal 6.4-8.2 [facility] Work Phone: Lipid ProfileOrdered By: Alo tem Die Designer Apprentice on 05-02-2016 Cholesterol in LDL mass conc 63 mg/dL Normal 0-130 [facility] Work Phone: Cholesterol in VLDL mass conc 27 mg/dL Normal 5-40 [facility] Work Phone: Lipid Profile 27 mg/dL Normal 5-40 [facility] Work Phone: Replaced Document: Michael Schrader 04-28-2016 EKG QRS axis 146 deg Invalid Interpretation Code [employer] Work Phone: Interpretation Sinus Rhythm Diffuse low voltage. - Extensive anterior-lateral infarct (possibly recent) -Right axis -may be secondary to infarct. ABNORMAL Invalid Interpretation Code [employer] Work Phone: P [place] 36 deg Invalid Interpretation Code [employer] Work Phone: AL Interval 166 ms Invalid Interpretation Code [employer] Work Phone: Pulse (Heart Rate) 75 /min Invalid Interpretation Code [employer] Work Phone: QRS Duration 104 ms Invalid Interpretation Code [employer] Work Phone: QT Interval new path ms Invalid Interpretation Code [employer] Work Phone: QTc [place] 388 ms Invalid Interpretation Code [employer] Work Phone: T [place] 90 deg Invalid Interpretation Code [employer] Work Phone: Clinical Lists Update: Prelo financial accounting manager 03-20-2016 Anion gap 9 mmol/L Invalid Interpretation Code [employer] Work Phone: BUN/Creatinine Ratio 20 mg/mg Invalid Interpretation Code [employer] Work Phone: Calcium 8.5 mg/dL Invalid Interpretation Code [employer] Work Phone: Chloride 103 mmol/L Invalid Interpretation Code [employer] Work Phone: CO2 28 mmol/L Invalid Interpretation Code [employer] Work Phone: Creatinine 0.80 mg/dL Invalid Interpretation Code [employer] Work Phone: Glucose mass conc 121 mg/dL High [employer] Work Phone: Hematocrit (HCT) 36.5 % Invalid Interpretation Code [employer] Work Phone: Hemoglobin mass conc (Bld) 12.2 g/dL Invalid Interpretation Code [facility] Work Phone: Platelets 278 10*3/mm3 Invalid Interpretation Code [facility] Work Phone: Potassium molar conc 4.0 mmol/L Invalid Interpretation Code [facility] Work Phone: Sodium 140 mmol/L Invalid Interpretation Code [facility] Work Phone: Urea nitrogen 16 mg/dL Invalid Interpretation Code [facility] Work Phone: Basic Metabolic Profile (BMP )Ordered By: Paper Bag Making Machinist on 03-17-2016 Basic metabolic 2000 panel 162 mg/dL Abnormal 70-110 [facility] Work Phone: Comment on above: Fasting Glucose resu lt greater than or equal to 126 mg/dLsuggests DIABETES MELLITUS per A.D.A. criteria. Basic metabolic 2000 panel 59 mL/min Abnormal [facility] Work Phone: Comment on above: Non- GFR Calc Basic metabolic 2000 panel 7 1 Normal 5-15 [facility] Work Phone: Basic metabolic 2000 panel 10.6 {RATIO} Normal 10-20 [facility] Work Phone: Basic metabolic 2000 panel 48.91 ml/min Normal [facility] Work Phone: Basic metabolic 2000 panel 11 mg/dL Normal 7-18 [facility] Work Phone: Basic metabolic 2000 panel 9.0 mg/dL Normal 8.5-10.1 [facility] Work Phone: Basic metabolic 2000 panel 1.04 mg/dL Abnormal 0.55-1.02 [facility] Work Phone: Comment on above: The validity of the calculated GFR AND GFRAA in patients over70 years has not been determined. Clinical correlation isessential. Basic metabolic 2000 panel 138 mmol/L Normal 136-145 [facility] Work Phone: Comment on above: Critical Result(s) C zacarias at: 13:50:45 03/17/2016 by: steffanie lopez Basic metabolic 2000 panel 71 mL/min Normal [facility] Work Phone: Comment on above: GFR Calc Basic metabolic 2000 panel 3.9 mmol/L Normal 3.5-5.1 [facility] Work Phone: Basic metabolic 1999 panel 108 mmol/L Abnormal 98-107 [facility] Work Phone: Basic metabolic 1999 panel 23.0 mmol/L Normal 21.0-32.0 [facility] Work Phone: CBC W/Diff, AutomatedOrdered By: Paper Bag Making Machinist on 03-17-2016 Absolute Lymph 1.85 {X10_3/ul} Normal 0.83-4.51 [facility] Work Phone: Absolute Neut 19.4 {X10_3/uL} Abnormal 2.0-7.7 [facility]pre [facility] Work Phone: Basophils/100 WBC Auto (Bld) 0.2 % Normal 0-1 [facility] Work Phone: Eosinophils/100 WBC Auto (Bld) 0.1 % Normal 0-5 [facility] Work Phone: Erythrocyte distribution width Auto Ratio (RBC) 14.4 % Normal 11.6-14.6 [facility] Work Phone: Hematocrit Auto Volume Fraction (Bld) 41.6 % Normal 37-47 [facility] Work Phone: Hemoglobin mass conc (Bld) 14.1 g/dL Normal 12.0-15.0 [facility] Work Phone: IM GRAN % 0.300 % Normal 0.0-0.9 [facility] Internal Medicine Work Phone: Comment on above: IG% - Immature Granu locytes (promyelocytes, myelocytes andmetamyelocytes) > 1% indicates that a LEFT SHIFT is Present. Lymphocytes/100 WBC Auto (Bld) 8.0 % Abnormal 19-41 [facility] Work Phone: MCH Auto Entitic mass (RBC) 30.4 pg Normal 27.0-32.0 [facility] Work Phone: MCHC Auto mass conc (RBC) 33.9 {g/gl} Normal 32-36 [facility] Work Phone: MCV Auto Entitic volume (RBC) 89.7 fL Normal 81-99 [facility] Internal Medicine Work Phone: Monocytes/100 WBC Auto (Bld) 8.0 % Normal 0-10 [facility] Internal Medicine Work Phone: Monocytes/100 WBC Auto (Bld) 8.0 % Normal 0-10 [facility] Internal Medicine Work Phone: Neutrophils/100 WBC Auto (Bld) 83.4 % Abnormal 47-70 [facility] Internal Medicine Work Phone: Platelet mean volume Auto Entitic volume (Bld) 10.7 fL Normal 6.2-12.0 [facility] Internal Medicine Work Phone: Platelets Auto #/vol (Bld) 332 10*3/uL Normal 150-450 [facility] Internal Medicine Work Phone: RBC Auto #/vol (Bld) 4.64 {M/mm3} Normal 4.2-5.4 [facility] Internal Medicine Work Phone: RDW SD 47.1 fL Abnormal 35.1-43.9 [facility] Internal Medicine Work Phone: SMEAR COMMENT SCANNED Normal Comprehensi Internal Medicine Work Phone: WBC Auto #/vol (Bld) 23.2 10*3/uL Abnormal 4.4-11.0 [facility] Internal Medicine Work Phone: CBC W/Diff, Automated 1.85 {X10_3/ul} Normal 0.83-4.51 [facility] Internal Medicine Work Phone: CBC W/Diff, Automated 0.300 % Normal 0.0-0.9 [facility] Internal Medicine Work Phone: Comment on above: IG% - Immature Granu locytes (promyelocytes, myelocytes andmetamyelocytes) > 1% indicates that a LEFT SHIFT is Present. CBC W/Diff, Automated SCANNED Normal [facility] Internal Medicine Work Phone: CBC W/Diff, Automated 19.4 {X10_3/uL} Abnormal 2.0-7.7 [facility] Internal Medicine Work Phone: CBC W/Diff, Automated 47.1 fL Abnormal 35.1-43.9 [facility] Work Phone: Partial Thromboplast TimeOrd ered By: Paper Bag Making Machinist on 03-17-2016 aPTT Coag time (Bld) 26.3 s Normal 24.1-36.2 [facility] Work Phone: Troponin-IOrdered By: Paper Bag Making Machinist on 03-17-2016 Troponin I.cardiac mass conc 28.60 ng/mL Abnormal [facility] Work Phone: Comment on above: TROPONIN-I EXPECTED VALUES <0.05 NEGATIVE 0.06 - 0.59 AT RISK OF IA > OR = 0.60 SUGGEST IA CALCIFIDIOL (90436) VIT D 25 Ordered By: Paper Bag Making Machinist on 01-11-2015 25-Hydroxyvitamin D2+25-Hydroxyvitam in D3 mass conc 9.0 ng/mL Abnormal 30.0-100.0 [facility] Work Phone: Comment on above: Vitamin D deficiency has been defined by the Ward ofMedicine and an Endocrine Society practice guideline as alevel of serum 25-OH vitamin D less than 20 ng/mL (1,2).The Endocrine Society went on to further define vitamin Dinsufficiency as a level between 21 and 29 ng/mL (2).1. IOM (Ward of Medicine). 2010. Dietary reference intakes for calcium and D. [place]: The National Academies Press.2. Eileen MF, Mary Beth [place], Jesse NORRIS, et al. Evaluation, treatment, and prevention of vitamin D deficiency: an Endocrine Society clinical practice guideline. JCEM. 2010; 96(7):1911-30. PATIENT WAS FASTINGP ERFORMED BY: [employer]70 TheFix.comUofL Health - Peace Hospital [id number] LIPID PANEL (13931)Ordered B y: Paper Bag Making Machinist on 01-11-2015 Cholesterol in HDL mass conc 58 mg/dL Normal [facility] Work Phone: Comment on above: According to ATP-III Guidelines, HDL-C >59 mg/dL is considered anegative risk factor for CHD. PATIENT WAS FASTINGP ERFORMED BY: Efficient FrontierVaioni [place] [id number] Cholesterol in LDL mass conc 181 mg/dL Abnormal 0-99 [facility] Work Phone: Comment on above: Effective January 15, 2015 the reference interval for LDL Cholesterol Calc will be changing to: 0 - 19 years 0 - 109 >19 years 0 - 99 PATIENT WAS FASTINGP ERFORMED BY: AUNDREA TVTYlin6370 [facility] [id number] Cholesterol in LDL/Cholesterol in HDL mass ratio 3.1 {ratio_units} Normal 0.0-3.2 [facility] Work Phone: Comment on above: LDL/HDL Ratio Men Wo men 1/2 Avg.Risk 1.0 1.5 Avg.Risk 3.6 3.2 2X Avg.Risk 6.2 5.0 3X Avg.Risk 8.0 6.1 PATIENT WAS FASTINGP ERFORMED BY: AUNDREA TVTYlin6370 [address] [facility] [id number] Cholesterol in VLDL mass conc 20 mg/dL Normal 5-40 [facility] Work Phone: Comment on above: PATIENT WAS FASTINGP ERFORMED BY: AUNDREA TVTYlin6370 [place] [facility] [id number] Cholesterol mass conc 259 mg/dL Abnormal 100-199 [facility] Work Phone: Comment on above: Effective January 15, 2015 the reference interval for Cholesterol, Total will be changing to: 0 - 19 years 100 - 169 >19 years 100 - 199 PATIENT WAS FASTINGP ERFORMED BY: AUNDREA LabFIRSTGATE Holdingrp Txouml5327 [place] [facility] [id number] Triglyceride mass conc 102 mg/dL Normal 0-149 [facility] Work Phone: Comment on above: Effective January 15, 2015 the reference interval for Triglycerides will be changing to: 0 - 9 years 0 - 74 10 - 19 years 0 - 89 >19 years 0 - 149 PATIENT WAS FASTINGP ERFORMED BY: AUNDREA LabFIRSTGATE Holdingrp Mvbpcd4311 [place] [facility] [id number] METABOLIC PANEL, COMPREHENSI VE (22659)Ordered By: Paper Bag Making Machinist on 01-11-2015 Albumin mass conc 4.1 g/dL Normal 3.5-5.5 [facility] Internal Medicine Work Phone: Comment on above: PATIENT WAS FASTINGP ERFORMED BY: AUNDREA LabCorufus HuntHrtsxt6717 [address] [facility]in [place] [id number] Information: [id number] Albumin/Globulin mass ratio 1.6 {ratio} Normal 1.1-2.5 [facility] Internal Medicine Work Phone: Comment on above: PATIENT WAS FASTINGP ERFORMED BY: [facility] Mvlsnt2797 [address] [facility] [id number] Information: [id number] ALP [Catalytic activity/Vol] 75 U/L Normal 39-117 [facility]; [facility] Internal Medicine Work Phone: Comment on above: PATIENT WAS FASTINGP ERFORMED BY: LabCo Emrmft3948 [address] [facility] [id number] Information: [id number] ALP enzyme act/vol 75 [iU]/L Normal 39-117 [facility] Internal Medicine Work Phone: Comment on above: PATIENT WAS FASTINGP ERFORMED BY: AUNDREA LabCo Ufyhnh6518 [address] [facility] [id number] Information: [id number] ALT [Catalytic activity/Vol] 15 U/L Normal 0-32 [facility]; [facility] Work Phone: Comment on above: PATIENT WAS FASTINGP ERFORMED BY: [facility] Pujlgl0090 [address] [facility]in [place] [id number] Information: [id number] ALT enzyme act/vol 15 [iU]/L Normal 0-32 [facility] Internal Medicine Work Phone: Comment on above: PATIENT WAS FASTINGP ERFORMED BY: [facility] Cectur2843 [address] [facility] [id number] Information: [id number] AST [Catalytic activity/Vol] 17 U/L Normal 0-40 [facility]; [facility] Work Phone: Comment on above: PATIENT WAS FASTINGP ERFORMED BY: AUNDREA LabLuci Hunt6370 [facility] [id number] Information: [id number] AST enzyme act/vol 17 [iU]/L Normal 0-40 [facility] Work Phone: Comment on above: PATIENT WAS FASTINGP ERFORMED BY: AUNDREA Rustam Cjhocw0328 [facility] [id number] Information: [id number] Bilirubin mass conc 0.3 mg/dL Normal 0.0-1.2 [facility] Work Phone: Comment on above: PATIENT WAS FASTINGP ERFORMED BY: AUNDREA Patricialin6370 [facility] [id number] Information: [id number] Calcium mass conc 9.1 mg/dL Normal 8.7-10.2 Compreh ensive Internal Medicine Work Phone: Comment on above: PATIENT WAS FASTINGP ERFORMED BY: AUNDREA LeyvaGarufus PatriciaXrtwdt4327 [facility] [id number] Information: 910671,Q47345 Chloride molar conc 103 mmol/L Normal 97-108 [facility] Work Phone: Comment on above: PATIENT WAS FASTINGP ERFORMED BY: AUNDREA LeyvaSaint [facility]'S Health Center Yetztb0514 [facility] [id number] Information: [id number],Q48765 CO2 molar conc 21 mmol/L Normal 18-29 Comprehens yazmin Internal Medicine Work Phone: Comment on above: PATIENT WAS FASTINGP ERFORMED BY: AUNDREA LabCo Ffsdkt6183 [facility] [id number] Information: 955449,D46953 Creatinine mass conc 0.86 mg/dL Normal 0.57-1.00 [facility] Work Phone: Comment on above: PATIENT WAS FASTINGP ERFORMED BY: AUNDREA LabMunising Memorial Hospital6370 [facility] [id number] Information: 580318,Y89013 GFR/1.73 sq M predicted among blacks CKD-EPI vol rate/area (S/P/Bld) 89 mL/min/1.73 Normal [facility] Work Phone: Comment on above: PATIENT WAS FASTINGP ERFORMED BY: LabMunising [facility] Hospital6370 [facility] [id number] Information: 636431,I13430 GFR/1.73 sq M predicted among non-blacks CKD-EPI vol rate/area (S/P/Bld) 77 mL/min/1.73 Normal [facility] Work Phone: Comment on above: PATIENT WAS FASTINGP ERFORMED BY: [place] 4117070 [facility] [id number] Information: [id number],[id number] Globulin (S) [Mass/Vol] 2.6 g/dL Normal 1.5-4.5 [facility] Work Phone: Comment on above: PATIENT WAS FASTINGP ERFORMED BY: [place] 4117070 [facility] [id number] Information: [id number],B28721 Globulin Calculated mass conc (S) 2.6 g/dL Normal 1.5-4.5 [facility] Work Phone: Glucose mass conc 100 mg/dL Abnormal 65-99 Compreh ensive Internal Medicine Work Phone: Comment on above: PATIENT WAS FASTINGP ERFORMED BY: LabMunising [facility] Hospital6370 [facility] [id number] Information: [id number],[id number] Potassium molar conc 4.9 mmol/L Normal 3.5-5.2 [facility] Work Phone: Comment on above: PATIENT WAS FASTINGP ERFORMED BY: LabMunising [facility] Hospital6370 [facility] [id number] Information: 556111,[id number] Protein mass conc 6.7 g/dL Normal 6.0-8.5 Compreh ensive Internal Medicine Work Phone: Comment on above: PATIENT WAS FASTINGP ERFORMED BY: AUNDREA Easton Egjlyq4159 [facility] [id number] Information: 415092,[id number] Sodium molar conc 141 mmol/L Normal 134-144 Compreh ensive Internal Medicine Work Phone: Comment on above: PATIENT WAS FASTINGP ERFORMED BY: GordonMunising [facility] Hospital6370 [facility] [id number] Information: 370472,M60141 Urea nitrogen mass conc 13 mg/dL Normal 6- [facility] Work Phone: Comment on above: PATIENT WAS FASTINGP ERFORMED BY: GordonSaint [facility] Dnyima7137 [facility] [id number] Information: 946075,P47558 Urea nitrogen/Creatinin e mass ratio 15 mg/mg Normal 9- [facility] Work Phone: Comment on above: PATIENT WAS FASTINGP ERFORMED BY: [facility]6370 [facility] [id number] Information: [id number],[id number] T4, FREE (THYROXINE) (01597) Ordered By: Paper Bag Making Machinist on 01-11-2015 T4 free mass conc 1.04 ng/dL Normal 0.82-1.77 Compreh ensive Internal Medicine Work Phone: Comment on above: PATIENT WAS FASTINGP ERFORMED BY: [facility]6370 [facility] [id number] TSH (76532)Ordered By: Syste m Die Designer Apprentice on 01-11-2015 Thyrotropin Qn 1.030 {uIU/mL} Normal 0.450-4.500 Compr ehensive Internal Medicine Work Phone: Comment on above: PATIENT WAS FASTINGP ERFORMED BY: LabCoMeadowview Psychiatric HospitalVxlkjy3682 [facility] [id number] CBC (Auto) (38709)Ordered By : Paper Bag Making Machinist on 06-13-2013 Erythrocyte distribution width (RBC) [Ratio] 14.5 % Normal 12.3-15.4 [facility] Work Phone: Comment on above: PATIENT WAS FASTINGP ERFORMED BY: LabSaint [facility] Pnlaqx3169 [facility] [id number] Erythrocyte distribution width Auto Ratio (RBC) 14.5 % Normal 12.3-15.4 [facility] Work Phone: Hematocrit (Bld) [Volume fraction] 40.2 % Normal 34.0-46.6 [facility] Work Phone: Comment on above: PATIENT WAS FASTINGP ERFORMED BY: LabSaint [facility] Somjxv4800 [facility] [id number] Hematocrit Auto Volume Fraction (Bld) 40.2 % Normal 34.0-46.6 [facility] Work Phone: Hemoglobin mass conc (Bld) 13.5 g/dL Normal 11.1-15.9 [facility] Work Phone: Comment on above: PATIENT WAS FASTINGP ERFORMED BY: LabFIRSTGATE HoldingMeadowview Psychiatric HospitalFliyrm1201 [facility] [id number] MCH (RBC) [Entitic mass] 29.6 pg Normal 26.6-33.0 [facility] Work Phone: Comment on above: PATIENT WAS FASTINGP ERFORMED BY: LabFIRSTGATE HoldingMeadowview Psychiatric HospitalZumxnh2443 [facility] [id number] MCH Auto Entitic mass (RBC) 29.6 pg Normal 26.6-33.0 [facility] Work Phone: MCHC (RBC) [Mass/Vol] 33.6 g/dL Normal 31.5-35.7 [facility] Work Phone: Comment on above: PATIENT WAS FASTINGP ERFORMED BY: LabCo Ovnkul2838 [facility] [id number] MCHC Auto mass conc (RBC) 33.6 g/dL Normal 31.5-35.7 [facility] Work Phone: MCV (RBC) [Entitic vol] 88 fL Normal 79-97 [facility] Work Phone: Comment on above: PATIENT WAS FASTINGP ERFORMED BY: CB [facility] Ashwly6242 [address] RoadDublin [place] [id number] MCV Auto Entitic volume (RBC) 88 fL Normal 79-97 [facility] Work Phone: Platelets (Bld) [#/Vol] 266 {x10E3/uL} Normal 155-379 [facility] Work Phone: Comment on above: PATIENT WAS FASTINGP ERFORMED BY: CB [facility] Anogus4920 [address] RoadDublin [place] [id number] Platelets (Bld) [#/Vol] 266 10*3/uL Normal 155-379 [facility] Internal Medicine; [facility] Work Phone: Comment on above: PATIENT WAS FASTINGP ERFORMED BY: CB [facility] Kcthch4523 [address] RoadDublin [place] [id number] Platelets Auto #/vol (Bld) 266 {x10E3/uL} Normal 155-379 [facility] Work Phone: RBC (Bld) [#/Vol] 4.56 {x10E6/uL} Normal 3.77-5.28 [facility] Internal Medicine Work Phone: Comment on above: PATIENT WAS FASTINGP ERFORMED BY: CB [facility] Qdrbit5127 [address] RoadDublin [place] [id number] RBC (Bld) [#/Vol] 4.56 10*6/uL Normal 3.77-5.28 [facility] Internal Medicine; [facility] Work Phone: Comment on above: PATIENT WAS FASTINGP ERFORMED BY: CB [facility] Bqheyi9844 [address] RoadDublin [place] [id number] RBC Auto #/vol (Bld) 4.56 {x10E6/uL} Normal 3.77-5.28 [facility] Internal Medicine Work Phone: WBC (Bld) [#/Vol] 11.6 {x10E3/uL} Abnormal 3.4-10.8 [facility] Internal Medicine Work Phone: Comment on above: PATIENT WAS FASTINGP ERFORMED BY: [facility]6370 [facility] [id number] WBC (Bld) [#/Vol] 11.6 10*3/uL Abnormal 3.4-10.8 [facility] Internal Medicine; [facility] Work Phone: Comment on above: PATIENT WAS FASTINGP ERFORMED BY: LabMunising Memorial Hospital6370 [facility] [id number] WBC Auto #/vol (Bld) 11.6 {x10E3/uL} Abnormal 3.4-10.8 [facility] Work Phone: HPV automatic (53135)Ordered By: Paper Bag Making Machinist on 06-13-2013 HPV 16+18+31+33+35+39+ 45+51+52+56+58+59+ 68 DNA Probe+sig amp Ql (Cvx) Negative Normal [facility] Work Phone: Comment on above: This high-risk HPV t est detects thirteen high-risk types(16/18/31/33/35/39/45/51/52/56/58/59/68) without differentiation. . Source.............C ervical;EndocervicalNo. of containers..01 CYTYC Thin Prep VialPATIENT NOT FASTINGPERFORMED BY: WB RIDERS Zydavallpb[address] [id number] BY: =G RIDERS Zwzkmdybrr[address] [id number] Information: [id number] HPV 16+18+31+33+35+39+ 45+51+52+56+58+59+ 68 DNA Probe+sig amp Ql (Cvx) Negative Normal [facility]; [facility] Work Phone: Comment on above: This high-risk HPV t est detects thirteen high-risk types(16/18/31/33/35/39/45/51/52/56/58/59/68) without differentiation. . Source.............C ervical;EndocervicalNo. of containers..01 CYTYC Thin Prep VialPATIENT NOT FASTINGPERFORMED BY: LabSaint [facility] Nnpwpzzvzz584 [place] [address]n [facility] W [id number] BY: =G LabSaint Mary'[facility] Aczhnoqomw105 [place] [address] [facility] W [id number] Information: [id number] Microscopic observation Other stain Nom (Unsp spec) . Normal [facility] Work Phone: Comment on above: Source.............C ervical;EndocervicalNo. of containers..01 CYTYC Thin Prep VialPATIENT NOT FASTINGPERFORMED BY: eSentireSaint Mary'S Health Center Bldjqpdsko166 [place] [facility] [facility] W [id number] BY: =G [facility] Wfoiyaukoc696 [place] [facility]hselect [facility] [id number] Information: [id number] Pathology report final diagnosis Narrative [facility] Normal [facility] Work Phone: Comment on above: NEGATIVE FOR INTRAEP ITHELIAL LESION AND MALIGNANCY.THIS SPECIMEN WAS RESCREENED PART OF OUR HIMS CODER PROGRAM.Satisfactory for evaluation. Endocervical and/or squamous metaplasticcells (endocervical component) are present.V73.81 ; Special screening examination, human papillomavirus [HPV]Justine Ibarra, Filter Worker (ASCP)Jenifer Bolivar, Supervisory Filter Worker (ASCP) Source.............C ervical;EndocervicalNo. of containers..01 CYTYC Thin Prep VialPATIENT NOT FASTINGPERFORMED BY: RIDERS Lspjyomtdq161 [facility] HospitalArabellaselect specialty hospital [facility] W [id number] BY: =G LabSaint [facility] Center Triwmwshgb152 [place] [facility] [facility] W [id number] Information: [id number] HPV automatic (95212) PAPSMR Normal [facility] Work Phone: Comment on above: The Pap smear is a s creening test designed to aid in the detection ofpremalignant and malignant conditions of the uterine cervix. It is not adiagnostic procedure and should not be used as the sole means of detectingcervical cancer. Both false-positive and false-negative reports do occur. .This liquid based ThinPrep(R) pap test was screened with theuse of an image guided system. Source.............C ervical;EndocervicalNo. of containers..01 CYTYC Thin Prep VialPATIENT NOT FASTINGPERFORMED BY: WB Proxeon120 [facility] CenterLidyana.comAlta View Hospital [id number] BY: =G Proxeon120 [facility] CenterLidyana.comann [facility] W [id number] Information: [id number] Lipid Panel (23424)Ordered B y: Paper Bag Making Machinist on 06-13-2013 Cholesterol in HDL mass conc 52 mg/dL Normal [facility] Work Phone: Comment on above: According to ATP-III Guidelines, HDL-C >59 mg/dL is considered anegative risk factor for CHD. wellness labs; DAPHNEY FARRIS WAS FASTINGPERFORMED BY: LogRhythm70 [address] [facility] [id number] Cholesterol in LDL mass conc 171 mg/dL Abnormal 0-99 [facility] Work Phone: Comment on above: wellness labs; DAPHNEY FARRIS WAS FASTINGPERFORMED BY: Log[employer]hythm70 [place] [facility] [id number] Cholesterol in LDL/Cholesterol in HDL mass ratio 3.3 {ratio_units} Abnormal 0.0-3.2 [facility] Work Phone: Comment on above: wellness labs; DAPHNEY FARRIS WAS FASTINGPERFORMED BY: [employer]70 [facility] [id number] Cholesterol in VLDL mass conc 35 mg/dL Normal 5-40 [facility] Work Phone: Comment on above: wellness labs; PATIE NT WAS FASTINGPERFORMED BY: [facility] Lnjivu2239 [address] RoadDublin [place] [id number] Cholesterol mass conc 258 mg/dL Abnormal 100-199 [facility] Work Phone: Comment on above: wellness labs; DAPHNEY NT WAS FASTINGPERFORMED BY: CB [facility] Qjuuxn1497 [address] RoadDublin [place] [id number] Triglyceride mass conc 177 mg/dL Abnormal 0-149 [facility] Work Phone: Comment on above: wellness labs; DAPHNEY NT WAS FASTINGPERFORMED BY: CB [facility] Vcyofr4184 [address] Roadblin [place] [id number] Metabolic Panel, Comprehensi ve (48455)Ordered By: Paper Bag Making Machinist on 06-13-2013 Albumin mass conc 4.2 g/dL Normal 3.5-5.5 [facility]preh [facility] Internal Medicine Work Phone: Comment on above: PATIENT WAS FASTINGP ERFORMED BY: [facility] Qzlzbd5399 [address] [facility] [id number] Information: [id number] Albumin/Globulin mass ratio 1.6 {ratio} Normal 1.1-2.5 [facility] Work Phone: Comment on above: PATIENT WAS FASTINGP ERFORMED BY: [facility] Tedeis3008 [address] [facility]in [place] [id number] Information: [id number] ALP [Catalytic activity/Vol] 77 U/L Normal 39-117 [facility]; [facility] Work Phone: Comment on above: PATIENT WAS FASTINGP ERFORMED BY: CB [facility] Fewstv3517 [address] [facility]in [place] [id number] Information: [id number] ALP enzyme act/vol 77 [iU]/L Normal 39-117 [facility] Internal Medicine Work Phone: Comment on above: PATIENT WAS FASTINGP ERFORMED BY: [facility] Wgjbfy7947 [address] [facility]in [place] [id number] Information: [id number],[id number] ALT [Catalytic activity/Vol] 8 U/L Normal 0-32 [facility]; [facility] Work Phone: Comment on above: PATIENT WAS FASTINGP ERFORMED BY: AUNDREA Easton Ubhwll9134 [address] [facility] [id number] Information: [id number],[id number] ALT enzyme act/vol 8 [iU]/L Normal 0-32 [facility] Internal Medicine Work Phone: Comment on above: PATIENT WAS FASTINGP ERFORMED BY: [place] 4117070 [facility] [id number] Information: [id number] AST [Catalytic activity/Vol] 18 U/L Normal 0-40 [facility]; [facility] Internal Medicine Work Phone: Comment on above: PATIENT WAS FASTINGP ERFORMED BY: [place] 4117070 [facility] [id number] Information: [id number] AST enzyme act/vol 18 [iU]/L Normal 0-40 [facility] Internal Medicine Work Phone: Comment on above: PATIENT WAS FASTINGP ERFORMED BY: [place] [id number] [facility] [id number] Information: [id number] Bilirubin mass conc 0.3 mg/dL Normal 0.0-1.2 [facility] Internal Medicine Work Phone: Comment on above: PATIENT WAS FASTINGP ERFORMED BY: [facility]6370 [facility] [id number] Information: [id number] Calcium mass conc 9.3 mg/dL Normal 8.7-10.2 [facility] Internal Medicine Work Phone: Comment on above: PATIENT WAS FASTINGP ERFORMED BY: [facility]6370 [facility] [id number] Information: [id number] Chloride molar conc 103 mmol/L Normal 97-108 [facility] Work Phone: Comment on above: PATIENT WAS FASTINGP ERFORMED BY: [facility] Psezyj4138 [facility] [id number] Information: [id number] CO2 molar conc 24 mmol/L Normal 19-28 [facility] Internal Medicine Work Phone: Comment on above: PATIENT WAS FASTINGP ERFORMED BY: [facility] Gpuvdz1823 [facility] [id number] Information: [id number] Creatinine mass conc 0.81 mg/dL Normal 0.57-1.00 [facility] Work Phone: Comment on above: PATIENT WAS FASTINGP ERFORMED BY: [facility] Qtsqvg1189 [facility] [id number] Information: [id number] GFR/1.73 sq M predicted among blacks CKD-EPI vol rate/area (S/P/Bld) 97 mL/min/1.73 Normal [facility] Work Phone: Comment on above: PATIENT WAS FASTINGP ERFORMED BY: [facility] HospitalUvmhmi1803 [facility] [id number] Information: [id number] GFR/1.73 sq M predicted among non-blacks CKD-EPI vol rate/area (S/P/Bld) 84 mL/min/1.73 Normal [facility] Work Phone: Comment on above: PATIENT WAS FASTINGP ERFORMED BY: [facility] Xgyhvr6429 [facility] [id number] Information: [id number] Globulin (S) [Mass/Vol] 2.6 g/dL Normal 1.5-4.5 [facility] Work Phone: Comment on above: PATIENT WAS FASTINGP ERFORMED BY: [facility] Gdgayg6918 [facility] [id number] Information: [id number] Globulin Calculated mass conc (S) 2.6 g/dL Normal 1.5-4.5 [facility] Work Phone: Glucose mass conc 87 mg/dL Normal 65-99 [facility] Medicine Work Phone: Comment on above: PATIENT WAS FASTINGP ERFORMED BY: AUNDREA [facility]6370 [facility] [id number] Information: [id number] Potassium molar conc 4.5 mmol/L Normal 3.5-5.2 [facility] Work Phone: Comment on above: PATIENT WAS FASTINGP ERFORMED BY: [facility]DREA [facility] Hwatbg0265 [facility] [id number] Information: [id number] Protein mass conc 6.8 g/dL Normal 6.0-8.5 [facility] Work Phone: Comment on above: PATIENT WAS FASTINGP ERFORMED BY: AUNDREA [facility] Eoasou7274 [facility] [id number] Information: [id number] Sodium molar conc 140 mmol/L Normal 134-144 [facility] Work Phone: Comment on above: PATIENT WAS FASTINGP ERFORMED BY: AUNDREA Rustam Xmmqpy2371 [facility] [id number] Information: [id number] Urea nitrogen mass conc 11 mg/dL Normal 6-24 [facility] Work Phone: Comment on above: PATIENT WAS FASTINGP ERFORMED BY: AUNDREA [address] [id number] Information: [id number] Urea nitrogen/Creatinin e mass ratio 14 mg/mg Normal 9-23 [facility] Work Phone: Comment on above: PATIENT WAS FASTINGP ERFORMED BY: AUNDREA [place] [id number] [facility] [id number] Information: [id number] BILAT SCRN DIGITAL & CADOrde red By: Paper Bag Making Machinist on 08-11-2012 BILAT SCRN DIGITAL & CAD See Note Normal [facility] Work Phone: Comment on above: MAMMOGRAPHY - BILATE RAL SCREENING REASON FOR EXAM: Female, 52 years old. Routine annual screeningexamination. PERTINENT HISTORY: Family history of breast carcinoma. TECHNIQUE: Digital examination. Mediolateral oblique (MLO) andcraniocaudad (CC) views of both breasts were obtained. CAD: CAD wasperformed on this study. COMPARISON: 12/14/07 FINDINGS:The breast composition is composed of scattered fibroglandular tissuesranging from 25% to 50% of the breast. There are no dominant masses or suspicious calcifications. No abnormal skin thickening is observed. IMPRESSION:Stable bilateral screening mammogram. Yearly follow-up recommended. (A) ASSESSMENT CATEGORY:BIRADS Category 1: Negative. A letter regarding these results will besent to the patient by the facility within 30 days. Approximately 10% of breast cancers are not detected by mammography. Anormal mammogram should not delay biopsy of a clinically suspiciousabnormality. Signed:Kit Tristan M.D.August 11, 2012 at 12:05:24 PM [id number] Signed RU/RU If you are the referring physician and would like to consult with theradiologist who provided this interpretation, please contact Luiz Patterson at [phone]. If this radiologist is unavailable, youwillbe directed to another radiologist to assist. If you are a patient with a question regarding this report, pleasecontactyour referring physician directly. Professional Interpretation Provided By: [employer], Phone , These documents contain legally protected and confidential healthinformation intended only for the use of the individual or entity namedabove. If you are not the intended recipient, you are hereby notifiedthatany disclosure, copying, distribution, or other use of these documents isstrictly prohibited. If you have received this information in error,pleasenotify the sender immediately and arrange for the return or destructionofthese documents. Dictated on 08/11/12 1205 by Kit TristanTranscribed on 08/11/12 1227 by ITS IMPORTSign by Kit Tristan on 08/11/12 1228 Sign by: Kit Tristan LOWER EXT.JOINT ONLY (ROUTIN E)Ordered By: Paper Bag Making Machinist on 11-20-2011 LOWER EXT.JOINT ONLY (ROUTINE) See Note Normal [facility] Work Phone: Comment on above: PROCEDURE: MRI LEFT KNEE REASON FOR EXAM: Female, 51 years old. Twisted knee one month ago.Painmedially. TECHNIQUE: Standardized fat and water weighted pulse sequences wereobtained in all 3 orthogonal planes. There is a metallic foreign bodywithsubstantial artifact medially. COMPARISON: Radiographs of October 28, 2011 FINDINGS:The medial meniscus morphology is distorted by the metallic foreign body.However, no definite abnormality of the medial meniscus is demonstrated(coronal series 2 images 7-13). There is mild loss of articularcartilageof the medial femorotibial compartment (coronal series 3 images 7-14).Normal medial femoral condyle and tibial plateau. Normal medial collateral ligamentous complex (MCL). Normal distalsemimembranosus, gracilis and semitendinosus tendons. Normal lateral meniscus. Normal hyaline cartilage of the lateralfemorotibial compartment. Normal lateral femoral condyle and tibialplateau. Normal proximal tibiofibular articulation. Normal lateral collateral(fibular) ligament. Normal popliteus tendon. Normal biceps femoristendon. Normal anterior cruciate ligament (ACL). Normal posterior cruciateligament (PCL). Normal congruent patellofemoral articulation. There is mild thinning ofthe articular cartilage of the patellofemoral compartment (axial series 6images 6-13). Normal medial and lateral patellar retinaculum. Normal quadriceps tendon. Normal patellar tendon. Normal Hoffa's fatpad. There is a small joint effusion (sagittal series 5 image 10). There is substantial artifact medially because of the metallic foreignbody(coronal series 2 image 8). The otherwise visualized osseous structuresare unremarkable. IMPRESSION:Mild loss of articular cartilage of the medial femorotibial compartment. Mild thinning of the articular cartilage of the patellofemoralcompartment. Small joint effusion. Limited study medially, as described, because of the extensive metallicartifact. Signed:Mona Geronimo 2011 at 12:36:05 PM [id number] Signed TP/TP If you are the referring physician and would like to consult with theradiologist who provided this interpretation, please contact Khoi Avila MD at [phone]. If this radiologist is unavailable, you will bedirected to another radiologist to assist. If you are a patient with a question regarding this report, pleasecontactyour referring physician directly. Professional Interpretation Provided By: [employer], Phone , These documents contain legally protected and confidential healthinformation intended only for the use of the individual or entity namedabove. If you are not the intended recipient, you are hereby notifiedthatany disclosure, copying, distribution, or other use of these documents isstrictly prohibited. If you have received this information in error,pleasenotify the sender immediately and arrange for the return or destructionofthese documents. Dictated on 11/20/11 0938 by Khoi Avila MDTranscribed on 11/20/11 1242 by ITS IMPORTSign by Khoi Avila MD on 11/20/11 1243 Sign by: Khoi Avila MD KNEE,4 OR MORE VIEWSOrdered By: Paper Bag Making Machinist on 10-28-2011 KNEE,4 OR MORE VIEWS See Note Normal [facility] Work Phone: Comment on above: PROCEDURES: X-RAY - LEFT KNEE REASON FOR EXAM: Female, 51 years old. Knee pain following injury. TECHNIQUE: Four views of the knee. COMPARISON: None. FINDINGS:There is mild degenerative arthrosis of the medial femorotibialcompartment. There is mild degenerative arthrosis of the lateralfemorotibial compartment. Normal patellofemoral articulation. Normal visualized distal femur. Normal visualized proximal tibia andfibula. Normal proximal tibiofibular articulation. There is a 3-mm metallic density in the soft tissues overlying the medialaspect of the proximal tibia. IMPRESSION:Degenerative arthrosis. Signed:Joe Quintana M.D.October 28, 2011 at 4:14:06 PM [phone] Signed GP/GP If you are the referring physician and would like to consult with theradiologist who provided this interpretation, please contact Luiz Washington at [phone]. If this radiologist is unavailable, youwill be directed to another radiologist to assist. If you are a patient with a question regarding this report, pleasecontactyour referring physician directly. Professional Interpretation Provided By: [employer], Phone , These documents contain legally protected and confidential healthinformation intended only for the use of the individual or entity namedabove. If you are not the intended recipient, you are hereby notifiedthatany disclosure, copying, distribution, or other use of these documents isstrictly prohibited. If you have received this information in error,pleasenotify the sender immediately and arrange for the return or destructionofthese documents. Dictated on 10/28/11 1108 by Cristine ARREDONDO,Rejiranscribed on 10/28/11 1619 by ITS IMPORTSign by Cristine ARREDONDO,Joe on 10/28/11 1620 Sign by: Joe Quintana MD ANAOrdered By: System Manage r on 08-07-2011 NILSA 27 AU/mL Normal [facility] Work Phone: NILSA Normal [facility] Work Phone: Comment on above: TESTING INTERPRETATI ONSPOSITIVE: > 120EQUIVOCAL: 100 - 120NEGATIVE: < 100 CCPOrdered By: System Manage r on 08-07-2011 CCP 2 {units} Normal 0-19 [facility] Work Phone: Comment on above: Negative <20 Weak po sitive 20 - 39 Moderate positive 40 - 59 Strong positive >59Performed at: [facility] Lab[address] [id number] Director: Juan Cast MD, Phone: [phone] CRPOrdered By: System Manage r on 08-07-2011 CRP mass conc mg/L Normal 0.0-3.0 [facility] Work Phone: Comment on above: C-Reactive Protein ( CRP) provides useful information for thediagnosis, therapy and monitoring of inflammatory processesand associated diseases. For the evaluation of Relative Riskfor Cardiovascular Disease, a High Sensitivity CRP (HSCRP)should be ordered. RFOrdered By: Paper Bag Making Machinist on 08-07-2011 Rheumatoid factor Qn [IU]/mL Normal [facility] Internal Medicine Work Phone: SEDOrdered By: System Manage r on 08-07-2011 ESR Velocity (Bld) 10 mm/h Normal 0-30 [facility] Internal Medicine Work Phone: TSHOrdered By: System Manage r on 08-07-2011 Thyrotropin Qn 1.20 {uIU/mL} Normal 0.358-3.74 [facility] Internal Medicine Work Phone: CMPOrdered By: System Manage r on 07-22-2011 Albumin mass conc 3.9 g/dL Normal 3.4-5.0 [facility] Internal Medicine Work Phone: Albumin/Globulin mass ratio 1.2 {RATIO} Normal 0.9-2.4 [facility] Internal Medicine Work Phone: ALP enzyme act/vol 72 U/L Normal 50-136 [facility] Internal Medicine Work Phone: ALT enzyme act/vol 17 U/L Normal 12-78 [facility] Internal Medicine Work Phone: Anion gap 3 molar conc 10 mmol/L Normal 5-15 [facility] Internal Medicine Work Phone: AST enzyme act/vol 12 U/L Abnormal 15-37 [facility] Internal Medicine Work Phone: Bilirubin mass conc 0.30 mg/dL Normal 0.00-1.00 [facility] Internal Medicine Work Phone: Calcium mass conc 8.9 mg/dL Normal 8.5-10.1 [facility] Internal Medicine Work Phone: Chloride molar conc 106 mmol/L Normal 98-107 [facility] Internal Medicine Work Phone: CO2 molar conc 27.0 mmol/L Normal 21.0-32.0 [facility] Work Phone: Creatinine mass conc 0.7 mg/dL Normal 0.6-1.0 [facility] Work Phone: GFR/1.73 sq M predicted among blacks MDRD vol rate/area (S/P/Bld) 114 mL/min/{1.73_m2} Normal Compre[facility] Internal Medicine Work Phone: GFR/1.73 sq M.predicted MDRD vol rate/area 94 mL/min/{1.73_m2} Normal [facility] Work Phone: Globulin Calculated mass conc (S) 3.3 g/dL Normal 2.7-4.2 [facility] Work Phone: Glucose mass conc 88 mg/dL Normal 70-110 [facility] Work Phone: Potassium molar conc 4.8 mmol/L Normal 3.5-5.1 [facility] Work Phone: Protein mass conc 7.2 g/dL Normal 6.4-8.2 [facility] Work Phone: Sodium molar conc 143 mmol/L Normal 136-145 [facility] Work Phone: Urea nitrogen mass conc 15 mg/dL Normal 7-18 [facility] Work Phone: Urea nitrogen/Creatinin e mass ratio 21.4 {RATIO} Abnormal 10-20 [facility] Work Phone: LIPIDOrdered By: Lia johnson on 07-22-2011 Cholesterol in HDL mass conc 56 mg/dL Normal [facility] Work Phone: Comment on above: Reference Range HDL <40 mg/dL Low HDL Cholesterol HDL >or= 60 mg/dL High HDL Cholesterol Cholesterol in LDL mass conc 178 mg/dL Abnormal 0-130 [facility] Work Phone: Cholesterol in VLDL mass conc 21 mg/dL Normal 5-40 [facility] Work Phone: Cholesterol mass conc 255 mg/dL Abnormal [facility] Work Phone: Comment on above: <200 mg/dL Desirable 200-240 mg/dL Borderline >240 mg/dL High Risk Triglyceride mass conc 104 mg/dL Normal [facility] Work Phone: Comment on above: Serum Triglycerides Reference Interval Normal <150 mg/dL Borderline high 150 - 199 mg/dL High 200 - 499 mg/dL Very High > or = 500 mg/dL CBCD,SMEAR DIFFOrdered By: Analisa dosstem Die Designer Apprentice on 04-01-2011 Band form neutrophils/100 WBC Manual cnt (Bld) 1 % Normal 0-5 [facility] Work Phone: Eosinophils/100 WBC Auto (Bld) 2 % Normal 0-5 [facility] Work Phone: Erythrocyte distribution width Auto Ratio (RBC) 14.2 % Normal 11.6-14.6 [facility] Work Phone: Hematocrit Auto Volume Fraction (Bld) 37.3 % Normal 37-47 [facility] Work Phone: Hemoglobin mass conc (Bld) 12.8 g/dL Normal 12.0-16.0 [facility] Work Phone: Lymphocytes/100 WBC Auto (Bld) 30 % Normal 19-41 [facility] Work Phone: MCH Auto Entitic mass (RBC) 30.5 pg Normal 27.0-32.0 [facility] Work Phone: MCHC Auto mass conc (RBC) 34.5 g/dL Normal 32-36 [facility] Work Phone: MCV Auto Entitic volume (RBC) 88.4 fL Normal 81-99 [facility] Work Phone: Monocytes/100 WBC Auto (Bld) 2 % Normal 0-10 [facility] Work Phone: Neutrophils Auto #/vol (Bld) 5.5 3/uL Normal 2.0-7.7 [facility] Work Phone: Platelets Auto #/vol (Bld) 265 10*3/uL Normal 150-450 [facility] Work Phone: RBC Auto #/vol (Bld) 4.21 {M/mm3} Normal 4.2-5.4 [facility] Work Phone: WBC Auto #/vol (Bld) 8.7 10*3/uL Normal 4.4-11.0 [facility] Work Phone: CBCD,SMEAR DIFF 65 % Normal 47-70 Comprehen [facility] Internal Medicine Work Phone: CBCD,SMEAR DIFF 100 1 Normal [facility] Internal Medicine Work Phone: ESROrdered By: System Manage r on 04-01-2011 ESR Velocity (Bld) 22 mm/h Abnormal 0-20 Compre [facility] Internal Medicine Work Phone: SINUS/FACIAL BONE WITH CONTR ASOrdered By: Paper Bag Making Machinist on 04-01-2011 SINUS/FACIAL BONE WITH CONTRAS See Note Normal [facility] Work Phone: Comment on above: PROCEDURES: CT FACIA L BONES WITH CONTRAST REASON FOR EXAM: Female, 50 years old. TECHNIQUE: The patient was scanned in a multi detector CT scanner.Transaxial imaging was performed following the intravenous administrationof 100 ml of Isovue 300 contrast material. Coronal images werereconstructed. COMPARISON: None. FINDINGS:Normal bilateral orbital contents. Normal bilateral medial and inferiororbital castañeda. Normal bilateral maxillary bones. Normal bilateralmaxillary sinuses. No abnormal contrast enhancement. Normal bilateral frontozygomatic arches. Normal bilateral zygomatictemporal arches. There are mildly displaced nasal bone fractures, left slightly moredisplaced than the right as seen on axial image 49. Normal anteriornasalspine. Normal soft tissue structures. 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 The inferior leftturbinate appears to be atrophic or surgically absent. There is nodemonstrated abnormal enhancement. Normal visualized frontal, ethmoidal and sphenoid sinuses. IMPRESSION:1. Mildly displaced nasal bone fractures. 2. 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 3. No abnormal contrast enhancement. 4. Atrophy or postoperative resection of inferior left turbinate,correlate clinically. To consult with a radiologist regarding this report, please call our [id number] line @ Dictated on 04/01/11 0833 by STEWART STERN MDribed on 01/10/12 0918 by ITS IMPORTSign by STEWART STERN MD on 04/01/11917 Sign by: STEWART STERN MD Result: NORM C+C Result: ADEQUATE CBCD,SMEAR DIFFOrdered By: Analisa ystem Die Designer Apprentice on 09-12-2010 Band form neutrophils/100 WBC Manual cnt (Bld) 3 % Normal 0-5 [facility] Work Phone: Eosinophils/100 WBC Auto (Bld) 2 % Normal 0-5 [facility] Work Phone: Erythrocyte distribution width Auto Ratio (RBC) 14.1 % Normal 11.6-14.6 [facility] Work Phone: Hematocrit Auto Volume Fraction (Bld) 39.7 % Normal 37-47 [facility] Work Phone: Hemoglobin mass conc (Bld) 13.4 g/dL Normal 12.0-16.0 [facility] Work Phone: Lymphocytes/100 WBC Auto (Bld) 19 % Normal 19-41 [facility] Work Phone: MCH Auto Entitic mass (RBC) 31.2 pg Normal 27.0-32.0 [facility] Work Phone: MCHC Auto mass conc (RBC) 33.8 g/dL Normal 32-36 [facility] Work Phone: MCV Auto Entitic volume (RBC) 92.5 fL Normal 81-99 [facility] Work Phone: Monocytes/100 WBC Auto (Bld) 8 % Normal 0-10 [facility] Work Phone: Neutrophils Auto #/vol (Bld) 6.8 3/uL Normal 2.0-7.7 [facility] Work Phone: Platelets Auto #/vol (Bld) 251 10*3/uL Normal 150-450 [facility] Work Phone: RBC Auto #/vol (Bld) 4.29 {M/mm3} Normal 4.2-5.4 [facility] Work Phone: WBC Auto #/vol (Bld) 9.6 10*3/uL Normal 4.4-11.0 [facility] Internal Medicine Work Phone: CBCD,SMEAR DIFF SeeNote Normal [facility] Internal Medicine Work Phone: Comment on above: Result: ADEQUATE Result: NORM C+C CBCD,SMEAR DIFF 100 1 Normal [facility] Internal Medicine Work Phone: CBCD,SMEAR DIFF 68 % Normal 47-70 [facility] Internal Medicine Work Phone: COMP METABOLICOrdered By: Miky stem Die Designer Apprentice on 09-12-2010 Albumin mass conc 3.8 g/dL Normal 3.4-5.0 [facility] Internal Medicine Work Phone: Albumin/Globulin mass ratio 1.2 {RATIO} Normal 0.9-2.4 [facility] Internal Medicine Work Phone: ALP enzyme act/vol 81 U/L Normal 50-136 [facility] Internal Medicine Work Phone: ALT enzyme act/vol 22 U/L Normal 12-78 [facility] Internal Medicine Work Phone: Anion gap 3 molar conc 9 mmol/L Normal 5-15 [facility] Internal Medicine Work Phone: AST enzyme act/vol 10 U/L Abnormal 15-37 [facility] Internal Medicine Work Phone: Bilirubin mass conc 0.30 mg/dL Normal 0.00-1.00 [facility] Internal Medicine Work Phone: Calcium mass conc 8.8 mg/dL Normal 8.5-10.1 [facility] Internal Medicine Work Phone: Chloride molar conc 107 mmol/L Normal 98-107 [facility] Internal Medicine Work Phone: CO2 molar conc 25.0 mmol/L Normal 21.0-32.0 [facility] Internal Medicine Work Phone: Creatinine mass conc 0.8 mg/dL Normal 0.6-1.0 [facility] Internal Medicine Work Phone: GFR/1.73 sq M predicted among blacks MDRD vol rate/area (S/P/Bld) 98 mL/min/{1.73_m2} Normal [facility] Work Phone: GFR/1.73 sq M.predicted MDRD vol rate/area 81 mL/min/{1.73_m2} Normal [facility] Work Phone: Globulin Calculated mass conc (S) 3.1 g/dL Normal 2.7-4.2 [facility] Work Phone: Glucose mass conc 100 mg/dL Normal 70-110 [facility] Work Phone: Potassium molar conc 4.8 mmol/L Normal 3.5-5.1 [facility] Work Phone: Protein mass conc 6.9 g/dL Normal 6.4-8.2 [facility] Work Phone: Sodium molar conc 141 mmol/L Normal 136-145 [facility] Work Phone: Urea nitrogen mass conc 15 mg/dL Normal 7-18 [facility] Work Phone: Urea nitrogen/Creatinin e mass ratio 18.8 {RATIO} Normal 10-20 [facility] Work Phone: LIPIDOrdered By: Lia johnson on 09-12-2010 Cholesterol in HDL mass conc 54 mg/dL Normal [facility] Work Phone: Comment on above: Reference Range HDL <40 mg/dL Low HDL Cholesterol HDL >or= 60 mg/dL High HDL Cholesterol Cholesterol in LDL mass conc 182 mg/dL Abnormal 0-130 [facility] Work Phone: Cholesterol in VLDL mass conc 20 mg/dL Normal 5-40 [facility] Work Phone: Cholesterol mass conc 256 mg/dL Abnormal [facility] Work Phone: Comment on above: <200 mg/dL Desirable 200-240 mg/dL Borderline >240 mg/dL High Risk Triglyceride mass conc 100 mg/dL Normal [facility] Work Phone: Comment on above: Serum Triglycerides Reference Interval Normal <150 mg/dL Borderline high 150 - 199 mg/dL High 200 - 499 mg/dL Very High > or = 500 mg/dL TSHOrdered By: System Manage r on 09-12-2010 Thyrotropin Qn 1.00 {uIU/mL} Normal 0.358-3.74 [facility] Internal Medicine Work Phone: FOOT,MIN 3 VIEWS (MT)Ordered By: Paper Bag Making Machinist on 08-21-2009 FOOT,MIN 3 VIEWS (MT) See Note Normal [facility] Work Phone: Comment on above: Exam Number: [id number] CLINICAL:This is a 49-year-old female patient with history of pain andpressure of the second toe X-RAY EXAMINATION: LEFT FOOT TECHNIQUE:Three views of the foot. COMPARISON:None. FINDINGS:Normal visualized bones of the rear and mid foot. Normal visualized articulations of the rear and mid foot. Normal visualized metatarsi. Normal visualized phalanges. Normal visualized metatarsophalangeal joint of the great toe.Normal visualized tibial and fibular sesamoid bones. Normal visualized interphalangeal joint of the great toe. Normal 2nd-5th metatarsophalangeal joints. Normal visualized interphalangeal joints. There is no demonstrated soft tissue swelling. IMPRESSION:Normal x-ray examination of the foot. Reported By: JOE QUINTANA METABOLICOrdered By: stem Die Designer Apprentice on 06-08-2009 Albumin mass conc 3.5 g/dL Normal 3.4-5.0 [facility] Work Phone: Albumin/Globulin mass ratio 0.9 {RATIO} Normal 0.9-2.4 [facility] Work Phone: ALP enzyme act/vol 81 U/L Normal 50-136 [facility] Work Phone: ALT enzyme act/vol 21 U/L Normal 12-78 [facility] Internal Medicine Work Phone: Anion gap 3 molar conc 7 mmol/L Normal 5-15 [facility] Work Phone: AST enzyme act/vol 13 U/L Abnormal 15-37 [facility] Internal Medicine Work Phone: Bilirubin mass conc 0.30 mg/dL Normal 0.00-1.00 [facility] Work Phone: Calcium mass conc 8.3 mg/dL Abnormal 8.5-10.1 Compreh ensive Internal Medicine Work Phone: Chloride molar conc 107 mmol/L Normal 98-107 [facility] Work Phone: CO2 molar conc 26.0 mmol/L Normal 21.0-32.0 Comprehen sive Internal Medicine Work Phone: Creatinine mass conc 0.9 mg/dL Normal 0.6-1.0 [facility] Work Phone: GFR/1.73 sq M predicted among blacks MDRD vol rate/area (S/P/Bld) 86 mL/min/{1.73_m2} Normal Comprehensiv e [facility] Work Phone: GFR/1.73 sq M.predicted MDRD vol rate/area 71 mL/min/{1.73_m2} Normal [facility] Work Phone: Globulin Calculated mass conc (S) 3.9 g/dL Normal 2.7-4.2 [facility] Work Phone: Glucose mass conc 98 mg/dL Normal 70-110 Compre[facility] ens[facility] Work Phone: Potassium molar conc 4.3 mmol/L Normal 3.5-5.1 [facility] Work Phone: Protein mass conc 7.4 g/dL Normal 6.4-8.2 Compreh ens[facility] Work Phone: Sodium molar conc 140 mmol/L Normal 136-145 Compre[facility] ensive [facility] Work Phone: Urea nitrogen mass conc 18 mg/dL Normal 7-18 [facility] Work Phone: Urea nitrogen/Creatinin e mass ratio 20.0 {RATIO} Normal 10-20 [facility] Work Phone: KNEE,4 OR MORE VIEWS (MT)Ord ered By: Paper Bag Making Machinist on 06-08-2009 KNEE,4 OR MORE VIEWS (MT) See Note Normal [facility] Work Phone: Comment on above: Exam Number: [id number] CLINICAL:Pain X-RAY EXAMINATION LEFT KNEE TECHNIQUE:Four views of the knee. COMPARISON:None. FINDINGS:Normal visualized distal femur. Normal visualized proximal tibia. Normal visualized proximal fibula. Normal medial femorotibial compartment. Normal lateral femorotibialcompartment. Normal patellofemoral articulation. There is 5-mm metallic foreign body in the soft tissues along themedial aspect of the proximal tibial metaphysis. IMPRESSION:Soft tissue foreign body as described. Reported By: CLAUDIA PETERSON M.D. Exam Number: [id number] CLINICAL:Pain X-RAY EXAMINATION RIGHT KNEE TECHNIQUE:Four views of the knee. COMPARISON:None. FINDINGS:There is spurring off the superior aspect of the medial femoralcondyle. Normal visualized proximal tibia. Normal visualized proximal fibula. Normal medial femorotibial compartment. Normal lateral femorotibialcompartment. Normal patellofemoral articulation. There is no demonstrated soft tissue swelling. IMPRESSION:Degenerative spurring superior aspect medial femoral condyle. Reported By: CLAUDIA PETERSON M.D. LIPIDOrdered By: Lia johnson on 06-08-2009 Cholesterol in HDL mass conc 50 mg/dL Normal [facility] Work Phone: Comment on above: Reference RangeHDL < 40 mg/dL Low HDL CholesterolHDL >or= 60 mg/dL High HDL Cholesterol Cholesterol in LDL mass conc 189 mg/dL Abnormal 0-130 [facility] Work Phone: Cholesterol in VLDL mass conc 26 mg/dL Normal 5-40 [facility] Work Phone: Cholesterol mass conc 265 mg/dL Abnormal [facility] Work Phone: Comment on above: <200 mg/dL Desirable 200-240 mg/dL Borderline>240 mg/dL High Risk Triglyceride mass conc 128 mg/dL Normal [facility] Work Phone: Comment on above: Serum Triglycerides Reference IntervalNormal <150 mg/dLBorderline high 150 - 199 mg/dLHigh 200 - 499 mg/dLVery High > or = 500 mg/dL ESTRADIOL ([id number])Ordered By: Benita Galaviz on 12-24-2007 Estradiol (E2) mass conc 17 pg/mL Abnormal 19-528 [facility] Work Phone: Comment on above: Adult Male: <54 Mens truating Female (Day of cycle relative to LH Peak) Follicular (-12) 19 - 83 (- 4) 64 - 183 Midcycle (- 1) 150 - 528 Luteal (+ 2) 58 - 157 (+ 6) 60 - 211 (+12) 55 - 150 Postmenopausal Female (Untreated) 0 - 31 . Clarice Centaur/ACS Methodology PATIENT NOT FASTINGP ERFORMED BY: [email or web address] Cole [facility]EC[facility] [id number] GONADOTROPIN-FSH ([id number])Orde red By: Benita Galaviz on 12-24-2007 GONADOTROPIN-FSH ([id number]) 59.3 m[iU]/mL Normal [facility] Work Phone: Comment on above: . Male Female 5th da y <0.2 - 4.6 <0.2 - 4.6 2 mo- 3 yrs. 0.2 - 2.7 1.4 - 9.2 4- 6 yrs. 0.2 - 2.7 0.4 - 6.6 7- 9 yrs. 0.2 - 2.7 0.4 - 5.0 10-11 yrs. 0.4 - 5.0 Not Estab 12-13 yrs. 0.4 - 6.6 Not Estab 14-15 yrs. 0.7 - 13.2 Not Estab >15 yrs. 1.4 - 18.1 See Below Female Follicular 2.5 - 10.2 Midcycle 3.4 - 33.4 Luteal 1.5 - 9.1 <0.2 Postmenopausal 23.0 - 116.3 PATIENT NOT FASTINGP ERFORMED BY: [email or web address] Cole [facility]EC[facility] [id number] HCG (HUMAN CHORIONIC GONADOT ROPIN) ([id number])Ordered By: Benita Galaviz on 12-24-2007 Beta HCG ( test) Ql Negative Normal [facility]; [facility] Work Phone: Comment on above: Negative < 5 Borderl ine 5 - 20 Positive >20 PATIENT NOT FASTINGP ERFORMED BY: AUNDREA [employer]70 Cole [facility]EC[facility] [id number] HCG.beta subunit ( test) Ql Negative Normal [facility] Work Phone: Comment on above: Negative < 5 Borderl ine 5 - 20 Positive >20 PATIENT NOT FASTINGP ERFORMED BY: AUNDREA [facility] [id number] Arellano [facility] [id number] PROLACTIN ([id number])Ordered By: Benita Galaviz on 12-24-2007 Protein mass conc 8.3 ng/mL Normal 2.8-29.2 Compreh ensive [facility] Work Phone: Comment on above: Male Female 0- 1 mon . 3.7 - 81.2 0.3 - 95.0 1-12 mons. 0.3 - 28.9 0.2 - 29.9 1- 3 yrs. 2.3 - 13.2 1.0 - 17.0 4- 6 yrs. 0.8 - 16.9 1.6 - 13.1 7- 9 yrs. 1.9 - 11.6 0.3 - 12.9 10-12 yrs. 0.9 - 12.9 1.9 - 9.6 13-15 yrs. 1.6 - 16.6 3.0 - 14.4 Adult 2.1 - 17.7 2.8 - 29.2 Female: Non- 2.8 - 29.2 9.7 - 208.5 Postmenopausal 1.8 - 20.3 PROLACTIN ([id number]) 8.3 ng/mL Normal 2.8-29.2 Compreh ensive [facility] Work Phone: Comment on above: Male Female 0- 1 mon . 3.7 - 81.2 0.3 - 95.0 1-12 mons. 0.3 - 28.9 0.2 - 29.9 1- 3 yrs. 2.3 - 13.2 1.0 - 17.0 4- 6 yrs. 0.8 - 16.9 1.6 - 13.1 7- 9 yrs. 1.9 - 11.6 0.3 - 12.9 10-12 yrs. 0.9 - 12.9 1.9 - 9.6 13-15 yrs. 1.6 - 16.6 3.0 - 14.4 Adult 2.1 - 17.7 2.8 - 29.2 Female: Non- 2.8 - 29.2 9.7 - 208.5 Postmenopausal 1.8 - 20.3 PATIENT NOT FASTINGP ERFORMED BY: [facility]6[address] [facility] [id number] T3, FREE (TRIDOTHYRONINE) ([id number])Ordered By: Benita Galaviz on 12-24-2007 T3 free mass conc 3.0 pg/mL Normal 2.3-4.2 Compreh ensive [facility] Work Phone: Comment on above: PATIENT NOT FASTINGP ERFORMED BY: [address] [id number] T4, FREE (THYROXINE) ([id number]) Ordered By: Benita Galaviz on 12-24-2007 T4 free mass conc 1.06 ng/dL Normal 0.61-1.76 Compreh ensive [facility] Medicine Work Phone: Comment on above: PATIENT NOT FASTINGC linical Information: ADD DRAW FEE [id number] ADD J [id number] PERFORMED BY: [facility] [place] [address] [id number] TSH ([id number])Ordered By: Benita Galaviz on 12-24-2007 Thyrotropin Qn 1.616 {uIU/mL} Normal 0.450-4.500 Compr ehensive Internal Medicine Work Phone: Comment on above: PATIENT NOT FASTINGP ERFORMED BY: [facility]6[address] [facility] [id number] Thin prep Pap ([id number])Ordered By: Benita Galaviz on 12-24-2007 Microscopic observation Other stain Nom (Unsp spec) . Normal [facility] Work Phone: Comment on above: Source.............C ervical;EndocervicalLMP / Prev Treat...WJP=[id number]. of containers..01 CYTYC Thin Prep VialPATIENT NOT FASTINGClinical Information: ADD [id number] PERFORMED BY: [employer] [id number] Pathology report final diagnosis Narrative SPRCS Normal [facility] Work Phone: Comment on above: NEGATIVE FOR INTRAEP ITHELIAL LESION AND MALIGNANCY.Satisfactory for evaluation. Endocervical and/or squamous metaplasticcells (endocervical component) are present.V72.31 ; Routine gynecological examinationCyntelise Bar Filter Worker (ASCP) Source.............C ervical;EndocervicalLMP / Prev Treat...KZV=[id number]. of containers..01 CYTYC Thin Prep VialPATIENT NOT FASTINGClinical Information: ADD [id number] PERFORMED BY: [employer] [address] [id number] Thin prep Pap ([id number]) [facility] Normal [facility] Work Phone: Comment on above: The Pap smear is a s creening test designed to aid in the detection ofpremalignant and malignant conditions of the uterine cervix. It is not adiagnostic procedure and should not be used as the sole means of detectingcervical cancer. Both false-positive and false-negative reports do occur. .The HPV DNA reflex criteria were not met with this specimen resulttherefore, no HPV testing was performed. . Source.............C ervical;EndocervicalLMP / Prev Treat...KOT=[id number]. of containers..01 CYTYC Thin Prep VialPATIENT NOT FASTINGClinical Information: ADD [id number] PERFORMED BY: [employer] [address] [id number] BILAT SCRN DIGITAL & CADOrde red By: Paper Bag Making Machinist on 12-14-2007 BILAT SCRN DIGITAL & CAD See Note Normal [facility] Work Phone: Comment on above: Exam Number: [id number] DIGITAL SCREENING MAMMOGRAMS WITH CAD COMPARISON STUDIESNone. Baseline study. TECHNIQUERoutine craniocaudal and mediolateral oblique views are obtained ofeach breast using digital technique. CAD is also performed. There is mild to moderate breast density bilaterally. There is noworrisome mass, typically malignant-type microcalcification orarchitectural distortion in either breast. There is no significantinterval change since. IMPRESSIONNo mammographic evidence for cancer in either breast. Routinebilateral annual screening assessment is recommended. BIRADS Category 1. Negative. A letter regarding the results has been sent to the patient. This interpretation was rendered by a radiologist certified underthe Mammography Quality Standards Act of 1992 (MQSA). The mammogramswere also examined with computer-aided detection software(ImageTweetDeck.). Reported By: JOE BAI M.D. Exam Number: [id number] LUMBAR SPINE CLINICAL INFORMATIONLow back pain. Complete lumbar spine series was performed. There are 5 lumbar typevertebral segments which are normal in height. There is a slightlevoconvex curve. There is disk space narrowing with vacuum diskphenomenon at L5-S1 indicating evidence of degenerative disk disease. The remaining disk spaces are normally maintained. Pedicles areintact throughout. There is no spondylolysis or spondylolisthesispresent. There are mild degenerative changes within the facet jointsprimarily at L5-S1. IMPRESSIONEvidence of degenerative disk disease at L5-S1 and mild bilateralfacet disease at that level as well. Reported By: KHOI MARRERO M.D. GLUOrdered By: System Publons r on 12-14-2007 Glucose mass conc 97 mg/dL Normal 70-110 Compreh ensive [facility] Work Phone: LIPIDOrdered By: System Yohana elizabeth on 12-14-2007 Cholesterol in HDL mass conc 44 mg/dL Normal [facility] Work Phone: Comment on above: Reference Range HDL <40 mg/dL Low HDL Cholesterol HDL >or= 60 mg/dL High HDL Cholesterol Cholesterol in LDL mass conc 198 mg/dL Abnormal 0-130 [facility] Work Phone: Cholesterol in VLDL mass conc 34 mg/dL Normal 5-40 [facility] Work Phone: Cholesterol mass conc 276 mg/dL Abnormal [facility] Work Phone: Comment on above: <200 mg/dL Desirable 200-240 mg/dL Borderline >240 mg/dL High Risk Triglyceride mass conc 169 mg/dL Normal [facility] Work Phone: Comment on above: Serum Triglycerides Reference Interval Normal <150 mg/dL Borderline high 150 - 199 mg/dL High 200 - 499 mg/dL Very High > or = 500 mg/dL Vital Signs Date Time Vital Sign Value Performing Clinician Facility 08-17-2024 08:46-0400 Body height 157.48 cm No Primary Care Physician [facility] 08-17-2024 08:46-0400 Body mass index (BMI) [Ratio] 48.2 kg/m2 No Primary Care Physician [facility] 08-17-2024 08:46-0400 Body weight 119.74 kg No Primary Care Physician [facility] 08-17-2024 08:46-0400 Diastolic blood pressure 76 mm[Hg] No Primary Care Physician [facility] 08-17-2024 08:46-0400 Heart rate 76 /min No Primary Care Physician [facility] 08-17-2024 08:46-0400 Respiratory rate 16 /min No Primary Care Physician [facility] 08-17-2024 08:46-0400 Systolic blood pressure 138 mm[Hg] No Primary Care Physician [facility] 01-01-2022 08:03-0400 Body height 155.57 cm Shweta Fabian AUTO BODY REPAIRER FIBERGLASS [facility]; [facility] Work Phone: Comment on above: pt reported for virtual visit. 01-01-2022 08:03-0400 Body mass index (BMI) [Ratio] 45.54 kg/m2 Shweta Fabian [facility]; [facility] Work Phone: Comment on above: pt reported for virtual visit. 01-01-2022 08:03-0400 Body surface area Derived from formula 2.06 m2 Shweta Fabian AUTO BODY REPAIRER [employer]IBERGLASS [facility]; [facility] Work Phone: Comment on above: pt reported for virtual visit. 01-01-2022 08:03-0400 Body weight 110.22 kg Shweta Fabian AUTO BODY REPAIRER [employer]IBERGLASS [facility]; [facility] Work Phone: Comment on above: pt reported for virtual visit. 01-01-2022 08:03-0400 Diastolic blood pressure 70 mm[Hg] Shweta Fabian [facility]; [facility] Work Phone: Comment on above: Patient Position: Sitting; Cuff Location : Left Arm; Cuff Size: Standard pt reported for virt ual visit. 01-01-2022 08:03-0400 Systolic blood pressure 117 mm[Hg] Shweta Fabian [facility]; [facility] Work Phone: Comment on above: Patient Position: Sitting; Cuff Location : Left Arm; Cuff Size: Standard pt reported for virt ua visit. 03-06-2020 08:11-0500 BMI (Body Mass Index) 45.54 kg/m2 Tony Ron [facility]; [facility] Work Phone: 03-06-2020 08:11-0500 Body weight 110.22 kg Tony Ron [facility]; [facility] Work Phone: 03-06-2020 08:11-0500 BSA (Body Surface Area) 2.06 m2 Tony Ron [facility]; [facility] Work Phone: 03-06-2020 08:11-0500 Height 155.57 cm Tony Ron [facility]; [facility] Work Phone: 02-28-2020 09:12-0500 BMI (Body Mass Index) 45.54 kg/m2 Marielle Shook [facility]; [facility] Work Phone: 02-28-2020 09:12-0500 Body Temperature 99.6 [degF] Mariellebehzad Shook [facility]; [facility] Work Phone: Comment on above: Method: Thermal Scan 02-28-2020 09:120500 Body weight 110.22 kg Marielle Shook [facility]; [facility] Work Phone: 02-28-2020 09:12-0500 BP Diastolic 74 mm[Hg] [facility]; [facility] Work Phone: Comment on above: Patient Position: Sitting; Cuff Location : Left Arm; Cuff Size: Standard 02-28-2020 09:12-0500 BP Systolic 118 mm[Hg] Marielle Shook [facility]; [facility] Work Phone: Comment on above: Patient Position: Sitting; Cuff Location : Left Arm; Cuff Size: Standard 02-28-2020 09:120500 BSA (Body Surface Area) 2.06 m2 [facility]; [facility] Work Phone: 02-28-2020 09:120500 Height 155.57 cm [facility]; [facility] Work Phone: 02-27-2020 12:28-0500 BMI (Body Mass Index) 45.54 kg/m2 [facility]; [facility] Work Phone: 02-27-2020 [id number] Body weight 110.22 kg [facility]; [facility] Work Phone: 02-27-2020 12:280500 BSA (Body Surface Area) 2.06 m2 [facility]; [facility] Work Phone: 02-27-2020 [id number] Height 155.57 cm [facility]; [facility] Work Phone: 07-27-2019 10:22-0400 BMI (Body Mass Index) 45.54 kg/m2 Tony Ron [facility]; [facility] Work Phone: 07-27-2019 10:22-0400 Body weight 110.22 kg [facility]; [facility] Work Phone: 07-27-2019 10:22-0400 BSA (Body Surface Area) 2.06 m2 Tony [facility]; [facility] Work Phone: 07-27-2019 10:22-0400 Height 155.57 cm [facility]; [facility] Work Phone: 07-22-2019 13:41-0400 BMI (Body Mass Index) 45.54 kg/m2 Shweta Fabian [facility]; [facility] Work Phone: 07-22-2019 13:41-0400 Body Temperature 97.1 [degF] Shweta Slarb AUTO BODY REPAIRER [employer] [facility]; [facility] Work Phone: 07-22-2019 13:41-0400 Body weight 110.22 kg Shweta Slarb AUTO BODY REPAIRER [employer] [facility]; [facility] Work Phone: 07-22-2019 13:41-0400 BP Diastolic 84 mm[Hg] Shweta Slarb AUTO BODY REPAIRER [employer] [facility]; [facility] Work Phone: Comment on above: Patient Position: Sitting; Cuff Location : Left Arm; Cuff Size: Standard 07-22-2019 13:41-0400 BP Systolic 142 mm[Hg] Shweta Slarb AUTO BODY REPAIRER [employer] [facility]; [facility] Work Phone: Comment on above: Patient Position: Sitting; Cuff Location : Left Arm; Cuff Size: Standard 07-22-2019 13:41-0400 BSA (Body Surface Area) 2.06 m2 Shweta Slarb AUTO BODY REPAIRER [employer] [facility]; [facility] Work Phone: 07-22-2019 13:41-0400 Height 155.57 cm Shweta Maryrb AUTO BODY REPAIRER [employer] [facility]; [facility] Work Phone: 07-22-2019 13:41-0400 Pulse (Heart Rate) 95 /min Shweta Slarb AUTO BODY REPAIRER [employer] Comprehensiv e Internal Medicine; [facility] Work Phone: Comment on above: Pattern: Regular 07-22-2019 13:41-0400 Pulse Oximetry 97 % Tejal Maciel [facility]; [facility] Work Phone: Comment on above: Room air 07-22-2019 13:41-0400 Respiratory Rate 16 /min Shweta Slarb AUTO BODY REPAIRER [employer] [facility]; [facility] Work Phone: Comment on above: Pattern: Unlabored 07-22-2019 13:41-0400 SaO2% (BldA) [Mass fraction] 97 % Shweta Slarb AUTO BODY REPAIRER [employer] [facility]; [facility] Work Phone: Comment on above: Room air 01-26-2019 09:30-0500 BMI (Body Mass Index) 45.17 kg/m2 Rukhsana Pederson LPN Comprehe nsive Internal Medicine Work Phone: 01-26-2019 09:30-0500 Body Temperature 97.1 [degF] Rukhsana Pederson LPN [facility] Internal Medicine Work Phone: Comment on above: Method: Temporal 01-26-2019 09:30-0500 Body weight 109.32 kg Rukhsana Pederson LPN [facility] Internal Medicine Work Phone: 01-26-2019 09:30-0500 BP Diastolic 70 mm[Hg] Rukhsana Pederson LPN [facility] Internal Medicine Work Phone: Comment on above: Patient Position: Sitting; Cuff Location : Left Arm; Cuff Size: Standard 01-26-2019 09:30-0500 BP Systolic 120 mm[Hg] Rukhsana Pederson LPN [facility] Medicine Work Phone: Comment on above: Patient Position: Sitting; Cuff Location : Left Arm; Cuff Size: Standard 01-26-2019 09:30-0500 BSA (Body Surface Area) 2.05 m2 Rukhsana Pederson LPN [facility] Work Phone: 01-26-2019 09:30-0500 Height 155.57 cm Rukhasna Pederson LPN [facility] Internal Medicine Work Phone: 01-26-2019 09:30-0500 Pulse (Heart Rate) 74 /min Rukhsana Pederson LPN Comprehensi ve Internal Medicine Work Phone: Comment on above: Pattern: Regular 01-26-2019 09:30-0500 Pulse Oximetry 97 % Tejal Longojuliacandis [facility] Internal Medicine Work Phone: Comment on above: Room air 01-26-2019 09:30-0500 Respiratory Rate 16 /min Rukhsana Pederson LPN [facility] Internal Medicine Work Phone: Comment on above: Pattern: Unlabored 01-26-2019 09:30-0500 SaO2% (BldA) [Mass fraction] 97 % Rukhsana Pederson LPN [facility]; [facility] Work Phone: Comment on above: Room air 01-27-2018 09:31-0500 BMI (Body Mass Index) 45.17 kg/m2 Lacey Covarrubias [facility] Internal Medicine Work Phone: 01-27-2018 09:31-0500 Body Temperature 97.4 [degF] Lacey Covarrubias [facility] Internal Medicine Work Phone: Comment on above: Method: Temporal 01-27-2018 09:31-0500 Body weight 109.32 kg Lacey Covarrubias [facility] Internal Medicine Work Phone: 01-27-2018 09:31-0500 BP Diastolic 80 mm[Hg] Lacey Covarrubias [facility] Internal Medicine Work Phone: Comment on above: Patient Position: Sitting; Cuff Location : Left Arm; Cuff Size: Standard 01-27-2018 09:31-0500 BP Systolic 138 mm[Hg] Lacey Covarrubias [facility] Internal Medicine Work Phone: Comment on above: Patient Position: Sitting; Cuff Location : Left Arm; Cuff Size: Standard 01-27-2018 09:31-0500 BSA (Body Surface Area) 2.05 m2 Lacey Covarrubias [facility] Internal Medicine Work Phone: 01-27-2018 09:31-0500 Height 155.57 cm Lacey Covarrubias [facility] Internal Medicine Work Phone: 01-27-2018 09:31-0500 Pulse (Heart Rate) 81 /min Lacey Covarrubias [facility] Internal Medicine Work Phone: Comment on above: Pattern: Regular 01-27-2018 09:31-0500 Pulse Oximetry 94 % Tejal Maciel [facility] Internal Medicine Work Phone: Comment on above: Room air 01-27-2018 09:31-0500 Respiratory Rate 17 /min Lacey Covarrubias [facility] Internal Medicine Work Phone: Comment on above: Pattern: Unlabored 01-27-2018 09:31-0500 SaO2% (BldA) [Mass fraction] 94 % Lacey Covarrubias [facility] Internal Medicine; [facility] Work Phone: Comment on above: Room air 01-27-2018 09:31-0500 Weight 109.32 kg Tejal Maciel [facility] Internal Medicine Work Phone: 01-30-2017 15:11-0500 BMI (Body Mass Index) 40.6 kg/m2 Adam Millardz [facility] Work Phone: 01-30-2017 15:11-0500 BP Diastolic 78 mm[Hg] [facility] Work Phone: 01-30-2017 15:11-0500 BP Systolic 118 mm[Hg] [facility] Work Phone: 01-30-2017 [id number] Height 157.48 cm [facility] Work Phone: 01-30-2017 [id number] Pulse (Heart Rate) 88 /min [facility] Work Phone: 01-30-2017 [id number] Respiratory Rate 20 /min [facility] Work Phone: 01-30-2017 [id number] Weight 100.7 kg [facility] Work Phone: 10-30-2016 13:31-0400 BMI (Body Mass Index) 38.95 kg/m2 SHELDON [facility] Work Phone: 10-30-2016 13:31-0400 BP Diastolic 68 mm[Hg] [facility] Work Phone: 10-30-2016 13:31-0400 BP Systolic 128 mm[Hg] [facility] Work Phone: 10-30-2016 13:31-0400 Height 157.48 cm [facility] Work Phone: 10-30-2016 13:31-0400 Pulse (Heart Rate) 84 /min [facility] Work Phone: 10-30-2016 13:31-0400 Respiratory Rate 18 /min Rachel Krista, RN [facility] Work Phone: 10-30-2016 13:31-0400 Weight 96.62 kg Rachel Velasco RN [facility] Work Phone: 05-05-2016 11:46-0500 BMI (Body Mass Index) 42.92 kg/m2 Christianne Feldman [facility] Internal Medicine Work Phone: 05-05-2016 11:46-0500 Body weight 103.87 kg Christianne Feldman [facility] Internal Medicine Work Phone: 05-05-2016 11:46-0500 BP Diastolic 70 mm[Hg] [facility] Work [facility]: Comment on above: Patient Position: Sitting; Cuff Location : Left Arm; Cuff Size: Standard 05-05-2016 11:46-0500 BP Systolic 122 mm[Hg] Christianne Feldman [facility] Internal Medicine Work Phone: Comment on above: Patient Position: Sitting; Cuff Location : Left Arm; Cuff Size: Standard 05-05-2016 11:46-0500 BSA (Body Surface Area) 2.01 m2 Christianne Feldman [facility] Internal Medicine Work Phone: 05-05-2016 11:46-0500 Height 155.57 cm Christianne Feldman [facility] Internal Medicine Work Phone: 05-05-2016 11:46-0500 Pulse (Heart Rate) 81 /min Christianne Feldman [facility] Internal Medicine Work Phone: Comment on above: Pattern: Regular 05-05-2016 11:46-0500 Pulse Oximetry 98 % Tejal Maciel [facility] Internal Medicine Work Phone: Comment on above: Room air 05-05-2016 11:46-0500 Respiratory Rate 16 /min Christianne Feldman [facility] Internal Medicine Work Phone: Comment on above: Pattern: Unlabored 05-05-2016 11:46-0500 SaO2% (BldA) [Mass fraction] 98 % [facility]; [facility] Work Phone: Comment on above: Room air 05-05-2016 11:46-0500 Weight 103.87 kg Tejal Maciel [facility] Internal Medicine Work Phone: 04-28-2016 09:02-0500 BSA (Body Surface Area) 1.99 m2 Rachel Velasco RN [facility] Work Phone: 01-22-2016 08:59-0400 BMI (Body Mass Index) 42.92 kg/m2 Shweta Fabian LPN [facility] Work Phone: 01-22-2016 08:59-0400 Body Temperature 98.2 [degF] Shweta Caren AV[facility] Work Phone: 01-22-2016 08:59-0400 Body weight 103.87 kg Shweta Fabian LPN [facility] Work Phone: 01-22-2016 08:59-0400 BP Diastolic 78 mm[Hg] Shweta Caren AVILAN [facility] Work Phone: Comment on above: Patient Position: Sitting; Cuff Location : Left Arm; Cuff Size: Standard 01-22-2016 08:59-0400 BP Systolic 122 mm[Hg] Shweta Slarb [employer] [facility] Work Phone: Comment on above: Patient Position: Sitting; Cuff Location : Left Arm; Cuff Size: Standard 01-22-2016 08:59-0400 BSA (Body Surface Area) 2.01 m2 Shweta Fabian LPN [facility] Work Phone: 01-22-2016 08:59-0400 Height 155.57 cm Shweta Caren [facility] Work Phone: 01-22-2016 08:59-0400 Pulse (Heart Rate) 81 /min Shweta Caren [facility] Work Phone: Comment on above: Pattern: Regular 01-22-2016 08:59-0400 Pulse Oximetry 98 % Tejal Maciel [facility] Work Phone: Comment on above: Room air 01-22-2016 08:59-0400 Respiratory Rate 16 /min Shweta Fabian LPN [facility] Work Phone: Comment on above: Pattern: Unlabored 01-22-2016 08:59-0400 SaO2% (BldA) [Mass fraction] 98 % Shweta Fabian LPN [facility]; [facility] Work Phone: Comment on above: Room air 01-22-2016 08:59-0400 Weight 103.87 kg Tejal Maciel [facility] Work Phone: 01-11-2015 09:03-0400 BMI (Body Mass Index) 41.79 kg/m2 OBDULIA Norton [employer] [facility] Work Phone: 01-11-2015 09:03-0400 Body Temperature 97.6 [degF] OBDULIA Norton LPN [facility] Work Phone: Comment on above: Method: Temporal 01-11-2015 09:03-0400 Body weight 101.15 kg OBDULIA Norton [employer] [facility] Work Phone: 01-11-2015 09:03-0400 BP Diastolic 80 mm[Hg] OBDULIA Norton [employer] [facility] Work Phone: Comment on above: Patient Position: Sitting; Cuff Location : Left Arm; Cuff Size: Standard 01-11-2015 09:03-0400 BP Systolic 120 mm[Hg] OBDULIA Norton LPN [facility] Work Phone: Comment on above: Patient Position: Sitting; Cuff Location : Left Arm; Cuff Size: Standard 01-11-2015 09:03-0400 BSA (Body Surface Area) 1.98 m2 OBDULIA Norton LPN [facility] Work Phone: 01-11-2015 09:03-0400 Height 155.57 cm OBDULIA Norton [employer] [facility] Work Phone: 01-11-2015 09:03-0400 Pulse (Heart Rate) 76 /min OBDULIA Norton LPN [facility] Work Phone: Comment on above: Pattern: Regular 01-11-2015 09:03-0400 Pulse Oximetry 99 % Tejal Maciel [facility] Medicine Work Phone: Comment on above: Room air 01-11-2015 09:03-0400 Respiratory Rate 18 /min OBDULIA Norton LPN [facility] Medicine Work Phone: Comment on above: Pattern: Unlabored 01-11-2015 09:03-0400 SaO2% (BldA) [Mass fraction] 99 % OBDULIA Norton LPN [facility]; [facility] Work Phone: Comment on above: Room air 01-11-2015 09:03-0400 Weight 101.15 kg Tejal Maciel [facility] Work Phone: 06-13-2013 10:47-0400 BMI (Body Mass Index) 40.11 kg/m2 OBDULIA Norton LPN [facility] Medicine Work Phone: 06-13-2013 10:47-0400 Body Temperature 97.6 [degF] OBDULIA Norton LPN [facility] Medicine Work Phone: Comment on above: Method: Oral 06-13-2013 10:47-0400 Body weight 97.07 kg OBDULIA Norton LPN [facility] Medicine Work Phone: 06-13-2013 10:47-0400 BP Diastolic 82 mm[Hg] OBDULIA Norton LPN [facility] Medicine Work Phone: Comment on above: Patient Position: Sitting; Cuff Location : Left Arm; Cuff Size: Standard 06-13-2013 10:47-0400 BP Systolic 130 mm[Hg] OBDULIA Norton LPN [facility] Internal Medicine Work Phone: Comment on above: Patient Position: Sitting; Cuff Location : Left Arm; Cuff Size: Standard 06-13-2013 10:47-0400 BSA (Body Surface Area) 1.95 m2 OBDULIA Norton LPN [facility] Internal Medicine Work Phone: 06-13-2013 10:47-0400 Height 155.57 cm OBDULIA Norton LPN [facility] Medicine Work Phone: 06-13-2013 10:47-0400 Pulse (Heart Rate) 70 /min OBDULIA Norton LPN [facility] Internal Medicine Work Phone: Comment on above: Pattern: Regular 06-13-2013 10:47-0400 Respiratory Rate 20 /min OBDULIA Norton ANA PAULA [facility] Internal Medicine Work Phone: Comment on above: Pattern: Unlabored 06-13-2013 10:47-0400 Weight 97.07 kg Tejal Maciel [facility] Internal Medicine Work Phone: 12-13-2012 09:15-0400 BMI (Body Mass Index) 39.73 kg/m2 Paula Chong [facility] Internal Medicine Work Phone: 12-13-2012 09:15-0400 Body Temperature 97.8 [degF] Paula Chong [facility] Internal Medicine Work Phone: Comment on above: Method: Oral 12-13-2012 09:15-0400 Body weight 96.16 kg Paula Chong [facility] Medicine Work Phone: 12-13-2012 09:15-0400 BP Diastolic 76 mm[Hg] [facility] Work Phone: Comment on above: Patient Position: Sitting; Cuff Location : Left Arm; Cuff Size: Standard 12-13-2012 09:15-0400 BP Systolic 116 mm[Hg] Paula Chong [facility] Work Phone: Comment on above: Patient Position: Sitting; Cuff Location : Left Arm; Cuff Size: Standard 12-13-2012 09:15-0400 BSA (Body Surface Area) 1.94 m2 Paula Chong [facility] Medicine Work Phone: 12-13-2012 09:15-0400 Height 155.57 cm Paula Chong [facility] Work Phone: 12-13-2012 09:15-0400 Pulse (Heart Rate) 82 /min Paula Chong [facility] Internal Medicine Work Phone: Comment on above: Pattern: Regular 12-13-2012 09:15-0400 Pulse Oximetry 98 % Tejal Maciel [facility] Medicine Work Phone: Comment on above: Room air 12-13-2012 09:15-0400 Respiratory Rate 16 /min Paula Chong [facility] Work Phone: Comment on above: Pattern: Unlabored 12-13-2012 09:15-0400 SaO2% (BldA) [Mass fraction] 98 % Paula Chong [facility]; [facility] Work Phone: Comment on above: Room air 12-13-2012 09:15-0400 Weight 96.16 kg Tejal Maciel [facility] Work Phone: 08-03-2012 14:13-0400 BMI (Body Mass Index) 39.73 kg/m2 OBDULIA Norton LPN [facility] Work Phone: 08-03-2012 14:13-0400 Body Temperature 97.9 [degF] OBDULIA Norton LPN [facility] Medicine Work Phone: Comment on above: Method: Oral 08-03-2012 14:13-0400 Body weight 96.16 kg OBDULIA Norton LPN [facility] Work Phone: 08-03-2012 14:13-0400 BP Diastolic 78 mm[Hg] OBDULIA Norton LPN [facility] Work Phone: Comment on above: Patient Position: Sitting; Cuff Location : Left Arm; Cuff Size: Standard 08-03-2012 14:13-0400 BP Systolic 120 mm[Hg] OBDULIA Norton LPN [facility] Work Phone: Comment on above: Patient Position: Sitting; Cuff Location : Left Arm; Cuff Size: Standard 08-03-2012 14:13-0400 BSA (Body Surface Area) 1.94 m2 OBDULIA Norton LPN [facility] Work Phone: 08-03-2012 14:13-0400 Height 155.57 cm OBDULIA Norton LPN [facility] Work Phone: 08-03-2012 14:13-0400 Pulse (Heart Rate) 70 /min OBDULIA Norton LPN [facility] Work Phone: Comment on above: Pattern: Regular 08-03-2012 14:13-0400 Respiratory Rate 20 /min OBDULIA Norton LPN [facility] Work Phone: Comment on above: Pattern: Unlabored 08-03-2012 14:13-0400 Weight 96.16 kg Tejal Maciel [facility] Medicine Work Phone: 03-19-2012 09:28-0500 BMI (Body Mass Index) 39.73 kg/m2 Ashley Zimmer LPN [facility] Work Phone: 03-19-2012 09:28-0500 Body Temperature 98.9 [degF] Ashley Zimmer LPN [facility] Work Phone: Comment on above: Method: Oral 03-19-2012 09:28-0500 Body weight 96.16 kg Ashley Zimmer LPN [facility] Work Phone: 03-19-2012 09:28-0500 BP Diastolic 78 mm[Hg] Ashley Zimmer LPN [facility] Work Phone: Comment on above: Patient Position: Sitting; Cuff Location : Left Arm; Cuff Size: Standard 03-19-2012 09:28-0500 BP Systolic 124 mm[Hg] Ashley Zimmer LPN [facility] Work Phone: Comment on above: Patient Position: Sitting; Cuff Location : Left Arm; Cuff Size: Standard 03-19-2012 09:28-0500 BSA (Body Surface Area) 1.94 m2 Ashley Zimmer LPN [facility] Work Phone: 03-19-2012 09:28-0500 Height 155.57 cm Ashley Zimmer LPN [facility] Work Phone: 03-19-2012 09:28-0500 Pulse (Heart Rate) 78 /min Ashley Zimmer LPN [facility] Work Phone: Comment on above: Pattern: Regular 03-19-2012 09:28-0500 Pulse Oximetry 98 % Tejal Maciel [facility] Work Phone: Comment on above: Room air 03-19-2012 09:28-0500 Respiratory Rate 16 /min Ashley Zimmer LPN [facility] Work Phone: 03-19-2012 09:28-0500 SaO2% (BldA) [Mass fraction] 98 % Ashley Zimmer ANA PAULA [facility]; [facility] Work Phone: Comment on above: Room air 03-19-2012 09:28-0500 Weight 96.16 kg Tejal Maciel [facility] Work Phone: 11-14-2011 09:56-0400 BMI (Body Mass Index) 39.73 kg/m2 Ashley Zimmer LPN [facility] Work Phone: 11-14-2011 09:56-0400 Body Temperature 97.9 [degF] Ashley Zimmer ANA PAULA [facility] Work Phone: Comment on above: Method: Oral 11-14-2011 09:56-0400 Body weight 96.16 kg Ashley Zimmer LPN [facility] Work Phone: 11-14-2011 09:56-0400 BP Diastolic 80 mm[Hg] Ashley Zimmer LPN [facility] Work Phone: Comment on above: Patient Position: Sitting; Cuff Location : Left Arm; Cuff Size: Standard 11-14-2011 09:56-0400 BP Systolic 122 mm[Hg] Ashley Zimmer LPN [facility] Work Phone: Comment on above: Patient Position: Sitting; Cuff Location : Left Arm; Cuff Size: Standard 11-14-2011 09:56-0400 BSA (Body Surface Area) 1.94 m2 Ashley Zimmer ANA PAULA [facility] Work Phone: 11-14-2011 09:56-0400 Height 155.57 cm Ashley Zimmer ANA PAULA [facility] Work Phone: 11-14-2011 09:56-0400 Pulse (Heart Rate) 78 /min Ashley Zimmer LPN [facility] Work Phone: Comment on above: Pattern: Regular 11-14-2011 09:56-0400 Respiratory Rate 16 /min Ashley Zimmer ANA PAULA [facility] Work Phone: 11-14-2011 09:56-0400 Weight 96.16 kg Tejal Maciel [facility] Work Phone: 10-28-2011 11:00-0400 BMI (Body Mass Index) 39.73 kg/m2 Ashley Zimmer LPN [facility] Work Phone: 10-28-2011 11:00-0400 Body Temperature 97.7 [degF] Ashley Zimmer LPN [facility] Work Phone: Comment on above: Method: Oral 10-28-2011 11:00-0400 Body weight 96.16 kg Ashley Zimmer LPN [facility] Work Phone: 10-28-2011 11:00-0400 BP Diastolic 86 mm[Hg] Ashley Zimmer LPN [facility] Work Phone: Comment on above: Patient Position: Sitting; Cuff Location : Left Arm; Cuff Size: Standard 10-28-2011 11:00-0400 BP Systolic 134 mm[Hg] Ashley Zimmer LPN [facility] Work Phone: Comment on above: Patient Position: Sitting; Cuff Location : Left Arm; Cuff Size: Standard 10-28-2011 11:00-0400 BSA (Body Surface Area) 1.94 m2 Ashley Zimmer LPN [facility] Medicine Work Phone: 10-28-2011 11:00-0400 Height 155.57 cm Ashley Zimmer [employer] [facility] Work Phone: 10-28-2011 11:00-0400 Pulse (Heart Rate) 82 /min Ashley Zimmer LPN [facility] Work Phone: Comment on above: Pattern: Regular 10-28-2011 11:00-0400 Respiratory Rate 18 /min Ashley Zimmer LPN [facility] Work Phone: Comment on above: Pattern: Unlabored 10-28-2011 11:00-0400 Weight 96.16 kg Tejal Maciel [facility] Work Phone: 08-07-2011 09:27-0400 BMI (Body Mass Index) 39.73 kg/m2 [facility] Work Phone: 08-07-2011 09:27-0400 Body Temperature 97.9 [degF] OBDULIA Norton LPN [facility] Work Phone: Comment on above: Method: Oral 08-07-2011 09:27-0400 Body weight 96.16 kg [facility] Work Phone: 08-07-2011 09:27-0400 BP Diastolic 78 mm[Hg] OBDULIA Norton [facility] Work Phone: Comment on above: Patient Position: Sitting; Cuff Location : Left Arm; Cuff Size: Standard 08-07-2011 09:27-0400 BP Systolic 120 mm[Hg] OBDULIA Norton [facility] Work Phone: Comment on above: Patient Position: Sitting; Cuff Location : Left Arm; Cuff Size: Standard 08-07-2011 09:27-0400 BSA (Body Surface Area) 1.94 m2 OBDULIA Norton [facility] Work Phone: 08-07-2011 09:27-0400 Height 155.57 cm OBDULIA Norton [facility] Work Phone: 08-07-2011 09:27-0400 Pulse (Heart Rate) 64 /min OBDULIA Norton [facility] Work Phone: Comment on above: Pattern: Regular 08-07-2011 09:27-0400 Respiratory Rate 20 /min OBDULIA Norton [facility] Work Phone: Comment on above: Pattern: Unlabored 08-07-2011 09:27-0400 Weight 96.16 kg Tejal Maciel [facility] Work Phone: 07-22-2011 14:01-0400 BMI (Body Mass Index) 39.73 kg/m2 Carissa Garcia RN [facility] Internal Medicine Work Phone: 07-22-2011 14:01-0400 Body Temperature 99.1 [degF] Carissa Garcia RN [facility] Work Phone: Comment on above: Method: Oral 07-22-2011 14:01-0400 Body weight 96.16 kg Carissa Garcia RN [facility] Work Phone: 07-22-2011 14:01-0400 BP Diastolic 60 mm[Hg] Carissa Garcia RN [facility] Work Phone: Comment on above: Patient Position: Sitting; Cuff Location : Left Arm; Cuff Size: Large 07-22-2011 14:01-0400 BP Systolic 120 mm[Hg] Carissa Garcia RN [facility] Work Phone: Comment on above: Patient Position: Sitting; Cuff Location : Left Arm; Cuff Size: Large 07-22-2011 14:01-0400 BSA (Body Surface Area) 1.94 m2 Carissa Garcia RN [facility] Work Phone: 07-22-2011 14:01-0400 Height 155.57 cm Carissa Garcia RN [facility] Work Phone: 07-22-2011 14:01-0400 Pulse (Heart Rate) 76 /min Carissa Garcia RN [facility] Work Phone: Comment on above: Pattern: Regular 07-22-2011 14:01-0400 Respiratory Rate 18 /min Carissa Garcia RN [facility] Work Phone: Comment on above: Pattern: Unlabored 07-22-2011 14:01-0400 Weight 96.16 kg Tejal Maciel [facility] Work Phone: 03-18-2011 09:57-0500 BMI (Body Mass Index) 38.79 kg/m2 OBDULIA Norton LPN [facility] Work Phone: 03-18-2011 09:57-0500 Body Temperature 98.9 [degF] OBDULIA Norton LPN [facility] Work Phone: Comment on above: Method: Oral 03-18-2011 09:57-0500 Body weight 93.9 kg OBDULIA Norton LPN [facility] Work Phone: 03-18-2011 09:57-0500 BP Diastolic 78 mm[Hg] OBDULIA Norton LPN [facility] Work Phone: Comment on above: Patient Position: Sitting; Cuff Location : Left Arm; Cuff Size: Standard 03-18-2011 09:57-0500 BP Systolic 122 mm[Hg] OBDULIA Norton LPN [facility] Work Phone: Comment on above: Patient Position: Sitting; Cuff Location : Left Arm; Cuff Size: Standard 03-18-2011 09:57-0500 BSA (Body Surface Area) 1.92 m2 OBDULIA Norton LPN [facility] Work Phone: 03-18-2011 09:57-0500 Height 155.57 cm OBDULIA Norton LPN [facility] Work Phone: 03-18-2011 09:57-0500 Pulse (Heart Rate) 76 /min OBDULIA Norton LPN [facility] Work Phone: Comment on above: Pattern: Regular 03-18-2011 09:57-0500 Respiratory Rate 18 /min OBDULIA Norton LPN [facility] Work Phone: Comment on above: Pattern: Unlabored 03-18-2011 09:57-0500 Weight 93.9 kg Tejal Maciel [facility] Work Phone: 03-11-2011 13:33-0500 BMI (Body Mass Index) 38.79 kg/m2 OBDULIA Norton LPN [facility] Work Phone: 03-11-2011 13:33-0500 Body Temperature 98.5 [degF] OBDULIA Norton LPN [facility] Work Phone: Comment on above: Method: Oral 03-11-2011 13:33-0500 Body weight 93.9 kg OBDULIA Norton LPN [facility] Work Phone: 03-11-2011 13:33-0500 BP Diastolic 80 mm[Hg] OBDULIA Norton LPN [facility] Work Phone: Comment on above: Patient Position: Sitting; Cuff Location : Left Arm; Cuff Size: Standard 03-11-2011 13:33-0500 BP Systolic 126 mm[Hg] OBDULIA Norton LPN [facility] Work Phone: Comment on above: Patient Position: Sitting; Cuff Location : Left Arm; Cuff Size: Standard 03-11-2011 13:33-0500 BSA (Body Surface Area) 1.92 m2 OBDULIA Norton LPN [facility] Work Phone: 03-11-2011 13:33-0500 Height 155.57 cm OBDULIA Norton LPN [facility] Work Phone: 03-11-2011 13:33-0500 Pulse (Heart Rate) 70 /min OBDULIA Norton LPN [facility] Work Phone: Comment on above: Pattern: Regular 03-11-2011 13:33-0500 Respiratory Rate 18 /min OBDULIA Norton LPN [facility] Work Phone: Comment on above: Pattern: Unlabored 03-11-2011 13:33-0500 Weight 93.9 kg Tejal Maciel [facility] Work Phone: 09-12-2010 09:43-0400 BMI (Body Mass Index) 38.79 kg/m2 OBDULIA Norton L[facility] Internal Medicine Work Phone: 09-12-2010 09:43-0400 Body Temperature 98.1 [degF] OBDULIA Norton LPN [facility] Internal Medicine Work Phone: Comment on above: Method: Oral 09-12-2010 09:43-0400 Body weight 93.9 kg OBDULIA Norton LPN [facility] Internal Medicine Work Phone: 09-12-2010 09:43-0400 BP Diastolic 78 mm[Hg] OBDULIA Norton LPN [facility] Internal Medicine Work Phone: Comment on above: Patient Position: Sitting; Cuff Location : Left Arm; Cuff Size: Standard 09-12-2010 09:43-0400 BP Systolic 118 mm[Hg] OBDULIA Norton LPN [facility] Internal Medicine Work Phone: Comment on above: Patient Position: Sitting; Cuff Location : Left Arm; Cuff Size: Standard 09-12-2010 09:43-0400 BSA (Body Surface Area) 1.92 m2 OBDULIA Norton LPN [facility] Internal Medicine Work Phone: 09-12-2010 09:43-0400 Height 155.57 cm OBDULIA Norton LPN [facility] Internal Medicine Work Phone: 09-12-2010 09:43-0400 Pulse (Heart Rate) 70 /min OBDULIA Norton LPN [facility] Internal Medicine Work Phone: Comment on above: Pattern: Regular 09-12-2010 09:43-0400 Respiratory Rate 20 /min OBDULIA Norton LPN [facility] Internal Medicine Work Phone: Comment on above: Pattern: Unlabored 09-12-2010 09:43-0400 Weight 93.9 kg Tejal Maciel [facility] Internal Medicine Work Phone: 09-04-2010 09:51-0400 BMI (Body Mass Index) 38.42 kg/m2 Claribel Barahona [facility] Internal Medicine Work Phone: 09-04-2010 09:51-0400 Body Temperature 97.9 [degF] Claribel Theodore [facility] Internal Medicine Work Phone: 09-04-2010 09:51-0400 Body weight 92.99 kg Claribel Theodore [facility] Internal Medicine Work Phone: 09-04-2010 09:51-0400 BP Diastolic 76 mm[Hg] Claribel Theodore [facility] Internal Medicine Work Phone: Comment on above: Patient Position: Sitting; Cuff Location : Left Arm; Cuff Size: Standard 09-04-2010 09:51-0400 BP Systolic 110 mm[Hg] Claribel Theodore [facility] Internal Medicine Work Phone: Comment on above: Patient Position: Sitting; Cuff Location : Left Arm; Cuff Size: Standard 09-04-2010 09:51-0400 BSA (Body Surface Area) 1.91 m2 Claribel Theodore [facility] Internal Medicine Work Phone: 09-04-2010 09:51-0400 Height 155.57 cm Claribel Theodore [facility] Internal Medicine Work Phone: 09-04-2010 09:51-0400 Pulse (Heart Rate) 92 /min Claribel Theodore [facility] Internal Medicine Work Phone: Comment on above: Pattern: Regular 09-04-2010 09:51-0400 Respiratory Rate 16 /min Claribel Monteiroabdullahi [facility] Work Phone: Comment on above: Pattern: Unlabored 09-04-2010 09:51-0400 Weight 92.99 kg Tejal Maciel [facility] Internal Medicine Work Phone: 08-21-2009 13:43-0400 Body Temperature 98.8 [degF] Ashley Zimmer LPN [facility] Work Phone: Comment on above: Method: Oral 08-21-2009 13:43-0400 Body weight 97.52 kg Ashley Zimmer LPN [facility] Work Phone: 08-21-2009 13:43-0400 BP Diastolic 84 mm[Hg] Ashley Zimmer LPN [facility] Work Phone: Comment on above: Patient Position: Sitting; Cuff Location : Left Arm; Cuff Size: Standard 08-21-2009 13:43-0400 BP Systolic 136 mm[Hg] Ashley Zimmer LPN [facility] Work Phone: Comment on above: Patient Position: Sitting; Cuff Location : Left Arm; Cuff Size: Standard 08-21-2009 13:43-0400 Pulse (Heart Rate) 80 /min Ashley Zimmer LPN [facility] Work Phone: Comment on above: Pattern: Regular 08-21-2009 13:43-0400 Respiratory Rate 17 /min Ashley Zimmer LPN [facility] Work Phone: Comment on above: Pattern: Unlabored 08-21-2009 13:43-0400 Weight 97.52 kg Tejal Maciel [facility] Internal Medicine Work Phone: 06-12-2009 12:06-0400 Body Temperature 97.4 [degF] Ashley Zimmer LPN [facility] Internal Medicine Work Phone: Comment on above: Method: Oral 06-12-2009 12:06-0400 Body weight 97.52 kg Ashley Zimmer LPN [facility] Work Phone: 06-12-2009 12:06-0400 BP Diastolic 78 mm[Hg] Ashley Zimmer [facility] Internal Medicine Work Phone: Comment on above: Patient Position: Sitting; Cuff Location : Left Arm; Cuff Size: Standard 06-12-2009 12:06-0400 BP Systolic 124 mm[Hg] Ashley Zimemr [facility] Internal Medicine Work Phone: Comment on above: Patient Position: Sitting; Cuff Location : Left Arm; Cuff Size: Standard 06-12-2009 12:06-0400 Pulse (Heart Rate) 70 /min Ashley Zimmer [facility] Internal Medicine Work Phone: Comment on above: Pattern: Regular 06-12-2009 12:06-0400 Respiratory Rate 17 /min Ashley Zimmer [facility] Internal Medicine Work Phone: Comment on above: Pattern: Unlabored 06-12-2009 12:06-0400 Weight 97.52 kg [facility] Work Phone: 06-08-2009 09:30-0400 Body Temperature 97.8 [degF] [facility] Medicine Work Phone: Comment on above: Method: Oral 06-08-2009 09:30-0400 Body weight 97.52 kg [facility] Work Phone: 06-08-2009 09:30-0400 BP Diastolic 64 mm[Hg] [facility] Medicine Work Phone: Comment on above: Patient Position: Sitting; Cuff Location : Left Arm; Cuff Size: Large 06-08-2009 09:30-0400 BP Systolic 110 mm[Hg] [facility] Medicine Work Phone: Comment on above: Patient Position: Sitting; Cuff Location : Left Arm; Cuff Size: Large 06-08-2009 09:30-0400 Pulse (Heart Rate) 76 /min [facility] Medicine Work Phone: Comment on above: Pattern: Regular 06-08-2009 09:30-0400 Respiratory Rate 18 /min [facility] Medicine Work Phone: Comment on above: Pattern: Unlabored 06-08-2009 09:30-0400 Weight 97.52 kg Tejal Maciel [facility] Internal Medicine Work Phone: 12-28-2007 10:51-0400 Body Temperature 97.6 [degF] OBDULIA Norton LPN [facility] Internal Medicine Work Phone: Comment on above: Method: Oral 12-28-2007 10:51-0400 Body weight 0 kg OBDULIA Norton LPN [facility] Internal Medicine Work Phone: 12-28-2007 10:51-0400 BP Diastolic 76 mm[Hg] OBDULIA Norton LPN [facility] Internal Medicine Work Phone: Comment on above: Patient Position: Sitting; Cuff Location : Left Arm; Cuff Size: Standard 12-28-2007 10:51-0400 BP Systolic 120 mm[Hg] OBDULIA Norton LPN [facility] Internal Medicine Work Phone: Comment on above: Patient Position: Sitting; Cuff Location : Left Arm; Cuff Size: Standard 12-28-2007 10:51-0400 Head Circumference 0 cm Tejal Maciel [facility] Internal Medicine Work Phone: 12-28-2007 10:51-0400 Head Occipital-frontal circumference 0 cm OBDULIA Norton LPN [facility] Internal Medicine; [facility] Work Phone: 12-28-2007 10:51-0400 Height 0 cm OBDULIA Norton LPN [facility] Internal Medicine Work Phone: 12-28-2007 10:51-0400 Pulse (Heart Rate) 80 /min OBDULIA Norton LPN [facility] Internal Medicine Work Phone: Comment on above: Pattern: Regular 12-28-2007 10:51-0400 Respiratory Rate 16 /min OBDULIA Norton LPN [facility] Internal Medicine Work Phone: Comment on above: Pattern: Unlabored 12-28-2007 10:51-0400 Weight 0 kg Tejal Maceil [facility] Internal Medicine Work Phone: 12-24-2007 11:26-0400 BMI (Body Mass Index) 38.04 kg/m2 Tere Guillen [facility] Internal Medicine Work Phone: 12-24-2007 11:26-0400 Body Temperature 98.5 [degF] [facility] Internal Medicine Work Phone: Comment on above: Method: Oral 12-24-2007 11:0400 Body weight 94.35 kg [facility] Internal Medicine Work Phone: 12-24-2007 11:26-0400 BP Diastolic 70 mm[Hg] [facility] Internal Medicine Work Phone: Comment on above: Patient Position: Sitting; Cuff Location : Left Arm; Cuff Size: Large 12-24-2007 11:26-0400 BP Systolic 118 mm[Hg] [facility] Internal Medicine Work Phone: Comment on above: Patient Position: Sitting; Cuff Location : Left Arm; Cuff Size: Large 12-24-2007 11:0400 BSA (Body Surface Area) 1.94 m2 [facility] Internal Medicine Work Phone: 12-24-2007 11:26-0400 Head Circumference 0 [facility] Work Phone: 12-24-2007 11:26-0400 Head Occipital-frontal circumference 0 cm [facility] Internal Medicine; [facility] Work Phone: 12-24-2007 11:26-0400 Height 157.48 cm [facility] Internal Medicine Work Phone: 12-24-2007 11:26-0400 Pulse (Heart Rate) 88 /min [facility] Internal Medicine Work Phone: Comment on above: Pattern: Regular 12-24-2007 11:26-0400 Respiratory Rate 18 /min [facility] Internal Medicine Work Phone: Comment on above: Pattern: Unlabored 12-24-2007 11:26-0400 Weight 94.35 kg Tejal Maciel [facility] Internal Medicine Work Phone: 12-21-2007 11:19-0400 Body Temperature 98.1 [degF] OBDULIA Norton LPN [facility] Work Phone: Comment on above: Method: Oral 12-21-2007 11:0400 Body weight 0 kg OBDULIA Norton LPN [facility] Work Phone: 12-21-2007 11:19-0400 BP Diastolic 84 mm[Hg] OBDULIA Norton LPN [facility] Work Phone: Comment on above: Patient Position: Sitting; Cuff Location : Left Arm; Cuff Size: Standard 12-21-2007 11:19-0400 BP Systolic 124 mm[Hg] OBDULIA Norton LPN [facility] Work Phone: Comment on above: Patient Position: Sitting; Cuff Location : Left Arm; Cuff Size: Standard 12-21-2007 11:19-0400 Head Circumference 0 cm Tejal Longocandis [facility] Internal Medicine Work Phone: 12-21-2007 11:19-0400 Head Occipital-frontal circumference 0 cm OBDULIA Norton LPN [facility] Internal Medicine; [facility] Work Phone: 12-21-2007 11:19-0400 Height 0 cm OBDULIA Norton LPN [facility] Work Phone: 12-21-2007 11:19-0400 Pulse (Heart Rate) 70 /min OBDULIA Norton LPN [facility] Work Phone: Comment on above: Pattern: Regular 12-21-2007 11:19-0400 Respiratory Rate 16 /min OBDULIA Norton LPN [facility] Work Phone: Comment on above: Pattern: Unlabored 12-21-2007 11:19-0400 Weight 0 kg Tejal Maciel [facility] Internal Medicine Work Phone: 12-09-2007 11:24-0400 BMI (Body Mass Index) 38.05 kg/m2 OBDULIA Norton LPN [facility] Work Phone: 12-09-2007 11:24-0400 Body Temperature 98.2 [degF] OBDULIA Norton LPN [facility] Work Phone: Comment on above: Method: Oral 12-09-2007 11:24-0400 Body weight 94.36 kg OBDULIA Norton LPN [facility] Work Phone: 12-09-2007 11:24-0400 BP Diastolic 80 mm[Hg] OBDULIA Norton ANA PAULA [facility] Work Phone: Comment on above: Patient Position: Sitting; Cuff Location : Left Arm; Cuff Size: Standard 12-09-2007 11:24-0400 BP Systolic 118 mm[Hg] OBDULIA Norton LPN [facility] Work Phone: Comment on above: Patient Position: Sitting; Cuff Location : Left Arm; Cuff Size: Standard 12-09-2007 11:24-0400 BSA (Body Surface Area) 1.94 m2 OBDULIA Norton LPN [facility] Work Phone: 12-09-2007 11:24-0400 Head Circumference 0 cm Tejal Maciel [facility] Internal Medicine Work Phone: 12-09-2007 11:24-0400 Head Occipital-frontal circumference 0 cm OBDULIA Norton LPN [facility]; [facility] Work Phone: 12-09-2007 11:24-0400 Height 157.48 cm OBDULIA Norton LPN [facility] Work Phone: 12-09-2007 11:24-0400 Pulse (Heart Rate) 78 /min OBDULIA Norton LPN [facility] Work Phone: Comment on above: Pattern: Regular 12-09-2007 11:24-0400 Respiratory Rate 18 /min OBDULIA Norton LPN [facility] Work Phone: Comment on above: Pattern: Unlabored 12-09-2007 11:24-0400 Weight 94.36 kg Tejal Maciel [facility] Internal Medicine Work Phone: Encounters Encounter Date Encounter Type Care Provider Facility Start: 09-01-2024 ambulatory Fidel Veliz Facility:[facility] Start: 08-17-2024 End: 08-17-[address] Fidel Veliz MD -[facility] Work Phone: Start: 08-17-2024 End: 08-17-2024 ambulatory No Primary Care Physician [facility] Work Phone: Start: 04-08-2022 ambulatory Nedra Ceron [facility] Internal Med Start: 01-01-2022 End: 01-13-2022 Office outpatient visit 15 minutes Nedra Osmany [facility] Work Phone: [facility] Start: 01-01-2022 Review Nedra Osmany [facility]LRICH Work Phone: [facility] Start: 03-06-2020 End: 03-06-2020 Office outpatient visit 15 minutes Tejal Hermosilloa [facility] Start: 02-28-2020 End: 02-28-2020 Office outpatient visit 15 minutes Tejal Qingesa [facility] Start: 02-27-2020 End: 02-27-2020 Error Encounter Tejal Longoesa [facility] Start: 07-27-2019 End: 07-27-2019 Office outpatient visit 15 minutes Tejal Qingesa [facility] Start: 07-22-2019 End: 07-22-2019 Annotation/Addendum Tejal Qingesa [facility] Start: 07-22-2019 End: 07-22-2019 Office outpatient visit 25 minutes Tejal Qingesa [facility] Start: 07-20-2019 End: 07-20-2019 Office outpatient visit 15 minutes Tejal Qingesa [facility] Start: 07-04-2019 End: 07-04-2019 Office outpatient visit 15 minutes Tejal Qingesa [facility] Start: 01-26-2019 End: 01-26-2019 Periodic preventive med est patient 40-64yrs Tejal Longoesa [facility] Start: 01-27-2018 End: 01-27-2018 Annotation/Addendum Tejal Hermosilloa [facility] Start: 01-27-2018 End: 01-27-2018 Patient encounter status Nedra Orellanaterri ULRICH Work Phone: [facility] Start: 01-27-2018 End: 01-27-2018 Periodic preventive med est patient 40-64yrs Tejal Longoesa [facility] Start: 08-26-2017 End: 08-26-2017 Ambulatory IMCA Facility:[facility] Start: 06-10-2017 Ambulatory JOSEPH JAY Fac ility:[facility] Start: 04-30-2017 End: 05-01-2017 Ambulatory JOSEPH JAY [facility] Start: 04-30-2017 End: 05-01-2017 Evaluation and management of inpatient JOSEPH JAY Facility:[facility] Start: 03-09-2017 End: 03-09-2017 Ambulatory JOSEPH JAY Facility:[facility] Start: 05-05-2016 End: 05-05-2016 Office outpatient visit 15 minutes Tejal Luna [facility] Start: 01-22-2016 End: 01-22-2016 Patient encounter status Nedra Ceron [employer] Work Phone: [facility] Start: 01-22-2016 End: 01-22-2016 Periodic preventive med est patient 40-64yrs Tejal Luna [facility] Start: 01-18-2015 End: 01-18-2015 Phone Encounter Tejal Luna [employer] Specialist al Medicine Start: 01-11-2015 End: 01-11-2015 Office outpatient visit 25 minutes Tejal Luna [facility] Start: 06-13-2013 End: 06-13-2013 Patient encounter Tejal Luna [employer] [facility]ist al Medicine Start: 12-13-2012 End: 12-13-2012 Office outpatient visit 25 minutes Tejal Luna [facility] Start: 08-03-2012 End: 08-03-2012 Patient encounter Tejal Luna [employer] [facility] Start: 03-19-2012 End: 03-19-2012 Annotation/Addendum Tejal Luna [employer] [facility] Start: 03-19-2012 End: 03-19-2012 Office outpatient visit 10 minutes Tejal Luna [facility] Start: 11-14-2011 End: 11-14-2011 Office outpatient visit 15 minutes Tejal Luna [facility] Start: 10-28-2011 End: 10-28-2011 Patient encounter eTjal Luna [employer] [facility] Start: 08-07-2011 End: 08-07-2011 Patient encounter Tejal Luna [employer] Specialist al Medicine Start: 07-22-2011 End: 07-22-2011 Patient encounter Tejal Luna [employer] Specialist al Medicine Start: 04-01-2011 End: 04-01-2011 Patient encounter Tejal Luna [employer] Specialist al Medicine Start: 03-18-2011 End: 03-18-2011 Patient encounter Tejal Luna [employer] Specialist al Medicine Start: 03-11-2011 End: 03-11-2011 Patient encounter Tejal Luna [employer] Specialist [facility] Medicine Start: 09-12-2010 End: 09-12-2010 Patient encounter Tejal Luna [employer] Specialist [facility] Medicine Start: 09-04-2010 End: 09-04-2010 Patient encounter Tejal Maciel [facility] Start: 08-21-2009 End: 08-21-2009 Office outpatient visit 25 minutes Tejal Maciel [facility] Start: 06-12-2009 End: 06-12-2009 Office outpatient visit 15 minutes Tejal Maciel [facility] Start: 06-08-2009 End: 06-08-2009 Office outpatient visit 25 minutes Tejal Maciel [facility] Start: 12-28-2007 End: 12-28-2007 Patient encounter Tejal Maciel [facility] Start: 12-24-2007 End: 12-24-2007 Patient encounter Tejal Maciel [facility] Start: 12-21-2007 End: 12-21-2007 Office outpatient visit 15 minutes Tejal Maciel [facility] Start: 12-09-2007 End: 12-09-2007 Patient encounter Tejal Maciel [facility] End: 01-11-2015 Patient encounter procedure OBDULIA Norton [employer] [facility]; [facility] Work Phone: Comment on above: did physical today. pt mother osteoporosis and she with early menapause in late will check BD. needs colonscopy Patient encounter status Tony Ron [employer] [facility]; [facility] Work Phone: Procedures Date Procedure Procedure Detail Performing Clinician Start: 05-25-2020 End: 05-25-2020 Discharge Instruction Comments: See Note; NOTES: [facility] Medical Records Department [address] [place] [address] Discharge Instruction 05/25/20 MR#: [id number] Acct: [id number] Name: GONZÁLEZ RAGSDALE Rep #: [id number] : 1960 60 From: Kenyetta Hand MD PCP: Tejal Maciel NP-C Status:PRE ER ED Disposition - Plan for ED Patient: Instructions: ED Fracture, Shoulder Prescriptions: Oxycodone HCl/Acetaminophen [Percocet 5/325] 1 tab PO Q6H PRN PRN 3 Days #12 tab PRN Reason: Pain Prescription Printed Referrals: Tejal Maciel NP, CABLE INSTALLATION TECHNICIAN-C [Primary Care Provider] - Amilcar Munoz MD [STAFF PHYSICIAN] - What to do if you have Problems For any increased pain, shortness of breath, bleeding, nausea or vomiting, chest pain, or any unexpected problems, contact your Primary Care Provider. Call [facility] ([phone]) or report to the closest Emergency Room. Call 911 if necessary. 05/25/201943 <Electronically signed by Kenyetta Hand MD> Date Kenyetta Hand MD Cosigner Signature (If Indicated): Date CC: ROBERT Maciel Start: 05-25-2020 End: 05-25-2020 Elbow min 3 Views Comments: See Note; NOTES: [facility] Imaging Services [address] [place] [address] Elbow min 3 Views MR#: [id number] Acct: [id number] Name: GONZÁLEZ RAGSDALE Rep #: [id number] : 1960 F 60 From: Florentino ewing MD PCP: ROBERT Ngo Status: REG ER Study: Elbow min 3 Views Date of Exam: 05/25/20 Exam# [id number] Ordering Dr: Kenyetta Hand MD STUDY: X-RAY - LEFT ELBOW REASON FOR EXAM: Female, 60 years old. injury TECHNIQUE: 4 view(s) of the elbow. COMPARISON: None. FINDINGS: Extremely limited exam because of positioning and exposure. Fracture cannot be excluded. Dislocations cannot be excluded. RAD/Elbow min 3 Views IMPRESSION: Extremely limited by positioning. Cannot exclude fractures or dislocation. Electronically Signed: Florentino Malagon MD at 20:16 EST , Service support , CC: ROBERT Maciel; Dr. Kenyetta Hand MD Riverboat Master: Signed Tejal Maciel Start: 05-25-2020 End: 05-25-2020 Shoulder min 2 Views Comments: See Note; NOTES: [facility] Imaging Services [address] [place] [address] Shoulder min 2 Views MR#: [id number] Acct: [id number] Name: GONZÁLEZ RAGSDALE Rep #: [id number] : 1960 F 60 From: Florentino ewing MD PCP: ROBERT Ngo Status: PRE ER Study: Shoulder min 2 Views Date of Exam: 05/25/20 Exam# [id number] Ordering Dr: Kenyetta Hand MD STUDY: X-RAY - LEFT SHOULDER REASON FOR EXAM: Female, 60 years old. injury TECHNIQUE: 3 view(s) of the shoulder. COMPARISON: None. FINDINGS: Comminuted fractures are seen of the humeral head and through the anatomic neck of the humerus. No gross displacement of fragments. No dislocation. Normal glenohumeral articulation. There is degenerative arthrosis of the acromioclavicular joint without inferior osseous spur formation. Normal acromion. The soft tissue structures are unremarkable. Normal visualized pulmonary apex. RAD/Shoulder min 2 Views IMPRESSION: Comminuted nondisplaced proximal humeral fractures. Electronically Signed: Florentino Malagon MD at 19:30 EST , Service support , CC: CABLE INSTALLATION TECHNICIAN-C Tejal Maciel; Dr. Kenyetta Hand MD Riverboat Master: Signed Tejal Maciel Start: 05-25-2020 End: 06-01-2020 Emergency Department Summary Comments: See Note; NOTES: [facility] Medical Records Department [address] [place] [address] Emergency Department Summary 05/25/20 MR#: [id number] Acct: [id number] Name: GONZÁLEZ RAGSDALE Rep #: [id number] : 1960 60 From: Kenyetta Hand MD PCP: ROBERT Ngo Status:REG ER - ER Visit Summary Date of Service: 05/25/20 Chief Complaint: Left shoulder pain History of Present Illness: The patient is a 60 F presenting after fall. Patient states she was carrying a basket of clothes in her basement and slipped and fell. She landed on her left shoulder. She did not hit her head or lose consciousness. She complains of left shoulder pain. Denies other injuries. She was able to ambulate after the fall. Physical Examination: Vitals are stable. Patient is afebrile. Alert no acute distress. HEENT exam is unremarkable. Neck is nontender Lungs are clear and equal bilaterally. Heart is regular rate and rhythm. Abdomen is soft nontender nondistended. Extremities diffuse left shoulder tenderness with painful range of motion, mild left elbow tenderness. Left wrist is nontender. Normal pulses. Skin is warm and dry. No focal neurologic deficit. Remainder of exam is unremarkable. Emergency Department Course and Treatment: Patient was given OxyIR. Left shoulder x-ray read by myself and radiology shows comminuted nondisplaced proximal humeral fractures. Left elbow xray is extremely limited by positioning. On reexamination, she is able to range her left elbow without difficulty. She will follow-up with orthopedics. She is given prescription for Percocet. She was given a sling. Advised to return to the ED for worsening complaints. Disposition: Discharge home Impression: Left proximal humerus fracture This note was generated with [employer] dictation software. It may contain incorrect words, spelling, and punctuation that were not noted in review of the chart prior to signing ED Disposition - Plan for ED Patient: Instructions: ED Fracture, Shoulder Prescriptions: Oxycodone HCl/Acetaminophen [Percocet 5/325] 1 tab PO Q6H PRN PRN 3 Days #12 tab PRN Reason: Pain Prescription Printed Referrals: Amilcar Munoz MD [STAFF PHYSICIAN] - Tejal Maciel NP, NP-C [Primary Care Provider] - What to do if you have Problems For any increased pain, shortness of breath, bleeding, nausea or vomiting, chest pain, or any unexpected problems, contact your Primary Care Provider. Call [employer] [facility] ([phone]) or report to the closest Emergency Room. Call 911 if necessary. 05/25/202026 <Electronically signed by Kenyetta Hand MD> Date Kenyetta Hand MD Cosigner Signature (If Indicated): Date CC: CABLE INSTALLATION TECHNICIANAdryan Maciel Start: 07-13-2019 End: 07-13-2019 Pacemaker Check Comments: See Note; NOTES: [facility] [address] [place] [address] Pacemaker Check Date of Service: 07/13/19 1617 MR#: [id number] Acct: [id number] Name: GONZÁLEZ RAGSDALE Rep #: [id number] : 1960 From: Jina Velasco Age/Sex: 59/F [place] [facility] [place] Status: Signed Billing Codes ICD Device Billing: ICD Dev Interrogate (Rmt) 07/13/191619 <Electronically signed by Jina Velasco > Date Jina Hubbard Signature: Date (if applicable) CC: Tejal Longojuliacandis Start: 04-05-2019 End: 04-05-2019 Chest PA and Lateral Comments: See Note; NOTES: [facility] Services [address] [place], [place] [address]Marc[place] [address] Chest PA and Lateral MR#: [id number] Acct: [id number] Name: GONZÁLEZ RAGSDALE R Rep #: [id number] : 1960 F 58 From: Florentino Malagon MD PCP: ROBERT Ngo Status: REG CLI Study: Chest PA and Lateral Date of Exam: 04/05/19 Exam# [id number] Ordering Dr: Star Ng MD STUDY: X-RAY CHEST REASON FOR EXAM: Female, 58 years old. Hypertension. GETTING HEART CATH ON THURSDAY. TECHNIQUE: Frontal and lateral views of the chest. COMPARISON: 03/17/2016. FINDINGS: The lungs are clear and expanded. There is no demonstrated pleural abnormality. Normal size heart. Defibrillator lead is seen in the chest wall over the left heart. Normal mediastinum and jessica. Normal visualized pulmonary arteries. Normal visualized aortic arch and descending thoracic aorta. Normal visualized thoracic spine. Normal visualized ribs, clavicles, and shoulders. There is no demonstrated abnormality of the visualized soft tissue structures of the upper abdomen. RAD/Chest PA and Lateral IMPRESSION: No acute chest disease. Electronically Signed: Florentino Malagon MD at 22:00 EST , Service support , CC: CABLE INSTALLATION TECHNICIAN-C Tejal Maciel; Star Ng MD Riverboat Master: Signed Tejal Maciel Start: 04-02-2019 End: 04-02-2019 Stress Test Echo w/ Contrast Comments: See Note; NOTES: [facility] [address] [place] [address] Stress Test Echo W/Contrast MR#: [id number] Acct: [id number] Name: GONZÁLEZ RAGSDALE Rep #: [id number] : 1960 58 From: Star Ng MD Primary Care: ROBERT Ngo Status: REG CLI Ordering Dr: Star Ng MD Sex: F C Reason For Study: Chest Pain Stress Results Protocol: Abram Protocol WITH DEFINITY Maximum Predicted HR: 163 bpm Target HR: 139 bpm % Maximum Predicted HR: 85 % DurationHeart Rate Stage (mm:ss) (bpm) BP Comment Baseline 66 100/62No Chest Pain; 8 ML Diluted Definity Given Abram Protocol Stage I 3:00 104 110/60No Chest Pain; Mild Dyspnea Abram Protocol Stage II 2:37 139 124/72No Chest Pain; Moderate Dyspnea Recovery 94 130/60No Chest Pain; No Dyspnea Stress Duration: 5:37 mm:ss Maximum Stress HR: 139 bpm METS: 7 Baseline Echocardiogram Findings The estimated ejection fraction is 25 %. Stress Echo Wall motion Data Resting WM Intermediate WM Stress WM Resting Wall Motion Wall Motion Stress Mid-Anterior : Akinetic. No regional wall motion Mid-Lateral : Akinetic. abnormalities noted. Anterior [place] : Dyskinetic. Inferior [place] : Hypokinetic. EKG Data The baseline ECG displays normal sinus rhythm. The patient exercised according to the regular Abram protocol for a total duration of 5:37. The maximum heart rate attained was 139 beats per minute. This was 85% of maximum predicted heart rate. The patient exercised into stage 2 of the Abram protocol. During stress, there were no ST or T wave changes noted to suggest ischemia. No clinical angina was noted. Interpretation Summary The estimated ejection fraction is 25 %. Normal, adequate, treadmill echocardiogram. Negative for ischemia by EKG and echocardiographic criteria. Patient at baseline severe anterior apical akinesis, with overall EF around 25%. All castañeda appear to contract normally at peak exercise. Below average exercise capacity for age. Decreased sensitivity due to poor baseline LV function and need for Definity agent. Final LVEF about 30%. Test terminated due to dyspnea. Patient tolerated procedure well. No complications. Recommend clinical correlation or alternative mode testing of coronary occlusive disease is strongly suspected. The study was technically difficult. Contrast injection was performed. Ordering Physician: Star Ng Referring Physician: Tejal Maciel N.P. Performed By: Emerson Sanchze RCS 04/02/19 1233 Date Star Ng MD CC: CABLE INSTALLATION TECHNICIAN-C Tejal Maciel; Star Ng MD Date Dictated: 04/01/19 1242 Date Transcribed: 04/02/19 1233 Riverboat Master: Signed Tejal Maciel Start: 03-30-2019 End: 03-30-2019 Echo, Complete w/ Contrast Comments: See Note; NOTES: [facility] [address] [place] [address] Echo Complete W/ Contrast 03/30/19 1259 MR#: [id number] Acct: [id number] Name: GONZÁLEZ RAGSDALE Rep #: [id number] : 1960 58 From: Star Ng MD Attending Dr: Star Ng MD Status: REG CLI Ordering Dr: Star Ng MD Date: 03/30/19 Location: [facility] Sex: F C Admitted: Reason For Study: CHEST PAIN Procedure This was a 2D Doppler, Color Flow transthoracic echocardiogram. Contrast injection was performed. Exam performed in department. Left Ventricle Moderately dilated left ventricle. Apical false tendon noted. The estimated ejection fraction is 35 %. Stage 1 diastolic dysfunction. There are regional wall motion abnormalities as specified. Right Ventricle Normal size and thickness. Normal systolic function. Atria The left atrium is mildly enlarged. Normal right atrium. Normal atrial septum. Mitral Valve The mitral valve is structurally normal. No prolapse or stenosis seen. Tricuspid Valve Normal tricuspid valve. Unable to estimate RV systolic pressure due to insufficient tricuspid regurgitant envelope. Aortic Valve Normal aortic valve. Trisinus/trileaflet aortic valve. Pulmonic Valve Normal pulmonic valve. Great Vessels Normal aortic root. Normal arch. Normal inferior vena cava. Inferior vena cava collapse with sniff. Pericardium/Pleural No pericardial effusion. Medication 22 gauge I.V. with prn adaptor inserted into right arm. Diluted definity 3.5ml given slow IV push to enhance endocardial definition. MMode/2D Measurements AND Calculations LVIDd: 5.1 cm IVSd: 0.94 cm Ao root diam: 2.9 cm LVIDs: 3.5 cm LVPWd: 1.1 cm RVDd: 2.9 cm FS: 31.5 % LAV(MOD-bp): 72.3 ml LA A4 area: 21.0 cm2 LA dimension(2D): 4.2 cm LAV(MOD-bp) Indexed: 35.6 ml/m2 LAV(MOD-sp2): 67.5 ml LAV(MOD-sp4): 72.4 ml RA A4 area: 11.3 cm2 Time Measurements MV dec time: 0.22 sec Doppler Measurements AND Calculations MV E max cristobal: 97.5 cm/sec Lat Peak E' Cristobal: 4.0 cm/sec Med Peak E' Cristobal: 4.8 cm/sec MV A max cristobal: 129.3 cm/sec E/E' lat: 24.4 E/E' med: 20.1 MV E/A: 0.75 Ao V2 max: 165.9 cm/sec LV V1 max: 93.7 cm/sec PA V2 max: 91.0 cm/sec Ao max P.0 mmHg LV V1 max P.5 mmHg Ao V2 mean: 122.5 cm/sec LV V1 mean P.8 mmHg Ao mean P.5 mmHg LV V1 mean: 64.6 cm/sec Ao V2 VTI: 37.7 cm LV V1 VTI: 19.7 cm Interpretation Summary Moderately dilated left ventricle. The estimated ejection fraction is 35 %. Stage 1 diastolic dysfunction. There are regional wall motion abnormalities as specified. The left atrium is mildly enlarged. Apical false tendon noted. Unable to estimate RV systolic pressure due to insufficient tricuspid regurgitant envelope. Compared to echo report dated 10/22/2016, LV function has remained the same as have regional wall motion normalities. The study was technically difficult. Contrast injection was performed. Ordering Physician: Star Ng Referring Physician: Star Ng Performed By: Ayesha Chowdhury RDCS, RVT 03/30/19 1535 Date Star Ng MD CC: CABLE INSTALLATION TECHNICIAN-C Tejal Maciel; Star gN MD Date Dictated: 03/30/19 1259 Date Transcribed: 03/30/19 1535 Riverboat Master: Signed Tejal Maciel Start: 03-28-2019 End: 03-28-2019 Cardiology Visit Report Comments: See Note; NOTES: [facility] [address] [place] [address] OFFICE VISIT Date of Service: 03/28/19 MR#: [id number] Acct: [id number] Name: GONZÁLEZ RAGSDALE Rep #: [id number] : 1960 Provider: Star Ng MD Age/Sex: 58/F Location: [facility] Status: Signed HPI [facility] History of Present Illness Details: Details: Ms. Ragsdale is a very pleasant 58-year-old female, morbidly obese, nondiabetic, who presented to [facility] on 03/18/16 with more than 48 hour history of substernal chest pain and left arm pain. An EKG at that time demonstrated normal sinus rhythm with extensive Q waves with intraventricular conduction delay across the anterior wall concomitant with ST elevation indicating a delayed presentation of anterior wall myocardial infarction. She was taken to the [facility] by Dr. Veliz on 03/18/16 which demonstrated an occluded LAD. Patient underwent emergent angioplasty and stenting receiving a 2.5X 38 Promus Synergy stent, postdilated in the middle part with a 2.75 mm balloon, and in the proximal part with a 3.0 noncompliant balloon. She was also found to have nonobstructive disease of her RCA in the range of 30-40% proximally and 40-50% in the midportion. Her EF at that time was 35%. Patient was medically managed and placed on a LifeVest which had no discharges. A nuclear stress test dated 05/02/2016 showed extensive anterior wall infarction with an overall EF around 50%. Her repeat echocardiogram dated 10/22/16 showed an EF of 35% with no improvement since February 2016. The patient was referred to [facility] with Dr. Jay where she underwent a subcutaneous AICD for primary prophylaxis of sudden cardiac . Patient now returns for routine follow-up. She states that she has had occasional sharp atypical midsternal chest pain, over the last 2 weeks or so dissimilar from her previous angina which was in her left shoulder. Of more importance, the patient complains of progressively worsening fatigue, shortness of breath and is unable to go as far she did 6 months ago. She is compliant with her medications. She has had no AICD discharges. In our office today her blood pressure is 109/72, pulse is 70 and regular. Her physical exam shows well-healed scars over her left chest area over the subcutaneous device, no infection, tenderness, redness or hematoma. Her lipids as of 05/02/16 show an HDL of 60 and an LDL of 63. Her lipids had been managed by Yasmin Cordoba. EKG dated 03/28/2019 shows normal sinus rhythm/sinus bradycardia, first-degree AV block, old patricio-lateral wall myocardial infarction, no acute changes. Intake Vital Signs03/28/19 Height 5 ft 2 in 03/28/19 Weight: 238 lb 03/28/19 BMI 43.5 03/28/19 BP 109/72 Intake Visit Reasons: 6 M FU Rolling Mill Operator Required: No Is patient in pain?: No Allergies tetanus and diphtheria toxoids Adverse Reaction (Verified 03/28/19 14:33) Nausea/Vom/Diarrhea Medications Sertraline HCl 200 mg PO DAILY 03/17/16 [History Confirmed 03/21/19] Aspirin E.C. [Ecotrin] 81 mg PO DAILY@0800 #30 tab 03/20/16 [Rx Confirmed 03/21/19] atorvastatin 40 mg tablet 40 mg PO QHS #90 tab 02/09/18 [Rx Confirmed 03/21/19] carvedilol 3.125 mg tablet 3.125 mg PO BID #180 tab 02/09/18 [Rx Confirmed 03/21/19] furosemide 20 mg tablet 20 mg PO QDAY PRN tab 02/09/18 [History Confirmed 03/21/19] potassium chloride 10 mEq tablet,extended release 10 meq PO QDAY PRN tab 02/09/18 [History Confirmed 03/21/19] lisinopril 5 mg tablet 5 mg PO QDAY #90 tab 05/06/18 [Rx Confirmed 03/21/19] clopidogrel 75 mg tablet 75 mg PO .COMPLEX #90 tab 09/27/18 [Rx Confirmed 03/21/19] [facility] Medical History Hyperlipidemia (Chronic) Old myocardial infarction (Acute) 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 (Chronic) Ischemic cardiomyopathy (Chronic) HTN (hypertension), benign (Chronic) NSTEMI (non-ST elevated myocardial infarction) (Chronic) Depression (Chronic) Nicotine dependence (Resolved) Surgical History Stented coronary artery (Chronic) Implantable cardioverter-defibrillator (ICD) in situ (Chronic 04/30/17) S/P coronary artery stent placement (Chronic 03/18/16) History of section (Resolved) Hx of appendectomy (Resolved) Family History Mother CAD (coronary artery disease) Hx of CABG, Onset Age: 50 Diabetes Father Cancer lung Social History (Updated 03/28/19 @ 14:53 by Star Ng MD) Smoking Status: Former smoker quit date: 02/21/16 alcohol intake: current details: occasional glass of wine substance use type: does not use caffeine: Yes Type: coffee Number of servings: 2 ROS Const Const: Negative for fatigue, weakness, headache(s), frequent falls, night sweats, daytime sleepiness or excessive sweating Eyes Eyes: Negative for blind spots, loss of peripheral vision, transient loss of vision, blurry vision or double vision ENT ENT: Negative for headache(s), dizziness, Nosebleed/epistaxis, balance problems, lip swelling or tongue swelling Cardio Chest Pain: No Palpitations: No Edema: None Muscle aches with walking: None Resp Respiratory: Negative for SOB with activity, SOB at rest, SOB orthopnea\SOB lying down, Cough or paroxysmal nocturnal dyspnea GI GI: Negative nausea, vomiting, heartburn, bright, red blood in stools or black,tarry stools : Negative for hematuria Musc Musc: Negative for muscle aches/ myalgia, muscle weakness, joint pain or balance problems Skin Skin: Negative non-healing lesions, rash or unusual bruising Neuro Neuro: Negative for dizziness, lightheadedness, orthostatic symptoms, frequent falls, headache(s), weakness, blurry vision, double vision or lack of coordination Alhaji Hematologic/Lymphatic: Negative for easy bleeding or easy bruising Endo Endo: Negative for fatigue, cold intolerance, heat intolerance, excessive sweating, increased thirst/drinking or hair loss Psych Psych: Negative for anxiety or depression Allergy Allergy/Immunology: Negative for throat swelling, Negative for tongue swelling, Negative for hives, Negative for rash, Negative for lip swelling Cardiology Exam Const Appearance: cooperative, healthy appearing and no acute distress Nutritional Appearance: well nourished Orientation: alert, oriented x3 and oriented to person Head Head: normal to inspection, normocephalic and atraumatic Nose: external nose normal Face and Sinus: face symmetric Mouth: oral mucosae normal Eyes General: appearance normal, both eyes and all related structures Eyelids: eyelids normal Conjunctivae: conjunctivae normal Pupils: PERRL and normal by confrontation EOM: EOM intact bilaterally Neck Neck: normal visual inspection and full ROM Carotids: normal carotid upstroke Chest Chest inspection: normal inspection of the chest Auscultation: Bilateral: Clear to Auscultation Cardio Palpation: normal PMI Rate: regular rate Rhythm: regular rhythm Heart sounds: S1 normal and S2 normal GI GI: normal to inspection, no hepatosplenomegaly and bowel sounds present Neuro General: alert, awake, oriented x3, CN's II-XI intact bilaterally and moves all extremities Skin Skin: no rashes or lesions noted Extremities Pulses: Normal: Right Femoral Pulse, Left Femoral Pulse, Right Dorsalis Pedis Pulse, Left Dorsalis Pedis Pulse, Right Posterior Tibial Pulse, Left Posterior Tibial Pulse, Right Radial Pulse, Left Radial Pulse Lower Extremity Edema: None: Bilateral Psych Psychological: normal affect Assessment AND Plan 1. Atherosclerosis of [place] coronary artery of [place] heart without angina pectoris I25.10 PCI-DAYTON-LAD 2.5 mm x 38 mm 03/18/16 Plan 1. Coronary artery disease: The patient now complains of nonexertional midsternal chest pain which is described as sharp, but more importantly complains of dyspnea on exertion, decreased exercise capacity, increasing fatigue with less and less exertion. This may be an anginal equivalent given the patient's history of other nonobstructive coronary disease in her RCA. I recommended the patient undergo a repeat 2D echo with Doppler to document whether her LV function has in any way improved and more importantly a treadmill echocardiogram to determine if she has any evidence of inferior lateral ischemia. If this is grossly abnormal, I would recommend a repeat catheterization to assess progression of disease in her right coronary artery as well as the patency of her LAD stents. In the meantime she will continue baby aspirin, Plavix, Coreg, Lasix and lisinopril and potassium supplementation. Orders Orders: 2. Pure hypercholesterolemia E78.00 Plan 2. Hyperlipidemia: The patient is agreed to transfer her lipid care to our office, and recommend repeating lipid profile. Continue Lipitor. 3. Return office in 6 months. This note was generated using a voice recognition system and there may be incorrect words, spelling or punctuation that were not noted when reviewing the office note prior to saving. Orders Orders: Plan Detail Other Orders Orders: Follow Up +6M (Ng) Coding Level of Care Code Off vis,est,level 3 Diagnoses Atherosclerosis of [place] coronary artery of [place] heart without angina pectoris I25.10 [place] vs. transplanted heart: [place] heart Pure hypercholesterolemia E78.00 Hyperlipidemia type: pure hypercholesterolemia Coding Level of Care Code Off vis,est,level 3 Diagnoses Atherosclerosis of [place] coronary artery of [place] heart without angina pectoris I25.10 [place] vs. transplanted heart: [place] heart Pure hypercholesterolemia E78.00 Hyperlipidemia type: pure hypercholesterolemia Supplemental Info Supplemental Information Labs LDL Cholesterol 63 mg/dL (0-130) 05/02/16 HDL Cholesterol 60 mg/dL (40-) 05/02/16 Triglycerides 137 mg/dL (-199) 05/02/16 VLDL Cholesterol 27 mg/dL (5-40) 05/02/16 Diagnostics Electrocardiogram 03/20/16 Stress Test Nuclear Medicine 05/02/16 Pacemaker Check 12/23/18 Chest X-Ray 03/17/16 03/28/19 6133 <Electronically signed by Star Ng MD> Date Star Ng MD Cosigner Signature: Date (if applicable) CC: CABLE INSTALLATION TECHNICIAN-C Tejal Maciel Start: 03-28-2019 End: 05-03-2019 12 Lead EKG performed by [facility] Comments: See Note; NOTES: [facility] [address] [place] [address] 12 Lead EKG performed by [facility] 03/28/19 1438 MR#: [id number] Acct: [id number] Name: GONZÁLEZ RAGSDALE Rep #: [id number] : 1960 58 From: Star Ng MD Attending Dr: Star Ng MD Status: DEP AMB Ordering Dr: Star Ng MD Date: 03/28/19 [place] [facility] [place] Sex: F C Admitted: [facility] [place]12 Lead EKG performed by [facility] Sinus Rhythm -Right axis -consider right ventricular hypertrophy. -Old nterior infarct. - Nonspecific T-abnormality. Low voltage -possible ulmonary disease. ABNORMAL 03/29/19 1543 <Electronically signed by Star Ng MD> Date Star Ng MD CC: CABLE INSTALLATION TECHNICIAN-C Tejal Maciel Date Dictated: 03/28/19 143 Date Transcribed: 03/28/191437 Riverboat Master: DN Signed Tejal Maciel Start: 09-16-2018 End: 09-16-2018 Pacemaker Check Comments: See Note; NOTES: [facility] [address] [place] [address] Pacemaker Check Date of Service: 09/16/18 162 MR#: [id number] Acct: [id number] Name: GONZÁLEZ RAGSDALE Rep #: [id number] : 1960 From: Jina Velasco Age/Sex: 58/F Location[place] [facility] [place] Status: Signed Billing Codes ICD Device Billing: ICD Dev Interrogate (Rmt) 09/16/181621 <Electronically signed by Jina Velasco > Date Jina Reisigncricket Signature: Date (if applicable) CC: Tejal Maciel Start: 09-09-2018 End: 09-09-2018 Cardiology Visit Report Comments: See Note; NOTES: [facility] [address] [place] [address] OFFICE VISIT Date of Service: 09/09/18 MR#: [id number] Acct: [id number] Name: GONZÁLEZ RAGSDALE Rep #: [id number] : 1960 Provider: Star Ng MD Age/Sex: 58/F Location: [facility] Status: Signed HPI HPI History of Present Illness Details: HPI Chief Complaint: Routine f/u Details: Ms. Ragsdale is a very pleasant 58-year-old female, morbidly obese, nondiabetic, who presented to [facility] on 03/18/16 with more than 48 hour history of substernal chest pain and left arm pain. An EKG at that time demonstrated normal sinus rhythm with extensive Q waves with intraventricular conduction delay across the anterior wall concomitant with ST elevation indicating a delayed presentation of anterior wall myocardial infarction. She was taken to the [facility] by Dr. Veliz on 03/18/16 which demonstrated an occluded LAD. Patient underwent emergent angioplasty and stenting receiving a 2.5X 38 Promus Synergy stent, postdilated in the middle part with a 2.75 mm balloon, and in the proximal part with a 3.0 noncompliant balloon. She was also found to have nonobstructive disease of her RCA in the range of 30-40% proximally and 40-50% in the midportion. Her EF at that time was 35%. Patient was medically managed and placed on a LifeVest which had no discharges. Her repeat echocardiogram dated 10/22/16 showed an EF of 35% with no improvement since February 2016. The patient was referred to [facility] with Dr. Jay where she underwent a subcutaneous AICD for primary prophylaxis of sudden cardiac . Patient now returns for routine follow-up. She is actually doing quite well, back to work, and denies any chest pain, angina, shortness of breath or dyspnea on exertion. The pain in her subcutaneous defibrillator has markedly improved although it does occur on occasion. She is taking and tolerating her medicines well. In our office today her blood pressure is 1 110/60, pulse is 80 and regular. Her physical exam shows well-healed scars over her left chest area over the subcutaneous device, no infection, tenderness, redness or hematoma. Her lipids as of 05/02/16 show an HDL of 60 and an LDL of 63. Her lipids are managed by Yasmin Cordoba. Intake Vital Signs09/09/18 Body Mass Index (BMI) 43.0 06/20/19 Height 5 ft 3 in 09/09/18 Weight: 248 lb 09/09/18 Body Mass Index (BMI) 43.9 09/09/18 Blood Pressure 110/60 Intake Visit Reasons: 6 M FU Allergies tetanus and diphtheria toxoids Adverse Reaction (Verified 09/09/18 15:31) Nausea/Vom/Diarrhea Medications Sertraline HCl 200 mg PO DAILY 03/17/16 [History Confirmed 09/09/18] Aspirin E.C. [Ecotrin] 81 mg PO DAILY@0800 #30 tab 03/20/16 [Rx Confirmed 09/09/18] atorvastatin 40 mg tablet 40 mg PO QHS #90 tab 02/09/18 [Rx Confirmed 09/09/18] carvedilol 3.125 mg tablet 3.125 mg PO BID #180 tab 02/09/18 [Rx Confirmed 09/09/18] clopidogrel 75 mg tablet 75 mg PO .COMPLEX #45 tab 02/09/18 [Rx Confirmed 09/09/18] furosemide 20 mg tablet 20 mg PO QDAY PRN tab 02/09/18 [History Confirmed 09/09/18] potassium chloride ER 10 mEq tablet,extended release 10 meq PO QDAY PRN tab 02/09/18 [History Confirmed 09/09/18] lisinopril 5 mg tablet 5 mg PO QDAY #90 tab 05/06/18 [Rx Confirmed 09/09/18] PFS Medical History Hyperlipidemia (Chronic) Old myocardial infarction (Acute) 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 (Chronic) Ischemic cardiomyopathy (Chronic) HTN (hypertension), benign (Chronic) NSTEMI (non-ST elevated myocardial infarction) (Chronic) Depression (Chronic) Nicotine dependence (Resolved) Surgical History Implantable cardioverter-defibrillator (ICD) in situ (Chronic 04/30/17) S/P coronary artery stent placement (Chronic 03/18/16) History of section (Resolved) Hx of appendectomy (Resolved) Family History Mother CAD (coronary artery disease) Hx of CABG, Onset Age: 50 Diabetes Father Cancer lung Social History (Updated 09/09/18 @ 15:42 by Star Ng MD) Smoking Status: Former smoker quit date: 02/21/16 alcohol intake: current details: occasional glass of wine substance use type: does not use caffeine: Yes Type: coffee Number of servings: 2 Cardiology Exam Const Appearance: cooperative, healthy appearing and no acute distress Nutritional Appearance: well nourished Orientation: alert, oriented x3 and oriented to person Head Head: normal to inspection, normocephalic and atraumatic Nose: external nose normal Face and Sinus: face symmetric Mouth: oral mucosae normal Eyes General: appearance normal, both eyes and all related structures Eyelids: eyelids normal Conjunctivae: conjunctivae normal Pupils: PERRL and normal by confrontation EOM: EOM intact bilaterally Neck Neck: normal visual inspection and full ROM Carotids: normal carotid upstroke Chest Chest inspection: normal inspection of the chest Auscultation: Bilateral: Clear to Auscultation Cardio Palpation: normal PMI Rate: regular rate Rhythm: regular rhythm Heart sounds: S1 normal and S2 normal GI GI: normal to inspection, no hepatosplenomegaly and bowel sounds present Neuro General: alert, awake, oriented x3, CN's II-XI intact bilaterally and moves all extremities Skin Skin: no rashes or lesions noted Extremities Pulses: Normal: Right Femoral Pulse, Left Femoral Pulse, Right Dorsalis Pedis Pulse, Left Dorsalis Pedis Pulse, Right Posterior Tibial Pulse, Left Posterior Tibial Pulse, Right Radial Pulse, Left Radial Pulse Lower Extremity Edema: None: Bilateral Psych Psychological: normal affect Assessment AND Plan 1. Atherosclerosis of [place] coronary artery of [place] heart without angina pectoris I25.10 PCI-DAYTON-LAD 2.5 mm x 38 mm 03/18/16 Plan 1. Coronary artery disease: The patient is status post delayed presentation anterior wall myocardial infarction with successful angioplasty and stenting of her LAD. She had remaining nonobstructive coronary disease of her circumflex and RCA, and these have been left for medical management. She is asymptomatic at this time and her blood pressure and heart rate are well controlled. I recommend that she continue her baby aspirin, Coreg, Plavix, Lasix and lisinopril. No indication for repeat stress testing at this time. 2. Pure hypercholesterolemia E78.00 Plan 2. Hyperlipidemia: Her LDL and HDL cholesterol are managed by an outside SPACE SCIENCES DIRECTOR. 3. Ischemic cardiomyopathy I25.5 Plan 3. Ischemic cardia myopathy: The patient is status post subcutaneous defibrillator, which has not fired. Continue follow-up with Rachel. 4. Return to office in 6 months. This note was generated using a voice recognition system and there may be incorrect words, spelling or punctuation that were not noted when reviewing the office note prior to saving. Plan Detail Follow Up +6M (Dun[place]) Coding Level of Care Code Off vis,est,level 3 Diagnoses Atherosclerosis of nulato coronary artery of [place] heart without angina pectoris I25.10 [place] vs. transplanted heart: nul[place] heart Pure hypercholesterolemia E78.00 Hyperlipidemia type: pure hypercholesterolemia Ischemic cardiomyopathy I25.5 Coding Level of Care Code Off vis,est,level 3 Diagnoses Atherosclerosis of [place] coronary artery of [place] heart without angina pectoris I25.10 [place] vs. transplanted heart: [place] heart Pure hypercholesterolemia E78.00 Hyperlipidemia type: pure hypercholesterolemia Ischemic cardiomyopathy I25.5 Supplemental Info Supplemental Information Labs LDL Cholesterol 63 mg/dL (0-130) 05/02/16 HDL Cholesterol 60 mg/dL (40-) 05/02/16 Triglycerides 137 mg/dL (-199) 05/02/16 VLDL Cholesterol 27 mg/dL (5-40) 05/02/16 Diagnostics Electrocardiogram 03/20/16 Stress Test Nuclear Medicine 05/02/16 Pacemaker Check 06/10/18 Chest X-Ray 03/17/16 09/09/18 1542 <Electronically signed by Star Ng MD> Date Star Ng MD Cosign Signature: Date (if applicable) CC: Tejal Maciel Start: 06-10-2018 End: 06-10-2018 Pacemaker Check Comments: See Note; NOTES: [facility] [address] [place] [address] Pacemaker Check Date of Service: 06/10/18 1215 MR#: [id number] Acct: [id number] Name: GONZÁLEZ RAGSDALE Rep #: [id number] : 1960 From: Jina Velasco Age/Sex: 58/F Location: [facility] Status: Signed Billing Codes ICD Device Billing: ICD Dev Interrogate (Rmt) 06/10/18 1215 <Electronically signed by Jina Velasco > Date Jina Velasco Cosigner Signature: Date (if applicable) CC: Tejal Maciel Start: 02-09-2018 End: 02-09-2018 Cardiology Visit Report Comments: See Note; NOTES: [facility] [address] [place] [address] OFFICE VISIT Date of Service: 02/09/18 MR#: [id number] Acct: [id number] Name: GONZÁLEZ RAGSDALE R Rep #: [id number] : 1960 Provider: Lilli Funez Age/Sex: 57/F Location: [facility] Status: Signed HPI HPI Chief Complaint: Routine f/u Details: GONZÁLEZ RAGSDALE, is a 57 F who presents to the office today for a cardiovascular follow-up. She has a history of coronary artery disease with stenting to her LAD in February 2016, ischemic cardiomyopathy, hyperlipidemia and obesity. She had an ICD placed in 2018. From a cardiac standpoint, patient is doing well. She does not have any chest discomfort/heaviness/tightne ss. Her exercise tolerance is stable for her age. She does not have any worsening symptoms of shortness of breath. She does not have any orthopnea. She denies PND. She does not have any symptoms of congestive heart failure. She does not have any palpitations that she is aware of. She does not have any lightheadedness or dizziness. She does not have any near-syncope or syncope. She does not have any lower extremity edema. She does not have any symptoms of claudication. 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 [Ecotrin] 81 mg PO DAILY@0800 #30 tab 03/20/16 [Rx Confirmed 02/09/18] atorvastatin 40 mg tablet 40 mg PO QHS #90 tab 02/09/18 [Rx Confirmed 02/09/18] carvedilol 3.125 mg tablet 3.125 mg PO BID #180 tab 02/09/18 [Rx Confirmed 02/09/18] clopidogrel 75 mg tablet 75 mg PO .COMPLEX #45 tab 02/09/18 [Rx Confirmed 02/09/18] furosemide 20 mg tablet 20 mg PO QDAY PRN tab 02/09/18 [History Confirmed 02/09/18] lisinopril 2.5 mg tablet 2.5 mg PO QDAY #90 tab 02/09/18 [Rx] potassium chloride ER 10 mEq tablet,extended release 10 meq PO QDAY PRN tab 02/09/18 [History Confirmed 02/09/18] PFSH Medical History Hyperlipidemia (Chronic) Old myocardial infarction (Acute) 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 (Chronic) Ischemic cardiomyopathy (Chronic) HTN (hypertension), benign (Chronic) NSTEMI (non-ST elevated myocardial infarction) (Chronic) Depression (Chronic) Nicotine dependence (Resolved) Surgical History Implantable cardioverter-defibrillator (ICD) in situ (Chronic 04/30/17) S/P coronary artery stent placement (Chronic 03/18/16) History of section (Resolved) Hx of appendectomy (Resolved) Family History Mother CAD (coronary artery disease) Hx of CABG, Onset Age: 50 Diabetes Father Cancer lung Social History Smoking Status: Former smoker quit date: 02/21/16 alcohol intake: current details: occasional glass of wine substance use type: does not use caffeine: Yes Type: coffee Number of servings: 2 ROS Const Const: Negative for weakness, fatigue, fever(s) or headache(s) Eyes Eyes: Negative for blind spots, loss of peripheral vision or transient loss of vision ENT ENT: Negative for headache(s), dizziness, tinnitus or Nosebleed/epistaxis Cardio Chest Pain: No Palpitations: No Edema: None Muscle aches with walking: None Resp Respiratory: Negative for SOB with activity, SOB at rest, SOB orthopnea\SOB lying down or Cough GI GI: Negative nausea, vomiting, heartburn or vomiting blood/hematemesis : Negative for hematuria Musc Musc: Negative for muscle aches/ myalgia Neuro Neuro: Negative for weakness, headache(s), dizziness, near syncope, syncope, lightheadedness or orthostatic symptoms Alhaji Hematologic/Lymphatic: Negative for easy bleeding Endo Endo: Negative for fatigue Cardiology Exam Const Appearance: cooperative, no acute distress and well developed Orientation: alert, awake and oriented x3 Head Head: normocephalic and atraumatic Mouth: moist mucous membranes Eyes General: appearance normal, both eyes and all related structures Conjunctivae: conjunctivae normal Pupils: PERRL EOM: EOM intact bilaterally Neck Neck: normal visual inspection, no lymphadenopathy and no JVD Carotids: Negative bruit Neck Mass: Negative Neck mass Chest Chest inspection: normal inspection of the chest, symmetric chest movement and Pacemaker/ICD Yes left pectoral incision Auscultation: Bilateral: Clear to Auscultation Cardio Palpation: normal PMI Rate: regular rate Rhythm: regular rhythm Heart sounds: S1 normal and S2 normal; negative rub, gallop or murmur GI GI: normal to inspection, soft, no hepatosplenomegaly and bowel sounds present; negative tender Neuro General: alert, awake, oriented x3, CN's II-XI intact bilaterally and moves all extremities Extremities Pulses: Normal: Right Posterior Tibial Pulse, Left Posterior Tibial Pulse, Right Radial Pulse, Left Radial Pulse Lower Extremity Edema: None: Bilateral Psych Psychological: normal affect Supplemental Info Echocardiogram done in January 2017 demonstrated an ejection fraction of 35-40%. Regional wall motion abnormalities noted. No appreciable changes when compared to October 2016. Pharmacologic nuclear stress test in 2017 demonstrated previous myocardial injury/infarct with no perfusion changes consider diagnostic for stress-induced ischemia. Assessment AND Plan 1. Atherosclerosis of nulato coronary artery of [place] heart without angina pectoris I25.10 PCI-DAYTON-LAD 2.5 mm x 38 mm 03/18/16 Plan Stable, from a cardiac standpoint patient does not have any symptoms of angina. We recommend that they continue with current aggressive medical management and risk factor modification. 2. Cardiomyopathy, ischemic I25.5 Plan Stable, patient does not have any symptoms of congestive heart failure. We will continue to monitor by history, exam and echocardiograms as deemed appropriate. 3. HTN (hypertension), benign I10 Plan Blood pressure is well controlled on current medications, we do not recommend any changes at this time. 4. Pure hypercholesterolemia E78.00; E78.0 Plan Patient will continue with current moderate intensity statin. This is managed by her primary care doctor. 5. Implantable cardioverter-defibrillator (ICD) in situ Z95.810 Plan ICD is functioning appropriately. We will continue to monitor with routine scheduled ICD interrogations. Patient has not had any discharges from their device. Plan Detail Other Medications Changed: Refilled: Additional Comments Thank you for allowing us to participate in the patients plan of care, if you have any questions please do not hesitate to call. This note was generated using a voice recognition system and there may be incorrect words, spelling or punctuation that were not noted when reviewing the office note prior to saving. Follow Up 6 Months (DJN) Coding Level of Care Code Off vis,est,level 3 Diagnoses Atherosclerosis of nulato coronary artery of [place] heart without angina pectoris I25.10 [place] vs. transplanted heart: nul[place] heart Cardiomyopathy, ischemic I25.5 HTN (hypertension), benign I10 Pure hypercholesterolemia E78.00; E78.0 Hyperlipidemia type: pure hypercholesterolemia Implantable cardioverter-defibrillator (ICD) in situ Z95.810 Coding Level of Care Code Off vis,est,level 3 Diagnoses Atherosclerosis of [place] coronary artery of [place] heart without angina pectoris I25.10 [place] vs. transplanted heart: n[place] heart Cardiomyopathy, ischemic I25.5 HTN (hypertension), benign I10 Pure hypercholesterolemia E78.00; E78.0 Hyperlipidemia type: pure hypercholesterolemia Implantable cardioverter-defibrillator (ICD) in situ Z95.810 02/09/18 4469 <Electronically signed by Lilli MEREDITH> Date Lilli Hubbard Signature: Date (if applicable) CC: Tejal Longokike BENNETT Tejal Maciel Start: 11-05-2017 End: 11-05-2017 Pacemaker Check Comments: See Note; NOTES: [facility] [address] [place] [address] Pacemaker Check Date of Service: 11/05/17 1514 MR#: [id number] Acct: [id number] Name: GONZÁLEZ RAGSDALE R Rep #: [id number] : 1960 From: Jina Velasco Age/Sex: 57/F Location: [facility] [place] Status: Signed Billing Codes ICD Device Billing: ICD Dev Interrogate (t) 11/05/17 1534 <Electronically signed by Jina Velasco > Date Jina Velasco 11/05/17 1653<Electronically signed by Lilli MEREDITH> Haydee Signature: Date (if applicable) Lilli Funez CC: Tejal Maciel Start: 07-23-2017 End: 07-23-2017 Cardiology Visit Report Comments: See Note; NOTES: [facility] [address] [place] [address] OFFICE VISIT Date of Service: 07/23/17 MR#: [id number] Acct: [id number] Name: GONZÁLEZ RAGSDALE R Rep #: [id number] : 1960 Provider: Star Ng MD Age/Sex: 57/F Location: [facility] Status: Signed HPI HPI Chief Complaint: Routine f/u Details: Ms. Ragsdale is a very pleasant 57-year-old female, morbidly obese, nondiabetic, who presented to [facility] on 03/18[facility]16 with more than 48 hour history of substernal chest pain and left arm pain. An EKG at that time demonstrated normal sinus rhythm with extensive Q waves with intraventricular conduction delay across the anterior wall concomitant with ST elevation indicating a delayed presentation of anterior wall myocardial infarction. She was taken to the [facility] by Dr. Styles on 03/18/16 which demonstrated an occluded LAD. Patient underwent emergent angioplasty and stenting receiving a 2.5X 38 Promus Synergy stent, postdilated in the middle part with a 2.75 mm balloon, and in the proximal part with a 3.0 noncompliant balloon. She was also found to have nonobstructive disease of her RCA in the range of 3040% proximally and 4050% in the midportion. Her EF at that time was 35%. Patient was medically managed and placed on a LifeVest which had no discharges. Her repeat echocardiogram dated 10/22/16 showed an EF of 35% with no improvement since February 2016. The patient was referred to [facility] with Dr. Jay where she underwent a subcutaneous AICD for primary prophylaxis of sudden cardiac . Patient now returns for routine follow-up. Patient complains of mild upper and lower extremity edema in her hands and ankles, as well as some bruising which was not as pervasive as before. In addition she complains of a catching sensation of the subcutaneous defibrillator in her left chest wall area particularly when she leans to the left. She states that at the end of the day it is quite sore. She has not contacted Dr. Jay. It has not gone off or discharge. In our office today her blood pressure is 106/62, pulse is 80 and regular. Her physical exam shows well-healed scars over her left chest area over the subcutaneous device, no infection, tenderness, redness or hematoma. She has trace bilateral lower extremity edema. Her lipids as of 05/02/16 show an HDL of 60 and an LDL of 63. Intake Vital Signs07/23/17 Height 5 ft 3 in 07/23/17 Weight: 233 lb 07/23/17 Body Mass Index (BMI) 41.3 07/23/17 Blood Pressure 106/62 07/23/17 Respiratory Rate 16 07/23/17 Pulse Rate 80 Intake Visit Reasons: 6 M FU Allergies tetanus and diphtheria toxoids Adverse Reaction (Verified 07/23/17 16:03) Nausea/Vom/Diarrhea Medications Sertraline HCl 200 mg PO DAILY 03/17/16 [History Confirmed 07/23/17] Aspirin E.C. [Ecotrin] 81 mg PO DAILY@0800 #30 tab 03/20/16 [Rx Confirmed 07/23/17] Nitroglycerin [Nitrostat] 0.4 mg SUBLINGUAL Q5M PRN #30 tab 03/20/16 [Rx Confirmed 07/23/17] atorvastatin 40 mg tablet 40 mg PO QHS #90 tab 05/08/17 [Rx Confirmed 07/23/17] carvedilol 3.125 mg tablet 3.125 mg PO BID #180 tab 05/08/17 [Rx Confirmed 07/23/17] lisinopril 5 mg tablet 5 mg PO QDAY 07/21/17 [History Confirmed 07/23/17] clopidogrel 75 mg tablet 75 mg PO .qod tab 07/23/17 [History Confirmed 07/23/17] furosemide 20 mg tablet 20 mg PO QDAY #30 tab 07/23/17 [Rx Confirmed 07/23/17] potassium chloride ER 10 mEq tablet,extended release 10 meq PO QDAY #30 tab 07/23/17 [Rx Confirmed 07/23/17] PFSH Medical History Hyperlipidemia (Chronic) Old myocardial infarction (Acute) Implantable cardioverter-defibrillator (ICD) in situ (Acute) 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 (Chronic) Ischemic cardiomyopathy (Chronic) HTN (hypertension), benign (Chronic) NSTEMI (non-ST elevated myocardial infarction) (Chronic) Depression (Acute) Nicotine dependence (Resolved) Surgical History S/P coronary artery stent placement (Chronic 03/18/16) History of section (Resolved) Hx of appendectomy (Resolved) Family History Mother CAD (coronary artery disease) Hx of CABG, Onset Age: 50 Social History Smoking Status: Former smoker quit date: 02/21/16 alcohol intake: current details: occasional glass of wine substance use type: does not use ROS Const Const: Positive for other (C/O feeling bloated and full of fluid. C/O pedal edema); negative for fatigue, weakness, difficulty sleeping, frequent falls, headache(s) or excessive sweating Eyes Eyes: Negative for loss of peripheral vision, transient loss of vision, blurry vision or double vision ENT ENT: Negative for headache(s), dizziness, Nosebleed/epistaxis or balance problems Cardio Chest Pain: No Edema: Bilateral (C/O feeling bloated and full of fluid. C/O pedal edema.) Muscle aches with walking: None Additional Details: C/O pain and numbness at ICD insertion site. States feels like the device is wedged in her ribs. Feels a popping sensation at site. Resp Respiratory: Negative for SOB with activity, SOB at rest, SOB orthopnea\SOB lying down or paroxysmal nocturnal dyspnea GI GI: Negative nausea or heartburn : Negative for hematuria Musc Musc: Negative for muscle aches/ myalgia, muscle weakness, joint pain or balance problems Skin Skin: Positive for unusual bruising; negative non-healing lesions or rash Neuro Neuro: Negative for weakness, frequent falls, blurry vision, headache(s), dizziness, lightheadedness, orthostatic symptoms or double vision Alhaji Hematologic/Lymphatic: Negative for easy bruising Endo Endo: Negative for fatigue, excessive sweating or increased thirst/drinking Psych Psych: Negative for anxiety or depression Allergy Allergy/Immunology: Negative for hives, Negative for rash Cardiology Exam Const Appearance: cooperative, healthy appearing and no acute distress Nutritional Appearance: well nourished Orientation: alert, oriented x3 and oriented to person Head Head: normal to inspection, atraumatic and normocephalic Nose: external nose normal Face and Sinus: face symmetric Mouth: oral mucosae normal Eyes General: appearance normal, both eyes and all related structures Eyelids: eyelids normal Conjunctivae: conjunctivae normal Pupils: PERRL and normal by confrontation EOM: EOM intact bilaterally Neck Neck: normal visual inspection and full ROM Carotids: normal carotid upstroke Chest Chest inspection: normal inspection of the chest Auscultation: Bilateral: Clear to Auscultation Cardio Palpation: normal PMI Rate: regular rate Rhythm: regular rhythm Heart sounds: S1 normal and S2 normal GI GI: normal to inspection, no hepatosplenomegaly and bowel sounds present Neuro General: alert, oriented x3, awake, CN's II-XI intact bilaterally and moves all extremities Skin Skin: no rashes or lesions noted Extremities Pulses: Normal: Right Femoral Pulse, Left Femoral Pulse, Right Dorsalis Pedis Pulse, Left Dorsalis Pedis Pulse, Right Posterior Tibial Pulse, Left Posterior Tibial Pulse, Right Radial Pulse, Left Radial Pulse Lower Extremity Edema: None: Bilateral Psych Psychological: normal affect Assessment AND Plan 1. 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 I25.10 PCI-DAYTON-LAD 2.5 mm x 38 mm 03/18/16 Plan 1. Coronary artery disease: No exertional anginal symptoms at this time. No indication for any additional testing. Recommend reduction of her Plavix to every other day given her bruising, and continuing the going forward. In the meantime she will continue her Coreg, lisinopril. We will add Lasix 20 mg p.o. daily for her lower extremity edema and LV dysfunction. In addition we will order potassium chloride 10 mEq p.o. daily to avoid hypokalemia 2. Implantable cardioverter-defibrillator (ICD) in situ Z95.810 Plan . 2. AICD implant: The patient is a subcutaneous AICD and it has not discharged however she complains of a catching-like sensation and soreness at the end of the day over her implanted area. I cannot see that it is infected or has any hematoma. I recommended the patient notified and call Dr. Jay's office to arrange for a visit to determine if further evaluation is necessary. According to patient she has been following up remotely and has had no problems with it. 3. Hyperlipidemia E78.5 Plan 3. Hyperlipidemia: Her LDL and HDL cholesterol are fairly well-controlled. Continue Lipitor. 4. Return office in 6 months This note was generated using a voice recognition system and there may be incorrect words, spelling or punctuation that were not noted when reviewing the office note prior to saving. Plan Detail Other Medications New: Changed: Follow Up +6M (Ng) Coding Level of Care Code Off vis,est,level 3 Diagnoses 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 I25.10 Implantable cardioverter-defibrillator (ICD) in situ Z95.810 Hyperlipidemia E78.5 Coding Level of Care Code Off vis,est,level 3 Diagnoses 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 I25.10 Implantable cardioverter-defibrillator (ICD) in situ Z95.810 Hyperlipidemia E78.5 07/23/17 1643 <Electronically signed by Star Ng MD> Date Star Ng MD Cosign Signature: Date (if applicable) CC: Tejal Maciel CABLE INSTALLATION TECHNICIAN Tejal Maciel Start: 07-01-2017 End: 07-01-2017 Pacemaker Check Comments: See Note; NOTES: [facility] [address] [place] [address] [address] [place] [address] Pacemaker Check Date of Service: 06/23/172002 MR#: [id number] Acct: [id number] Name: GONZÁLEZ RAGSDALE Anum Rep #: [id number] : 1960 From: Jina Velasco Age/Sex: 57/F Location: [facility] Status: Signed Comments Summary Comments: Remote S-ICD Evaluation: Remote interrogation shows no untreated or treated episodes since 05/07/17.presenting rhythm shows NSR @ 90 bpm. 0% AF. Battery life to RITA 93%. Electrode impedance status to RITA 93%. Normal remote S-ICD function. Device Device Date Interviewed: 06/08/17 Follow-up Location: in office Interview Reason: scheduled follow up Core Manager: [employer] Name: Swati CORREA Model: [id number] Serial #: [id number] Implant Date: 04/30/17 Year(s): 0 Patient Characteristics Patient Substrate: Ischemic cardiomyopathy Ejection fraction %: 35 to 39 (10/22/2016) By: Echo Underlying rhythm: Sinus rhythm Pacemaker Dependent: No Device Characteristics Type: Implantable defibrillator (Subcutaneous) Remote Follow-Up: [employer] Lead #1 Core Manager Lead 1: [employer] Model Lead 1: 3501 Serial# Lead 1: [id number] Date Implanted Lead 1: 04/30/17 Tachy Settings Therapy ON Shock Zone: 250 bpm Conditional Shock Zone: 200 bpm Post shock pacing: ON SMART Charge: 0.91 s (5intervals) SMART Pass: ON Billing Codes ICD Device Billing: ICD Dev Interrogate (Rmt) Assessment AND Plan Problems 1. Implantable cardioverter-defibrillator (ICD) in situ Z95.810 2. Ischemic cardiomyopathy I25.5 3. 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 I25.10 06/23/172012 <Electronically signed by Jina Velasco > Date Jina Velasco 07/01/17 1523<Electronically signed by Star Ng MD> Cosigner Signature: Date (if applicable) Star Ng MD CC: Tejal Maciel Start: 05-25-2017 End: 05-25-2017 Office Visit Report Comments: See Note; NOTES: [facility] [place] [address] OFFICE VISIT Date of Service: 05/07/17 MR#: [id number] Acct: [id number] Patient: GONZÁLEZ RAGSDALE Rep #: [id number] : 1960 Provider: Jina Velasco Age/Sex: 56/F Location: [facility] Status: Signed Comments Summary Comments: S-ICD Evaluation: On 05/05/17 received notification from [facility] that sensing not fully optimized(Reference S-ECG not acquired). MEI GalindoC Rep present today and acquired reference S-ECG with pl sql programmer. Presenting rhythm shows NSR @ 75 bpm. No untreated or treated episodes noted since implant on 04/30/17. Electrode impedance status Ok. Left sub axillary incision and electrode site incisions steri-strips removed and incisions well approximated w/o redness, swelling or hematoma noted. Pt afebrile 96.9 degrees F temporally. Next remote f/u appt scheduled for in 1 mos per instructions at [facility]. Device Device Date Interviewed: 05/07/17 Follow-up Location: in office Interview Reason: scheduled follow up Core Manager: Factual Scientific Name: Swati MRI Model: A219 Serial #: [id number] Implant Date: 04/30/17 Year(s): 0 Implant Physician: Dr Joseph Jay/[facility] Patient Characteristics Patient Substrate: Ischemic cardiomyopathy Ejection fraction %: 35 to 39 (10/22/2016) By: Echo Underlying rhythm: Sinus rhythm Pacemaker Dependent: No Device Characteristics Type: Implantable defibrillator (S-ICD) Remote Follow-Up: Latitude Device Physical Exam Yes Incision well healed Leads Lead #1 Core Manager Lead 1: [place] Model Lead 1: 3501 Serial# Lead 1: [id number] Date Implanted Lead 1: 04/30/17 Tachy Settings Therapy ON Shock Zone: 250 bpm Conditional Shock Zone: 200 bpm Post shock pacing: ON SMART Charge: 0.91 s (5intervals) SMART Pass: ON Billing Codes ICD Device Billing: ICD Dev Prog Eval, Single Assessment AND Plan Problems 1. Implantable cardioverter-defibrillator (ICD) in situ Z95.810 2. Ischemic cardiomyopathy I25.5 05/16/17 1112 <Electronically signed by Jina Velasco > Date Jina Velasco 05/25/17 1021<Electronically signed by Star Ng MD> [email or web address] Signature: Date (if applicable) Star Ng MD CC: Tejal Maciel Start: 01-30-2017 End: 01-30-2017 EMILY Massey NP Work Phone: Start: 01-30-2017 End: 01-30-2017 Ecg routine ecg w/least 12 lds w/i&r Star Ng MD Work Phone: Start: 01-30-2017 End: 01-30-2017 Follow Up Appt 6 months Charli Massey NP Work Phone: Start: 01-30-2017 End: 01-30-2017 Nurse, Teaching, Wound Check (no charge) Star Ng MD Work Phone: Start: 01-28-2017 End: 01-28-2017 Echocardiogram, Limited Study Comments: See Note; NOTES: [facility] Cardiovascular Services [address] [place] [address] Echo Limited w/Contrast 01/28/17 1357 MR#: [id number] Acct: [id number] Name: GONZÁLEZ RAGSDALE Rep #: [id number] : 1960 56 From: Star Ng MD Attending Dr: Star Ng MD Status: REG CLI Ordering Dr: Star Ng MD Date: 01/28/17 Location: CVS Sex: F C Admitted: Reason For Study: Cardiomyopathy Procedure This was a limited 2D transthoracic echocardiogram. Exam performed in department. Left Ventricle Normal size and thickness. The estimated ejection fraction is 35-40 %. There are regional wall motion abnormalities as specified. Mid-Anterior : Mildly hypokinetic. Anterior [place] : Akinetic. Inferior [place] : Akinetic. Right Ventricle Normal size and thickness. Normal systolic function. Atria Normal left atrium. Normal right atrium. Normal atrial septum. Mitral Valve The mitral valve is structurally normal. No prolapse or stenosis seen. Tricuspid Valve Normal tricuspid valve. Unable to estimate RV systolic pressure, pulmonary artery pressure probably normal. Medication 22 gauge I.V. with prn adaptor inserted into right arm. Definity0.3ml given slow IV push to enhance endocardial definition. MMode/2D Measurements AND Calculations LVIDd: 5.4 cm IVSd: 0.91 cm LVIDs: 4.2 cm LVPWd: 0.92 cm FS: 21.5 % Doppler Measurements AND Calculations Lat Peak E' Cristobal: 4.3 cm/sec Med Peak E' Cristobal: 6.6 cm/sec Interpretation Summary The estimated ejection fraction is 35-40 %. There are regional wall motion abnormalities as specified. Compared to echo report dated 10/22/2016, no appreciable changes noted. Ordering Physician: Star Ng Referring Physician: Tejal Maciel Performed By: Emerson Sanchez RCS 01/28/17 1510 Date Star Ng MD CC: Tejal Maciel; Stra Ng MD Date Dictated: 01/28/17 1357 Date Transcribed: 01/28/17 1511 Riverboat Master: Signed Tejal Maciel Start: 10-30-2016 End: 10-31-2016 DJN Star Ng MD Work Phone: Start: 10-30-2016 End: 10-31-2016 Echocardiography Star Ng MD Work Phone: Start: 10-30-2016 End: 10-31-2016 Follow Up Appt 3 months Star Ng MD Work Phone: Start: 10-27-2016 End: 10-27-2016 Echo, Complete w/ Contrast Comments: See Note; NOTES: [facility] Cardiovascular Services [address] [place] [address] Echo Complete W/ Contrast 10/22/16 1248 MR#: [id number] Acct: [id number] Name: GONZÁLEZ RAGSDALE Rep #: [id number] : 1960 56 From: Star Ng MD Attending Dr: Star Ng MD Status: REG CLI Ordering Dr: Star Ng MD Date: 10/22/16 Location: CVS Sex: F C Admitted: Reason For Study: Atherosclerotic Heart Disease Procedure This was a 2D Doppler, Color Flow transthoracic echocardiogram. Exam performed in department. Left Ventricle Moderately dilated left ventricle. Apical false tendon noted. The estimated ejection fraction is 35 %. Stage 1 diastolic dysfunction. There are regional wall motion abnormalities as specified. Anterior [place] : Akinetic. Inferior [place] : Severely Hypokinetic. Right Ventricle Normal size and thickness. Normal systolic function. Atria Normal left atrium. Normal right atrium. Normal atrial septum. Mitral Valve The mitral valve is structurally normal. No prolapse or stenosis seen. Mild mitral annular calcification extending into the posterior leaflet. Tricuspid Valve Normal tricuspid valve. Trivial tricuspid valve insufficiency. Right ventricular systolic pressure estimated to be 20 mmHg. Aortic Valve Normal aortic valve. Trisinus/trileaflet aortic valve. Pulmonic Valve Normal pulmonic valve. Great Vessels Normal aortic root. Normal arch. Normal inferior vena cava. Inferior vena cava collapse with sniff. Pericardium/Pleural No pericardial effusion. Medication Definity0.5ml given slow IV push to enhance endocardial definition. MMode/2D Measurements AND Calculations LVIDd: 5.2 cm IVSd: 1.2 cm Ao root diam: 3.0 cm LVIDs: 4.2 cm LVPWd: 1.1 cm LA dimension: 3.7 cm RVDd: 2.4 cm FS: 19.9 % LAV(MOD-bp): 44.0 ml LA A4 area: 15.9 cm2 RA A4 area: 12.3 cm2 LAV(MOD-bp) Indexed: 22.6 ml/m2 LAV(MOD-sp2): 39.0 ml LAV(MOD-sp4): 39.7 ml Doppler Measurements AND Calculations MV E max cristobal: 96.4 cm/sec Lat Peak E' Cristobal: 7.6 cm/sec Med Peak E' Cristobal: 5.2 cm/sec MV A max cristobal: 106.8 cm/sec E/E' lat: 12.7 E/E' med: 18.7 MV E/A: 0.90 Ao V2 max: 180.7 cm/sec LV V1 max: 103.0 cm/sec PA V2 max: 103.4 cm/sec Ao max P.1 mmHg LV V1 max P.2 mmHg Ao V2 mean: 121.7 cm/sec Ao mean P.6 mmHg Ao V2 VTI: 36.3 cm TR max cristobal: 192.1 cm/sec TR max P.8 mmHg Interpretation Summary Moderately dilated left ventricle. The estimated ejection fraction is 35 %. Stage 1 diastolic dysfunction. Anterior [place] : Akinetic. Inferior [place] : Severely Hypokinetic. Anterior and apical thinning. Right ventricular systolic pressure estimated to be 20 mmHg. Compared to echo report dated 03/18/2016, no appreciable changes noted. Ordering Physician: Star Ng Referring Physician: Tejal Maciel Performed By: Negra Massey RDCS, RVT 10/27/16 1732 Date Star Ng MD CC: Tejal Maciel; Star Ng MD Date Dictated: 10/22/16 1248 Date Transcribed: 10/27/16 1733 Riverboat Master: Signed Tejal Raheem Start: 06-06-2016 End: 06-06-2016 CR - History AND Physical Comments: See Note; NOTES: [facility] Cardiac Rehab [address] [facility] [place] [address] CR - History AND Physical MR#: [id number] Acct: [id number] Name: GONZÁLEZ RAGSDALE Rep #: [id number] : 1960 55 From: Carroll Nguyễn PCP: Tejal Maciel DOS: 05/02/16 CR - History AND Physical - General Arrival date:: 05/02/16 Arrival time:: 09:01 Date of Admission: 05/02/16 Referring Physician: Dr Star Ng Primary Diagnosis: NSTEMI and PCI-DAYTON 03/18/2016 - History of Present Cardiac Event Onset Date: Enter Onset Date of cardiac illnesses in Comment field below IA:: Yes - 03/18/2016 PTCA:: Yes - 03/18/2016 Type of Symptoms:: pain discomfort across the upper chest. Interventions with present event:: LHC- w/ PCI-DAYTON-LAD 03/18/2016 Were there any complications?: NONE - Medications Home Medications: Ambulatory Orders Medication Instructions Recorded Sertraline HCl 200 mg PO DAILY 03/17/16 Aspirin E.C. [Ecotrin] 81 mg PO DAILY@0800 #30 tablet 03/20/16 Atorvastatin Calcium [Lipitor] 40 mg PO QHS #30 tablet 03/20/16 Carvedilol [Coreg (Beta Roel)] 3.125 mg PO BID #60 tablet 03/20/16 Clopidogrel Bisulfate [Plavix] 75 mg PO DAILY #30 tablet 03/20/16 Lisinopril [Zestril] 2.5 mg PO DAILY #30 tablet 03/20/16 Nitroglycerin [Nitrostat] 0.4 mg SUBLINGUAL Q5M PRN #30 03/20/16 tablet - Allergies Allergies/Adverse Reactions: Allergies tetanus and diphtheria toxoids Adverse Reaction (Verified 03/17/16 14:31) Nausea/Vom/Diarrhea - Sleep Disorder Evaluation Hx of Sleep Apnea: No Do you snore loudly (louder than talking or can be heard through closed doors)?: Yes Do you often feel tired/ fatigued/ sleepy during daytime?: No Has anyone observed you stop breathing during sleep?: No History of Hypertension (for STOP score): No STOP Results: Negative Advance Directives - Advanced Directives Advance Directives: No - Living Will Living Will: No - Power of Utility Helicopter Repairer, Durable Power of Utility Helicopter Repairer for Healthcare: No - Information Education/Medical Records Advanced Care Planning Booklet Provided: Patient Declined Past Medical History - Problems and Co-Morbidities Problems AND Co-Morbidities: Smoking - QUIT 03/18/2016, Dyslipidemia, Obesity, Hypertension, Anxiety - Takes Zoloft for panic attacks - Past Medical Illness Other Medical Illnesses:: 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 - Past Cardiac Illness Past Cardiac Illness: Ejection Fraction - 35% 03/18/2016, Coronary Artery Disease - Other Other: Vision/Eye Problems - start of macular degeneration, wears glasses. - Cardiology Procedures/Interventions Cardiology Procedures/Interventions: Angioplasty, PCI w/Stenting, Heart Catheterization, Echocardiogram, Treadmill (Cardiolite) - Past Surgical History Surgical History: appendectomy, - - , septum repair. - Family History Summary Family History: Diabetes: Maternal - mother DM and Heart IA., Heart Disease: Maternal, Cancer: Paternal - father lung cancer . Review of Systems - Review of Systems Hints: Right click = Denies ([place]ash). Left click = Reports ([place]) Review of Present Symptoms: Reports: Fatigue, Appetite - Normal, Appetite - Special Diet - low salt, low cholesterol and fat., Sleep - Normal. Denies: Shortness of Breath at Rest, Shortness of Breath with Exertion, PVD, Operative Discomfort, Angina, Dizziness/Lightheadedness, Heart Arrhythmia/Irregularities, Sexual Changes Risk Factor Assessment - Chief Complaint Chief Complaint: Patient presents to cardiac rehab followign recent NSTEMI and PCI here in Feb 2016. - Pulse Pulse Rate: 79 - SpO2 97% Pulse Rhythm: Regular - Hypertension How long have you been treated?: 02/2016 Blood Pressure Sitting - Right Arm: 94/48 Blood Pressure Sitting - Left Arm: 98/60 - Smoking Do you use tobacco products? If so, how much and for how long?: Yes If no, have you EVER used tobacco products?: Quit less than 6 months ago - 1/2 PPD recently quit with hospitalization. Exposure to 2nd-hand smoke? How much and how long?: No Do you plan to quit smoking?: Yes - Obesity Height: 5 ft 2 in Weight:: 99.337 kg Weight in Pounds: 219.0 lbs Body Mass Index (BMI): 40.0 Nutritional Referral for Obesity: Yes - Physical Inactivity Physical Inactivity: None - Risk Stratification Risk Guidelines: Lowest Risk: Risk Factor for Smoking, Risk Factor for Dyslipidemia, Risk Factor for Diabetes, Risk Factor for Hypertension, Risk Factor for Depression, Highest Risk: Risk Factor for Obesity, Risk Factor for Sedentary Lifestyle - For Smoking Smoking Risk Guidelines: Smoking Low Risk: None or quit greater than 6 months ago. Smoking Moderate Risk: Smoker or quit 6 months or less ago. Smoking High Risk: Smoker - For Dyslipidemia Dyslipidemia Risk Guidelines: Low Risk: Moderate Risk: High Risk: 15-25% fat 25.1-29% fat >/= 30% fat. <7 % sat fat 7-9% sat fat >9% sat fat. <150 mg chol 150-299 mg chol >/= 300 mg chol. LDL <100 LDL 100-129 LDL >/= 130. Chol/HDL ratio <5.0 Chol/HDL ratio 5.0 -6.0 Chol/HDL ratio >6.0. Triglycerides <100 Triglycerides 100-149 Triglycerides >/= 150 - For Diabetes Mellitus Diabetes Risk Guidelines: Diabetes Low Risk: HgA1c <6.5% and/or FBG <120. Diabetes Moderate Risk: HgA1c 6.6-7.9% and/or FBG 120-180. Diabetes High Risk: HgA1c >/= 8% and/or FBG >180 - For Obesity/Overweight Obesity/Overweight Risk Guidelines: Obesity Low Risk: BMI <25.0. Obesity Moderate Risk: BMI 25-29.9. Obesity High Risk: BMI >/= 30.0 - For Hypertension Hypertension Risk Guidelines: Hypertension Low Risk: Systolic <120 and Diastolic <80. Hypertension Moderate Risk: Systolic 120-139 and Diastolic 80-89. Hypertension High Risk: Systolic >/= 140 and Diastolic >/= 90 - For Sedentary Lifestyle Sedentary Lifestyle Risk Guidelines: Sedentary Lifestyle Low Risk: >/= 1,500 kcal/week. Sedentary Lifestyle Moderate Risk: 700-1,499 kcal/week. Sedentary Lifestyle High Risk: < 700 kcal/week - For Depression Depression Risk Guidelines: Depression Low Risk: Not clinically depressed. Depression Moderate Risk: Mildly depressed. 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 Recreational Activities: I am able to engage in most, but not all activities Marital Status - Status Marital Status: - Current Living Arrangements Living Environment:: Alone - Children How many children do you have?: 1 - daughter Do any of your children live nearby?: Yes - lives in town - Safety Do you feel safe in your surroundings?: Yes - Assistance Do you need any assistance at home?: None Nutrition Survey - Nutrition Survey Instructions Scoring Instructions: Scoring is as follows: Yes = 2 points. No = 1 point. Patient score that is >/=12 is considered to be at potential nutritional risk and could benefit from a referral to a registered dietitian. - Nutrition Survey Initial Have you lost >10 lbs over the past 2 months without trying?: No Are you following a special diet at home for diabetes, low fat, or low salt?: Yes Are you interested in meeting with a dietitian for help understanding your diet?: Yes Do you eat less than 3 meals a day?: Yes Do you eat fatty meats (bliss, sausage, ribs, etc), fried foods, desserts, large amounts of salad dressings, margarine, butter, or cheese most days?: No Do you have food allergies? [Enter types in comment field]: No Do you eat in restaurants more than 3 times a week?: No Do you season food with salt, seasoning salt, or garlic salt?: No Do you used canned, boxed, frozen meals, or soups, seasoning packets?: No Total Score:: 12 Self-Efficacy - 6-Item Scale We would like to know how confident you are in doing certain activities. Please select your confidence level for:: Select your confidence level for the following using the scale 1-10 where 1 is not at all confident and 10 is totally confident. Your score is the average of all 6 responses. Fatigue: How confident are you that you can keep the fatigue caused by your disease from interfering with the things you want to do? Select Number: 6 Physical Discomfort or Pain: How confident are you that you can keep the physical discomfort or pain of your disease from interfering with the things you want to do? Select Number: 8 Emotional Distress: How confident are you that you can keep the emotional distress caused by your disease from interfering with the things you want to do? Select Number: 6 Other Symptoms or Health Problems: How confident are you that you can keep other symptoms or health problems from interfering with the things you want to do? Select Number: 8 Different Tasks and Activities: How confident are you that you can do the different tasks and activities needed to manage your health condition so as to reduce your need to see a doctor? Select Number: 9 Medication: How confident are you that you can do things other than just taking medication to reduce how much your illness affects your everyday life? Select Number: 9 Total Score:: 7 Mood Scale - Mood Scale Initial Assessment Mood Score Scale: For clinical purposes, a score of 5 or greater represents a positive depression screen. Use the following scale for scorin-4 = None. 5-9 = Mild depression. 10-15 = Moderate to severe depression Are you basically satisfied with your life?: No Have you dropped many of your activities and interests?: No Do you feel that your life is empty?: No Do you get bored?: Yes Are you in good spirits most of the time?: Yes Are you afraid that something bad is going to happen to you?: Yes Do you feel happy most of the time?: Yes Do you often feel helpless?: No Do you prefer to stay at home, rather than going out and doing new things?: No Do you feel you have more problems with your memory than most?: Yes Do you think it is wonderful to be alive now?: No Do you feel pretty worthless the way you are now?: No Do you feel full of energy?: No Do you feel that your situation is hopeless?: No Do you think that most people are better off than you?: No Total Mood Screening Score:: 6 Cardiac Rehabilitation Goals - Cardiac Rehab Goals Cardiac Rehabilitation Goals: 1. Maintain the individual as the primary focus of care. 2. To improve the patient's quality of life. 3. Identification of cardiac risk factors and provide cardiac risk factor management. 4. Enhance the psychosocial status of the patient. 5. Reconditioning enough to allow the patient to resume customary activities. 6. Control symptoms of cardiac disease - Scale Scale for measuring improvement of personal goals: Enter appropriate number in Comments. 2 = Unchanged. 3 = Slightly Better. 4 = Moderate Improvement. 5 = Met my Goal - Personal Goals Personal Goals: 30-day Re-assessment: Improve management of stress and emotions, Improve energy level, Participate in home exercise program, Get back to work, or to resume activities faster, Improve diet and eating habits (eat healthier), Control risk factors (learn risk factor modification) Knowledge Test - Check your knowledge Initial The #1 cause of in the [place] each year is:: Heart disease Which of the following is a common treatment for heart disease?: All of the above The arteries that feed the heart are called:: Coronary arteries HDL cholesterol is known as the good cholesterol.: False What disease increases your risk for heart disease?: Diabetes What food product raises blood cholesterol level the most?: Saturated fat The bad cholesterol in the blood is called:: HDL Hypertension is another word for:: High blood pressure A blood pressure reading of 148/88 is considered normal.: False Exercise will only benefit your health when your heart rate reaches a target level.: False Total Score:: 8 05/02/16 0947 <Electronically signed by Carroll Nguyễn > Date Carroll Nguyễn Outcome assessment reviewed. Exercise plan approved as documented. Treatment plan and goals support patient needs/abilities. Continue with current plan. I certify the patient demonstrates improvement and remains willing and capable of participation. the patient continues to benefit from cardiac rehab services/training. The patient may continue at current intensity, endurance and modality and progress per protocol. 05/07/16 1233 <Electronically signed by Star Ng MD> Cosigner Signature: Date Star Ng MD CC: Signed Tejal Maciel Start: 05-20-2016 End: 05-20-2016 Upper Ext Joint Only(Routine) Comments: See Note; NOTES: [facility] Imaging Services [address] [place] [address] Verdana 4d Upper Ext Joint Only(Routine) MR#: [id number] Acct: [id number] Name: GONZÁLEZ RAGSDALE Rep #: [id number] : 1960 F 56 From: Grayson Peterson MD PCP: Tejal Maciel Status: REG CLI Study: Upper Ext Joint Only(Routine) Date of Exam: 05/20/16 Exam# [id number] Ordering Dr: Swapna Don DO STUDY: MRI LEFT SHOULDER REASON FOR EXAM: Female, 56 years old. Their shoulder pain and decreased range of motion, status post pulling injury TECHNIQUE: Standardized fat and water weighted pulse sequences were obtained in all 3 orthogonal planes. COMPARISON: X-rays of the left shoulder on May 05, 2016. FINDINGS: There is mild tendinosis of the supraspinatus tendon. Normal infraspinatus tendon. Normal subscapularis tendon. Normal teres minor tendon. Normal supraspinatus muscle. Normal infraspinatus muscle. Normal subscapularis muscle. Normal teres minor muscle. Normal glenohumeral articulation. There are small cystic changes in the greater tuberosity of the humerus Normal biceps labral complex. Normal intracapsular long biceps tendon. Normal labrum. There is thickening of the axillary recess of the joint capsule consistent with adhesive capsulitis, with pericapsular edema (coronal T2 series 5 image 7). Normal rotator interval. There is moderate arthrosis of the acromioclavicular articulation. There is a Type II morphology (curved), with a neutral orientation. There is no subacromial-subdeltoid bursal fluid. Normal visualized coracohumeral and coracoacromial ligaments. Normal quadrilateral space. Normal axillary space. Normal deltoid muscle. Normal trapezius muscle. MRI/Upper Ext Joint Only(Routine) IMPRESSION: Mild supraspinatus tendinosis without tear. Thickening of the axillary recess of the joint capsule with pericapsular edema consistent with adhesive capsulitis. Moderate arthrosis of the acromioclavicular joint. Electronically Signed: Grayson Peterson MD, FACR at 13:09 EST , Service support [phone], CC: Tejal Maciel; Swapna Don DO Riverboat Master: Signed Tejal Maciel Start: 05-07-2016 End: 05-07-2016 CR - History AND Physical Comments: See Note; NOTES: [facility] Cardiac Rehab [address] [place] [address] CR - History AND Physical MR#: [id number] Acct: [id number] Name: GONZÁLEZ RAGSDALE Rep #: [id number] : 1960 55 From: Carroll Nguyễn PCP: Tejal Maciel DOS: 05/02/16 CR - History AND Physical - General Arrival date:: 05/02/16 Arrival time:: 09:01 Date of Admission: 05/02/16 Referring Physician: Dr Star Ng Primary Diagnosis: NSTEMI and PCI-DAYTON 03/18/2016 - History of Present Cardiac Event Onset Date: Enter Onset Date of cardiac illnesses in Comment field below IA:: Yes - 03/18/2016 PTCA:: Yes - 03/18/2016 Type of Symptoms:: pain discomfort across the upper chest. Interventions with present event:: LHC- w/ PCI-DAYTNO-LAD 03/18/2016 Were there any complications?: NONE - Medications Home Medications: Ambulatory Orders Medication Instructions Recorded Sertraline HCl 200 mg PO DAILY 03/17/16 Aspirin E.C. [Ecotrin] 81 mg PO DAILY@0800 #30 tablet 03/20/16 Atorvastatin Calcium [Lipitor] 40 mg PO QHS #30 tablet 03/20/16 Carvedilol [Coreg (Beta Roel)] 3.125 mg PO BID #60 tablet 03/20/16 Clopidogrel Bisulfate [Plavix] 75 mg PO DAILY #30 tablet 03/20/16 Lisinopril [Zestril] 2.5 mg PO DAILY #30 tablet 03/20/16 Nitroglycerin [Nitrostat] 0.4 mg SUBLINGUAL Q5M PRN #30 03/20/16 tablet - Allergies Allergies/Adverse Reactions: Allergies tetanus and diphtheria toxoids Adverse Reaction (Verified 03/17/16 14:31) Nausea/Vom/Diarrhea - Sleep Disorder Evaluation Hx of Sleep Apnea: No Do you snore loudly (louder than talking or can be heard through closed doors)?: Yes Do you often feel tired/ fatigued/ sleepy during daytime?: No Has anyone observed you stop breathing during sleep?: No History of Hypertension (for STOP score): No STOP Results: Negative Advance Directives - Advanced Directives Advance Directives: No - Living Will Living Will: No - Power of Utility Helicopter Repairer, Durable Power of Utility Helicopter Repairer for Healthcare: No - Information Education/Medical Records Advanced Care Planning Booklet Provided: Patient Declined Past Medical History - Problems and Co-Morbidities Problems AND Co-Morbidities: Smoking - QUIT 03/18/2016, Dyslipidemia, Obesity, Hypertension, Anxiety - Takes Zoloft for panic attacks - Past Medical Illness Other Medical Illnesses:: 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 - Past Cardiac Illness Past Cardiac Illness: Ejection Fraction - 35% 03/18/2016, Coronary Artery Disease - Other Other: Vision/Eye Problems - start of macular degeneration, wears glasses. - Cardiology Procedures/Interventions Cardiology Procedures/Interventions: Angioplasty, PCI w/Stenting, Heart Catheterization, Echocardiogram, Treadmill (Cardiolite) - Past Surgical History Surgical History: appendectomy, - - , septum repair. - Family History Summary Family History: Diabetes: Maternal - mother DM and Heart IA., Heart Disease: Maternal, Cancer: Paternal - father lung cancer . Review of Systems - Review of Systems Hints: Right click = Denies ([place]). Left click = Reports ([place]) Review of Present Symptoms: Reports: Fatigue, Appetite - Normal, Appetite - Special Diet - low salt, low cholesterol and fat., Sleep - Normal. Denies: Shortness of Breath at Rest, Shortness of Breath with Exertion, PVD, Operative Discomfort, Angina, Dizziness/Lightheadedness, Heart Arrhythmia/Irregularities, Sexual Changes Risk Factor Assessment - Chief Complaint Chief Complaint: Patient presents to cardiac rehab followign recent NSTEMI and PCI here in Feb 2016. - Pulse Pulse Rate: 79 - SpO2 97% Pulse Rhythm: Regular - Hypertension How long have you been treated?: 02/2016 Blood Pressure Sitting - Right Arm: 94/48 Blood Pressure Sitting - Left Arm: 98/60 - Smoking Do you use tobacco products? If so, how much and for how long?: Yes If no, have you EVER used tobacco products?: Quit less than 6 months ago - 1/2 PPD recently quit with hospitalization. Exposure to 2nd-hand smoke? How much and how long?: No Do you plan to quit smoking?: Yes - Obesity Height: 5 ft 2 in Weight:: 99.337 kg Weight in Pounds: 219.0 lbs Body Mass Index (BMI): 40.0 Nutritional Referral for Obesity: Yes - Physical Inactivity Physical Inactivity: None - Risk Stratification Risk Guidelines: Lowest Risk: Risk Factor for Smoking, Risk Factor for Dyslipidemia, Risk Factor for Diabetes, Risk Factor for Hypertension, Risk Factor for Depression, Highest Risk: Risk Factor for Obesity, Risk Factor for Sedentary Lifestyle - For Smoking Smoking Risk Guidelines: Smoking Low Risk: None or quit greater than 6 months ago. Smoking Moderate Risk: Smoker or quit 6 months or less ago. Smoking High Risk: Smoker - For Dyslipidemia Dyslipidemia Risk Guidelines: Low Risk: Moderate Risk: High Risk: 15-25% fat 25.1-29% fat >/= 30% fat. <7 % sat fat 7-9% sat fat >9% sat fat. <150 mg chol 150-299 mg chol >/= 300 mg chol. LDL <100 LDL 100-129 LDL >/= 130. Chol/HDL ratio <5.0 Chol/HDL ratio 5.0 -6.0 Chol/HDL ratio >6.0. Triglycerides <100 Triglycerides 100-149 Triglycerides >/= 150 - For Diabetes Mellitus Diabetes Risk Guidelines: Diabetes Low Risk: HgA1c <6.5% and/or FBG <120. Diabetes Moderate Risk: HgA1c 6.6-7.9% and/or FBG 120-180. Diabetes High Risk: HgA1c >/= 8% and/or FBG >180 - For Obesity/Overweight Obesity/Overweight Risk Guidelines: Obesity Low Risk: BMI <25.0. Obesity Moderate Risk: BMI 25-29.9. Obesity High Risk: BMI >/= 30.0 - For Hypertension Hypertension Risk Guidelines: Hypertension Low Risk: Systolic <120 and Diastolic <80. Hypertension Moderate Risk: Systolic 120-139 and Diastolic 80-89. Hypertension High Risk: Systolic >/= 140 and Diastolic >/= 90 - For Sedentary Lifestyle Sedentary Lifestyle Risk Guidelines: Sedentary Lifestyle Low Risk: >/= 1,500 kcal/week. Sedentary Lifestyle Moderate Risk: 700-1,499 kcal/week. Sedentary Lifestyle High Risk: < 700 kcal/week - For Depression Depression Risk Guidelines: Depression Low Risk: Not clinically depressed. Depression Moderate Risk: Mildly depressed. 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 Recreational Activities: I am able to engage in most, but not all activities Marital Status - Status Marital Status: - Current Living Arrangements Living Environment:: Alone - Children How many children do you have?: 1 - daughter Do any of your children live nearby?: Yes - lives in town - Safety Do you feel safe in your surroundings?: Yes - Assistance Do you need any assistance at home?: None Nutrition Survey - Nutrition Survey Instructions Scoring Instructions: Scoring is as follows: Yes = 2 points. No = 1 point. Patient score that is >/=12 is considered to be at potential nutritional risk and could benefit from a referral to a registered dietitian. - Nutrition Survey Initial Have you lost >10 lbs over the past 2 months without trying?: No Are you following a special diet at home for diabetes, low fat, or low salt?: Yes Are you interested in meeting with a dietitian for help understanding your diet?: Yes Do you eat less than 3 meals a day?: Yes Do you eat fatty meats (bliss, sausage, ribs, etc), fried foods, desserts, large amounts of salad dressings, margarine, butter, or cheese most days?: No Do you have food allergies? [Enter types in comment field]: No Do you eat in restaurants more than 3 times a week?: No Do you season food with salt, seasoning salt, or garlic salt?: No Do you used canned, boxed, frozen meals, or soups, seasoning packets?: No Total Score:: 12 Self-Efficacy - 6-Item Scale We would like to know how confident you are in doing certain activities. Please select your confidence level for:: Select your confidence level for the following using the scale 1-10 where 1 is not at all confident and 10 is totally confident. Your score is the average of all 6 responses. Fatigue: How confident are you that you can keep the fatigue caused by your disease from interfering with the things you want to do? Select Number: 6 Physical Discomfort or Pain: How confident are you that you can keep the physical discomfort or pain of your disease from interfering with the things you want to do? Select Number: 8 Emotional Distress: How confident are you that you can keep the emotional distress caused by your disease from interfering with the things you want to do? Select Number: 6 Other Symptoms or Health Problems: How confident are you that you can keep other symptoms or health problems from interfering with the things you want to do? Select Number: 8 Different Tasks and Activities: How confident are you that you can do the different tasks and activities needed to manage your health condition so as to reduce your need to see a doctor? Select Number: 9 Medication: How confident are you that you can do things other than just taking medication to reduce how much your illness affects your everyday life? Select Number: 9 Total Score:: 7 Mood Scale - Mood Scale Initial Assessment Mood Score Scale: For clinical purposes, a score of 5 or greater represents a positive depression screen. Use the following scale for scorin-4 = None. 5-9 = Mild depression. 10-15 = Moderate to severe depression Are you basically satisfied with your life?: No Have you dropped many of your activities and interests?: No Do you feel that your life is empty?: No Do you get bored?: Yes Are you in good spirits most of the time?: Yes Are you afraid that something bad is going to happen to you?: Yes Do you feel happy most of the time?: Yes Do you often feel helpless?: No Do you prefer to stay at home, rather than going out and doing new things?: No Do you feel you have more problems with your memory than most?: Yes Do you think it is wonderful to be alive now?: No Do you feel pretty worthless the way you are now?: No Do you feel full of energy?: No Do you feel that your situation is hopeless?: No Do you think that most people are better off than you?: No Total Mood Screening Score:: 6 Cardiac Rehabilitation Goals - Cardiac Rehab Goals Cardiac Rehabilitation Goals: 1. Maintain the individual as the primary focus of care. 2. To improve the patient's quality of life. 3. Identification of cardiac risk factors and provide cardiac risk factor management. 4. Enhance the psychosocial status of the patient. 5. Reconditioning enough to allow the patient to resume customary activities. 6. Control symptoms of cardiac disease - Scale Scale for measuring improvement of personal goals: Enter appropriate number in Comments. 2 = Unchanged. 3 = Slightly Better. 4 = Moderate Improvement. 5 = Met my Goal - Personal Goals Personal Goals: 30-day Re-assessment: Improve management of stress and emotions, Improve energy level, Participate in home exercise program, Get back to work, or to resume activities faster, Improve diet and eating habits (eat healthier), Control risk factors (learn risk factor modification) Knowledge Test - Check your knowledge Initial The #1 cause of in the [place] each year is:: Heart disease Which of the following is a common treatment for heart disease?: All of the above The arteries that feed the heart are called:: Coronary arteries HDL cholesterol is known as the good cholesterol.: False What disease increases your risk for heart disease?: Diabetes What food product raises blood cholesterol level the most?: Saturated fat The bad cholesterol in the blood is called:: HDL Hypertension is another word for:: High blood pressure A blood pressure reading of 148/88 is considered normal.: False Exercise will only benefit your health when your heart rate reaches a target level.: False Total Score:: 8 05/02/16 0947 <Electronically signed by Carroll Nguyễn > Date Carroll Nguyễn Outcome assessment reviewed. Exercise plan approved as documented. Treatment plan and goals support patient needs/abilities. Continue with current plan. I certify the patient demonstrates improvement and remains willing and capable of participation. the patient continues to benefit from cardiac rehab services/training. The patient may continue at current intensity, endurance and modality and progress per protocol. 05/07/16 1233 <Electronically signed by Star Ng MD> Cosigner Signature: Date Star Ng MD CC: Signed Tejal Maciel Start: 05-05-2016 End: 05-05-2016 Shoulder min 2 Views Comments: See Note; NOTES: [facility] Services [address] [place] [address] Verdabarbara 4d Shoulder min 2 Views MR#: [id number] Acct: [id number] Name: GONZÁLEZ RAGSDALE Rep #: [id number] : 1960 F 55 From: Nelson Wallace DO PCP: Tejal Maciel Status: REG CLI Study: Shoulder min 2 Views Date of Exam: 05/05/16 Exam# [id number] Ordering Dr: Tejal Maciel STUDY: X-RAY - LEFT SHOULDER REASON FOR EXAM: Female, 55 years old. Pain TECHNIQUE: 3 view(s) of the shoulder. COMPARISON: None. FINDINGS: Normal glenohumeral articulation. Mild degenerative hypertrophy at the acromioclavicular joint. Normal acromion. Normal humeral head and visualized proximal humerus. The soft tissue structures are unremarkable. Normal visualized pulmonary apex. RAD/Shoulder min 2 Views IMPRESSION: Degenerative changes of the shoulder. Electronically Signed: Nelson Wallace DO at 23:53 EST Tel [phone], Service support [phone], CC: Tejal Maciel Riverboat Master: Signed Tejal Maciel Work Phone: Start: 05-02-2016 End: 05-03-2016 Nuclear Stress Test - Chemical Comments: See Note; NOTES: [facility] [address] [place] [address] Rashawn 4d Nuclear Stress Test - Chemical MR#: [id number] Acct: [id number] Name: GONZÁLEZ RAGSDALE Rep #: [id number] : 1960 55 From: Riaz Moncada MD Primary Care: Raheem Tejal Status: REG CLI Ordering Dr: Star Ng MD Sex: F C DATE OF SERVICE: 05/02/2016 DATE OF STUDY: May 02, 2016. EXERCISE TOLERANCE TEST: The patient underwent pharmacologic (regadenoson) evaluation with a peak heart rate of 99 beats per minute (59% predicted maximum heart rate) and a peak blood pressure of 122/80 mmHg. The baseline ECG demonstrated normal sinus rhythm, anteroseptal IA pattern of indeterminate age, lateral IA pattern of indeterminate age. The peak pharmacologic ECG demonstrated no obvious ECG changes. There were no cardiac dysrhythmias pretest, during infusion, or recovery. The patient had no complaint of chest discomfort during pharmacologic infusion or recovery. The examination was discontinued secondary to completion of protocol. IMPRESSION: 1. Pharmacologic (regadenoson) evaluation. 2. Peak pharmacologic ECG with no obvious ECG changes. 3. Nuclear images pending. MYOCARDIAL PERFUSION IMAGING STUDY: TECHNIQUE: The patient was injected with 14.8 mCi of Tc99m Cardiolite and subsequently rest SPECT Cardiolite nuclear imaging was obtained in the horizontal long, vertical long and short axes views. The patient underwent pharmacologic (regadenoson) evaluation with a peak heart rate of 99 beats per minute (59% predicted maximum heart rate) and a peak blood pressure of 122/80 mmHg. The patient was injected with 44.4 mCi of Tc99m Cardiolite and subsequently stress SPECT Cardiolite nuclear imaging was obtained in the horizontal long, vertical long and short axes views. A gated Cardiolite study at peak stress was obtained. INTERPRETATION: Rest and stress SPECT Cardiolite nuclear imaging, status post realignment, normalization, and attenuation correction demonstrate areas of extracardiac/hepatic and gastrointestinal tracer uptake near the inferior segments without significant change between rest and stress. Both images demonstrate areas of diminished to absence of tracer uptake in portions of the mid to distal anterior, anterior apical, septal apical, distal lateral, lateral apical, and inferior apical segments without significant change between rest and stress. There is notation of absence of end systolic thickening and brightening in the aforementioned areas. The gated Cardiolite study demonstrates the appearance of diminished end systolic thickening and inward wall motion in the aforementioned areas and suggests evidence of dyskinetic wall motion in the apical areas. The reported LVEF is 50%. IMPRESSION: 1. Rest and stress SPECT Cardiolite nuclear imaging demonstrate myocardial perfusion changes appearing compatible with previous myocardial injury/infarction involving portions of the mid to distal anterior, anteroapical, septal apical, distal lateral, lateral apical, and inferoapical segments with no myocardial perfusion changes considered diagnostic for associated stress-induced myocardial ischemia. 2. The gated Cardiolite study suggests dyskinetic motion of the apical segments with gated LVEF of 50%. Riaz Moncada MD T: NTS JOB: [id number] 05/03/16 1002 <Electronically signed by Riaz Moncada MD> Date Riaz Moncada MD CC: Tejal Maciel; Star Ng MD Date Dictated: 05/02/16910 Date Transcribed: 05/02/16910 Riverboat Master: Signed Tejal Maciel Start: 04-28-2016 End: 05-02-2016 *Hepatic Function Panel Star Ng MD Work Phone: Start: 04-28-2016 End: 04-28-2016 DJN Star Ng MD Work Phone: Start: 04-28-2016 End: 04-28-2016 Ecg routine ecg w/least 12 lds w/i&r Star Ng MD Work Phone: Start: 04-28-2016 End: 10-27-2016 Echocardiography Star Ng MD Work Phone: Start: 04-28-2016 End: 04-28-2016 Follow Up Appt 6 months Star Ng MD Work Phone: Start: 04-28-2016 End: 05-02-2016 Lipid 1996 panel - Serum or Plasma Star Ng MD Work Phone: Start: 04-28-2016 End: 04-29-2016 Referral to partridge farmer Star Ng MD Work Phone: Start: 03-17-2016 End: 03-17-2016 Chest 1 View (Portable) Comments: See Note; NOTES: [facility] Services [address] [place] [address] Verdana 4d Chest 1 View (Portable) MR#: [id number] Acct: [id number] Name: GONZÁLEZ RAGSDALE Rep #: [id number] : 1960 F 55 From: Khoi Avila MD PCP: Tejal Maciel Status: PRE ER Study: Chest 1 View (Portable) Date of Exam: 03/17/16 Exam# [id number] Ordering Dr: Provider, Ed P. STUDY: X-RAY CHEST REASON FOR EXAM: Female, 55 years old. Chest pain for 2 days. TECHNIQUE: Single frontal view of the chest. COMPARISON: None. FINDINGS: The lungs are mildly hyperexpanded. There is no demonstrated pleural abnormality. There is borderline cardiomegaly. Normal mediastinum and jessica. Normal visualized pulmonary arteries. There is aortic tortuosity. Normal visualized thoracic spine. Normal visualized ribs, clavicles, and shoulders. There is no demonstrated abnormality of the visualized soft tissue structures of the upper abdomen. RAD/Chest 1 View (Portable) IMPRESSION: Borderline cardiomegaly with hyperexpansion. No acute pathology. Electronically Signed: Khoi Avila MD at 13:23 EST , Service support [phone], CC: Tejal Maciel; ED PHYSICIAN PROVIDER Riverboat Master: Signed Tejal Maciel Appendectomy Lacey Oliverlear Comment on above: as a child Appendectomy Tony Aguilar Comment on above: as a child section Lacey balderas Comment on above: 1985 section Tony rao Comment on above: 1985 deviated septum repa ir 1987 Lacey Covarrubias deviated septum repa ir 1987 Marielle Shook deviated septum repa ir 1987 Tony Aguilar deviated septum repa ir 1987 Marielle Shook deviated septum repa ir 1987 Tony Ron H/O: section Marielle Shook Comment on above: 1985 H/O: section Marielle Shook Comment on above: 1985 H/O: section Tony Ron Comment on above: 1985 History of appendectomy Macario Shook Comment on above: as a child History of appendectomy Macario Shook Comment on above: as a child History of appendectomy Curtis Ron Comment on above: as a child Plan of Treatment Date Care Activity Detail Author Start: 08-17-2024 Evaluation of diagnostic study results [facility] Start: 01-01-2022 Procedure Education Eprescribed prescriptions (G8553) [facility]; [facility] Work Phone: Start: 01-01-2022 Comprehensive metabolic panel METABOLIC PANEL, COMPREHENSIVE (09778) [facility]; [facility] Work Phone: Start: 01-01-2022 25 hydroxy includes fractions if performed CALCIFEDIOL (39245) [facility]; [facility] Work Phone: Start: 01-01-2022 Assay of thyroid stimulating hormone tsh TSH (THYROID STIMULATING HORMONE) (55159) [facility]; [facility] Work Phone: Start: 01-01-2022 Lipid panel LIPID PANEL (68972) [facility]; [facility] Work Phone: Start: 01-01-2022 Blood count complete auto&auto difrntl wbc CBC, PLATELETS & AUT DIFF (67661) [facility]; [facility] Work Phone: Start: 03-06-2020 Procedure Education Eprescribed prescriptions (G8553) [facility]; [facility] Work Phone: Start: 03-06-2020 Provider Instructions for Treatment Follow up if no improvement or if symptoms worsen [facility]; [facility] Work Phone: Start: 02-28-2020 Procedure Education Eprescribed prescriptions (G8553) [facility]; [facility] Work Phone: Start: 02-28-2020 Provider Instructions for Treatment Follow up if no improvement or if symptoms worsen [facility]; [facility] Work Phone: Start: 02-27-2020 Procedure Education Eprescribed prescriptions (G8553) [facility]; [facility] Work Phone: Start: 07-27-2019 Procedure Education Eprescribed prescriptions (G8553) [facility]; [facility] Work Phone: Start: 07-27-2019 Provider Instructions for Treatment Follow up if no improvement or if symptoms worsen [facility]; [facility] Work Phone: Start: 07-22-2019 Procedure Education Eprescribed prescriptions (G8553) [facility]; [facility] Work Phone: Start: 07-22-2019 Provider Instructions for Treatment Follow up on Thursday [facility]; [facility] Work Phone: Start: 07-20-2019 Procedure Education Eprescribed prescriptions (G8553) [facility]; [facility] Work Phone: Start: 07-04-2019 Provider Instructions for Treatment [facility]; [facility] Work Phone: Start: 01-26-2019 Procedure Education Eprescribed prescriptions (G8553) [facility] Work Phone: Start: 01-26-2019 Provider Instructions for Treatment [facility] Work Phone: Start: 01-26-2019 Glucose [Mass/Vol] GLUCOSE (98413) [facility] Work Phone: Start: 01-26-2019 Glucose quantitative blood xcpt reagent strip GLUCOSE (84488) [facility]; [facility] Work Phone: Start: 01-26-2019 Lipid panel Lipid Panel (54954) [facility] Work Phone: Start: 01-27-2018 Procedure Education Eprescribed prescriptions (G8553) [facility] Work Phone: Start: 01-27-2018 Provider Instructions for Treatment [facility] Work Phone: Start: 01-27-2018 Lipid panel LIPID PANEL (36987) [facility] Work Phone: Comment on above: send to Ng Start: 01-27-2018 Gluc bld gluc mntr dev cleared fda spec home use Blood Glucose , Office (21382) [facility]; [facility] Work Phone: Comment on above: 88 Start: 01-27-2018 Glucose mass conc Blood Glucose , Office (74396) [facility] Work Phone: Comment on above: 88 Start: 07-23-2017 End: 07-23-2017 Appointment Appointment [facility] Work Phone: Start: 01-30-2017 End: 01-30-2017 Appointment Appointment [facility] Work Phone: Start: 01-30-2017 End: 01-30-2017 *BMP *BMP [facility] Work Phone: Start: 01-30-2017 End: 01-30-2017 *UA - Urinalysis w/o Micro *UA - Urinalysis w/o Micro [facility] Work Phone: Start: 01-30-2017 End: 01-30-2017 CBC W Auto Differential panel - Blood *CBC without Diff [facility] Work Phone: Start: 01-30-2017 End: 01-30-2017 Chest x-ray X-Ray, Chest, PA & Lateral [facility] Work Phone: Start: 01-30-2017 End: 01-30-2017 DJN DJN [facility] Work Phone: Start: 01-30-2017 End: 01-30-2017 Follow Up Appt 6 months Follow Up Appt 6 months [facility] Work Phone: Start: 01-30-2017 End: 01-30-2017 INR Coag RelTime (PPP) *PT/INR [facility] Work Phone: Start: 01-30-2017 End: 01-30-2017 Pacemaker Primary Insertion Pacemaker Primary Insertion [facility] Work Phone: Start: 11-20-2016 End: 11-20-2016 Echocardiography Echocardiogram (limited) [facility] Work Phone: Start: 10-31-2016 End: 05-07-2016 *Hepatic Function Panel *Hepatic Function Panel [facility] Work Phone: Start: 10-31-2016 End: 05-28-2016 Lipid panel [AGGREGATE] *Lipid Profile CC PCP [facility] Work Phone: Start: 10-30-2016 End: 10-31-2016 DJN EMILY [facility] Work Phone: Start: 10-30-2016 End: 10-31-2016 EPS Referral EPS Referral Jude Ballesteros, [facility], [address] [place] [address], [id number] [facility] Work Phone: Start: 10-30-2016 End: 10-31-2016 Follow Up Appt 3 months Follow Up Appt 3 months [facility] Work Phone: Start: 10-30-2016 End: 10-31-2016 Follow Up BP Check Follow Up BP Check [facility] Work Phone: Start: 05-28-2016 End: 05-28-2016 Occupational Therapy General Occupational Therapy General Rehab [facility], [address] [place] [address], [id number] [facility] Work Phone: Start: 05-09-2016 End: 05-09-2016 Mri any jt upper extremity w/o contrast matrl MRI Joint Upper Extremity [facility] Work Phone: Start: 05-05-2016 Procedure Education Eprescribed prescriptions ([id number]) [facility] Work Phone: Start: 05-05-2016 Provider Instructions for Treatment Follow up if no improvement or if symptoms worsen [facility] Work Phone: Start: 04-28-2016 End: 05-02-2016 *Hepatic Function Panel *Hepatic Function Panel [facility] Work Phone: Start: 04-28-2016 End: 09-01-2016 Cardiac Rehab Card[facility] [address] [place], [address] [facility] Work Phone: Start: 04-28-2016 End: 04-28-2016 DJN DJN [facility] Work Phone: Start: 04-28-2016 End: 04-28-2016 Ecg routine ecg w/least 12 lds w/i&r EKG (In office) [facility] Work Phone: Start: 04-28-2016 End: 04-28-2016 Echocardiography Echocardiogram (complete) [facility] Work Phone: Start: 04-28-2016 End: 04-28-2016 Follow Up Appt 6 months Follow Up Appt 6 months [facility] Work Phone: Start: 04-28-2016 End: 05-02-2016 Lipid panel [AGGREGATE] *Lipid Profile CC PCP [facility] Work Phone: Start: 04-28-2016 End: 04-28-2016 Nuclear stress test -Lexiscan Nuclear stress test -Lexiscan [facility] Work Phone: Start: 01-22-2016 Provider Instructions for Treatment *Colon Cancer Screening [facility] Work Phone: Start: 01-22-2016 Lipid panel LIPID PANEL (38465) [facility] Work Phone: Start: 01-22-2016 25 hydroxy includes fractions if performed CALCIFEDIOL (00821) [facility] Work Phone: Start: 01-22-2016 Blood occult fecal hgb deter ia qual feces 1-3 FECAL OCCULT- Tubes sent home (03864) [facility] Work Phone: Start: 01-18-2015 Lipid panel LIPID PANEL (72365) [facility] Work Phone: Comment on above: recheck in appx 6 months, fasting Start: 01-18-2015 25 hydroxy includes fractions if performed CALCIFEDIOL (15417) [facility] Work Phone: Comment on above: recheck in appx 6-8 weeks Start: 06-13-2013 Provider Instructions for Treatment [facility] Work Phone: Start: 06-13-2013 Cytp cerv/vag auto thin layer prep mnl screen Thin prep Pap (67436) [facility] Work Phone: Start: 08-03-2012 Patient Education Mammogram *: gynecological health [facility] Work Phone: Start: 03-19-2012 Provider Instructions for Treatment *Otitis Externa Education [facility] Work Phone: Start: 11-14-2011 Provider Instructions for Treatment Follow up if no improvement or if symptoms worsen [facility] Work Phone: Start: 10-28-2011 Provider Instructions for Treatment Follow up in 1 week [facility] Work Phone: Start: 08-07-2011 Provider Instructions for Treatment Hip Bursa [facility] Work Phone: Start: 08-07-2011 Cyclic citrullinated peptide antibody CCP ANTIBODY (57617) [facility] Work Phone: Start: 08-07-2011 Sedimentation rate rbc non-automated SED RATE ERYTHROCYTE (04193) [facility] Work Phone: Start: 08-07-2011 Assay of thyroid stimulating hormone tsh TSH (11985) [facility]; [facility] Work Phone: Start: 08-07-2011 C-reactive protein C-REACTIVE PROTEIN (24186) [facility]; [facility] Work Phone: Start: 08-07-2011 CRP mass conc C-REACTIVE PROTEIN (82204) [facility] Work Phone: Start: 08-07-2011 Rheumatoid factor quantitative RHEUMATOID FACTOR-QUANT (73560) [facility] Work Phone: Start: 08-07-2011 Thyrotropin Qn TSH (47884) [facility] Work Phone: Start: 08-07-2011 Antinuclear antibodies nilsa NILSA (ANTINUCLEAR ANTIBODY) (13234) [facility]; [facility] Work Phone: Start: 08-07-2011 Nuclear Ab IF titer (S) NILSA (ANTINUCLEAR ANTIBODY) (17215) [facility] Work Phone: Start: 07-22-2011 Comprehensive metabolic panel Metabolic Panel, Comprehensive (19818) [facility] Work Phone: Start: 07-22-2011 Lipid panel Lipid Panel (36163) [facility] Work Phone: Start: 04-01-2011 Sedimentation rate rbc non-automated Sed Rate Erythrocyte (75345) [facility] Work Phone: Start: 04-01-2011 Blood count manual cell count each CBC with manual diff (77658) [facility] Work Phone: Start: 09-12-2010 Assay of thyroid stimulating hormone tsh TSH (53542) [facility]; [facility] Work Phone: Start: 09-12-2010 Thyrotropin Qn TSH (30286) [facility] Work Phone: Start: 09-12-2010 Comprehensive metabolic panel METABOLIC PANEL, COMPREHENSIVE (77490) [facility] Work Phone: Start: 09-12-2010 Lipid panel LIPID PANEL (63194) [facility] Work Phone: Start: 09-12-2010 Blood count manual cell count each CBC WITH MANUAL DIFF (60350) [facility] Work Phone: Start: 06-12-2009 Provider Instructions for Treatment FOLLOW UP IN 3 MONTHS [facility] Work Phone: Start: 06-12-2009 Hepatic function panel HEPATIC FUNCTION PANEL (02169) [facility] Work Phone: Start: 06-12-2009 Lipid panel Lipid Panel (82059) [facility] Work Phone: Comment on above: repeat August Start: 06-08-2009 Provider Instructions for Treatment FOLLOW UP IN 4 WEEKS with Anastacia to consider knee injection after [facility] Work Phone: Start: 06-08-2009 Comprehensive metabolic panel Metabolic Panel, Comprehensive (48031) [facility] Work Phone: Start: 06-08-2009 Lipid panel Lipid Panel (91744) [facility] Work Phone: Start: 12-28-2007 Assay of prolactin PROLACTIN (34726) [facility] Work Phone: Start: 12-28-2007 Protein mass conc PROLACTIN (78199) [facility] Work Phone: Start: 12-24-2007 Provider Instructions for Treatment [facility] Work Phone: Start: 12-21-2007 Provider Instructions for Treatment Cholesterol - Medication Side Effects [facility] Work Phone: Start: 12-21-2007 Lipid panel LIPID PANEL (56966) [facility] Work Phone: Start: 12-21-2007 Hepatic function panel HEPATIC FUNCTION PANEL (85159) [facility] Work Phone: Start: 12-09-2007 Glucose mass conc Glucose (90517) [facility] Work Phone: Start: 12-09-2007 Glucose quantitative blood xcpt reagent strip Glucose (16633) [facility]; [facility] Work Phone: Start: 12-09-2007 Lipid panel Lipid Panel (00868) [facility] Work Phone: Patient Education [facility] Work Phone: [facility] Work Phone: [facility] Work Phone: [facility] Work Phone: [facility] Work Phone: [facility] Work Phone: [facility] Work Phone: [facility] Work Phone: [facility] Work Phone[facility] Work Phone: [facility] Work Phone: [facility] Work Phone: [facility] Work Phone: [facility] Work Phone: [facility] Work Phone: [facility] Work Phone: [facility] Work Phone: [facility] Work Phone: INJECTION, KETOR OLAC TROMETHAMINE, PER 15 MG Ordered: 03-Aug-2012 Anastacia ARREDONDO, Benita Whaley Pending [facility] Work Phone: [facility] Work Phone: Nonsmoker : Epre scribed prescriptions ([id number]) [facility] Work Phone: [facility]; [facility] Work Phone: [facility] Work Phone: [facility] Work Phone: Payers Date Payer Category Payer Unknown [id number] 2024 Self-pay 2019 Unknown [id number] 2013 Unknown [id number] 2010 Unknown [id number] 2007 Private Health Insurance [id number] 1961 Unknown [id number] Unknown Unknown [id number] Unknown [id number] Social History Date Type Detail Facility Alcohol Use Current every da y smoker [facility] Work Phone: Comment on above: Occasional alcohol u se 3 cups coffee qd Full-time, [employer] , Lives [place] Tobacco Use: Current every da y smoker. [facility] Work Phone: Comment on above: Smokes 1 pack of cig arettes per day Tobacco Use: Tobacco Use: [facility] Work Phone: Comment on above: Smokes 1 pack of cig arettes per day Start: 05-25-2020 Tobacco smoking stat us NHIS Ex-smoker (finding) [facility] Start: 05-25-2020 Tobacco Use Tobacco Use [facility] Start: 1960 Sex Assigned At Female [facility] Clinical Notes Note Date & Type Note Facility Evaluation note No assessment information availa [facility] Work Phone: Instructions Name Patient Instructions Indication:BMI 45.0-49.9, adult Start: Instruction Type:Provider Instructions for Treatment How to Access Health Information Online using Patient Portal and 3rd [employer] Apps Indication:BMI 45.0-49.9, adult Start: Instruction Type:Patient Education How to access health information online Indication:Nonsmoker Start:28-Feb-2020 Instruction Type:Patient Education How to access health information online - Detail Indication:Nonsmoker Start:28-Feb-2020 Instruction Type:Patient Education Patient Instructions Indication:Nonsmoker Start:28-Feb-2020 Instruction Type:Provider Instructions for Treatment How to access health information online Indication:Nonsmoker Start:27-Feb-2020 Instruction Type:Patient Education How to access health information online - Detail Indication:Nonsmoker Start:27-Feb-2020 Instruction Type:Patient Education Patient Instructions Indication:Nonsmoker Start:27-Feb-2020 Instruction Type:Provider Instructions for Treatment How to access health information online Indication:BMI 45.0-49.9, adult Start:27-Jul-2019 Instruction Type:Patient Education How to access health information online - Detail Indication:BMI 45.0-49.9, adult Start:27-Jul-2019 Instruction Type:Patient Education Patient Instructions Indication:BMI 45.0-49.9, adult Start:27-Jul-2019 Instruction Type:Provider Instructions for Treatment How to access health information online Indication:Nonsmoker Start:22-Jul-2019 Instruction Type:Patient Education How to access health information online - Detail Indication:Nonsmoker Start:22-Jul-2019 Instruction Type:Patient Education Patient Instructions Indication:Nonsmoker Start:22-Jul-2019 Instruction Type:Provider Instructions for Treatment How to access health information online Indication:BMI 45.0-49.9, adult Start: 0 Instruction Type:Patient Education How to access health information online - Detail Indication:BMI 45.0-49.9, adult Start: 0 Instruction Type:Patient Education Patient Instructions Indication:BMI 45.0-49.9, adult Start: 0 Instruction Type:Provider Instructions for Treatment How to access health information online Indication:Nonsmoker Start:26-Jan-2019 Instruction Type:Patient Education How to access health information online - Detail Indication:Nonsmoker Start:26-Jan-2019 Instruction Type:Patient Education Patient Instructions Indication:Nonsmoker Start:26-Jan-2019 Instruction Type:Provider Instructions for Treatment How to access health information online Indication:Nonsmoker Start:27-Jan-2018 Instruction Type:Patient Education How to access health information online - Detail Indication:Nonsmoker Start:27-Jan-2018 Instruction Type:Patient Education Patient Instructions Indication:Nonsmoker Start:27-Jan-2018 Instruction Type:Provider Instructions for Treatment How to access health information online Indication:Nonsmoker Start: 7 Instruction Type:Patient Education How to access health information online - Detail Indication:Nonsmoker Start: 7 Instruction Type:Patient Education Patient Instructions Indication:Nonsmoker Start: 7 Instruction Type:Provider Instructions for Treatment How to access health information online Indication:Tobacco use disorder Start: 5 Instruction Type:Patient Education How to access health information online - Detail Indication:Tobacco use disorder Start: 5 Instruction Type:Patient Education Patient Instructions Indication:Tobacco use disorder Start: 5 Instruction Type:Provider Instructions for Treatment Patient Instructions Indication:Fall at home Start: 3 Instruction Type:Provider Instructions for Treatment Patient Instructions Indication:Screening for breast cancer Start: 3 Instruction Type:Provider Instructions for Treatment [facility]; [facility] Work Phone: Instructions* Name Dates Details Patient Instructions Indication:BMI 45.0-49.9, adult Start:06-Mar-2020 Instruction Type:Provider Instructions for Treatment How to Access Health Informa tion Online using Patient Portal and 3rd [employer] Apps Indication:BMI 45.0-49.9, adult Start:06-Mar-2020 Instruction Type:Patient Education How to access health informa tion online Indication:Nonsmoker Start:28-Feb-2020 Instruction Type:Patient Education How to access health informa tion online - Detail Indication:Nonsmoker Start:28-Feb-2020 Instruction Type:Patient Education Patient Instructions Indication:Nonsmoker Start:28-Feb-2020 Instruction Type:Provider Instructions for Treatment How to access health informa tion online Indication:Nonsmoker Start:27-Feb-2020 Instruction Type:Patient Education How to access health informa tion online - Detail Indication:Nonsmoker Start:27-Feb-2020 Instruction Type:Patient Education Patient Instructions Indication:Nonsmoker Start:27-Feb-2020 Instruction Type:Provider Instructions for Treatment How to access health informa tion online Indication:BMI 45.0-49.9, adult Start:27-Jul-2019 Instruction Type:Patient Education How to access health informa tion online - Detail Indication:BMI 45.0-49.9, adult Start:27-Jul-2019 Instruction Type:Patient Education Patient Instructions Indication:BMI 45.0-49.9, adult Start:27-Jul-2019 Instruction Type:Provider Instructions for Treatment How to access health informa tion online Indication:Nonsmoker Start:22-Jul-2019 Instruction Type:Patient Education How to access health informa tion online - Detail Indication:Nonsmoker Start:22-Jul-2019 Instruction Type:Patient Education Patient Instructions Indication:Nonsmoker Start:22-Jul-2019 Instruction Type:Provider Instructions for Treatment How to access health informa tion online Indication:BMI 45.0-49.9, adult Start:20-Jul-2019 Instruction Type:Patient Education How to access health informa tion online - Detail Indication:BMI 45.0-49.9, adult Start:20-Jul-2019 Instruction Type:Patient Education Patient Instructions Indication:BMI 45.0-49.9, adult Start:20-Jul-2019 Instruction Type:Provider Instructions for Treatment How to access health informa tion online Indication:Nonsmoker Start:26-Jan-2019 Instruction Type:Patient Education How to access health informa tion online - Detail Indication:Nonsmoker Start:26-Jan-2019 Instruction Type:Patient Education Patient Instructions Indication:Nonsmoker Start:26-Jan-2019 Instruction Type:Provider Instructions for Treatment How to access health informa tion online Indication:Nonsmoker Start:27-Jan-2018 Instruction Type:Patient Education How to access health informa tion online - Detail Indication:Nonsmoker Start:27-Jan-2018 Instruction Type:Patient Education Patient Instructions Indication:Nonsmoker Start:27-Jan-2018 Instruction Type:Provider Instructions for Treatment How to access health informa tion online Indication:Nonsmoker Start:05-May-2016 Instruction Type:Patient Education How to access health informa tion online - Detail Indication:Nonsmoker Start:05-May-2016 Instruction Type:Patient Education Patient Instructions Indication:Nonsmoker Start:05-May-2016 Instruction Type:Provider Instructions for Treatment How to access health informa tion online Indication:Tobacco use disorder Start:11-Jan-2015 Instruction Type:Patient Education How to access health informa tion online - Detail Indication:Tobacco use disorder Start:11-Jan-2015 Instruction Type:Patient Education Patient Instructions Indication:Tobacco use disorder Start:11-Jan-2015 Instruction Type:Provider Instructions for Treatment Patient Instructions Indication:Fall at home Start:13-Dec-2012 Instruction Type:Provider Instructions for Treatment Patient Instructions Indication:Screening for breast cancer Start:03-Aug-2012 Instruction Type:Provider Instructions for Treatment [facility]; [facility] Work Phone: Instructions* Name Dates Details Patient Instructions Indication:BMI 45.0-49.9, adult Start:06-Mar-2020 Instruction Type:Provider Instructions for Treatment How to Access Health Informa tion Online using Patient Portal and 3rd [employer] Apps Indication:BMI 45.0-49.9, adult Start:06-Mar-2020 Instruction Type:Patient Education How to access health informa tion online Indication:Nonsmoker Start:28-Feb-2020 Instruction Type:Patient Education How to access health informa tion online - Detail Indication:Nonsmoker Start:28-Feb-2020 Instruction Type:Patient Education Patient Instructions Indication:Nonsmoker Start:28-Feb-2020 Instruction Type:Provider Instructions for Treatment How to access health informa tion online Indication:Nonsmoker Start:27-Feb-2020 Instruction Type:Patient Education How to access health informa tion online - Detail Indication:Nonsmoker Start:27-Feb-2020 Instruction Type:Patient Education Patient Instructions Indication:Nonsmoker Start:27-Feb-2020 Instruction Type:Provider Instructions for Treatment How to access health informa tion online Indication:BMI 45.0-49.9, adult Start:27-Jul-2019 Instruction Type:Patient Education How to access health informa tion online - Detail Indication:BMI 45.0-49.9, adult Start:27-Jul-2019 Instruction Type:Patient Education Patient Instructions Indication:BMI 45.0-49.9, adult Start:27-Jul-2019 Instruction Type:Provider Instructions for Treatment How to access health informa tion online Indication:Nonsmoker Start:22-Jul-2019 Instruction Type:Patient Education How to access health informa tion online - Detail Indication:Nonsmoker Start:22-Jul-2019 Instruction Type:Patient Education Patient Instructions Indication:Nonsmoker Start:22-Jul-2019 Instruction Type:Provider Instructions for Treatment How to access health informa tion online Indication:BMI 45.0-49.9, adult Start:20-Jul-2019 Instruction Type:Patient Education How to access health informa tion online - Detail Indication:BMI 45.0-49.9, adult Start:20-Jul-2019 Instruction Type:Patient Education Patient Instructions Indication:BMI 45.0-49.9, adult Start:20-Jul-2019 Instruction Type:Provider Instructions for Treatment How to access health informa tion online Indication:Nonsmoker Start:26-Jan-2019 Instruction Type:Patient Education How to access health informa tion online - Detail Indication:Nonsmoker Start:26-Jan-2019 Instruction Type:Patient Education Patient Instructions Indication:Nonsmoker Start:26-Jan-2019 Instruction Type:Provider Instructions for Treatment How to access health informa tion online Indication:Nonsmoker Start:27-Jan-2018 Instruction Type:Patient Education How to access health informa tion online - Detail Indication:Nonsmoker Start:27-Jan-2018 Instruction Type:Patient Education Patient Instructions Indication:Nonsmoker Start:27-Jan-2018 Instruction Type:Provider Instructions for Treatment How to access health informa tion online Indication:Nonsmoker Start:05-May-2016 Instruction Type:Patient Education How to access health informa tion online - Detail Indication:Nonsmoker Start:05-May-2016 Instruction Type:Patient Education Patient Instructions Indication:Nonsmoker Start:05-May-2016 Instruction Type:Provider Instructions for Treatment How to access health informa tion online Indication:Tobacco use disorder Start:11-Jan-2015 Instruction Type:Patient Education How to access health informa tion online - Detail Indication:Tobacco use disorder Start:11-Jan-2015 Instruction Type:Patient Education Patient Instructions Indication:Tobacco use disorder Start:11-Jan-2015 Instruction Type:Provider Instructions for Treatment Patient Instructions Indication:Fall at home Start:13-Dec-2012 Instruction Type:Provider Instructions for Treatment Patient Instructions Indication:Screening for breast cancer Start:03-Aug-2012 Instruction Type:Provider Instructions for Treatment [facility]; [facility] Work Phone: Instructions* Name Dates Details Patient Instructions Indication:BMI 45.0-49.9, adult Start:06-Mar-2020 Instruction Type:Provider Instructions for Treatment How to Access Health Informa tion Online using Patient Portal and [employer] Apps Indication:BMI 45.0-49.9, adult Start:06-Mar-2020 Instruction Type:Patient Education How to access health informa tion online Indication:Nonsmoker Start:28-Feb-2020 Instruction Type:Patient Education How to access health informa tion online - Detail Indication:Nonsmoker Start:28-Feb-2020 Instruction Type:Patient Education Patient Instructions Indication:Nonsmoker Start:28-Feb-2020 Instruction Type:Provider Instructions for Treatment How to access health informa tion online Indication:Nonsmoker Start:27-Feb-2020 Instruction Type:Patient Education How to access health informa tion online - Detail Indication:Nonsmoker Start:27-Feb-2020 Instruction Type:Patient Education Patient Instructions Indication:Nonsmoker Start:27-Feb-2020 Instruction Type:Provider Instructions for Treatment How to access health informa tion online Indication:BMI 45.0-49.9, adult Start:27-Jul-2019 Instruction Type:Patient Education How to access health informa tion online - Detail Indication:BMI 45.0-49.9, adult Start:27-Jul-2019 Instruction Type:Patient Education Patient Instructions Indication:BMI 45.0-49.9, adult Start:27-Jul-2019 Instruction Type:Provider Instructions for Treatment How to access health informa tion online Indication:Nonsmoker Start:22-Jul-2019 Instruction Type:Patient Education How to access health informa tion online - Detail Indication:Nonsmoker Start:22-Jul-2019 Instruction Type:Patient Education Patient Instructions Indication:Nonsmoker Start:22-Jul-2019 Instruction Type:Provider Instructions for Treatment How to access health informa tion online Indication:BMI 45.0-49.9, adult Start:20-Jul-2019 Instruction Type:Patient Education How to access health informa tion online - Detail Indication:BMI 45.0-49.9, adult Start:20-Jul-2019 Instruction Type:Patient Education Patient Instructions Indication:BMI 45.0-49.9, adult Start:20-Jul-2019 Instruction Type:Provider Instructions for Treatment How to access health informa tion online Indication:Nonsmoker Start:26-Jan-2019 Instruction Type:Patient Education How to access health informa tion online - Detail Indication:Nonsmoker Start:26-Jan-2019 Instruction Type:Patient Education Patient Instructions Indication:Nonsmoker Start:26-Jan-2019 Instruction Type:Provider Instructions for Treatment How to access health informa tion online Indication:Nonsmoker Start:27-Jan-2018 Instruction Type:Patient Education How to access health informa tion online - Detail Indication:Nonsmoker Start:27-Jan-2018 Instruction Type:Patient Education Patient Instructions Indication:Nonsmoker Start:27-Jan-2018 Instruction Type:Provider Instructions for Treatment How to access health informa tion online Indication:Nonsmoker Start:05-May-2016 Instruction Type:Patient Education How to access health informa tion online - Detail Indication:Nonsmoker Start:05-May-2016 Instruction Type:Patient Education Patient Instructions Indication:Nonsmoker Start:05-May-2016 Instruction Type:Provider Instructions for Treatment How to access health informa tion online Indication:Tobacco use disorder Start:11-Jan-2015 Instruction Type:Patient Education How to access health informa tion online - Detail Indication:Tobacco use disorder Start:11-Jan-2015 Instruction Type:Patient Education Patient Instructions Indication:Tobacco use disorder Start:11-Jan-2015 Instruction Type:Provider Instructions for Treatment Patient Instructions Indication:Fall at home Start:13-Dec-2012 Instruction Type:Provider Instructions for Treatment Patient Instructions Indication:Screening for breast cancer Start:03-Aug-2012 Instruction Type:Provider Instructions for Treatment [facility]; [facility] Work Phone: Instructions* Name Dates Details Patient Instructions Indication:BMI 45.0-49.9, adult Start:06-Mar-2020 Instruction Type:Provider Instructions for Treatment How to Access Health Informa tion Online using Patient Portal and [employer]rd [employer] Apps Indication:BMI 45.0-49.9, adult Start:06-Mar-2020 Instruction Type:Patient Education How to access health informa tion online Indication:Nonsmoker Start:28-Feb-2020 Instruction Type:Patient Education How to access health informa tion online - Detail Indication:Nonsmoker Start:28-Feb-2020 Instruction Type:Patient Education Patient Instructions Indication:Nonsmoker Start:28-Feb-2020 Instruction Type:Provider Instructions for Treatment How to access health informa tion online Indication:Nonsmoker Start:27-Feb-2020 Instruction Type:Patient Education How to access health informa tion online - Detail Indication:Nonsmoker Start:27-Feb-2020 Instruction Type:Patient Education Patient Instructions Indication:Nonsmoker Start:27-Feb-2020 Instruction Type:Provider Instructions for Treatment How to access health informa tion online Indication:BMI 45.0-49.9, adult Start:27-Jul-2019 Instruction Type:Patient Education How to access health informa tion online - Detail Indication:BMI 45.0-49.9, adult Start:27-Jul-2019 Instruction Type:Patient Education Patient Instructions Indication:BMI 45.0-49.9, adult Start:27-Jul-2019 Instruction Type:Provider Instructions for Treatment How to access health informa tion online Indication:Nonsmoker Start:22-Jul-2019 Instruction Type:Patient Education How to access health informa tion online - Detail Indication:Nonsmoker Start:22-Jul-2019 Instruction Type:Patient Education Patient Instructions Indication:Nonsmoker Start:22-Jul-2019 Instruction Type:Provider Instructions for Treatment How to access health informa tion online Indication:BMI 45.0-49.9, adult Start:20-Jul-2019 Instruction Type:Patient Education How to access health informa tion online - Detail Indication:BMI 45.0-49.9, adult Start:20-Jul-2019 Instruction Type:Patient Education Patient Instructions Indication:BMI 45.0-49.9, adult Start:20-Jul-2019 Instruction Type:Provider Instructions for Treatment How to access health informa tion online Indication:Nonsmoker Start:26-Jan-2019 Instruction Type:Patient Education How to access health informa tion online - Detail Indication:Nonsmoker Start:26-Jan-2019 Instruction Type:Patient Education Patient Instructions Indication:Nonsmoker Start:26-Jan-2019 Instruction Type:Provider Instructions for Treatment How to access health informa tion online Indication:Nonsmoker Start:27-Jan-2018 Instruction Type:Patient Education How to access health informa tion online - Detail Indication:Nonsmoker Start:27-Jan-2018 Instruction Type:Patient Education Patient Instructions Indication:Nonsmoker Start:27-Jan-2018 Instruction Type:Provider Instructions for Treatment How to access health informa tion online Indication:Nonsmoker Start:05-May-2016 Instruction Type:Patient Education How to access health informa tion online - Detail Indication:Nonsmoker Start:05-May-2016 Instruction Type:Patient Education Patient Instructions Indication:Nonsmoker Start:05-May-2016 Instruction Type:Provider Instructions for Treatment How to access health informa tion online Indication:Tobacco use disorder Start:11-Jan-2015 Instruction Type:Patient Education How to access health informa tion online - Detail Indication:Tobacco use disorder Start:11-Jan-2015 Instruction Type:Patient Education Patient Instructions Indication:Tobacco use disorder Start:11-Jan-2015 Instruction Type:Provider Instructions for Treatment Patient Instructions Indication:Fall at home Start:13-Dec-2012 Instruction Type:Provider Instructions for Treatment Patient Instructions Indication:Screening for breast cancer Start:03-Aug-2012 Instruction Type:Provider Instructions for Treatment [facility]; [facility] Work Phone: Instructions* Name Dates Details Patient Instructions Indication:Anxiety associated with depression Start:01-Jan-2022 Instruction Type:Provider Instructions for Treatment How to Access Health Informa tion Online using Patient Portal and [employer]rd [employer] Apps Indication:Anxiety associated with depression Start:01-Jan-2022 Instruction Type:Patient Education Patient Instructions Indication:BMI 45.0-49.9, adult Start:06-Mar-2020 Instruction Type:Provider Instructions for Treatment How to Access Health Informa tion Online using Patient Portal and [employer]rd [employer] Apps Indication:BMI 45.0-49.9, adult Start:06-Mar-2020 Instruction Type:Patient Education How to access health informa tion online Indication:Nonsmoker Start:28-Feb-2020 Instruction Type:Patient Education How to access health informa tion online - Detail Indication:Nonsmoker Start:28-Feb-2020 Instruction Type:Patient Education Patient Instructions Indication:Nonsmoker Start:28-Feb-2020 Instruction Type:Provider Instructions for Treatment How to access health informa tion online Indication:Nonsmoker Start:27-Feb-2020 Instruction Type:Patient Education How to access health informa tion online - Detail Indication:Nonsmoker Start:27-Feb-2020 Instruction Type:Patient Education Patient Instructions Indication:Nonsmoker Start:27-Feb-2020 Instruction Type:Provider Instructions for Treatment How to access health informa tion online Indication:BMI 45.0-49.9, adult Start:27-Jul-2019 Instruction Type:Patient Education How to access health informa tion online - Detail Indication:BMI 45.0-49.9, adult Start:27-Jul-2019 Instruction Type:Patient Education Patient Instructions Indication:BMI 45.0-49.9, adult Start:27-Jul-2019 Instruction Type:Provider Instructions for Treatment How to access health informa tion online Indication:Nonsmoker Start:22-Jul-2019 Instruction Type:Patient Education How to access health informa tion online - Detail Indication:Nonsmoker Start:22-Jul-2019 Instruction Type:Patient Education Patient Instructions Indication:Nonsmoker Start:22-Jul-2019 Instruction Type:Provider Instructions for Treatment How to access health informa tion online Indication:BMI 45.0-49.9, adult Start:20-Jul-2019 Instruction Type:Patient Education How to access health informa tion online - Detail Indication:BMI 45.0-49.9, adult Start:20-Jul-2019 Instruction Type:Patient Education Patient Instructions Indication:BMI 45.0-49.9, adult Start:20-Jul-2019 Instruction Type:Provider Instructions for Treatment How to access health informa tion online Indication:Nonsmoker Start:26-Jan-2019 Instruction Type:Patient Education How to access health informa tion online - Detail Indication:Nonsmoker Start:26-Jan-2019 Instruction Type:Patient Education Patient Instructions Indication:Nonsmoker Start:26-Jan-2019 Instruction Type:Provider Instructions for Treatment How to access health informa tion online Indication:Nonsmoker Start:27-Jan-2018 Instruction Type:Patient Education How to access health informa tion online - Detail Indication:Nonsmoker Start:27-Jan-2018 Instruction Type:Patient Education Patient Instructions Indication:Nonsmoker Start:27-Jan-2018 Instruction Type:Provider Instructions for Treatment How to access health informa tion online Indication:Nonsmoker Start:05-May-2016 Instruction Type:Patient Education How to access health informa tion online - Detail Indication:Nonsmoker Start:05-May-2016 Instruction Type:Patient Education Patient Instructions Indication:Nonsmoker Start:05-May-2016 Instruction Type:Provider Instructions for Treatment How to access health informa tion online Indication:Tobacco use disorder Start:11-Jan-2015 Instruction Type:Patient Education How to access health informa tion online - Detail Indication:Tobacco use disorder Start:11-Jan-2015 Instruction Type:Patient Education Patient Instructions Indication:Tobacco use disorder Start:11-Jan-2015 Instruction Type:Provider Instructions for Treatment Patient Instructions Indication:Fall at home Start:13-Dec-2012 Instruction Type:Provider Instructions for Treatment Patient Instructions Indication:Screening for breast cancer Start:03-Aug-2012 Instruction Type:Provider Instructions for Treatment [facility]; [facility] Work Phone: Instructions* Name Dates Details Patient Instructions Indication:Anxiety associated with depression Start:01-Jan-2022 Instruction Type:Provider Instructions for Treatment How to Access Health Informa tion Online using Patient Portal and [employer] Apps Indication:Anxiety associated with depression Start:01-Jan-2022 Instruction Type:Patient Education Patient Instructions Indication:BMI 45.0-49.9, adult Start:06-Mar-2020 Instruction Type:Provider Instructions for Treatment How to Access Health Informa tion Online using Patient Portal and [employer] Apps Indication:BMI 45.0-49.9, adult Start:06-Mar-2020 Instruction Type:Patient Education How to access health informa tion online Indication:Nonsmoker Start:28-Feb-2020 Instruction Type:Patient Education How to access health informa tion online - Detail Indication:Nonsmoker Start:28-Feb-2020 Instruction Type:Patient Education Patient Instructions Indication:Nonsmoker Start:28-Feb-2020 Instruction Type:Provider Instructions for Treatment How to access health informa tion online Indication:Nonsmoker Start:27-Feb-2020 Instruction Type:Patient Education How to access health informa tion online - Detail Indication:Nonsmoker Start:27-Feb-2020 Instruction Type:Patient Education Patient Instructions Indication:Nonsmoker Start:27-Feb-2020 Instruction Type:Provider Instructions for Treatment How to access health informa tion online Indication:BMI 45.0-49.9, adult Start:27-Jul-2019 Instruction Type:Patient Education How to access health informa tion online - Detail Indication:BMI 45.0-49.9, adult Start:27-Jul-2019 Instruction Type:Patient Education Patient Instructions Indication:BMI 45.0-49.9, adult Start:27-Jul-2019 Instruction Type:Provider Instructions for Treatment How to access health informa tion online Indication:Nonsmoker Start:22-Jul-2019 Instruction Type:Patient Education How to access health informa tion online - Detail Indication:Nonsmoker Start:22-Jul-2019 Instruction Type:Patient Education Patient Instructions Indication:Nonsmoker Start:22-Jul-2019 Instruction Type:Provider Instructions for Treatment How to access health informa tion online Indication:BMI 45.0-49.9, adult Start:20-Jul-2019 Instruction Type:Patient Education How to access health informa tion online - Detail Indication:BMI 45.0-49.9, adult Start:20-Jul-2019 Instruction Type:Patient Education Patient Instructions Indication:BMI 45.0-49.9, adult Start:20-Jul-2019 Instruction Type:Provider Instructions for Treatment How to access health informa tion online Indication:Nonsmoker Start:26-Jan-2019 Instruction Type:Patient Education How to access health informa tion online - Detail Indication:Nonsmoker Start:26-Jan-2019 Instruction Type:Patient Education Patient Instructions Indication:Nonsmoker Start:26-Jan-2019 Instruction Type:Provider Instructions for Treatment How to access health informa tion online Indication:Nonsmoker Start:27-Jan-2018 Instruction Type:Patient Education How to access health informa tion online - Detail Indication:Nonsmoker Start:27-Jan-2018 Instruction Type:Patient Education Patient Instructions Indication:Nonsmoker Start:27-Jan-2018 Instruction Type:Provider Instructions for Treatment How to access health informa tion online Indication:Nonsmoker Start:05-May-2016 Instruction Type:Patient Education How to access health informa tion online - Detail Indication:Nonsmoker Start:05-May-2016 Instruction Type:Patient Education Patient Instructions Indication:Nonsmoker Start:05-May-2016 Instruction Type:Provider Instructions for Treatment How to access health informa tion online Indication:Tobacco use disorder Start:11-Jan-2015 Instruction Type:Patient Education How to access health informa tion online - Detail Indication:Tobacco use disorder Start:11-Jan-2015 Instruction Type:Patient Education Patient Instructions Indication:Tobacco use disorder Start:11-Jan-2015 Instruction Type:Provider Instructions for Treatment Patient Instructions Indication:Fall at home Start:13-Dec-2012 Instruction Type:Provider Instructions for Treatment Patient Instructions Indication:Screening for breast cancer Start:03-Aug-2012 Instruction Type:Provider Instructions for Treatment [facility]; [facility] Work Phone: Instructions* Name Dates Details Patient Instructions Indication:Anxiety associated with depression Start:01-Jan-2022 Instruction Type:Provider Instructions for Treatment How to Access Health Informa tion Online using Patient Portal and [employer] Apps Indication:Anxiety associated with depression Start:01-Jan-2022 Instruction Type:Patient Education Patient Instructions Indication:BMI 45.0-49.9, adult Start:06-Mar-2020 Instruction Type:Provider Instructions for Treatment How to Access Health Informa tion Online using Patient Portal and [employer] Apps Indication:BMI 45.0-49.9, adult Start:06-Mar-2020 Instruction Type:Patient Education How to access health informa tion online Indication:Nonsmoker Start:28-Feb-2020 Instruction Type:Patient Education How to access health informa tion online - Detail Indication:Nonsmoker Start:28-Feb-2020 Instruction Type:Patient Education Patient Instructions Indication:Nonsmoker Start:28-Feb-2020 Instruction Type:Provider Instructions for Treatment How to access health informa tion online Indication:Nonsmoker Start:27-Feb-2020 Instruction Type:Patient Education How to access health informa tion online - Detail Indication:Nonsmoker Start:27-Feb-2020 Instruction Type:Patient Education Patient Instructions Indication:Nonsmoker Start:27-Feb-2020 Instruction Type:Provider Instructions for Treatment How to access health informa tion online Indication:BMI 45.0-49.9, adult Start:27-Jul-2019 Instruction Type:Patient Education How to access health informa tion online - Detail Indication:BMI 45.0-49.9, adult Start:27-Jul-2019 Instruction Type:Patient Education Patient Instructions Indication:BMI 45.0-49.9, adult Start:27-Jul-2019 Instruction Type:Provider Instructions for Treatment How to access health informa tion online Indication:Nonsmoker Start:22-Jul-2019 Instruction Type:Patient Education How to access health informa tion online - Detail Indication:Nonsmoker Start:22-Jul-2019 Instruction Type:Patient Education Patient Instructions Indication:Nonsmoker Start:22-Jul-2019 Instruction Type:Provider Instructions for Treatment How to access health informa tion online Indication:BMI 45.0-49.9, adult Start:20-Jul-2019 Instruction Type:Patient Education How to access health informa tion online - Detail Indication:BMI 45.0-49.9, adult Start:20-Jul-2019 Instruction Type:Patient Education Patient Instructions Indication:BMI 45.0-49.9, adult Start:20-Jul-2019 Instruction Type:Provider Instructions for Treatment How to access health informa tion online Indication:Nonsmoker Start:26-Jan-2019 Instruction Type:Patient Education How to access health informa tion online - Detail Indication:Nonsmoker Start:26-Jan-2019 Instruction Type:Patient Education Patient Instructions Indication:Nonsmoker Start:26-Jan-2019 Instruction Type:Provider Instructions for Treatment How to access health informa tion online Indication:Nonsmoker Start:27-Jan-2018 Instruction Type:Patient Education How to access health informa tion online - Detail Indication:Nonsmoker Start:27-Jan-2018 Instruction Type:Patient Education Patient Instructions Indication:Nonsmoker Start:27-Jan-2018 Instruction Type:Provider Instructions for Treatment How to access health informa tion online Indication:Nonsmoker Start:05-May-2016 Instruction Type:Patient Education How to access health informa tion online - Detail Indication:Nonsmoker Start:05-May-2016 Instruction Type:Patient Education Patient Instructions Indication:Nonsmoker Start:05-May-2016 Instruction Type:Provider Instructions for Treatment How to access health informa tion online Indication:Tobacco use disorder Start:11-Jan-2015 Instruction Type:Patient Education How to access health informa tion online - Detail Indication:Tobacco use disorder Start:11-Jan-2015 Instruction Type:Patient Education Patient Instructions Indication:Tobacco use disorder Start:11-Jan-2015 Instruction Type:Provider Instructions for Treatment Patient Instructions Indication:Fall at home Start:13-Dec-2012 Instruction Type:Provider Instructions for Treatment Patient Instructions Indication:Screening for breast cancer Start:03-Aug-2012 Instruction Type:Provider Instructions for Treatment [facility]; [facility] Work Phone: Instructions* Name Dates Details Patient Instructions Indication:Anxiety associated with depression Start:01-Jan-2022 Instruction Type:Provider Instructions for Treatment How to Access Health Informa tion Online using Patient Portal and [employer] Apps Indication:Anxiety associated with depression Start:01-Jan-2022 Instruction Type:Patient Education Patient Instructions Indication:BMI 45.0-49.9, adult Start:06-Mar-2020 Instruction Type:Provider Instructions for Treatment How to Access Health Informa tion Online using Patient Portal and [employer] Apps Indication:BMI 45.0-49.9, adult Start:06-Mar-2020 Instruction Type:Patient Education How to access health informa tion online Indication:Nonsmoker Start:28-Feb-2020 Instruction Type:Patient Education How to access health informa tion online - Detail Indication:Nonsmoker Start:28-Feb-2020 Instruction Type:Patient Education Patient Instructions Indication:Nonsmoker Start:28-Feb-2020 Instruction Type:Provider Instructions for Treatment How to access health informa tion online Indication:Nonsmoker Start:27-Feb-2020 Instruction Type:Patient Education How to access health informa tion online - Detail Indication:Nonsmoker Start:27-Feb-2020 Instruction Type:Patient Education Patient Instructions Indication:Nonsmoker Start:27-Feb-2020 Instruction Type:Provider Instructions for Treatment How to access health informa tion online Indication:BMI 45.0-49.9, adult Start:27-Jul-2019 Instruction Type:Patient Education How to access health informa tion online - Detail Indication:BMI 45.0-49.9, adult Start:27-Jul-2019 Instruction Type:Patient Education Patient Instructions Indication:BMI 45.0-49.9, adult Start:27-Jul-2019 Instruction Type:Provider Instructions for Treatment How to access health informa tion online Indication:Nonsmoker Start:22-Jul-2019 Instruction Type:Patient Education How to access health informa tion online - Detail Indication:Nonsmoker Start:22-Jul-2019 Instruction Type:Patient Education Patient Instructions Indication:Nonsmoker Start:22-Jul-2019 Instruction Type:Provider Instructions for Treatment How to access health informa tion online Indication:BMI 45.0-49.9, adult Start:20-Jul-2019 Instruction Type:Patient Education How to access health informa tion online - Detail Indication:BMI 45.0-49.9, adult Start:20-Jul-2019 Instruction Type:Patient Education Patient Instructions Indication:BMI 45.0-49.9, adult Start:20-Jul-2019 Instruction Type:Provider Instructions for Treatment How to access health informa tion online Indication:Nonsmoker Start:26-Jan-2019 Instruction Type:Patient Education How to access health informa tion online - Detail Indication:Nonsmoker Start:26-Jan-2019 Instruction Type:Patient Education Patient Instructions Indication:Nonsmoker Start:26-Jan-2019 Instruction Type:Provider Instructions for Treatment How to access health informa tion online Indication:Nonsmoker Start:27-Jan-2018 Instruction Type:Patient Education How to access health informa tion online - Detail Indication:Nonsmoker Start:27-Jan-2018 Instruction Type:Patient Education Patient Instructions Indication:Nonsmoker Start:27-Jan-2018 Instruction Type:Provider Instructions for Treatment How to access health informa tion online Indication:Nonsmoker Start:05-May-2016 Instruction Type:Patient Education How to access health informa tion online - Detail Indication:Nonsmoker Start:05-May-2016 Instruction Type:Patient Education Patient Instructions Indication:Nonsmoker Start:05-May-2016 Instruction Type:Provider Instructions for Treatment How to access health informa tion online Indication:Tobacco use disorder Start:11-Jan-2015 Instruction Type:Patient Education How to access health informa tion online - Detail Indication:Tobacco use disorder Start:11-Jan-2015 Instruction Type:Patient Education Patient Instructions Indication:Tobacco use disorder Start:11-Jan-2015 Instruction Type:Provider Instructions for Treatment Patient Instructions Indication:Fall at home Start:13-Dec-2012 Instruction Type:Provider Instructions for Treatment Patient Instructions Indication:Screening for breast cancer Start:03-Aug-2012 Instruction Type:Provider Instructions for Treatment [facility] Work Phone: Instructions* Name Dates Details Patient Instructions Indication:Anxiety associated with depression Start:01-Jan-2022 Instruction Type:Provider Instructions for Treatment How to Access Health Informa tion Online using Patient Portal and [employer] Apps Indication:Anxiety associated with depression Start:01-Jan-2022 Instruction Type:Patient Education Patient Instructions Indication:BMI 45.0-49.9, adult Start:06-Mar-2020 Instruction Type:Provider Instructions for Treatment How to Access Health Informa tion Online using Patient Portal and [employer] Apps Indication:BMI 45.0-49.9, adult Start:06-Mar-2020 Instruction Type:Patient Education How to access health informa tion online Indication:Nonsmoker Start:28-Feb-2020 Instruction Type:Patient Education How to access health informa tion online - Detail Indication:Nonsmoker Start:28-Feb-2020 Instruction Type:Patient Education Patient Instructions Indication:Nonsmoker Start:28-Feb-2020 Instruction Type:Provider Instructions for Treatment How to access health informa tion online Indication:Nonsmoker Start:27-Feb-2020 Instruction Type:Patient Education How to access health informa tion online - Detail Indication:Nonsmoker Start:27-Feb-2020 Instruction Type:Patient Education Patient Instructions Indication:Nonsmoker Start:27-Feb-2020 Instruction Type:Provider Instructions for Treatment How to access health informa tion online Indication:BMI 45.0-49.9, adult Start:27-Jul-2019 Instruction Type:Patient Education How to access health informa tion online - Detail Indication:BMI 45.0-49.9, adult Start:27-Jul-2019 Instruction Type:Patient Education Patient Instructions Indication:BMI 45.0-49.9, adult Start:27-Jul-2019 Instruction Type:Provider Instructions for Treatment How to access health informa tion online Indication:Nonsmoker Start:22-Jul-2019 Instruction Type:Patient Education How to access health informa tion online - Detail Indication:Nonsmoker Start:22-Jul-2019 Instruction Type:Patient Education Patient Instructions Indication:Nonsmoker Start:22-Jul-2019 Instruction Type:Provider Instructions for Treatment How to access health informa tion online Indication:BMI 45.0-49.9, adult Start:20-Jul-2019 Instruction Type:Patient Education How to access health informa tion online - Detail Indication:BMI 45.0-49.9, adult Start:20-Jul-2019 Instruction Type:Patient Education Patient Instructions Indication:BMI 45.0-49.9, adult Start:20-Jul-2019 Instruction Type:Provider Instructions for Treatment How to access health informa tion online Indication:Nonsmoker Start:26-Jan-2019 Instruction Type:Patient Education How to access health informa tion online - Detail Indication:Nonsmoker Start:26-Jan-2019 Instruction Type:Patient Education Patient Instructions Indication:Nonsmoker Start:26-Jan-2019 Instruction Type:Provider Instructions for Treatment How to access health informa tion online Indication:Nonsmoker Start:27-Jan-2018 Instruction Type:Patient Education How to access health informa tion online - Detail Indication:Nonsmoker Start:27-Jan-2018 Instruction Type:Patient Education Patient Instructions Indication:Nonsmoker Start:27-Jan-2018 Instruction Type:Provider Instructions for Treatment How to access health informa tion online Indication:Nonsmoker Start:05-May-2016 Instruction Type:Patient Education How to access health informa tion online - Detail Indication:Nonsmoker Start:05-May-2016 Instruction Type:Patient Education Patient Instructions Indication:Nonsmoker Start:05-May-2016 Instruction Type:Provider Instructions for Treatment How to access health informa tion online Indication:Tobacco use disorder Start:11-Jan-2015 Instruction Type:Patient Education How to access health informa tion online - Detail Indication:Tobacco use disorder Start:11-Jan-2015 Instruction Type:Patient Education Patient Instructions Indication:Tobacco use disorder Start:11-Jan-2015 Instruction Type:Provider Instructions for Treatment Patient Instructions Indication:Fall at home Start:13-Dec-2012 Instruction Type:Provider Instructions for Treatment Patient Instructions Indication:Screening for breast cancer Start:03-Aug-2012 Instruction Type:Provider Instructions for Treatment [facility] Work Phone: Instructions* Name Dates Details Patient Instructions Indication:Anxiety associated with depression Start:01-Jan-2022 Instruction Type:Provider Instructions for Treatment How to Access Health Informa tion Online using Patient Portal and [employer]rd [employer] Apps Indication:Anxiety associated with depression Start:01-Jan-2022 Instruction Type:Patient Education Patient Instructions Indication:BMI 45.0-49.9, adult Start:06-Mar-2020 Instruction Type:Provider Instructions for Treatment How to Access Health Informa tion Online using Patient Portal and [employer]rd [employer] Apps Indication:BMI 45.0-49.9, adult Start:06-Mar-2020 Instruction Type:Patient Education How to access health informa tion online Indication:Nonsmoker Start:28-Feb-2020 Instruction Type:Patient Education How to access health informa tion online - Detail Indication:Nonsmoker Start:28-Feb-2020 Instruction Type:Patient Education Patient Instructions Indication:Nonsmoker Start:28-Feb-2020 Instruction Type:Provider Instructions for Treatment How to access health informa tion online Indication:Nonsmoker Start:27-Feb-2020 Instruction Type:Patient Education How to access health informa tion online - Detail Indication:Nonsmoker Start:27-Feb-2020 Instruction Type:Patient Education Patient Instructions Indication:Nonsmoker Start:27-Feb-2020 Instruction Type:Provider Instructions for Treatment How to access health informa tion online Indication:BMI 45.0-49.9, adult Start:27-Jul-2019 Instruction Type:Patient Education How to access health informa tion online - Detail Indication:BMI 45.0-49.9, adult Start:27-Jul-2019 Instruction Type:Patient Education Patient Instructions Indication:BMI 45.0-49.9, adult Start:27-Jul-2019 Instruction Type:Provider Instructions for Treatment How to access health informa tion online Indication:Nonsmoker Start:22-Jul-2019 Instruction Type:Patient Education How to access health informa tion online - Detail Indication:Nonsmoker Start:22-Jul-2019 Instruction Type:Patient Education Patient Instructions Indication:Nonsmoker Start:22-Jul-2019 Instruction Type:Provider Instructions for Treatment How to access health informa tion online Indication:BMI 45.0-49.9, adult Start:20-Jul-2019 Instruction Type:Patient Education How to access health informa tion online - Detail Indication:BMI 45.0-49.9, adult Start:20-Jul-2019 Instruction Type:Patient Education Patient Instructions Indication:BMI 45.0-49.9, adult Start:20-Jul-2019 Instruction Type:Provider Instructions for Treatment How to access health informa tion online Indication:Nonsmoker Start:26-Jan-2019 Instruction Type:Patient Education How to access health informa tion online - Detail Indication:Nonsmoker Start:26-Jan-2019 Instruction Type:Patient Education Patient Instructions Indication:Nonsmoker Start:26-Jan-2019 Instruction Type:Provider Instructions for Treatment How to access health informa tion online Indication:Nonsmoker Start:27-Jan-2018 Instruction Type:Patient Education How to access health informa tion online - Detail Indication:Nonsmoker Start:27-Jan-2018 Instruction Type:Patient Education Patient Instructions Indication:Nonsmoker Start:27-Jan-2018 Instruction Type:Provider Instructions for Treatment How to access health informa tion online Indication:Nonsmoker Start:05-May-2016 Instruction Type:Patient Education How to access health informa tion online - Detail Indication:Nonsmoker Start:05-May-2016 Instruction Type:Patient Education Patient Instructions Indication:Nonsmoker Start:05-May-2016 Instruction Type:Provider Instructions for Treatment How to access health informa tion online Indication:Tobacco use disorder Start:11-Jan-2015 Instruction Type:Patient Education How to access health informa tion online - Detail Indication:Tobacco use disorder Start:11-Jan-2015 Instruction Type:Patient Education Patient Instructions Indication:Tobacco use disorder Start:11-Jan-2015 Instruction Type:Provider Instructions for Treatment Patient Instructions Indication:Fall at home Start:13-Dec-2012 Instruction Type:Provider Instructions for Treatment Patient Instructions Indication:Screening for breast cancer Start:03-Aug-2012 Instruction Type:Provider Instructions for Treatment [facility] Work Phone: reason for referral (narrative)No reason for referral [facility] Work [facility]: Summary Purpose Family History No Family History Records FoundUnknown Family Member Name Dates Details Father Comments:mild empysema, smok er,dx lung ca and 04/2009 Status:Active Mother Comments:NIDDM,depression, H [place],High Cholesterol, age 62 Status:Active Sister 1 Comments:Lupus, RA, Sjorgens disease Status:Active Sister 2 Comments:MTHFR graves dis, v it d def. Status:Active Unknown Family Member Name Dates Details Father Comments:mild empysema, smok er,dx lung ca and 04/2009 Status:Active Mother Comments:NIDDM,depression, H [place],High Cholesterol, age 62 Status:Active Sister 1 Comments:Lupus, RA, Sjorgens disease Status:Active Sister 2 Comments:MTHFR graves dis, v it d def. Status:Active Unknown Family Member Name Dates Details Father Comments:mild empysema, smok er,dx lung ca and 04/2009 Status:Active Mother Comments:NIDDM,depression, H [place],High Cholesterol, age 62 Status:Active Sister 1 Comments:Lupus, RA, Sjorgens disease Status:Active Sister 2 Comments:MTHFR graves dis, v it d def. Status:Active Unknown Family Member Name Dates Details Father Comments:mild empysema, smok er,dx lung ca and 04/2009 Status:Active Mother Comments:NIDDM,depression, H [place],High Cholesterol, age 62 Status:Active Sister 1 Comments:Lupus, RA, Sjorgens disease Status:Active Sister 2 Comments:MTHFR graves dis, v it d def. Status:Active Unknown Family Member Name Dates Details Father Comments:mild empysema, smok er,dx lung ca and 04/2009 Status:Active Mother Comments:NIDDM,depression, H [place],High Cholesterol, age 62 Status:Active Sister 1 Comments:Lupus, RA, Sjorgens disease Status:Active Sister 2 Comments:MTHFR graves dis, v it d def. Status:Active Unknown Family Member Name Dates Details Father Comments:mild empysema, smok er,dx lung ca and 04/2009 Status:Active Mother Comments:NIDDM,depression, [place],High Cholesterol, age 62 Status:Active Sister 1 Comments:Lupus, RA, Sjorgens disease Status:Active Sister 2 Comments:MTHFR graves dis, v it d def. Status:Active Unknown Family Member Name Dates Details Father Comments:mild empysema, smok er,dx lung ca and 04/2009 Status:Active Mother Comments:NIDDM,depression, [place],High Cholesterol, age 62 Status:Active Sister 1 Comments:Lupus, RA, Sjorgens disease Status:Active Sister 2 Comments:MTHFR graves dis, v it d def. Status:Active Unknown Family Member Name Dates Details Father Comments:mild empysema, smok er,dx lung ca and 04/2009 Status:Active Mother Comments:NIDDM,depression, H [place],High Cholesterol, age 62 Status:Active Sister 1 Comments:Lupus, RA, Sjorgens disease Status:Active Sister 2 Comments:MTHFR graves dis, v it d def. Status:Active Unknown Family Member Name Dates Details Father Comments:mild empysema, smok er,dx lung ca and 04/2009 Status:Active Mother Comments:NIDDM,depression, [place],High Cholesterol, age 62 Status:Active Sister 1 Comments:Lupus, RA, Sjorgens disease Status:Active Sister 2 Comments:MTHFR graves dis, v it d def. Status:Active Unknown Family Member Name Dates Details Father Comments:mild empysema, smok er,dx lung ca and 04/2009 Status:Active Mother Comments:NIDDM,depression, H [place],High Cholesterol, age 62 Status:Active Sister 1 Comments:Lupus, RA, Sjorgens disease Status:Active Sister 2 Comments:MTHFR graves dis, v it d def. Status:Active Unknown Family Member Name Dates Details Father Comments:mild empysema, smok er,dx lung ca and 04/2009 Status:Active Mother Comments:NIDDM,depression, [place],High Cholesterol, age 62 Status:Active Sister 1 Comments:Lupus, RA, Sjorgens disease Status:Active Sister 2 Comments:MTHFR graves dis, v it d def. Status:Active Unknown Family Member Name Dates Details Father Comments:mild empysema, smok er,dx lung ca and 04/2009 Status:Active Mother Comments:NIDDM,depression, [place],High Cholesterol, age 62 Status:Active Sister 1 Comments:Lupus, RA, Sjorgens disease Status:Active Sister 2 Comments:MTHFR graves dis, v it d def. Status:Active Unknown Family Member Name Dates Details Father Comments:mild empysema, smok er,dx lung ca and 04/2009 Status:Active Mother Comments:NIDDM,depression, H [place],High Cholesterol, age 62 Status:Active Sister 1 Comments:Lupus, RA, Sjorgens disease Status:Active Sister 2 Comments:MTHFR graves dis, v it d def. Status:Active Unknown Family Member Name Dates Details Father Comments:mild empysema, smok er,dx lung ca and 04/2009 Status:Active Mother Comments:NIDDM,depression, H [place],High Cholesterol, age 62 Status:Active Sister 1 Comments:Lupus, RA, Sjorgens disease Status:Active Sister 2 Comments:MTHFR graves dis, v it d def. Status:Active Unknown Family Member Name Dates Details Father Comments:mild empysema, smok er,dx lung ca and 04/2009 Status:Active Mother Comments:NIDDM,depression, H [place],High Cholesterol, age 62 Status:Active Sister 1 Comments:Lupus, RA, Sjorgens disease Status:Active Sister 2 Comments:MTHFR graves dis, v it d def. Status:Active Unknown Family Member Name Dates Details Father Comments:mild empysema, smok er,dx lung ca and 04/2009 Status:Active Mother Comments:NIDDM,depression, H [place],High Cholesterol, age 62 Status:Active Sister 1 Comments:Lupus, RA, Sjorgens disease Status:Active Sister 2 Comments:MTHFR graves dis, v it d def. Status:Active Unknown Family Member Name Dates Details Father Comments:mild empysema, smok er,dx lung ca and 04/2009 Status:Active Mother Comments:NIDDM,depression, H [place],High Cholesterol, age 62 Status:Active Sister 1 Comments:Lupus, RA, Sjorgens disease Status:Active Sister 2 Comments:MTHFR graves dis, v it d def. Status:Active Unknown Family Member Name Dates Details Father Comments:mild empysema, smok er,dx lung ca and 04/2009 Status:Active Mother Comments:NIDDM,depression, [place],High Cholesterol, age 62 Status:Active Sister 1 Comments:Lupus, RA, Sjorgens disease Status:Active Sister 2 Comments:MTHFR graves dis, v it d def. Status:Active Unknown Family Member Name Dates Details Father Comments:mild empysema, smok er,dx lung ca and 04/2009 Status:Active Mother Comments:NIDDM,depression, H [place],High Cholesterol, age 62 Status:Active Sister 1 Comments:Lupus, RA, Sjorgens disease Status:Active Sister 2 Comments:MTHFR graves dis, v it d def. Status:Active Unknown Family Member Name Dates Details Father Comments:mild empysema, smok er,dx lung ca and 04/2009 Status:Active Mother Comments:NIDDM,depression, H [place],High Cholesterol, age 62 Status:Active Sister 1 Comments:Lupus, RA, Sjorgens disease Status:Active Sister 2 Comments:MTHFR graves dis, v it d def. Status:Active Relationship Condition Age at Onset Recorded Date/T [place] mother Coronary artery disease Unknown History of coronary artery bypass surgery 50 Diabetes mellitus Unknown father Malignant neoplasm Unknown Advance Directives No Advanced Directives Records Found Advance Directive Response Recorded Date/ Time Advance Directives No April 08, 2019 8:12am Instructions Name Dates Details Nonsmoker : How to access he alth information online Indication:Nonsmoker Nonsmoker : How to access he alth information online - Detail Indication:Nonsmoker Nonsmoker : Patient Instruct ions Indication:Nonsmoker Tobacco use disorder : How t o access health information online Indication:Tobacco use disorder Tobacco use disorder : How t o access health information online - Detail Indication:Tobacco use disorder Tobacco use disorder : Patie nt Instructions Indication:Tobacco use disorder Fall at home : Patient Instr uctions Indication:Fall at home Screening for breast cancer : Patient Instructions Indication:Screening for breast cancer Name Dates Details Nonsmoker : How to access he alth information online Indication:Nonsmoker Nonsmoker : How to access he alth information online - Detail Indication:Nonsmoker Nonsmoker : Patient Instruct ions Indication:Nonsmoker Tobacco use disorder : How t o access health information online Indication:Tobacco use disorder Tobacco use disorder : How t o access health information online - Detail Indication:Tobacco use disorder Tobacco use disorder : Patie nt Instructions Indication:Tobacco use disorder Fall at home : Patient Instr uctions Indication:Fall at home Screening for breast cancer : Patient Instructions Indication:Screening for breast cancer Name Dates Details How to access health informa tion online Indication:Nonsmoker Start:27-Jan-2018 Instruction Type:Patient Education How to access health informa tion online - Detail Indication:Nonsmoker Start:27-Jan-2018 Instruction Type:Patient Education Patient Instructions Indication:Nonsmoker Start:27-Jan-2018 Instruction Type:Provider Instructions for Treatment How to access health informa tion online Indication:Nonsmoker Start:05-May-2016 Instruction Type:Patient Education How to access health informa tion online - Detail Indication:Nonsmoker Start:05-May-2016 Instruction Type:Patient Education Patient Instructions Indication:Nonsmoker Start:05-May-2016 Instruction Type:Provider Instructions for Treatment How to access health informa tion online Indication:Tobacco use disorder Start:11-Jan-2015 Instruction Type:Patient Education How to access health informa tion online - Detail Indication:Tobacco use disorder Start:11-Jan-2015 Instruction Type:Patient Education Patient Instructions Indication:Tobacco use disorder Start:11-Jan-2015 Instruction Type:Provider Instructions for Treatment Patient Instructions Indication:Fall at home Start:13-Dec-2012 Instruction Type:Provider Instructions for Treatment Patient Instructions Indication:Screening for breast cancer Start:03-Aug-2012 Instruction Type:Provider Instructions for Treatment Name Dates Details How to access health informa tion online Indication:Nonsmoker Start:28-Feb-2020 Instruction Type:Patient Education How to access health informa tion online - Detail Indication:Nonsmoker Start:28-Feb-2020 Instruction Type:Patient Education Patient Instructions Indication:Nonsmoker Start:28-Feb-2020 Instruction Type:Provider Instructions for Treatment How to access health informa tion online Indication:Nonsmoker Start:27-Feb-2020 Instruction Type:Patient Education How to access health informa tion online - Detail Indication:Nonsmoker Start:27-Feb-2020 Instruction Type:Patient Education Patient Instructions Indication:Nonsmoker Start:27-Feb-2020 Instruction Type:Provider Instructions for Treatment How to access health informa tion online Indication:BMI 45.0-49.9, adult Start:27-Jul-2019 Instruction Type:Patient Education How to access health informa tion online - Detail Indication:BMI 45.0-49.9, adult Start:27-Jul-2019 Instruction Type:Patient Education Patient Instructions Indication:BMI 45.0-49.9, adult Start:27-Jul-2019 Instruction Type:Provider Instructions for Treatment How to access health informa tion online Indication:Nonsmoker Start:22-Jul-2019 Instruction Type:Patient Education How to access health informa tion online - Detail Indication:Nonsmoker Start:22-Jul-2019 Instruction Type:Patient Education Patient Instructions Indication:Nonsmoker Start:22-Jul-2019 Instruction Type:Provider Instructions for Treatment How to access health informa tion online Indication:BMI 45.0-49.9, adult Start:20-Jul-2019 Instruction Type:Patient Education How to access health informa tion online - Detail Indication:BMI 45.0-49.9, adult Start:20-Jul-2019 Instruction Type:Patient Education Patient Instructions Indication:BMI 45.0-49.9, adult Start:20-Jul-2019 Instruction Type:Provider Instructions for Treatment How to access health informa tion online Indication:Nonsmoker Start:26-Jan-2019 Instruction Type:Patient Education How to access health informa tion online - Detail Indication:Nonsmoker Start:26-Jan-2019 Instruction Type:Patient Education Patient Instructions Indication:Nonsmoker Start:26-Jan-2019 Instruction Type:Provider Instructions for Treatment How to access health informa tion online Indication:Nonsmoker Start:27-Jan-2018 Instruction Type:Patient Education How to access health informa tion online - Detail Indication:Nonsmoker Start:27-Jan-2018 Instruction Type:Patient Education Patient Instructions Indication:Nonsmoker Start:27-Jan-2018 Instruction Type:Provider Instructions for Treatment How to access health informa tion online Indication:Nonsmoker Start:05-May-2016 Instruction Type:Patient Education How to access health informa tion online - Detail Indication:Nonsmoker Start:05-May-2016 Instruction Type:Patient Education Patient Instructions Indication:Nonsmoker Start:05-May-2016 Instruction Type:Provider Instructions for Treatment How to access health informa tion online Indication:Tobacco use disorder Start:11-Jan-2015 Instruction Type:Patient Education How to access health informa tion online - Detail Indication:Tobacco use disorder Start:11-Jan-2015 Instruction Type:Patient Education Patient Instructions Indication:Tobacco use disorder Start:11-Jan-2015 Instruction Type:Provider Instructions for Treatment Patient Instructions Indication:Fall at home Start:13-Dec-2012 Instruction Type:Provider Instructions for Treatment Patient Instructions Indication:Screening for breast cancer Start:03-Aug-2012 Instruction Type:Provider Instructions for Treatment Name Dates Details How to access health informa tion online Indication:Nonsmoker Start:26-Jan-2019 Instruction Type:Patient Education How to access health informa tion online - Detail Indication:Nonsmoker Start:26-Jan-2019 Instruction Type:Patient Education Patient Instructions Indication:Nonsmoker Start:26-Jan-2019 Instruction Type:Provider Instructions for Treatment How to access health informa tion online Indication:Nonsmoker Start:27-Jan-2018 Instruction Type:Patient Education How to access health informa tion online - Detail Indication:Nonsmoker Start:27-Jan-2018 Instruction Type:Patient Education Patient Instructions Indication:Nonsmoker Start:27-Jan-2018 Instruction Type:Provider Instructions for Treatment How to access health informa tion online Indication:Nonsmoker Start:05-May-2016 Instruction Type:Patient Education How to access health informa tion online - Detail Indication:Nonsmoker Start:05-May-2016 Instruction Type:Patient Education Patient Instructions Indication:Nonsmoker Start:05-May-2016 Instruction Type:Provider Instructions for Treatment How to access health informa tion online Indication:Tobacco use disorder Start:11-Jan-2015 Instruction Type:Patient Education How to access health informa tion online - Detail Indication:Tobacco use disorder Start:11-Jan-2015 Instruction Type:Patient Education Patient Instructions Indication:Tobacco use disorder Start:11-Jan-2015 Instruction Type:Provider Instructions for Treatment Patient Instructions Indication:Fall at home Start:13-Dec-2012 Instruction Type:Provider Instructions for Treatment Patient Instructions Indication:Screening for breast cancer Start:03-Aug-2012 Instruction Type:Provider Instructions for Treatment Name Dates Details How to access health informa tion online Indication:Nonsmoker Start:27-Feb-2020 Instruction Type:Patient Education How to access health informa tion online - Detail Indication:Nonsmoker Start:27-Feb-2020 Instruction Type:Patient Education Patient Instructions Indication:Nonsmoker Start:27-Feb-2020 Instruction Type:Provider Instructions for Treatment How to access health informa tion online Indication:BMI 45.0-49.9, adult Start:27-Jul-2019 Instruction Type:Patient Education How to access health informa tion online - Detail Indication:BMI 45.0-49.9, adult Start:27-Jul-2019 Instruction Type:Patient Education Patient Instructions Indication:BMI 45.0-49.9, adult Start:27-Jul-2019 Instruction Type:Provider Instructions for Treatment How to access health informa tion online Indication:Nonsmoker Start:22-Jul-2019 Instruction Type:Patient Education How to access health informa tion online - Detail Indication:Nonsmoker Start:22-Jul-2019 Instruction Type:Patient Education Patient Instructions Indication:Nonsmoker Start:22-Jul-2019 Instruction Type:Provider Instructions for Treatment How to access health informa tion online Indication:BMI 45.0-49.9, adult Start:20-Jul-2019 Instruction Type:Patient Education How to access health informa tion online - Detail Indication:BMI 45.0-49.9, adult Start:20-Jul-2019 Instruction Type:Patient Education Patient Instructions Indication:BMI 45.0-49.9, adult Start:20-Jul-2019 Instruction Type:Provider Instructions for Treatment How to access health informa tion online Indication:Nonsmoker Start:26-Jan-2019 Instruction Type:Patient Education How to access health informa tion online - Detail Indication:Nonsmoker Start:26-Jan-2019 Instruction Type:Patient Education Patient Instructions Indication:Nonsmoker Start:26-Jan-2019 Instruction Type:Provider Instructions for Treatment How to access health informa tion online Indication:Nonsmoker Start:27-Jan-2018 Instruction Type:Patient Education How to access health informa tion online - Detail Indication:Nonsmoker Start:27-Jan-2018 Instruction Type:Patient Education Patient Instructions Indication:Nonsmoker Start:27-Jan-2018 Instruction Type:Provider Instructions for Treatment How to access health informa tion online Indication:Nonsmoker Start:05-May-2016 Instruction Type:Patient Education How to access health informa tion online - Detail Indication:Nonsmoker Start:05-May-2016 Instruction Type:Patient Education Patient Instructions Indication:Nonsmoker Start:05-May-2016 Instruction Type:Provider Instructions for Treatment How to access health informa tion online Indication:Tobacco use disorder Start:11-Jan-2015 Instruction Type:Patient Education How to access health informa tion online - Detail Indication:Tobacco use disorder Start:11-Jan-2015 Instruction Type:Patient Education Patient Instructions Indication:Tobacco use disorder Start:11-Jan-2015 Instruction Type:Provider Instructions for Treatment Patient Instructions Indication:Fall at home Start:13-Dec-2012 Instruction Type:Provider Instructions for Treatment Patient Instructions Indication:Screening for breast cancer Start:03-Aug-2012 Instruction Type:Provider Instructions for Treatment Name Dates Details Patient Instructions Indication:BMI 45.0-49.9, adult Start:06-Mar-2020 Instruction Type:Provider Instructions for Treatment How to Access Health Informa tion Online using Patient Portal and [employer] Apps Indication:BMI 45.0-49.9, adult Start:06-Mar-2020 Instruction Type:Patient Education How to access health informa tion online Indication:Nonsmoker Start:28-Feb-2020 Instruction Type:Patient Education How to access health informa tion online - Detail Indication:Nonsmoker Start:28-Feb-2020 Instruction Type:Patient Education Patient Instructions Indication:Nonsmoker Start:28-Feb-2020 Instruction Type:Provider Instructions for Treatment How to access health informa tion online Indication:Nonsmoker Start:27-Feb-2020 Instruction Type:Patient Education How to access health informa tion online - Detail Indication:Nonsmoker Start:27-Feb-2020 Instruction Type:Patient Education Patient Instructions Indication:Nonsmoker Start:27-Feb-2020 Instruction Type:Provider Instructions for Treatment How to access health informa tion online Indication:BMI 45.0-49.9, adult Start:27-Jul-2019 Instruction Type:Patient Education How to access health informa tion online - Detail Indication:BMI 45.0-49.9, adult Start:27-Jul-2019 Instruction Type:Patient Education Patient Instructions Indication:BMI 45.0-49.9, adult Start:27-Jul-2019 Instruction Type:Provider Instructions for Treatment How to access health informa tion online Indication:Nonsmoker Start:22-Jul-2019 Instruction Type:Patient Education How to access health informa tion online - Detail Indication:Nonsmoker Start:22-Jul-2019 Instruction Type:Patient Education Patient Instructions Indication:Nonsmoker Start:22-Jul-2019 Instruction Type:Provider Instructions for Treatment How to access health informa tion online Indication:BMI 45.0-49.9, adult Start:20-Jul-2019 Instruction Type:Patient Education How to access health informa tion online - Detail Indication:BMI 45.0-49.9, adult Start:20-Jul-2019 Instruction Type:Patient Education Patient Instructions Indication:BMI 45.0-49.9, adult Start:20-Jul-2019 Instruction Type:Provider Instructions for Treatment How to access health informa tion online Indication:Nonsmoker Start:26-Jan-2019 Instruction Type:Patient Education How to access health informa tion online - Detail Indication:Nonsmoker Start:26-Jan-2019 Instruction Type:Patient Education Patient Instructions Indication:Nonsmoker Start:26-Jan-2019 Instruction Type:Provider Instructions for Treatment How to access health informa tion online Indication:Nonsmoker Start:27-Jan-2018 Instruction Type:Patient Education How to access health informa tion online - Detail Indication:Nonsmoker Start:27-Jan-2018 Instruction Type:Patient Education Patient Instructions Indication:Nonsmoker Start:27-Jan-2018 Instruction Type:Provider Instructions for Treatment How to access health informa tion online Indication:Nonsmoker Start:05-May-2016 Instruction Type:Patient Education How to access health informa tion online - Detail Indication:Nonsmoker Start:05-May-2016 Instruction Type:Patient Education Patient Instructions Indication:Nonsmoker Start:05-May-2016 Instruction Type:Provider Instructions for Treatment How to access health informa tion online Indication:Tobacco use disorder Start:11-Jan-2015 Instruction Type:Patient Education How to access health informa tion online - Detail Indication:Tobacco use disorder Start:11-Jan-2015 Instruction Type:Patient Education Patient Instructions Indication:Tobacco use disorder Start:11-Jan-2015 Instruction Type:Provider Instructions for Treatment Patient Instructions Indication:Fall at home Start:13-Dec-2012 Instruction Type:Provider Instructions for Treatment Patient Instructions Indication:Screening for breast cancer Start:03-Aug-2012 Instruction Type:Provider Instructions for Treatment Name Dates Details Patient Instructions Indication:BMI 45.0-49.9, adult Start:06-Mar-2020 Instruction Type:Provider Instructions for Treatment How to Access Health Informa tion Online using Patient Portal and [employer] Apps Indication:BMI 45.0-49.9, adult Start:06-Mar-2020 Instruction Type:Patient Education How to access health informa tion online Indication:Nonsmoker Start:28-Feb-2020 Instruction Type:Patient Education How to access health informa tion online - Detail Indication:Nonsmoker Start:28-Feb-2020 Instruction Type:Patient Education Patient Instructions Indication:Nonsmoker Start:28-Feb-2020 Instruction Type:Provider Instructions for Treatment How to access health informa tion online Indication:Nonsmoker Start:27-Feb-2020 Instruction Type:Patient Education How to access health informa tion online - Detail Indication:Nonsmoker Start:27-Feb-2020 Instruction Type:Patient Education Patient Instructions Indication:Nonsmoker Start:27-Feb-2020 Instruction Type:Provider Instructions for Treatment How to access health informa tion online Indication:BMI 45.0-49.9, adult Start:27-Jul-2019 Instruction Type:Patient Education How to access health informa tion online - Detail Indication:BMI 45.0-49.9, adult Start:27-Jul-2019 Instruction Type:Patient Education Patient Instructions Indication:BMI 45.0-49.9, adult Start:27-Jul-2019 Instruction Type:Provider Instructions for Treatment How to access health informa tion online Indication:Nonsmoker Start:22-Jul-2019 Instruction Type:Patient Education How to access health informa tion online - Detail Indication:Nonsmoker Start:22-Jul-2019 Instruction Type:Patient Education Patient Instructions Indication:Nonsmoker Start:22-Jul-2019 Instruction Type:Provider Instructions for Treatment How to access health informa tion online Indication:BMI 45.0-49.9, adult Start:20-Jul-2019 Instruction Type:Patient Education How to access health informa tion online - Detail Indication:BMI 45.0-49.9, adult Start:20-Jul-2019 Instruction Type:Patient Education Patient Instructions Indication:BMI 45.0-49.9, adult Start:20-Jul-2019 Instruction Type:Provider Instructions for Treatment How to access health informa tion online Indication:Nonsmoker Start:26-Jan-2019 Instruction Type:Patient Education How to access health informa tion online - Detail Indication:Nonsmoker Start:26-Jan-2019 Instruction Type:Patient Education Patient Instructions Indication:Nonsmoker Start:26-Jan-2019 Instruction Type:Provider Instructions for Treatment How to access health informa tion online Indication:Nonsmoker Start:27-Jan-2018 Instruction Type:Patient Education How to access health informa tion online - Detail Indication:Nonsmoker Start:27-Jan-2018 Instruction Type:Patient Education Patient Instructions Indication:Nonsmoker Start:27-Jan-2018 Instruction Type:Provider Instructions for Treatment How to access health informa tion online Indication:Nonsmoker Start:05-May-2016 Instruction Type:Patient Education How to access health informa tion online - Detail Indication:Nonsmoker Start:05-May-2016 Instruction Type:Patient Education Patient Instructions Indication:Nonsmoker Start:05-May-2016 Instruction Type:Provider Instructions for Treatment How to access health informa tion online Indication:Tobacco use disorder Start:11-Jan-2015 Instruction Type:Patient Education How to access health informa tion online - Detail Indication:Tobacco use disorder Start:11-Jan-2015 Instruction Type:Patient Education Patient Instructions Indication:Tobacco use disorder Start:11-Jan-2015 Instruction Type:Provider Instructions for Treatment Patient Instructions Indication:Fall at home Start:13-Dec-2012 Instruction Type:Provider Instructions for Treatment Patient Instructions Indication:Screening for breast cancer Start:03-Aug-2012 Instruction Type:Provider Instructions for Treatment Name Dates Details Patient Instructions Indication:BMI 45.0-49.9, adult Start:06-Mar-2020 Instruction Type:Provider Instructions for Treatment How to Access Health Informa tion Online using Patient Portal and [employer] Apps Indication:BMI 45.0-49.9, adult Start:06-Mar-2020 Instruction Type:Patient Education How to access health informa tion online Indication:Nonsmoker Start:28-Feb-2020 Instruction Type:Patient Education How to access health informa tion online - Detail Indication:Nonsmoker Start:28-Feb-2020 Instruction Type:Patient Education Patient Instructions Indication:Nonsmoker Start:28-Feb-2020 Instruction Type:Provider Instructions for Treatment How to access health informa tion online Indication:Nonsmoker Start:27-Feb-2020 Instruction Type:Patient Education How to access health informa tion online - Detail Indication:Nonsmoker Start:27-Feb-2020 Instruction Type:Patient Education Patient Instructions Indication:Nonsmoker Start:27-Feb-2020 Instruction Type:Provider Instructions for Treatment How to access health informa tion online Indication:BMI 45.0-49.9, adult Start:27-Jul-2019 Instruction Type:Patient Education How to access health informa tion online - Detail Indication:BMI 45.0-49.9, adult Start:27-Jul-2019 Instruction Type:Patient Education Patient Instructions Indication:BMI 45.0-49.9, adult Start:27-Jul-2019 Instruction Type:Provider Instructions for Treatment How to access health informa tion online Indication:Nonsmoker Start:22-Jul-2019 Instruction Type:Patient Education How to access health informa tion online - Detail Indication:Nonsmoker Start:22-Jul-2019 Instruction Type:Patient Education Patient Instructions Indication:Nonsmoker Start:22-Jul-2019 Instruction Type:Provider Instructions for Treatment How to access health informa tion online Indication:BMI 45.0-49.9, adult Start:20-Jul-2019 Instruction Type:Patient Education How to access health informa tion online - Detail Indication:BMI 45.0-49.9, adult Start:20-Jul-2019 Instruction Type:Patient Education Patient Instructions Indication:BMI 45.0-49.9, adult Start:20-Jul-2019 Instruction Type:Provider Instructions for Treatment How to access health informa tion online Indication:Nonsmoker Start:26-Jan-2019 Instruction Type:Patient Education How to access health informa tion online - Detail Indication:Nonsmoker Start:26-Jan-2019 Instruction Type:Patient Education Patient Instructions Indication:Nonsmoker Start:26-Jan-2019 Instruction Type:Provider Instructions for Treatment How to access health informa tion online Indication:Nonsmoker Start:27-Jan-2018 Instruction Type:Patient Education How to access health informa tion online - Detail Indication:Nonsmoker Start:27-Jan-2018 Instruction Type:Patient Education Patient Instructions Indication:Nonsmoker Start:27-Jan-2018 Instruction Type:Provider Instructions for Treatment How to access health informa tion online Indication:Nonsmoker Start:05-May-2016 Instruction Type:Patient Education How to access health informa tion online - Detail Indication:Nonsmoker Start:05-May-2016 Instruction Type:Patient Education Patient Instructions Indication:Nonsmoker Start:05-May-2016 Instruction Type:Provider Instructions for Treatment How to access health informa tion online Indication:Tobacco use disorder Start:11-Jan-2015 Instruction Type:Patient Education How to access health informa tion online - Detail Indication:Tobacco use disorder Start:11-Jan-2015 Instruction Type:Patient Education Patient Instructions Indication:Tobacco use disorder Start:11-Jan-2015 Instruction Type:Provider Instructions for Treatment Patient Instructions Indication:Fall at home Start:13-Dec-2012 Instruction Type:Provider Instructions for Treatment Patient Instructions Indication:Screening for breast cancer Start:03-Aug-2012 Instruction Type:Provider Instructions for Treatment Name Dates Details Patient Instructions Indication:BMI 45.0-49.9, adult Start:06-Mar-2020 Instruction Type:Provider Instructions for Treatment How to Access Health Informa tion Online using Patient Portal and [employer] Apps Indication:BMI 45.0-49.9, adult Start:06-Mar-2020 Instruction Type:Patient Education How to access health informa tion online Indication:Nonsmoker Start:28-Feb-2020 Instruction Type:Patient Education How to access health informa tion online - Detail Indication:Nonsmoker Start:28-Feb-2020 Instruction Type:Patient Education Patient Instructions Indication:Nonsmoker Start:28-Feb-2020 Instruction Type:Provider Instructions for Treatment How to access health informa tion online Indication:Nonsmoker Start:27-Feb-2020 Instruction Type:Patient Education How to access health informa tion online - Detail Indication:Nonsmoker Start:27-Feb-2020 Instruction Type:Patient Education Patient Instructions Indication:Nonsmoker Start:27-Feb-2020 Instruction Type:Provider Instructions for Treatment How to access health informa tion online Indication:BMI 45.0-49.9, adult Start:27-Jul-2019 Instruction Type:Patient Education How to access health informa tion online - Detail Indication:BMI 45.0-49.9, adult Start:27-Jul-2019 Instruction Type:Patient Education Patient Instructions Indication:BMI 45.0-49.9, adult Start:27-Jul-2019 Instruction Type:Provider Instructions for Treatment How to access health informa tion online Indication:Nonsmoker Start:22-Jul-2019 Instruction Type:Patient Education How to access health informa tion online - Detail Indication:Nonsmoker Start:22-Jul-2019 Instruction Type:Patient Education Patient Instructions Indication:Nonsmoker Start:22-Jul-2019 Instruction Type:Provider Instructions for Treatment How to access health informa tion online Indication:BMI 45.0-49.9, adult Start:20-Jul-2019 Instruction Type:Patient Education How to access health informa tion online - Detail Indication:BMI 45.0-49.9, adult Start:20-Jul-2019 Instruction Type:Patient Education Patient Instructions Indication:BMI 45.0-49.9, adult Start:20-Jul-2019 Instruction Type:Provider Instructions for Treatment How to access health informa tion online Indication:Nonsmoker Start:26-Jan-2019 Instruction Type:Patient Education How to access health informa tion online - Detail Indication:Nonsmoker Start:26-Jan-2019 Instruction Type:Patient Education Patient Instructions Indication:Nonsmoker Start:26-Jan-2019 Instruction Type:Provider Instructions for Treatment How to access health informa tion online Indication:Nonsmoker Start:27-Jan-2018 Instruction Type:Patient Education How to access health informa tion online - Detail Indication:Nonsmoker Start:27-Jan-2018 Instruction Type:Patient Education Patient Instructions Indication:Nonsmoker Start:27-Jan-2018 Instruction Type:Provider Instructions for Treatment How to access health informa tion online Indication:Nonsmoker Start:05-May-2016 Instruction Type:Patient Education How to access health informa tion online - Detail Indication:Nonsmoker Start:05-May-2016 Instruction Type:Patient Education Patient Instructions Indication:Nonsmoker Start:05-May-2016 Instruction Type:Provider Instructions for Treatment How to access health informa tion online Indication:Tobacco use disorder Start:11-Jan-2015 Instruction Type:Patient Education How to access health informa tion online - Detail Indication:Tobacco use disorder Start:11-Jan-2015 Instruction Type:Patient Education Patient Instructions Indication:Tobacco use disorder Start:11-Jan-2015 Instruction Type:Provider Instructions for Treatment Patient Instructions Indication:Fall at home Start:13-Dec-2012 Instruction Type:Provider Instructions for Treatment Patient Instructions Indication:Screening for breast cancer Start:03-Aug-2012 Instruction Type:Provider Instructions for Treatment Chief Complaint and Reason for Visit Chief Complaint Admit Date RE-EST August 17, 2024 11:44 am Additional Source Comments INFORMATION SOURCE (unrecogn ized section and content) DATE CREATED AUTHOR 09/08/2017 [facility] DATE CREATED AUTHOR AUTHOR'S ORGANIZ ATION 09/28/2017 [facility] DATE CREATED AUTHOR AUTHOR'S ORGANIZ ATION 04/08/2022 [facility] DATE CREATED AUTHOR AUTHOR'S ORGANIZ ATION 08/31/2024 [facility] Care Teams (unrecognized sec tion and content) Team Status: Active Member Role Status Dates Tejal Maciel CABLE INSTALLATION TECHNICIAN, CABLE INSTALLATION TECHNICIAN-C Family Provider Active No Primary Care Physician Primary Care Provider Active Team Status: Inactive Member Role Status Dates Dr. Fidel Veliz MD Attending Provider Active Start: August 17, 2024 End: August 17, 2024 No Primary Care Physician Primary Care Provider Active Start: August 17, 2024 End: August 17, 2024 No Primary Care Physician Referring Provider Active Start: August 17, 2024 End: August 17, 2024 Goals (unrecognized section and content) Goals may be documented in a n alternate section FOR RECORDS PERTAINING TO PATIENTS WHO ARE OR HAVE BEEN ENROLLED IN A CHEMICAL DEPENDENCY/SUBSTANCEABUSE PROGRAM, SOME INFORMATION MAY BE OMITTED. This clinical summary was aggregated from multiple sources. Caution should be exercised in using it in the provision of clinical care. This summary normalizes information from multiple sources, and as a consequence, information in this document may materially change the coding, format and clinical context of patient data. In addition, data may be omitted in some cases. CLINICAL DECISIONS SHOULD BE BASED ON THE PRIMARY CLINICAL RECORDS. [facility] [employer] [facility]. provides no warranty or guarantee of the accuracy or completeness of information in this document.
--- NOTE | 2024-09-01 06:49 | ECHOCS_ITS ---
Reason For Study Reason For Study: CAD/ASHD Procedure This was a 2D Doppler, Color Flow transthoracic echocardiogram. The study was technically difficult. Contrast injection was performed. Exam performed in department. Left Ventricle Normal left ventricular thickness. Moderately dilated left ventricular cavity. Anterior, apical and septal akinesis. Estimated LVEF 30-35%. Stage I diastolic dysfunction. Right Ventricle Normal right ventricle. Atria The left atrium is mildly enlarged. Normal right atrium. Mitral Valve Mild (1+) mitral valve insufficiency. Tricuspid Valve Normal tricuspid valve. Aortic Valve Trisinus/trileaflet aortic valve. Pulmonic Valve The pulmonic valve is not well visualized. Great Vessels Normal sized aortic root. Pericardium/Pleural No pericardial effusion. Medication 22 gauge I.V. with prn adaptor inserted into right arm. Diluted definity 4ml given slow IV push to enhance endocardial definition. MMode/2D Measurements & Calculations LVIDd: 6.2 cm IVSd: 0.64 cm LVOT diam: 2.0 cm LVIDs: 5.3 cm LVPWd: 1.1 cm RVDd: 3.3 cm FS: 14.3 % LVOT area: 3.3 cm2 Ao root diam: 3.0 cm asc Aorta Diam: 3.1 cm LAV(MOD- bp): 54.1 ml LA dimension: 4.0 cm LAV(MOD- bp) Indexed: 25.1 ml/m2 LAV(MOD- sp2): 55.6 ml LAV(MOD- sp4): 47.9 ml SV(MOD-sp4): 68.7 ml SV(sp4- el): 72.1 ml LVAd ap4: 41.9 cm2 LVLd ap4: 8.7 cm SI(MOD-sp4): 32.0 ml/m2 EDV(MOD-sp4): 163.5 ml EDV(sp4-el): 170.6 ml LVAs ap4: 30.3 cm2 LVLs ap4: 7.9 cm ESV(MOD-sp4): 94.7 ml ESV(sp4-el): 98.5 ml EF(MOD-sp4): 42.0 % EF(sp4-el): 42.3 % LA A4 area: 17.8 cm2 LA dimension(2D): 4.2 cm RA A4 area: 10.7 cm2 TAPSE: 2.0 cm Time Measurements MV dec time: 0.17 sec Doppler Measurements & Calculations MV E max shaan: 98.0 cm/sec Lat Peak E' Shaan: 9.5 cm/sec Med Peak E' Shaan: 5.7 cm/sec MV A max shaan: 138.7 cm/sec E/E' lat: 10.4 E/E' med: 17.2 MV E/A: 0.71 MV V2 max: 184.4 cm/sec MV P1/2t max shaan: 131.9 cm/sec Ao V2 max: 206.3 cm/sec MV max P.6 mmHg MV P1/2t: 67.7 msec Ao max P.1 mmHg MV V2 mean: 99.1 cm/sec MV dec slope: 570.9 cm/sec2 Ao V2 mean: 134.3 cm/sec MV mean P.8 mmHg MVA(P1/2t): 3.3 cm2 Ao mean P.4 mmHg MV V2 VTI: 34.3 cm Ao V2 VTI: 42.5 cm MVA(VTI): 2.7 cm2 AV (velocity ratio): 0.66 LALITA(I,D): 2.2 cm2 LALITA(V,D): 2.0 cm2 LV V1 max: 126.1 cm/sec SV(LVOT): 92.2 ml LV V1 max P.4 mmHg LV V1 mean P.0 mmHg LV V1 mean: 80.2 cm/sec LV V1 VTI: 28.1 cm ECHO/Echo Complete W/ Contrast Interpretation Summary The study was technically difficult. Moderately dilated left ventricular cavity. Anterior, apical and septal akinesi s. Estimated LVEF 30-35%. Stage I diastolic dysfunction. The left atrium is mildly enlarged. Mild (1+) mitral valve insufficiency. Ordering Physician: Fidel Veliz Referring Physician: Fidel Veliz Performed By: Emerson Sanchez [facility]
[2024-09-01 09:29] LABS: Hematocrit 37.1 % (37-47); Hemoglobin 12.2 g/dL (12.0-15.0); Mean Corp Hgb Conc 32.9 g/dL (32-36); Mean Corpuscular Hgb 29.7 pg (27.0-32.0); Mean Corpuscular Volume 90.3 fL (81-99); Mean Platelet Vol. 10.3 fl (6.2-12.0); Platelet Count 207 K/mm3 (150-450); RBC Distribution Width CV 14.5 % (11.6-14.6); RBC Distribution Width SD 48.5 fl (35.1-43.9); Red Blood Count 4.11 M/mm3 (4.2-5.4); White Blood Count 7.8 K/mm3 (4.4-11.0)
[2024-09-01 10:03] LABS: ALB/GLOB Ratio 1.2 RATIO (0.9-2.4); AST(SGOT) 31 U/L (<=31); Alanine Aminotransfer ALT/SGPT 23 U/L (<=34); Albumin, Serum 3.9 g/dL (3.4-4.8); Alkaline Phosphatase 90 U/L (35-104); Anion Gap 11 (5-15); BUN 17 mg/dL (4-19); Calcium,Total 9.2 mg/dL (7.6-11.0); Carbon Dioxide 22.3 mmol/L (21.0-32.0); Chloride 104 mmol/L (98-108); Cholesterol 250 mg/dL (<=200); Creatinine, Serum 1.03 mg/dL (0.70-1.20); EST Glomerular Filtration Rate 61 (>60); Globulin 3.3 g/dL (2.2-4.2); Glucose 115 mg/dL (70-99); High Density Lipoprotein 61 mg/dL; Low Density Lipoprotein Calc. 166 mg/dL; Potassium 5.2 mmol/L (3.3-5.1); Protein, Total 7.1 g/dL (5.9-8.4); Sodium Level 137 mmol/L (133-145); Total Bilirubin 0.42 mg/dL (0.00-1.30); Triglycerides 116 mg/dL; Very Low Density Lipoprotein 23 mg/dL (5-40); cholesterol:hdl ratio screen 4.13
--- NOTE | 2024-09-01 13:45 | STRESSREP ---
Stress Test Report Date: 09/01/2024 Procedure: Pharmacologic stress nuclear imaging study Indications: Coronary artery disease Consent: Per the patient Procedure: The patient underwent pharmacologic (Regadenoson 0.4mg ) evaluation with a peak heart rate of 93 beats per minute (59%predicted maximal heart rate) and a peak blood pressure of 138/78 mmHg. The baseline ECG demonstrated sinus rhythm with left bundle branch block. The peak pharmacologic ECG was nondiagnostic secondary to baseline abnormalities. There were no cardiac dysrhythmias pretest, during pharmacologic infusion, or recovery. There was no complaint of chest discomfort during pharmacologic infusion or recovery. The patient was injected with 14.8 millicuries of technetium 99m Cardiolite and subsequently rest SPECT Cardiolite nuclear imaging was obtained in the horizontal long, vertical long, and short axis views. The patient underwent pharmacologic (Regadenoson) evaluation. The patient was injected with 45.0 millicuries of technetium 99m Cardiolite and subsequently stress SPECT Cardiolite nuclear imaging was obtained in the horizontal long, vertical long, and short axis views. No gated images available. The examination was stopped secondary to completion of protocol. Rest and stress SPECT Cardiolite nuclear imaging status post realignment, normalization, and attenuation correction demonstrate a large anterior and apical fixed defect, compatible with previous anterior infarction with minimal darryn-infarct ischemia. Impression: 1. Pharmacologic (Regadenoson) evaluation 2. Peak pharmacologic ECG with no diagnostic changes. 3. There were no cardiac dysrhythmias pretest, during pharmacologic infusion, or recovery. 5. 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 This note was generated with [employer] software. It may contain incorrect words, spelling, and punctuation that were not noted in checking the note before signing.
== END | disposition home or self-care (01) ==
PROVIDERS: PCP Nurse Practitioner Family; Referring Provider Internal Medicine Cardiovascular Disease; Visit Provider Internal Medicine Cardiovascular Disease
DX: I11.0 Hypertensive heart disease with heart failure (principal); I50.22 Chronic systolic (congestive) heart failure; I25.10 Atherosclerotic heart disease of native coronary artery without angina pectoris; R73.9 Hyperglycemia, unspecified; R07.9 Chest pain, unspecified; E78.5 Hyperlipidemia, unspecified
CPT/HCPCS: 36415; 78452; 80053; 80061; 84443; 85027; 93017; 93306; A9500; Q9957; A4216; C8929; J2785